=== PATIENT | male | born 1980 | race Caucasian/White ===

== ENCOUNTER 2020-10-10 09:56 | Emergency (ER) | payer OTHER ==
[2020-10-10] MEDS ORDERED: BABY ASPIRIN 81 MG CHEW PO ONE (10:51)
[2020-10-10] MEDS ORDERED: Pepcid 20 MG VIAL IV ONE ×2 (10:51→10:55)
[2020-10-10] MEDS ORDERED: BABY ASPIRIN 81 MG CHEW ONE (10:55)
[2020-10-10 10:57] LABS: BASOPHIL % 0.6 % (0.0-0.4); Basophil (Absolute #) 0.03 (0-0.4); Eosinophil % 2.1 % (0.00-5.0); Eosinophil (Absolute #) 0.11 (0-0.5); Hematocrit 49.7 % (42-50); Hemoglobin 17.2 gm/dl (12.5-18.0); Lymphocyte (Absolute #) 1.52 (1.0-4.6); Lymphocytes % 29.6 % (24.0-44.0); Mean Cell Volume 84.7 fl (78-100); Mean Corpuscular Hemoglobin 29.3 pg (26-32); Mean Corpuscular Hgb Concent. 34.6 g/dl (32-36); Mean Platelet Volume 10.7 fl (7.5-11.0); Monocyte (Absolute #) 0.47 (0.0-1.3); Monocytes % 9.2 % (0.0-12.0); Neutrophil % 58.5 % (36.0-66.0); Platelet Count 217 K/mm3 (150-450); Red Blood Count 5.87 M/mm3 (4.1-5.6); Red Cell Distribution Width 13.4 % (11.5-14.0); White Blood Count 5.1 K/mm3 (4.0-10.5)
[2020-10-10 11:13] LABS: ALBUMIN 4.7 g/dL (3.5-5.0); ALKALINE PHOSPHATASE 67 U/L (38-126); ANION GAP 10.6 MEQ/L (5-15); BLOOD UREA NITROGEN 13 mg/dL (9-20); CHLORIDE 104 mmol/L (98-107); Calcium 9.7 mg/dL (8.4-10.2); Carbon Dioxide 28 mmol/L (22-30); Creatinine 1 0.86 mg/dL (0.66-1.25); EST GLOMERULAR FILTRATION RATE > 60.0 ML/MIN; Glucose 116 mg/dL (74-106); NT PRO BNP 48.5 pg/mL (0-450); Potassium 3.7 mmol/L (3.5-5.1); SGOT/AST 39 U/L (17-59); SGPT/ALT 25 U/L (0-50); SODIUM 139 mmol/L (137-145)
[2020-10-10 11:37] VITALS: O2SAT 98
--- NOTE | 2020-10-10 12:23 | ERPHSYRPT ---
- History of Present Illness Time Seen by Provider: 10/10/20 10:10 Historian: patient Exam Limitations: no limitations Patient Subjective Stated Complaint: Pt states "I have had chest pain since yesterday and I woke up this morning and have no taste." Triage Nursing Assessment: Pt presented alert and oriented X 3, skin pwd. Pt ambulates with an upright steady gait, able to speak in clear full sentences pt in no apparent respiratory distress Pt resting comfortably on the bed. Physician History: 40 years old male presented in the ER with chief complaint of left-sided chest pain since yesterday off-and-on, mild to moderate intensity without any significant aggravating or relieving factors. Denies associated palpitations or shortness of breath but has some pain with deep breathing. Has subjective feeling of fever and chills since yesterday along with loss of taste this morning with generalized weakness fatigue and body aches. Does not know any known sick COVID-19 contact. No abdominal pain nausea or vomiting. Timing/Duration: yesterday, sudden, worse Quality: aching Location: substernal Chest Pain Radiation: no radiation Severity of Pain-Max: moderate Severity of Pain-Current: mild Modifying Factors: Improves With: nothing Associated Symptoms: hurts to breathe, chills, fever, fatigue, weakness, No pa lpitations, No abdominal pain, No shortness of breath, No cough Prior Chest Pain/Cardiac Workup: no prior chest pain Nitro Today/Relief: no nitro taken today Aspirin Treatment Today: no aspirin today Allergies/Adverse Reactions: UNOBTAINABLE Allergy (Verified 10/10/20 10:17) pt states he is allergic to a medication but cannot remember what it is. Home Medications: Fluticasone Propionate [Flovent 110 Mcg MDI] 1 puff IH DAILY 10/10/20 [History] Omeprazole 20 mg PO DAILY 10/10/20 [History] Hx Tetanus, Diphtheria Vaccination/Date Given: No Hx Influenza Vaccination/Date Given: No Hx Pneumococcal Vaccination/Date Given: No Immunizations Up to Date: Yes Travel Risk - International Travel Have you traveled outside of the country in past 3 weeks: No If Yes, where;: N - Coronavirus Screening Are you exhibiting any of the following symptoms?: Yes Symptoms: Cough: New Onset, Shortness of Breath, Loss of Taste or Smell Close contact with a COVID-19 positive Pt in past 14-21 Days: No - Review of Systems Constitutional: Fever, Chills, Fatigue, Malaise, Weakness Eyes: No Symptoms Ears, Nose, & Throat: No Symptoms Respiratory: No Symptoms Cardiac: Chest Pain Abdominal/Gastrointestinal: No Symptoms Genitourinary Symptoms: No Symptoms Musculoskeletal: Myalgias Skin: No Symptoms Neurological: No Symptoms Psychological: No Symptoms Endocrine: No Symptoms Hematologic/Lymphatic: No Symptoms Immunological/Allergic: No Symptoms - Past Medical History Pertinent Past Medical History: Yes Other Medical History: asthma. cva. gerd - Past Surgical History Past Surgical History: No - Social History Smoking Status: Never smoker Exposure to second hand smoke: No Drug Use: none Patient Lives Alone: No - Nursing Vital Signs Nursing Vital Signs: Initial Vital Signs Temperature 99.2 F 10/10/20 10:07 Pulse Rate 66 10/10/20 10:07 Respiratory Rate 22 10/10/20 10:07 Blood Pressure 135/85 10/10/20 10:07 O2 Sat by Pulse Oximetry 97 10/10/20 10:07 Pain Scale Pain Intensity 0 - Physical Exam General Appearance: no apparent distress, alert Eye Exam: PERRL/EOMI, eyes nml inspection Ears, Nose, Throat Exam: normal ENT inspection, TMs normal, pharynx normal Neck Exam: normal inspection, non-tender, supple, full range of motion Respiratory Exam: normal breath sounds, lungs clear, No chest tenderness Cardiovascular Exam: regular rate/rhythm, normal heart sounds Gastrointestinal/Abdomen Exam: soft, normal bowel sounds, No tenderness Back Exam: normal inspection, normal range of motion Extremity Exam: normal inspection, normal range of motion Neurologic Exam: alert, oriented x 3, cooperative Skin Exam: normal color, warm SpO2 Interpretation: normal SpO2: 98 O2 Delivery: Room Air - Course EKG Interpreted by Me: RATE (63), Sinus Rhythm, NORMAL AXIS, NORMAL INTERVALS, NORMAL QRS Ordered Tests: Active Orders 24 hr Category Date Time Status Accounting Technician STAT Care 10/10/20 10:52 Active EKG-ER Only STAT Care 10/10/20 10:51 Active IV Insertion STAT Care 10/10/20 10:51 Active CHEST 1 VIEW (PORTABLE) Stat Exams 10/10/20 10:51 Taken CBC W DIFF Stat Lab 10/10/20 10:51 Completed CMP Stat Lab 10/10/20 10:51 Completed D-DIMER QUANTITATIVE Stat Lab 10/10/20 10:51 Completed NT PRO BNP Stat Lab 10/10/20 10:51 Completed TROPONIN Q3H Lab 10/10/20 11:00 Completed TROPONIN Q3H Lab 10/10/20 13:11 Completed TROPONIN Q3H Lab 10/10/20 17:00 Ordered TROPONIN Q3H Lab 10/10/20 20:00 Ordered TROPONIN Q3H Lab 10/10/20 23:00 Ordered Medication Summary Discontinued Medications Generic Name Dose Route Start Last Admin Trade Name Freq PRN Reason Stop Dose Admin Aspirin 324 mg 10/10/20 10:51 10/10/20 10:56 Baby Aspirin 81 Mg Chew PO 10/10/20 10:52 324 mg STAT ONE Administration Aspirin Confirm 10/10/20 10:55 Baby Aspirin 81 Mg Chew Administered 10/10/20 10:56 Dose 324 mg .ROUTE .STK-MED ONE Famotidine 20 mg 10/10/20 10:51 10/10/20 10:56 Pepcid 20 Mg Vial IV 10/10/20 10:52 20 mg STAT ONE Administration Famotidine Confirm 10/10/20 10:55 Pepcid 20 Mg Vial Administered 10/10/20 10:56 Dose 20 mg IV .STK-MED ONE Lab/Rad Data: Laboratory Result Diagrams 10/10/20 10:51 10/10/20 10:51 Laboratory Results 10/10/20 10/10/20 10/10/20 Range/Units 13:11 11:00 10:51 WBC (4.0-10.5) K/mm3 RBC (4.1-5.6) M/mm3 Hgb (12.5-18.0) gm/dl Hct (42-50) % MCV (78-100) fl MCH (26-32) pg MCHC (32-36) g/dl RDW (11.5-14.0) % Plt Count (150-450) K/mm3 MPV (7.5-11.0) fl Gran % (36.0-66.0) % Eos # (Auto) (0-0.5) Absolute Lymphs (auto) (1.0-4.6) Absolute Monos (auto) (0.0-1.3) Lymphocytes % (24.0-44.0) % Monocytes % (0.0-12.0) % Eosinophils % (0.00-5.0) % Basophils % (0.0-0.4) % Absolute Granulocytes (1.4-6.9) Basophils # (0-0.4) D-Dimer 251 (215-500) ng/mL Sodium (137-145) mmol/L Potassium (3.5-5.1) mmol/L Chloride (98-107) mmol/L Carbon Dioxide (22-30) mmol/L Anion Gap (5-15) MEQ/L BUN (9-20) mg/dL Creatinine (0.66-1.25) mg/dL Estimated GFR ML/MIN Glucose (74-106) mg/dL Calcium (8.4-10.2) mg/dL Total Bilirubin (0.2-1.3) mg/dL AST (17-59) U/L ALT (0-50) U/L Alkaline Phosphatase (38-126) U/L Troponin I < 0.012 < 0.012 (0.000-0.034) ng/mL NT-Pro-B Natriuret Pep (0-450) pg/mL Serum Total Protein (6.3-8.2) g/dL Albumin (3.5-5.0) g/dL 10/10/20 10/10/20 Range/Units 10:51 10:51 WBC 5.1 (4.0-10.5) K/mm3 RBC 5.87 H (4.1-5.6) M/mm3 Hgb 17.2 (12.5-18.0) gm/dl Hct 49.7 (42-50) % MCV 84.7 (78-100) fl MCH 29.3 (26-32) pg MCHC 34.6 (32-36) g/dl RDW 13.4 (11.5-14.0) % Plt Count 217 (150-450) K/mm3 MPV 10.7 (7.5-11.0) fl Gran % 58.5 (36.0-66.0) % Eos # (Auto) 0.11 (0-0.5) Absolute Lymphs (auto) 1.52 (1.0-4.6) Absolute Monos (auto) 0.47 (0.0-1.3) Lymphocytes % 29.6 (24.0-44.0) % Monocytes % 9.2 (0.0-12.0) % Eosinophils % 2.1 (0.00-5.0) % Basophils % 0.6 (0.0-0.4) % Absolute Granulocytes 3.00 (1.4-6.9) Basophils # 0.03 (0-0.4) D-Dimer (215-500) ng/mL Sodium 139 (137-145) mmol/L Potassium 3.7 (3.5-5.1) mmol/L Chloride 104 (98-107) mmol/L Carbon Dioxide 28 (22-30) mmol/L Anion Gap 10.6 (5-15) MEQ/L BUN 13 (9-20) mg/dL Creatinine 0.86 (0.66-1.25) mg/dL Estimated GFR > 60.0 ML/MIN Glucose 116 H (74-106) mg/dL Calcium 9.7 (8.4-10.2) mg/dL Total Bilirubin 0.50 (0.2-1.3) mg/dL AST 39 (17-59) U/L ALT 25 (0-50) U/L Alkaline Phosphatase 67 (38-126) U/L Troponin I (0.000-0.034) ng/mL NT-Pro-B Natriuret Pep 48.5 (0-450) pg/mL Serum Total Protein 8.0 (6.3-8.2) g/dL Albumin 4.7 (3.5-5.0) g/dL - Progress Progress: improved Air Movement: good Progress Note: 10/10/20 14:30 4 years old is evaluated for chest pain since yesterday. EKG showed normal sinus rhythm with no acute ST elevations or depressions. Negative troponins x2. Negative D-dimers. Chest x-ray negative for any acute cardiopulmonary findings. Normal white count. Grossly unremarkable chemistries. Patient is feeling better on reevaluation. No obvious respiratory distress. I have obtained COVID-19 testing which is pending now. I believe his symptoms could be a viral etiology/suspected COVID-19/viral syndrome. Recommended outpatient follow-up. At this point do not think patient needs to be hospitalized and needs any work-up and is stable for discharge with outpatient follow-up. Discussed signs symptoms of worsening needing return to ER which he seems understanding Blood Culture(s) Obtained: No Antibiotics given: No Counseled pt/family regarding: lab results, diagnosis, need for follow-up - Departure Departure Disposition: Home Clinical Impression: Atypical chest pain, Suspected COVID-19 virus infection Condition: Stable Critical Care Time: No Referrals: [facility] [Primary Care Provider] - Follow Up with PCP/3 days Instructions: Chest Pain (DC) Additional Instructions: Use contact/droplet precautions all the time. Self quarantine until your COVID- 19 test is back. Follow-up with primary care for reevaluation. Return to ER for any worsening.
[2020-10-10 14:03] VITALS: BP 120/76; PULSE 78
--- NOTE | 2020-10-10 17:59 | XRAY ---
Indication: Suspect Covid 19. Comparison: None Portable chest demonstrates normal heart, lungs, and bony thorax.
== END 2020-10-10 14:40 | disposition home or self-care (01) ==
LOC: ED 09:56
DX: R07.89 Other chest pain (principal); Z20.828 Contact with and (suspected) exposure to other viral communicable diseases; R50.9 Fever, unspecified; R53.83 Other fatigue
CPT/HCPCS: 36000; 36415; 71045; 80053; 83880; 84484; 85025; 85379; 93005; 93041; 96374; 99284; U0003; A9270-GY

== ENCOUNTER 2021-12-21 05:47 | Day surgery (SDC) | payer OTHER ==
[2021-12-21 06:22] VITALS: O2SAT 95
[2021-12-21] MEDS ORDERED: Lactated Ringers 1,000 ML IV SCH (06:30)
[2021-12-21] MEDS ORDERED: DIPRIVAN 200 MG/20 ML IV ONE ×2 (07:24→07:41)
[2021-12-21] MEDS ORDERED: Versed 2 MG/2 ML Injection ONE (07:24)
[2021-12-21 08:30] VITALS: BP 120/72; PULSE 66
--- NOTE | 2021-12-21 10:11 | OP ---
SURGERY DATE/TIME: 12/21/2021 5504 PREOPERATIVE DIAGNOSIS: Chronic gastritis. POSTOPERATIVE DIAGNOSIS: Mild antral gastritis. PROCEDURE: Esophagogastroduodenoscopy with biopsy using cold biopsy forceps. SURGEON: Dr. Nye. ANESTHESIA: Medications were given by the anesthesia department. BRIEF HISTORY: The patient is a 41-year-old white male patient who presents now with having problems with chronic gastritis. He is on omeprazole 40 mg a day. He reports he has been having problems for the last year and a half. He does report he takes ibuprofen for headaches. He gets migraine headaches that he gets approximately once a week. The patient is felt the need to have endoscopic evaluation. He was appraised of the risks of the procedure including the risk of perforation, phlebitis, untoward reaction to medication, bleeding and missed lesions. The patient verbalized his understanding and desired to have the procedure performed. DESCRIPTION OF PROCEDURE: The patient was given the medications by the anesthesia department. He had continuous pulse oximetry, ECG monitoring, intermittent blood pressure monitoring during the examination. He was placed in the left lateral decubitus position. A bite block was placed. The flexible Olympus gastroscope was used to intubate the oropharynx. A view of the larynx was obtained and was normal. The scope was easily introduced in the esophagus which appeared to be normal throughout its length. The stomach was entered where normal gastric rugal folds were seen and these distended nicely with insufflation of air. The scope was passed along the greater curvature of the stomach to the antrum. The pylorus was encountered and intubated. The duodenum inspected found to be normal. The scope is withdrawn towards the stomach. A retroflex view was obtained of the lesser curvature, fundus and cardia regions of the stomach and these appeared to be essentially normal. The scope was then redirected towards the gastric antrum and biopsies were obtained using cold biopsy technique to rule out the presence of underlying Helicobacter pylori-type organisms. The scope was then removed from the patient who tolerated the procedure well and was sent back to the outpatient recovery in good condition.
== END 2021-12-21 08:35 | disposition home or self-care (01) ==
LOC: SDC 05:47
PROVIDERS: ATTEND Family Medicine
DX: K29.50 Unspecified chronic gastritis without bleeding (principal)
CPT/HCPCS: J2250; J2704

== ENCOUNTER 2022-02-06 21:55 | Emergency (ER) | payer OTHER ==
[2022-02-06] MEDS ORDERED: Zofran 4 MG/2 ML VIAL IV ONE (22:22)
[2022-02-06] MEDS ORDERED: Sodium Chloride 0.9% 1000 ML 1,000 ML IV STA (22:22)
[2022-02-06] MEDS ORDERED: SUBLIMAZE 100 MCG/2 ML IV ONE (22:22)
--- NOTE | 2022-02-06 22:28 | ERPHSYRPT ---
- History of Present Illness Time Seen by Provider: 02/06/22 22:00 Source: patient, EMS Exam Limitations: no limitations Patient Subjective Stated Complaint: Pt states " I fell off my concrete steps and fell back, my neck, R shoulder, and back pain" Triage Nursing Assessment: Pt presents to ED via ambulance, pt fell back off 3 concrete steps and landed on his back and head, pt denies LOC, pt c/o neck pain, back pain, and R shoulder pain, pt has C collar in place and is on a back board, Pt is c/o numbness in bilateral toes, pt able to move R toes but can only move the first digit on L foot, skin color pink warm, and dry, Pupils PERRL, Pt alert and oriented X3, bilateral pedal pulses +2 Physician History: 41-year-old male with a history of GERD, tripped on concrete step and fell backward hitting his head neck and back, was unable to get up. Patient does have history of stroke with left upper and lower extremity numbness at baseline. He is complaining of pain radiating from neck down to the tailbone and some on the right shoulder. Intact movements of right shoulder. No abdominal, chest pain or difficulty breathing. No nausea or vomiting. Occurred: just prior to arrival Reason for Fall: tripped Injuries/Pain Location: head, neck, upper extremity, back Loss of Consciousness: no loss of consciousness Quality: sharpness Severity of Pain-Max: severe Severity of Pain-Current: moderate Modifying Factors: Worsens With: movement Associated Symptoms (Fall): muscle spasms Allergies/Adverse Reactions: No Known Drug Allergies Allergy (Unverified 12/21/21 06:45) Home Medications: Omeprazole 40 mg PO DAILY 10/10/20 [History] Cholecalciferol (Vitamin D3) [Vitamin D] 50,000 unit PO WEEKLY 12/17/21 [History] Hx Tetanus, Diphtheria Vaccination/Date Given: No Hx Influenza Vaccination/Date Given: No Hx Pneumococcal Vaccination/Date Given: No Immunizations Up to Date: No Travel Risk - International Travel Have you traveled outside of the country in past 3 weeks: No - Coronavirus Screening Are you exhibiting any of the following symptoms?: No - Vaccine Status Have you recieved a Covid-19 vaccination: Yes 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: [employer] - Review of Systems Constitutional: No Symptoms Eyes: No Symptoms Ears, Nose, & Throat: No Symptoms Respiratory: No Symptoms Cardiac: No Symptoms Abdominal/Gastrointestinal: No Symptoms Genitourinary Symptoms: No Symptoms Musculoskeletal: Back Pain, Neck Pain, Injury Skin: No Symptoms Neurological: Headache Psychological: No Symptoms Endocrine: No Symptoms Hematologic/Lymphatic: No Symptoms Immunological/Allergic: No Symptoms - Past Medical History Pertinent Past Medical History: Yes Neurological History: Stroke ENT History: No Pertinent History Cardiac History: No Pertinent History Respiratory History: Asthma Endocrine Medical History: No Pertinent History Musculoskeletal History: No Pertinent History GI Medical History: GERD History: No Pertinent History Psycho-Social History: No Pertinent History Male Reproductive Disorders: No Pertinent History Other Medical History: asthma. cva. 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 - Social History Smoking Status: Current every day smoker Exposure to second hand smoke: No Drug Use: none Patient Lives Alone: No - Nursing Vital Signs Nursing Vital Signs: Initial Vital Signs Temperature 97.8 F 02/06/22 21:58 Pulse Rate 77 02/06/22 21:58 Respiratory Rate 14 02/06/22 21:58 Blood Pressure 129/93 02/06/22 21:58 O2 Sat by Pulse Oximetry 98 02/06/22 21:58 Pain Scale Pain Intensity 7 - Ryley Coma Score Best Eye Response (Ryley): (4) open spontaneously Best Verbal Response (Lyons): (5) oriented Best Motor Response (Lyons): (6) obeys commands Ryley Total: 15 - Physical Exam General Appearance: no apparent distress, alert, anxiety Head Injury: no evidence of injury, No Santizo's Sign Eye Exam: PERRL/EOMI, eyes nml inspection ENT Exam: airway nml, No evidence of ENT injury Neck Exam: supple, trachea midline, normal alignment, c-collar in place Respiratory/Chest Exam: normal breath sounds, respiratory distress, No chest tenderness Cardiovascular Exam: normal heart sounds, regular rate/rhythm Gastrointestinal Exam: soft, normal bowel sounds, No tenderness Back Exam: normal inspection, vertebral tenderness (Thoracic and lumbar spine), No CVA tenderness Extremity Exam: normal inspection, normal range of motion, capillary refill <3 sec, pelvis stable Neurologic Exam: alert, oriented x 3, cooperative, machine stemmer 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 tested, normal mood/affect, nml cerebellar function, sensation nml Skin Exam: normal color SpO2 Interpretation: normal SpO2: 98 O2 Delivery: Room Air Ordered Tests: Active Orders 24 hr Category Date Time Status IV Insertion STAT Care 02/06/22 22:22 Active NPO (ED) STAT Care 02/06/22 22:22 Active ABDOMEN AND PELVIS W CONTRAST [CT] Stat Exams 02/06/22 22:21 Taken CERVICAL SPINE WO CONTRAST [CT] Stat Exams 02/06/22 22:21 Taken CHEST WITH CONTRAST [CT] Stat Exams 02/06/22 22:22 Taken HEAD WITHOUT CONTRAST [CT] Stat Exams 02/06/22 22:21 Taken LUMBAR SPINE W/O [CT] Stat Exams 02/06/22 22:22 Taken THORACIC SPINE W/O CONTRAST [CT] Stat Exams 02/06/22 22:22 Taken CBC W DIFF Stat Lab 02/06/22 22:29 Completed CMP Stat Lab 02/06/22 22:29 Completed LIPASE Stat Lab 02/06/22 22:29 Completed UA W/RFX UR CULTURE Stat Lab 02/06/22 23:42 Ordered Medication Summary Discontinued Medications Generic Name Dose Route Start Last Admin Trade Name Liseth PRN Reason Stop Dose Admin Fentanyl Citrate 50 mcg 02/06/22 22:22 02/06/22 22:31 Fentanyl Citrate 100 Mcg/2 Ml* Vial IV 02/06/22 22:23 50 mcg STAT ONE Administration Fentanyl Citrate Confirm 02/06/22 22:29 Fentanyl Citrate 100 Mcg/2 Ml* Vial Administered 02/06/22 22:30 Dose 100 mcg .ROUTE .STK-MED ONE Sodium Chloride 1,000 mls @ 999 mls/hr 02/06/22 22:22 02/06/22 22:31 Sodium Chloride 0.9% 1000 Ml IV 02/06/22 23:22 999 mls/hr .Q1H1M STA Administration Sodium Chloride Confirm 02/06/22 22:30 Sodium Chloride 0.9% 1000 Ml Administered 02/06/22 22:31 Dose 1,000 mls @ ud .ROUTE .STK-MED ONE Ondansetron HCl 4 mg 02/06/22 22:22 02/06/22 23:52 Ondansetron Hcl 4 Mg/2 Ml Vial IV 02/06/22 22:23 Not Given STAT ONE Lab/Rad Data: Laboratory Result Diagrams 02/06/22 22:29 02/06/22 22:29 Laboratory Results 02/06/22 02/06/22 Range/Units 22:29 22:29 WBC 7.1 (4.0-10.5) K/mm3 RBC 5.44 (4.1-5.6) M/mm3 Hgb 16.5 (12.5-18.0) gm/dl Hct 46.4 (42-50) % MCV 85.3 (78-100) fl MCH 30.3 (26-32) pg MCHC 35.6 (32-36) g/dl RDW 13.4 (11.5-14.0) % Plt Count 216 (150-450) K/mm3 MPV 10.4 (7.5-11.0) fl Gran % 48.9 (36.0-66.0) % Eos # (Auto) 0.15 (0-0.5) Absolute Lymphs (auto) 2.81 (1.0-4.6) Absolute Monos (auto) 0.60 (0.0-1.3) Lymphocytes % 39.9 (24.0-44.0) % Monocytes % 8.5 (0.0-12.0) % Eosinophils % 2.1 (0.00-5.0) % Basophils % 0.6 (0.0-0.4) % Absolute Granulocytes 3.45 (1.4-6.9) Basophils # 0.04 (0-0.4) Sodium 138 (137-145) mmol/L Potassium 3.5 (3.5-5.1) mmol/L Chloride 101 (98-107) mmol/L Carbon Dioxide 25 (22-30) mmol/L Anion Gap 14.5 (5-15) MEQ/L BUN 10 (9-20) mg/dL Creatinine 0.92 (0.66-1.25) mg/dL Estimated GFR > 60.0 ML/MIN Glucose 69 L (74-106) mg/dL Calcium 9.4 (8.4-10.2) mg/dL Total Bilirubin 0.60 (0.2-1.3) mg/dL AST 33 (17-59) U/L ALT 32 (0-50) U/L Alkaline Phosphatase 56 (38-126) U/L Serum Total Protein 7.4 (6.3-8.2) g/dL Albumin 4.5 (3.5-5.0) g/dL Lipase 158 (23-300) U/L - Progress Progress: improved Progress Note: 02/06/22 23:57 41-year-old is evaluated for fall with back pain. Trauma scans are obtained which are negative for any acute trauma related findings. C-collar is removed and is able to move his neck in all direction without any limitation. I believe patient has contusion, recommended supportive care. Counseled pt/family regarding: lab results, diagnosis, need for follow-up, rad results - Departure Departure Disposition: Home Clinical Impression: Back contusion, Scalp contusion, Fall Condition: Stable Critical Care Time: No Referrals: [facility] MD [Primary Care Provider] - Follow up/PCP as directed (1-2 days for reevaluation) Instructions: Contusion (DC), Closed Head Injury (DC) Additional Instructions: Take Tylenol/ibuprofen as needed. Follow head injury instructions and return to ER for any worsening.
[2022-02-06] MEDS ORDERED: SUBLIMAZE 100 MCG/2 ML ONE (22:29)
[2022-02-06] MEDS ORDERED: Sodium Chloride 0.9% 1000 ML 1,000 ML ONE (22:30)
[2022-02-06 22:32] LABS: Absolute Neutrophil Ct (ANC) 3.45 (1.4-6.9); Basophil (Absolute #) 0.04 (0-0.4); Eosinophil % 2.1 % (0.00-5.0); Eosinophil (Absolute #) 0.15 (0-0.5); Hematocrit 46.4 % (42-50); Hemoglobin 16.5 gm/dl (12.5-18.0); Lymphocyte (Absolute #) 2.81 (1.0-4.6); Lymphocytes % 39.9 % (24.0-44.0); Mean Cell Volume 85.3 fl (78-100); Mean Corpuscular Hemoglobin 30.3 pg (26-32); Mean Corpuscular Hgb Concent. 35.6 g/dl (32-36); Mean Platelet Volume 10.4 fl (7.5-11.0); Monocytes % 8.5 % (0.0-12.0); Neutrophil % 48.9 % (36.0-66.0); Platelet Count 216 K/mm3 (150-450); Red Blood Count 5.44 M/mm3 (4.1-5.6); Red Cell Distribution Width 13.4 % (11.5-14.0); White Blood Count 7.1 K/mm3 (4.0-10.5)
[2022-02-06 22:43] LABS: ALBUMIN 4.5 g/dL (3.5-5.0); ALKALINE PHOSPHATASE 56 U/L (38-126); ANION GAP 14.5 MEQ/L (5-15); BLOOD UREA NITROGEN 10 mg/dL (9-20); CHLORIDE 101 mmol/L (98-107); Calcium 9.4 mg/dL (8.4-10.2); Carbon Dioxide 25 mmol/L (22-30); Creatinine 1 0.92 mg/dL (0.66-1.25); EST GLOMERULAR FILTRATION RATE > 60.0 ML/MIN; Glucose 69 mg/dL (74-106); LIPASE 158 U/L (23-300); Potassium 3.5 mmol/L (3.5-5.1); SGOT/AST 33 U/L (17-59); SGPT/ALT 32 U/L (0-50); SODIUM 138 mmol/L (137-145); Total Protein 7.4 g/dL (6.3-8.2)
[2022-02-07 00:16] LABS: Appearance CLEAR (CLEAR); Bilirubin SMALL (NEGATIVE); Dipstick done @ ? MAIN LAB; Glucose 100 mg/dL (NEGATIVE); Ketones SMALL (NEGATIVE); Nitrite NEGATIVE (NEGATIVE); Ph 7.5 (5-6); Protein,Urine Dip NEGATIVE (Negative); RBC NEGATIVE Ery/ul (0-5); Specific Gravity 1.015 (1.005-1.025); Urobilinogen 0.2 mg/dL (0-1)
[2022-02-07 00:28] VITALS: BP 120/79; PULSE 58; O2SAT 100
[2022-02-07 01:34] LABS: Urine Cultured Indicated? NO
--- NOTE | 2022-02-07 09:06 | XRAY ---
Indication: Head trauma. Status post fall. Multiple contiguous axial images obtained through the head without contrast. Comparison: None Normal appearing brain parenchyma, ventricles, and bony calvarium. Minimal mucosal thickening both maxillary sinuses. Mastoid air cells are clear. Impression: Normal CT head without contrast exam. Incidental paranasal sinus disease. Comment: Preliminary interpretation made by [facility]. No critical discrepancy.
--- NOTE | 2022-02-07 09:08 | XRAY ---
Indication: Head trauma. Status post fall. Multiple contiguous axial images obtained through the cervical spine. Sagittal and coronal reformatted images obtained. Comparison: None Axial images negative for acute fracture, suspicious bony lesions, or spinal canal stenosis. Minimal C5-C6 degenerative endplate spurring. Facets are symmetric. Sagittal and coronal reformatted images demonstrates normal alignment with vertebral body heights/disc spaces maintained. No acute compression fracture, subluxation, or jumped facet. Normal appearing craniocervical junction. Visualized noncontrasted soft tissues are unremarkable. Impression: Minimal C5-C6 degenerative changes. Remaining CT cervical spine is normal. Comment: Preliminary interpretation made by [facility]. No critical discrepancy.
--- NOTE | 2022-02-07 09:11 | XRAY ---
Indication: Trauma. Status post fall. Multiple contiguous axial images obtained through the chest using 100 cc Isovue 370 contrast. Comparison: None Lungs demonstrates mild bilateral dependent atelectasis and small right upper lobe calcified granuloma. Remaining lungs inflated and clear. Heart is not enlarged. Aorta is normal in course and caliber. Small right suprahilar calcified nodes. No pathologic mediastinal/hilar lymphadenopathy. Bony thorax demonstrates minimal degenerative changes throughout the spine. Impression: 1. Minimal multilevel degenerative spondylosis and old granulomatous disease. 2. Remaining CT chest with contrast exam is negative. Comment: Preliminary interpretation made by [facility]. No critical discrepancy.
--- NOTE | 2022-02-07 09:16 | XRAY ---
Indication: Trauma. Status post fall. Multiple contiguous axial images obtained through the abdomen and pelvis chest using 100 cc Isovue 370 contrast. Comparison: None Stomach is distended with food/fluid. Noncontrasted stomach and bowel loops appear nonobstructed. Appendectomy reported. Urinary bladder is markedly distended. Mild diffuse fatty liver. Remaining liver, gallbladder, pancreas, spleen, adrenal glands, kidneys, ureters, bladder, and aorta are unremarkable. No pathologic retroperitoneal lymphadenopathy. Osseous structures intact with minimal degenerative changes throughout the thoracolumbar spine and incidental 5 mm left femur head bone island. Impression: 1. Markedly distended urinary bladder. Rule out outlet obstruction versus neurogenic bladder. 2. Fatty liver. 3. Remaining CT abdomen/pelvis with contrast exam is negative. Comment: Preliminary interpretation made by [facility]. No critical discrepancy.
--- NOTE | 2022-02-07 09:19 | XRAY ---
Indication: Trauma. Status post fall. Multiple contiguous axial images obtained through the thoracic spine. Sagittal and coronal reformatted images obtained. Comparison: None. There is a thoracic radiograph June 07, 2013. Axial images negative for acute fracture, suspicious bony lesions, or spinal canal stenosis. Minimal T8-T11 anterior endplate spurring. Sagittal and coronal reformatted images demonstrates normal alignment with vertebral body heights/disc spaces maintained. No acute compression fracture or subluxation. CT chest reported separately. Impression: Again minimal T8-T11 anterior endplate spurring. Remaining CT thoracic spine is negative. Comment: Preliminary interpretation made by [facility]. No critical discrepancy.
--- NOTE | 2022-02-07 09:21 | XRAY ---
Indication: Trauma. Status post fall. Multiple contiguous axial images obtained through the lumbar spine. Sagittal and coronal reformatted images obtained. Comparison: None. There is a lumbar radiograph June 07, 2013. Axial images negative for acute fracture, suspicious bony lesions, or spinal canal stenosis. Mild broad-based L5-S1 disc bulge. Facets are symmetric. Sagittal and coronal reformatted images demonstrates normal alignment with L5-S1 disc space narrowing. Remaining vertebral body heights/disc spaces maintained. No acute compression fracture or subluxation. CT abdomen/pelvis reported separately. Impression: New L5-S1 degenerative disc disease. Remaining CT lumbar spine is negative. Comment: Preliminary interpretation made by [facility]. No critical discrepancy.
== END 2022-02-07 00:28 | disposition home or self-care (01) ==
LOC: ED 21:55
DX: S30.0XXA Contusion of lower back and pelvis, initial encounter (principal); S00.03XA Contusion of scalp, initial encounter; W10.8XXA Fall (on) (from) other stairs and steps, initial encounter; M54.50 Low back pain, unspecified; R51.9 Headache, unspecified; M25.511 Pain in right shoulder; I69.398 Other sequelae of cerebral infarction; R20.0 Anesthesia of skin; Z72.0 Tobacco use; K21.9 Gastro-esophageal reflux disease without esophagitis
CPT/HCPCS: 36000; 36415; 70450; 71260; 72125; 72128; 72131; 74177; 80053; 81015; 83690; 85025; 96360; 96374; 99284; J3010

== ENCOUNTER 2022-10-08 18:01 | Observation (INO) | payer OTHER ==
[2022-10-08] MEDS ORDERED: MORPHINE SULFATE 4 MG INJ IV ONE (18:03)
[2022-10-08] MEDS ORDERED: BABY ASPIRIN 81 MG CHEW PO ONE (18:03)
[2022-10-08] MEDS ORDERED: Zofran 4 MG/2 ML VIAL IV ONE (18:03)
[2022-10-08] MEDS ORDERED: Zofran 4 MG/2 ML VIAL ONE (18:12)
[2022-10-08] MEDS ORDERED: BABY ASPIRIN 81 MG CHEW ONE (18:12)
[2022-10-08] MEDS ORDERED: MORPHINE SULFATE 4 MG INJ ONE (18:13)
[2022-10-08 18:18] LABS: Absolute Neutrophil Ct (ANC) 3.82 x10^3/uL (1.4-6.9); Basophil (Absolute #) 0.08 x10^3/uL (0-0.4); Eosinophil % 1.6 % (0.00-5.0); Hematocrit 45.1 % (42-50); Hemoglobin 15.7 g/dL (12.5-18.0); Lymphocyte (Absolute #) 1.62 x10^3/uL (1.0-4.6); Lymphocytes % 26.6 % (24.0-44.0); Mean Cell Volume 83.8 fL (78-100); Mean Corpuscular Hemoglobin 29.2 pg (26-32); Mean Corpuscular Hgb Concent. 34.8 g/dL (32-36); Mean Platelet Volume 10.2 fL (7.5-11.0); Monocyte (Absolute #) 0.45 x10^3/uL (0.0-1.3); Monocytes % 7.4 % (0.0-12.0); Neutrophil % 62.9 % (36.0-66.0); Platelet Count 236 x10^3/uL (150-450); Red Blood Count 5.38 x10^6/uL (4.1-5.6); Red Cell Distribution Width 12.6 % (11.5-14.0); White Blood Count 6.1 x10^3/uL (4.0-10.5)
--- NOTE | 2022-10-08 18:38 | ERPHSYRPT ---
- History of Present Illness Time Seen by Provider: 10/08/22 18:11 Historian: patient Exam Limitations: no limitations Patient Subjective Stated Complaint: Pt was at work and had just left the restroom when he suddenly broke out into a cold sweat, got lightheaded, had some sharp chest pain Triage Nursing Assessment: Pt brought self to the ER, vitals wnl, rates pain as 9.5/10 in his chest, states that he is having stabbing pains and it is going up to his shoulder now and to his back and down his arm, bounding pulses, skin n/w/d, hx of a stroke but doesn't take any meds for it Physician History: 42 years old male with history of previous stroke, no residual weakness but some numbness on the left side, not on any medication presented to the ER with chief complaint of substernal chest pain sudden onset after he use restroom, got lightheaded, sweaty and sharp stabbing chest pain 10/10 intensity with some radiation to the left arm, no significant aggravating or relieving factors. Denies palpitations or shortness of breath. No previous history of coronary artery disease. Timing/Duration: hour(s) (0.5), constant, sudden, worse Activities at Onset: other Quality: sharpness Location: substernal, central Chest Pain Radiation: arm Severity of Pain-Max: severe Severity of Pain-Current: severe Modifying Factors: Improves With: nothing Associated Symptoms: denies symptoms Prior Chest Pain/Cardiac Workup: no prior chest pain, no prior cardiac workup Nitro Today/Relief: no nitro taken today Aspirin Treatment Today: no aspirin today Allergies/Adverse Reactions: ketorolac [From Toradol] Allergy (Verified 10/08/22 18:26) topiramate [From Topamax] Allergy (Verified 10/08/22 18:26) Home Medications: Naproxen 500 mg [Naprosyn 500 MG] 500 mg PO BID 10/08/22 [History] Hx Tetanus, Diphtheria Vaccination/Date Given: No Hx Influenza Vaccination/Date Given: No Hx Pneumococcal Vaccination/Date Given: No Travel Risk - International Travel Have you traveled outside of the country in past 3 weeks: No - Coronavirus Screening Are you exhibiting any of the following symptoms?: No Close contact with a COVID-19 positive Pt in past 14-21 Days: No - Vaccine Status Have you recieved a Covid-19 vaccination: Yes 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: [employer] - Review of Systems Constitutional: No Symptoms Eyes: No Symptoms Ears, Nose, & Throat: No Symptoms Respiratory: No Symptoms Cardiac: Chest Pain Abdominal/Gastrointestinal: No Symptoms Genitourinary Symptoms: No Symptoms Musculoskeletal: No Symptoms Skin: No Symptoms Neurological: No Symptoms Psychological: No Symptoms Hematologic/Lymphatic: No Symptoms Immunological/Allergic: No Symptoms - Past Medical History Pertinent Past Medical History: Yes Neurological History: Stroke ENT History: No Pertinent History Cardiac History: No Pertinent History Respiratory History: Asthma Endocrine Medical History: No Pertinent History Musculoskeletal History: No Pertinent History GI Medical History: GERD History: No Pertinent History Psycho-Social History: No Pertinent History Male Reproductive Disorders: No Pertinent History Other Medical History: asthma. cva. 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 - Social History Smoking Status: Former smoker Exposure to second hand smoke: No Drug Use: marijuana Patient Lives Alone: No - Nursing Vital Signs Nursing Vital Signs: Initial Vital Signs Temperature 97.3 F 10/08/22 18:04 Pulse Rate 87 10/08/22 18:04 Respiratory Rate 14 10/08/22 18:04 Blood Pressure 128/85 10/08/22 18:04 O2 Sat by Pulse Oximetry 97 10/08/22 18:04 Pain Scale Pain Intensity 4 - Physical Exam General Appearance: no apparent distress, alert Eye Exam: PERRL/EOMI Ears, Nose, Throat Exam: normal ENT inspection, TMs normal, pharynx normal, moist mucous membranes Neck Exam: normal inspection, non-tender, supple, full range of motion Respiratory Exam: normal breath sounds, lungs clear Cardiovascular Exam: regular rate/rhythm, normal heart sounds Gastrointestinal/Abdomen Exam: soft, normal bowel sounds, No tenderness Back Exam: normal inspection, normal range of motion Extremity Exam: normal inspection, normal range of motion Neurologic Exam: alert, oriented x 3, cooperative, 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 Tender STAT Care 10/08/22 18:03 Active EKG-ER Only STAT Care 10/08/22 18:03 Active IV Insertion STAT Care 10/08/22 18:03 Active Oxygen-ED Only Nasal Cannula 2 lpm Care 10/08/22 18:03 Active CHEST 1 VIEW (PORTABLE) Stat Exams 10/08/22 18:03 Completed CBC W DIFF Stat Lab 10/08/22 18:16 Completed CK-Creatinine Phosphokinase Stat Lab 10/08/22 18:16 Completed CMP Stat Lab 10/08/22 18:16 Completed D-DIMER QUANTITATIVE Stat Lab 10/08/22 18:16 Completed NT PRO BNP Stat Lab 10/08/22 18:16 Completed TROPONIN Q4H Lab 10/08/22 18:16 Completed TROPONIN Q4H Lab 10/08/22 21:53 Completed TROPONIN Q4H Lab 10/09/22 02:15 Ordered Transfer Order Routine Transfer 10/08/22 Ordered Medication Summary Generic Name Dose Route Start Last Admin Trade Name Freq PRN Reason Stop Dose Admin Nitroglycerin 1 gm 10/08/22 22:27 10/08/22 22:31 Nitroglycerin 1 Gm Packet TOP 10/08/22 22:28 1 gm STAT ONE Administration Discontinued Medications Generic Name Dose Route Start Last Admin Trade Name Freq PRN Reason Stop Dose Admin Al Hydrox/Mg Hydrox/Simethicone Confirm 10/08/22 21:40 Mag Hydrox/Al Hydrox/Simeth 30 Ml Udcup Administered 10/08/22 21:41 Dose 30 ml .ROUTE .STK-MED ONE Aspirin 324 mg 10/08/22 18:03 10/08/22 18:16 Aspirin 81 Mg Tab.Chew PO 10/08/22 18:04 324 mg STAT ONE Administration Aspirin Confirm 10/08/22 18:12 Aspirin 81 Mg Tab.Chew Administered 10/08/22 18:13 Dose 324 mg .ROUTE .STK-MED ONE Lidocaine HCl Confirm 10/08/22 21:39 Lidocaine Hcl 2% Viscous 15 Ml Udcup Administered 10/08/22 21:40 Dose 15 ml .ROUTE .STK-MED ONE Magnesium Hydroxide 45 ml 10/08/22 21:38 10/08/22 21:42 Mag Hydrx/Alum Hyd/Simeth/Lido 45 Ml Bottle PO 10/08/22 21:39 45 ml STAT ONE Administration Morphine Sulfate 4 mg 10/08/22 18:03 10/08/22 18:16 Morphine Sulfate 4 Mg/Ml Injection IV 10/08/22 18:04 4 mg STAT ONE Administration Morphine Sulfate Confirm 10/08/22 18:13 Morphine Sulfate 4 Mg/Ml Injection Administered 10/08/22 18:14 Dose 4 mg .ROUTE .STK-MED ONE Ondansetron HCl 4 mg 10/08/22 18:03 10/08/22 18:16 Ondansetron Hcl 4 Mg/2 Ml Vial IV 10/08/22 18:04 4 mg STAT ONE Administration Ondansetron HCl Confirm 10/08/22 18:12 Ondansetron Hcl 4 Mg/2 Ml Vial Administered 10/08/22 18:13 Dose 4 mg .ROUTE .STK-MED ONE Lab/Rad Data: Laboratory Result Diagrams 10/08/22 18:16 10/08/22 18:16 Laboratory Results 10/08/22 10/08/22 10/08/22 Range/Units 21:53 18:16 18:16 WBC (4.0-10.5) x10^3/uL RBC (4.1-5.6) x10^6/uL Hgb (12.5-18.0) g/dL Hct (42-50) % MCV (78-100) fL MCH (26-32) pg MCHC (32-36) g/dL RDW (11.5-14.0) % Plt Count (150-450) x10^3/uL MPV (7.5-11.0) fL Gran % (36.0-66.0) % Immature Gran % (Auto) (0.00-0.4) % Nucleat RBC Rel Count (0.00-0.1) % Eos # (Auto) (0-0.5) x10^3/uL Immature Gran # (Auto) (0.00-0.03) x10^3u/L Absolute Lymphs (auto) (1.0-4.6) x10^3/uL Absolute Monos (auto) (0.0-1.3) x10^3/uL Absolute Nucleated RBC (0.00-0.01) x10^3u/L Lymphocytes % (24.0-44.0) % Monocytes % (0.0-12.0) % Eosinophils % (0.00-5.0) % Basophils % (0.0-0.4) % Absolute Granulocytes (1.4-6.9) x10^3/uL Basophils # (0-0.4) x10^3/uL D-Dimer 0.22 (0.0-0.50) mg/L Sodium (137-145) mmol/L Potassium (3.5-5.1) mmol/L Chloride (98-107) mmol/L Carbon Dioxide (22-30) mmol/L Anion Gap (5-15) MEQ/L BUN (9-20) mg/dL Creatinine (0.66-1.25) mg/dL Estimated GFR ML/MIN Glucose (74-106) mg/dL Calcium (8.4-10.2) mg/dL Total Bilirubin (0.2-1.3) mg/dL AST (17-59) U/L ALT (0-50) U/L Alkaline Phosphatase (38-126) U/L Creatine Kinase (55-170) U/L Troponin I < 0.012 < 0.012 (0.000-0.034) ng/mL NT-Pro-B Natriuret Pep (0-450) pg/mL Serum Total Protein (6.3-8.2) g/dL Albumin (3.5-5.0) g/dL 10/08/22 10/08/22 Range/Units 18:16 18:16 WBC 6.1 (4.0-10.5) x10^3/uL RBC 5.38 (4.1-5.6) x10^6/uL Hgb 15.7 (12.5-18.0) g/dL Hct 45.1 (42-50) % MCV 83.8 (78-100) fL MCH 29.2 (26-32) pg MCHC 34.8 (32-36) g/dL RDW 12.6 (11.5-14.0) % Plt Count 236 (150-450) x10^3/uL MPV 10.2 (7.5-11.0) fL Gran % 62.9 (36.0-66.0) % Immature Gran % (Auto) 0.2 (0.00-0.4) % Nucleat RBC Rel Count 0.0 (0.00-0.1) % Eos # (Auto) 0.10 (0-0.5) x10^3/uL Immature Gran # (Auto) 0.01 (0.00-0.03) x10^3u/L Absolute Lymphs (auto) 1.62 (1.0-4.6) x10^3/uL Absolute Monos (auto) 0.45 (0.0-1.3) x10^3/uL Absolute Nucleated RBC 0.00 (0.00-0.01) x10^3u/L Lymphocytes % 26.6 (24.0-44.0) % Monocytes % 7.4 (0.0-12.0) % Eosinophils % 1.6 (0.00-5.0) % Basophils % 1.3 (0.0-0.4) % Absolute Granulocytes 3.82 (1.4-6.9) x10^3/uL Basophils # 0.08 (0-0.4) x10^3/uL D-Dimer (0.0-0.50) mg/L Sodium 138 (137-145) mmol/L Potassium 3.6 (3.5-5.1) mmol/L Chloride 105 (98-107) mmol/L Carbon Dioxide 25 (22-30) mmol/L Anion Gap 11.9 (5-15) MEQ/L BUN 15 (9-20) mg/dL Creatinine 0.95 (0.66-1.25) mg/dL Estimated GFR > 60.0 ML/MIN Glucose 112 H (74-106) mg/dL Calcium 9.5 (8.4-10.2) mg/dL Total Bilirubin 0.70 (0.2-1.3) mg/dL AST 33 (17-59) U/L ALT 40 (0-50) U/L Alkaline Phosphatase 70 (38-126) U/L Creatine Kinase 210 H (55-170) U/L Troponin I (0.000-0.034) ng/mL NT-Pro-B Natriuret Pep 35.0 (0-450) pg/mL Serum Total Protein 7.1 (6.3-8.2) g/dL Albumin 4.4 (3.5-5.0) g/dL - Progress Progress: improved, re-examined Air Movement: good Progress Note: 10/08/22 22:52 2 years old is evaluated for sudden onset chest pain. EKG normal sinus with no ST elevation. Given morphine along with aspirin, chest pain is better but not completely resolved. Still complaining of having pressure in the center of the chest on reevaluation. Given GI cocktail with no significant relief. Does not have any cardiac work-up done recently. Discussed with Dr. Ferrari, reviewed history, work-up and patient is accepted for admission. Blood Culture(s) Obtained: No Antibiotics given: No Discussed with : Mei Counseled pt/family regarding: lab results, diagnosis, rad results - Departure Departure Disposition: Observation Clinical Impression: Chest pain, rule out acute myocardial infarction Condition: Stable Critical Care Time: No Referrals: COMFORT CLOUD MD [Primary Care Provider] - Follow up/PCP as directed
[2022-10-08 18:48] LABS: ALBUMIN 4.4 g/dL (3.5-5.0); ALKALINE PHOSPHATASE 70 U/L (38-126); ANION GAP 11.9 MEQ/L (5-15); BLOOD UREA NITROGEN 15 mg/dL (9-20); CHLORIDE 105 mmol/L (98-107); CK-Creatinine Phosphokinase 210 U/L (55-170); Calcium 9.5 mg/dL (8.4-10.2); Carbon Dioxide 25 mmol/L (22-30); Creatinine 1 0.95 mg/dL (0.66-1.25); EST GLOMERULAR FILTRATION RATE > 60.0 ML/MIN; Glucose 112 mg/dL (74-106); Potassium 3.6 mmol/L (3.5-5.1); SGOT/AST 33 U/L (17-59); SGPT/ALT 40 U/L (0-50); SODIUM 138 mmol/L (137-145); Total Protein 7.1 g/dL (6.3-8.2)
--- NOTE | 2022-10-08 20:57 | XRAY ---
Indication: Chest pain. Comparison: October 10, 2020 Portable chest again demonstrates normal heart, lungs, and bony thorax
[2022-10-08] MEDS ORDERED: GI COCKTAIL 45 ML (Maalox/Lidocaine) PO ONE (21:38)
[2022-10-08] MEDS ORDERED: XYLOCAINE VISCOUS 2% 15 ML CUP ONE (21:39)
[2022-10-08] MEDS ORDERED: MAALOX ES 30 ML UNIT DOSE ONE (21:40)
[2022-10-08] MEDS ORDERED: NITRO-BID 2% UD PACKETS TOP ONE (22:27)
[2022-10-08 23:16] LABS: INFLUENZA A NEGATIVE (NEGATIVE); INFLUENZA B NEGATIVE (NEGATIVE); RESPIRATORY SYNCTIAL VIRUS NEGATIVE (Negative); SARS-CoV-2 Xpert Express NEGATIVE (NEGATIVE)
[2022-10-09] MEDS ORDERED: Zofran 4 MG/2 ML VIAL IV PRN (00:26)
[2022-10-09] MEDS ORDERED: DUONEB 0.5-3 MG/3 ml Neb IH PRN (00:26)
[2022-10-09] MEDS ORDERED: MORPHINE SULFATE 2 MG INJ IV PRN (00:26)
[2022-10-09] MEDS: TYLENOL 325 MG PO PRN ×2 (00:39→08:21)
[2022-10-09 03:02] LABS: ALBUMIN 3.8 g/dL (3.5-5.0); ALKALINE PHOSPHATASE 63 U/L (38-126); ANION GAP 9.6 MEQ/L (5-15); BLOOD UREA NITROGEN 19 mg/dL (9-20); CHLORIDE 105 mmol/L (98-107); Calcium 8.8 mg/dL (8.4-10.2); Carbon Dioxide 26 mmol/L (22-30); Creatinine 1 0.86 mg/dL (0.66-1.25); EST GLOMERULAR FILTRATION RATE > 60.0 ML/MIN; Glucose 133 mg/dL (74-106); Potassium 3.5 mmol/L (3.5-5.1); SGOT/AST 29 U/L (17-59); SGPT/ALT 37 U/L (0-50); SODIUM 136 mmol/L (137-145); Total Protein 6.3 g/dL (6.3-8.2)
[2022-10-09 04:47] LABS: Absolute Neutrophil Ct (ANC) 2.92 x10^3/uL (1.4-6.9); Basophil (Absolute #) 0.07 x10^3/uL (0-0.4); Eosinophil % 3.6 % (0.00-5.0); Eosinophil (Absolute #) 0.21 x10^3/uL (0-0.5); Hematocrit 42.9 % (42-50); Hemoglobin 14.8 g/dL (12.5-18.0); Lymphocyte (Absolute #) 2.15 x10^3/uL (1.0-4.6); Lymphocytes % 36.8 % (24.0-44.0); Mean Cell Volume 85.3 fL (78-100); Mean Corpuscular Hemoglobin 29.4 pg (26-32); Mean Corpuscular Hgb Concent. 34.5 g/dL (32-36); Mean Platelet Volume 10.9 fL (7.5-11.0); Monocyte (Absolute #) 0.49 x10^3/uL (0.0-1.3); Monocytes % 8.4 % (0.0-12.0); Neutrophil % 49.8 % (36.0-66.0); Platelet Count 232 x10^3/uL (150-450); Red Blood Count 5.03 x10^6/uL (4.1-5.6); Red Cell Distribution Width 12.9 % (11.5-14.0); White Blood Count 5.9 x10^3/uL (4.0-10.5)
[2022-10-09 07:37] VITALS: BP 108/68; PULSE 70; O2SAT 98
[2022-10-09] MEDS ORDERED: FLUZONE QUAD 2022-2023 SYRINGE IM ONE (10:00)
[2022-10-09] MEDS ORDERED: PROTONIX 40 MG IV IV SCH (10:00)
--- NOTE | 2022-10-09 10:50 | PCM.SSS ---
History of Present Illness - Chief Complaint Chief Complaint: Chest Pain R/O [place] History of Present Illness: is a 42 year old male.with history of previous stroke, no residual weakness but some numbness on the left side, not on any medication presented to the ER with chief complaint of substernal chest pain sudden onset after he use restroom, got lightheaded, sweaty and sharp stabbing chest pain 10/10 intensity with some radiation to the left arm, no significant aggravating or relieving factors. Denies palpitations or shortness of breath. No previous history of coronary artery disease. Timing/Duration: hour(s) (0.5), constant, sudden, worse Activities at Onset: other Quality: sharpness Location: substernal, central Chest Pain Radiation: arm Severity of Pain-Max: severe Severity of Pain-Current: severe Modifying Factors: Improves With: nothing Associated Symptoms: denies symptoms Prior Chest Pain/Cardiac Workup: no prior chest pain, no prior cardiac workup Nitro Today/Relief: no nitro taken today Aspirin Treatment Today: no aspirin today - Review of Systems Constitutional: No Fever, No Chills Eyes: No Symptoms Ears, Nose, & Throat: No Symptoms Respiratory: No Cough, No Short Of Breath Cardiac: Chest Pain, No Edema, No Syncope Abdominal/Gastrointestinal: No Abdominal Pain, No Nausea, No Vomiting, No Diarrhea Genitourinary Symptoms: No Dysuria Musculoskeletal: No Back Pain, No Neck Pain Skin: No Rash Neurological: No Dizziness, No Focal Weakness, No Sensory Changes Psychological: No Symptoms Endocrine: No Symptoms Hematologic/Lymphatic: No Symptoms Immunological/Allergic: No Symptoms Medications & Allergies Home Medications: Home Medication List Naproxen 500 mg [Naprosyn 500 MG] 500 mg PO BID 10/08/22 [History Confirmed 10/09/22] Cyclobenzaprine HCl 10 mg [Cyclobenzaprine 10 MG] 10 mg PO HS 10/09/22 [History Confirmed 10/09/22] Allergies/Adverse Reactions: Allergies Allergy/AdvReac Type Severity Reaction Status Date / Time ketorolac [From Toradol] AdvReac Severe Verified 10/09/22 00:43 topiramate [From Topamax] AdvReac Severe Verified 10/09/22 00:44 - Past Medical History Past Medical History: Yes Neurological History: Migraines, Peripheral Neuropathy, Stroke ENT History: No Pertinent History Cardiac History: No Pertinent History Respiratory History: Asthma Endocrine Medical History: No Pertinent History Musculoskelatal History: Other GI Medical History: GERD History: No Pertinent History Pyscho-Social History: Anxiety, Attention Deficit Disorder, Depression, Other Male Reproductive Disorders: No Pertinent History Comment: 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 PTSD - Past Surgical History Past Surgical History: Yes Neuro Surgical History: No Pertinent History Cardiac History: No Pertinent History Respiratory Surgery: No Pertinent History GI Surgical History: Appendectomy Genitourinary Surgical Hx: No Pertinent History Musculskeletal Surgical Hx: No Pertinent History Male Surgical History: No Pertinent History Other Surgical History: skin CA on L shoulder - Social History Smoking Status: Former smoker How long have you smoked: 25 yrs Exposure to second hand smoke: No Alcohol: Occasionally Drug Use: marijuana Significant Family History: heart disease, hypertension, stroke - Physical Exam Vital Signs: Vital Signs - 24 hr Temp Pulse Resp BP BP Pulse Ox 10/09/22 07:36 98.2 F 70 16 108/68 98 10/09/22 03:36 97.5 F 65 18 116/70 10/09/22 01:06 97.5 F 65 18 116/70 10/09/22 00:26 97.5 F 65 18 116/70 96 10/08/22 23:11 68 16 125/78 95 10/08/22 22:54 97 10/08/22 22:20 64 16 125/76 96 10/08/22 21:06 66 17 111/73 99 10/08/22 20:10 68 16 121/89 95 10/08/22 19:30 72 16 123/74 97 10/08/22 18:04 97.3 F 87 14 128/85 97 General Appearance: no apparent distress, alert Neurologic Exam: alert, oriented x 3, cooperative, normal mood/affect, nml cerebellar function, nml station & gait, sensation nml, No motor deficits Eye Exam: PERRL/EOMI, eyes nml inspection Ears, Nose, Throat Exam: normal ENT inspection, TMs normal, pharynx normal, moist mucous membranes Neck Exam: normal inspection, non-tender, supple, full range of motion Respiratory Exam: normal breath sounds, lungs clear, No respiratory distress Cardiovascular Exam: regular rate/rhythm, normal heart sounds, normal peripheral pulses Gastrointestinal/Abdomen Exam: soft, normal bowel sounds, No tenderness, No mass Back Exam: normal inspection, normal range of motion, No CVA tenderness, No vertebral tenderness Extremity Exam: normal inspection, normal range of motion, pelvis stable Skin Exam: normal color, warm, dry, No rash Lymphatic Exam: No adenopathy Results - Labs Lab/Micro Results: Lab Results-Last 24 Hours 10/08/22 10/08/22 10/08/22 Range/Units 18:16 18:16 18:16 WBC 6.1 (4.0-10.5) x10^3/uL RBC 5.38 (4.1-5.6) x10^6/uL Hgb 15.7 (12.5-18.0) g/dL Hct 45.1 (42-50) % MCV 83.8 (78-100) fL MCH 29.2 (26-32) pg MCHC 34.8 (32-36) g/dL RDW 12.6 (11.5-14.0) % Plt Count 236 (150-450) x10^3/uL MPV 10.2 (7.5-11.0) fL Gran % 62.9 (36.0-66.0) % Immature Gran % (Auto) 0.2 (0.00-0.4) % Nucleat RBC Rel Count 0.0 (0.00-0.1) % Eos # (Auto) 0.10 (0-0.5) x10^3/uL Immature Gran # (Auto) 0.01 (0.00-0.03) x10^3u/L Absolute Lymphs (auto) 1.62 (1.0-4.6) x10^3/uL Absolute Monos (auto) 0.45 (0.0-1.3) x10^3/uL Absolute Nucleated RBC 0.00 (0.00-0.01) x10^3u/L Lymphocytes % 26.6 (24.0-44.0) % Monocytes % 7.4 (0.0-12.0) % Eosinophils % 1.6 (0.00-5.0) % Basophils % 1.3 (0.0-0.4) % Absolute Granulocytes 3.82 (1.4-6.9) x10^3/uL Basophils # 0.08 (0-0.4) x10^3/uL D-Dimer 0.22 (0.0-0.50) mg/L Sodium 138 (137-145) mmol/L Potassium 3.6 (3.5-5.1) mmol/L Chloride 105 (98-107) mmol/L Carbon Dioxide 25 (22-30) mmol/L Anion Gap 11.9 (5-15) MEQ/L BUN 15 (9-20) mg/dL Creatinine 0.95 (0.66-1.25) mg/dL Estimated GFR > 60.0 ML/MIN Glucose 112 H (74-106) mg/dL Calcium 9.5 (8.4-10.2) mg/dL Total Bilirubin 0.70 (0.2-1.3) mg/dL AST 33 (17-59) U/L ALT 40 (0-50) U/L Alkaline Phosphatase 70 (38-126) U/L Creatine Kinase 210 H (55-170) U/L Troponin I (0.000-0.034) ng/mL NT-Pro-B Natriuret Pep 35.0 (0-450) pg/mL Serum Total Protein 7.1 (6.3-8.2) g/dL Albumin 4.4 (3.5-5.0) g/dL Influenza Type A Ag (NEGATIVE) Influenza Type B Ag (NEGATIVE) RSV (PCR) (Negative) SARS-CoV-2 (PCR) (NEGATIVE) 10/08/22 10/08/22 10/08/22 Range/Units 18:16 21:53 22:39 WBC (4.0-10.5) x10^3/uL RBC (4.1-5.6) x10^6/uL Hgb (12.5-18.0) g/dL Hct (42-50) % MCV (78-100) fL MCH (26-32) pg MCHC (32-36) g/dL RDW (11.5-14.0) % Plt Count (150-450) x10^3/uL MPV (7.5-11.0) fL Gran % (36.0-66.0) % Immature Gran % (Auto) (0.00-0.4) % Nucleat RBC Rel Count (0.00-0.1) % Eos # (Auto) (0-0.5) x10^3/uL Immature Gran # (Auto) (0.00-0.03) x10^3u/L Absolute Lymphs (auto) (1.0-4.6) x10^3/uL Absolute Monos (auto) (0.0-1.3) x10^3/uL Absolute Nucleated RBC (0.00-0.01) x10^3u/L Lymphocytes % (24.0-44.0) % Monocytes % (0.0-12.0) % Eosinophils % (0.00-5.0) % Basophils % (0.0-0.4) % Absolute Granulocytes (1.4-6.9) x10^3/uL Basophils # (0-0.4) x10^3/uL D-Dimer (0.0-0.50) mg/L Sodium (137-145) mmol/L Potassium (3.5-5.1) mmol/L Chloride (98-107) mmol/L Carbon Dioxide (22-30) mmol/L Anion Gap (5-15) MEQ/L BUN (9-20) mg/dL Creatinine (0.66-1.25) mg/dL Estimated GFR ML/MIN Glucose (74-106) mg/dL Calcium (8.4-10.2) mg/dL Total Bilirubin (0.2-1.3) mg/dL AST (17-59) U/L ALT (0-50) U/L Alkaline Phosphatase (38-126) U/L Creatine Kinase (55-170) U/L Troponin I < 0.012 < 0.012 (0.000-0.034) ng/mL NT-Pro-B Natriuret Pep (0-450) pg/mL Serum Total Protein (6.3-8.2) g/dL Albumin (3.5-5.0) g/dL Influenza Type A Ag NEGATIVE (NEGATIVE) Influenza Type B Ag NEGATIVE (NEGATIVE) RSV (PCR) NEGATIVE (Negative) SARS-CoV-2 (PCR) NEGATIVE (NEGATIVE) 10/09/22 10/09/22 10/09/22 Range/Units 02:19 02:19 02:19 WBC 5.9 (4.0-10.5) x10^3/uL RBC 5.03 (4.1-5.6) x10^6/uL Hgb 14.8 (12.5-18.0) g/dL Hct 42.9 (42-50) % MCV 85.3 (78-100) fL MCH 29.4 (26-32) pg MCHC 34.5 (32-36) g/dL RDW 12.9 (11.5-14.0) % Plt Count 232 (150-450) x10^3/uL MPV 10.9 (7.5-11.0) fL Gran % 49.8 (36.0-66.0) % Immature Gran % (Auto) 0.2 (0.00-0.4) % Nucleat RBC Rel Count 0.0 (0.00-0.1) % Eos # (Auto) 0.21 (0-0.5) x10^3/uL Immature Gran # (Auto) 0.01 (0.00-0.03) x10^3u/L Absolute Lymphs (auto) 2.15 (1.0-4.6) x10^3/uL Absolute Monos (auto) 0.49 (0.0-1.3) x10^3/uL Absolute Nucleated RBC 0.00 (0.00-0.01) x10^3u/L Lymphocytes % 36.8 (24.0-44.0) % Monocytes % 8.4 (0.0-12.0) % Eosinophils % 3.6 (0.00-5.0) % Basophils % 1.2 (0.0-0.4) % Absolute Granulocytes 2.92 (1.4-6.9) x10^3/uL Basophils # 0.07 (0-0.4) x10^3/uL D-Dimer (0.0-0.50) mg/L Sodium 136 L (137-145) mmol/L Potassium 3.5 (3.5-5.1) mmol/L Chloride 105 (98-107) mmol/L Carbon Dioxide 26 (22-30) mmol/L Anion Gap 9.6 (5-15) MEQ/L BUN 19 (9-20) mg/dL Creatinine 0.86 (0.66-1.25) mg/dL Estimated GFR > 60.0 ML/MIN Glucose 133 H (74-106) mg/dL Calcium 8.8 (8.4-10.2) mg/dL Total Bilirubin 0.60 (0.2-1.3) mg/dL AST 29 (17-59) U/L ALT 37 (0-50) U/L Alkaline Phosphatase 63 (38-126) U/L Creatine Kinase (55-170) U/L Troponin I < 0.012 (0.000-0.034) ng/mL NT-Pro-B Natriuret Pep (0-450) pg/mL Serum Total Protein 6.3 (6.3-8.2) g/dL Albumin 3.8 (3.5-5.0) g/dL Influenza Type A Ag (NEGATIVE) Influenza Type B Ag (NEGATIVE) RSV (PCR) (Negative) SARS-CoV-2 (PCR) (NEGATIVE) - Radiology Impressions Radiology Exams & Impressions: Radiology Procedures Category Date Time Status CHEST 1 VIEW (PORTABLE) Stat Exams 10/08/22 18:03 Completed RAD/CHEST 1 VIEW (PORTABLE) Indication: Chest pain. Comparison: October 10, 2020 Portable chest again demonstrates normal heart, lungs, and bony thorax Assessment/Plan (1) Chest pain, rule out acute myocardial infarction Current Visit: Yes Status: Acute Assessment & Plan: Chief Complaint Diagnosis Chest Pain R/O MN Allergies Allergy/AdvReac Type Severity Reaction Status Date / Time ketorolac [From Toradol] AdvReac Severe Verified 10/09/22 00:43 topiramate [From Topamax] AdvReac Severe Verified 10/09/22 00:44 Vital Signs (Last 24 hours) Temp Pulse Resp BP BP Pulse Ox 10/09/22 07:36 98.2 F 70 16 108/68 98 10/09/22 03:36 97.5 F 65 18 116/70 10/09/22 01:06 97.5 F 65 18 116/70 10/09/22 00:26 97.5 F 65 18 116/70 96 10/08/22 23:11 68 16 125/78 95 10/08/22 22:54 97 10/08/22 22:20 64 16 125/76 96 10/08/22 21:06 66 17 111/73 99 10/08/22 20:10 68 16 121/89 95 10/08/22 19:30 72 16 123/74 97 10/08/22 18:04 97.3 F 87 14 128/85 97 Home Medications Medication Instructions Recorded Confirmed Last Taken Type Naproxen 500 mg [Naprosyn 500 500 mg PO BID 10/08/22 10/09/22 10/08/22 14:00 History MG] Cyclobenzaprine HCl 10 mg 10 mg PO HS 10/09/22 10/09/22 10/07/22 History [Cyclobenzaprine 10 MG] Current Medications Generic Name Dose Route Start Last Admin Trade Name Liseth PRN Reason Stop Dose Admin Acetaminophen 650 mg 10/09/22 00:26 10/09/22 08:21 Acetaminophen 325 Mg Tablet PO 11/08/22 00:25 650 mg Q4H PRN PRN Administration PAIN AND/OR FEVER Morphine Sulfate 2 mg 10/09/22 00:26 Morphine Sulfate 2 Mg/Ml Inj IV 10/14/22 00:25 Q4H PRN PRN PAIN Ondansetron HCl 4 mg 10/09/22 00:26 Ondansetron Hcl 4 Mg/2 Ml Vial IV 11/08/22 00:25 Q6H PRN PRN NAUSEA/VOMITING Pantoprazole Sodium 40 mg 10/09/22 10:00 10/09/22 10:11 Pantoprazole 40 Mg Vial IV 11/08/22 09:59 40 mg Q24H10 CHRISTAL Administration Discontinued Medications Generic Name Dose Route Start Last Admin Trade Name Liseth PRN Reason Stop Dose Admin Al Hydrox/Mg Hydrox/Simethicone Confirm 10/08/22 21:40 Mag Hydrox/Al Hydrox/Simeth 30 Ml Udcup Administered 10/08/22 21:41 Dose 30 ml .ROUTE .STK-MED ONE Albuterol/Ipratropium 3 ml 10/09/22 00:26 Ipratropium/Albuterol Sulfate 3 Ml Ampul.Neb IH 11/08/22 00:25 Q4HPRN PRN SHORTNESS OF BREATH/WHEEZING Aspirin 324 mg 10/08/22 18:03 10/08/22 18:16 Aspirin 81 Mg Tab.Chew PO 10/08/22 18:04 324 mg STAT ONE Administration Aspirin Confirm 10/08/22 18:12 Aspirin 81 Mg Tab.Chew Administered 10/08/22 18:13 Dose 324 mg .ROUTE .STK-MED ONE Lidocaine HCl Confirm 10/08/22 21:39 Lidocaine Hcl 2% Viscous 15 Ml Udcup Administered 10/08/22 21:40 Dose 15 ml .ROUTE .STK-MED ONE Magnesium Hydroxide 45 ml 10/08/22 21:38 10/08/22 21:42 Mag Hydrx/Alum Hyd/Simeth/Lido 45 Ml Bottle PO 10/08/22 21:39 45 ml STAT ONE Administration Morphine Sulfate 4 mg 10/08/22 18:03 10/08/22 18:16 Morphine Sulfate 4 Mg/Ml Injection IV 10/08/22 18:04 4 mg STAT ONE Administration Morphine Sulfate Confirm 10/08/22 18:13 Morphine Sulfate 4 Mg/Ml Injection Administered 10/08/22 18:14 Dose 4 mg .ROUTE .STK-MED ONE Nitroglycerin 1 gm 10/08/22 22:27 10/08/22 22:31 Nitroglycerin 1 Gm Packet TOP 10/08/22 22:28 1 gm STAT ONE Administration Ondansetron HCl 4 mg 10/08/22 18:03 10/08/22 18:16 Ondansetron Hcl 4 Mg/2 Ml Vial IV 10/08/22 18:04 4 mg STAT ONE Administration Ondansetron HCl Confirm 10/08/22 18:12 Ondansetron Hcl 4 Mg/2 Ml Vial Administered 10/08/22 18:13 Dose 4 mg .ROUTE .STK-MED ONE Intake & Output (Last 24 hours) 10/06/22 10/07/22 10/08/22 10/09/22 11:59 11:59 11:59 11:59 Intake Total 920 Balance 920 Weight 90.5 kg Laboratory Results (Last 24 hours) 10/09/22 10/09/22 10/09/22 02:19 02:19 02:19 WBC 5.9 RBC 5.03 Hgb 14.8 Hct 42.9 MCV 85.3 MCH 29.4 MCHC 34.5 RDW 12.9 Plt Count 232 MPV 10.9 Gran % 49.8 Immature Gran % (Auto) 0.2 Nucleat RBC Rel Count 0.0 Eos # (Auto) 0.21 Immature Gran # (Auto) 0.01 Absolute Lymphs (auto) 2.15 Absolute Monos (auto) 0.49 Absolute Nucleated RBC 0.00 Lymphocytes % 36.8 Monocytes % 8.4 Eosinophils % 3.6 Basophils % 1.2 Absolute Granulocytes 2.92 Basophils # 0.07 D-Dimer Sodium 136 L Potassium 3.5 Chloride 105 Carbon Dioxide 26 Anion Gap 9.6 BUN 19 Creatinine 0.86 Estimated GFR > 60.0 Glucose 133 H Calcium 8.8 Total Bilirubin 0.60 AST 29 ALT 37 Alkaline Phosphatase 63 Creatine Kinase Troponin I < 0.012 NT-Pro-B Natriuret Pep Serum Total Protein 6.3 Albumin 3.8 Influenza Type A Ag Influenza Type B Ag RSV (PCR) SARS-CoV-2 (PCR) 10/08/22 10/08/22 10/08/22 22:39 21:53 18:16 WBC RBC Hgb Hct MCV MCH MCHC RDW Plt Count MPV Gran % Immature Gran % (Auto) Nucleat RBC Rel Count Eos # (Auto) Immature Gran # (Auto) Absolute Lymphs (auto) Absolute Monos (auto) Absolute Nucleated RBC Lymphocytes % Monocytes % Eosinophils % Basophils % Absolute Granulocytes Basophils # D-Dimer Sodium Potassium Chloride Carbon Dioxide Anion Gap BUN Creatinine Estimated GFR Glucose Calcium Total Bilirubin AST ALT Alkaline Phosphatase Creatine Kinase Troponin I < 0.012 < 0.012 NT-Pro-B Natriuret Pep Serum Total Protein Albumin Influenza Type A Ag NEGATIVE Influenza Type B Ag NEGATIVE RSV (PCR) NEGATIVE SARS-CoV-2 (PCR) NEGATIVE 10/08/22 10/08/22 10/08/22 18:16 18:16 18:16 WBC 6.1 RBC 5.38 Hgb 15.7 Hct 45.1 MCV 83.8 MCH 29.2 MCHC 34.8 RDW 12.6 Plt Count 236 MPV 10.2 Gran % 62.9 Immature Gran % (Auto) 0.2 Nucleat RBC Rel Count 0.0 Eos # (Auto) 0.10 Immature Gran # (Auto) 0.01 Absolute Lymphs (auto) 1.62 Absolute Monos (auto) 0.45 Absolute Nucleated RBC 0.00 Lymphocytes % 26.6 Monocytes % 7.4 Eosinophils % 1.6 Basophils % 1.3 Absolute Granulocytes 3.82 Basophils # 0.08 D-Dimer 0.22 Sodium 138 Potassium 3.6 Chloride 105 Carbon Dioxide 25 Anion Gap 11.9 BUN 15 Creatinine 0.95 Estimated GFR > 60.0 Glucose 112 H Calcium 9.5 Total Bilirubin 0.70 AST 33 ALT 40 Alkaline Phosphatase 70 Creatine Kinase 210 H Troponin I NT-Pro-B Natriuret Pep 35.0 Serum Total Protein 7.1 Albumin 4.4 Influenza Type A Ag Influenza Type B Ag RSV (PCR) SARS-CoV-2 (PCR) Orders (Last 24 hours) Category Date Time Status Bedrest ROUTINE Activity 10/09/22 00:26 Active Up With Assistance ROUTINE Activity 10/09/22 00:26 Active Artist Color Separation STAT Care 10/08/22 18:03 Completed Code Status Order ROUTINE Care 10/09/22 00:26 Active EKG-ER Only STAT Care 10/08/22 18:03 Completed Fall Protocol Q1H Care 10/09/22 00:26 Active IV Care Q6H Care 10/09/22 00:26 Active IV Insertion STAT Care 10/08/22 18:03 Completed Oxygen-ED Only Nasal Cannula 2 lpm Care 10/08/22 18:[address] in Observation ROUTINE Care 10/09/22 00:26 Active Rolando Davis, Apply ROUTINE Care 10/09/22 00:26 Active Telemetry q6h Care 10/09/22 00:28 Active Weight,Daily 0600 Care 10/09/22 00:26 Active Heart-Healthy Diet Diet 10/09/22 Breakfast Active Discharge Routine Discharge 10/09/22 Ordered CHEST 1 VIEW (PORTABLE) Stat Exams 10/08/22 18:03 Completed CBC W DIFF AM.LAB Lab 10/09/22 02:19 Completed CBC W DIFF Stat Lab 10/08/22 18:16 Completed CK-Creatinine Phosphokinase Stat Lab 10/08/22 18:16 Completed CMP AM.LAB Lab 10/09/22 02:19 Completed CMP Stat Lab 10/08/22 18:16 Completed COVID/FLU/RSV Panel Stat Lab 10/08/22 22:39 Completed D-DIMER QUANTITATIVE Stat Lab 10/08/22 18:16 Completed NT PRO BNP Stat Lab 10/08/22 18:16 Completed TROPONIN Q4H Lab 10/08/22 18:16 Completed TROPONIN Q4H Lab 10/08/22 21:53 Completed TROPONIN Q4H Lab 10/09/22 02:19 Completed Acetaminophen 325 mg [Tylenol 325 mg] Med 10/09/22 00:26 Active 650 mg PO Q4H PRN PRN Albuterol/Ipratropium 3ml Neb* [DUONEB 0.5-3 MG/3 ml Med 10/09/22 00:26 Discontinued Neb] 3 ml IH Q4HPRN PRN Aspirin 81 gm Chew [Baby Aspirin 81 mg Chew] Med 10/08/22 18:12 Discontinued 324 mg .ROUTE .STK-MED ONE Aspirin 81 gm Chew [Baby Aspirin 81 mg Chew] Med 10/08/22 18:03 Discontinued 324 mg PO STAT ONE Flu Vacc [id number](6Mos Up)/Pf [Fluzone Quad Med 10/09/22 10:00 Discontinued Syringe] 60 mcg IM .ONCE ONE Lidocaine HCl 2% Viscous [Xylocaine Viscous 2% 15 ml Med 10/08/22 21:39 Discontinued Cup] 15 ml .ROUTE .STK-MED ONE Mag Hydrox/Al Hydrox/Simeth [Maalox Es 30 ml Unit Med 10/08/22 21:40 Discontinued Dose] 30 ml .ROUTE .STK-MED ONE Mag Hydrx/Alum Hyd/Simeth/Lido [GI COCKTAIL 45 ML ( Med 10/08/22 21:38 Discontinued Maalox/Lidocaine)] 45 ml PO STAT ONE Morphine Sulfate 2 mg Inj Med 10/09/22 00:26 Active 2 mg IV Q4H PRN PRN Morphine Sulfate 4 mg Inj Med 10/08/22 18:13 Discontinued 4 mg .ROUTE .STK-MED ONE Morphine Sulfate 4 mg Inj Med 10/08/22 18:03 Discontinued 4 mg IV STAT ONE Nitroglycerin 2 %Ointment [Nitro-Bid 2% Ud Packets Med 10/08/22 22:27 Discontinued *] 1 gm TOP STAT ONE Ondansetron HCl 4 mg/2 ml [Zofran 4 MG/2 ML VIAL] Med 10/08/22 18:12 Discontinued 4 mg .ROUTE .STK-MED ONE Ondansetron HCl 4 mg/2 ml [Zofran 4 MG/2 ML VIAL] Med 10/09/22 00:26 Active 4 mg IV Q6H PRN PRN Ondansetron HCl 4 mg/2 ml [Zofran 4 MG/2 ML VIAL] Med 10/08/22 18:03 Discontinued 4 mg IV STAT ONE Pantoprazole 40 mg [Protonix 40 mg IV] Med 10/09/22 10:00 Active 40 mg IV Q24H10 Code(s): R07.9 - CHEST PAIN, UNSPECIFIED Hospital Summary - Hospital Course Hospital Course: I talked to patient in length discussed all the labs and x-ray reports. We followed serial troponins which all were negative. On further interview patient states that he has a strong family history of heart disease heart attack heart failure in his dad and his mother. His dad is already seeing a staple processing machine operator in [place] Dr. Lou. So I advised patient to follow-up with Dr. Lou and make an appointment. Patient is going to make his appointment. - Vitals & Intake/Output Vital Signs: Vital Signs Temperature 98.2 F 10/09/22 07:36 Pulse Rate 70 10/09/22 07:36 Respiratory Rate 16 10/09/22 07:36 Blood Pressure 108/68 10/09/22 07:36 O2 Sat by Pulse Oximetry 98 10/09/22 07:36 Intake & Output: Intake & Output 10/06/22 10/07/22 10/08/22 10/09/22 11:59 11:59 11:59 11:59 Intake Total 920 Balance 920 Weight 90.5 kg - Lab Result Diagrams: 10/09/22 02:19 10/09/22 02:19 Lab Results-Last 24 Hrs: Lab Results-Last 24 Hours 10/08/22 10/08/22 10/08/22 Range/Units 18:16 18:16 18:16 WBC 6.1 (4.0-10.5) x10^3/uL RBC 5.38 (4.1-5.6) x10^6/uL Hgb 15.7 (12.5-18.0) g/dL Hct 45.1 (42-50) % MCV 83.8 (78-100) fL MCH 29.2 (26-32) pg MCHC 34.8 (32-36) g/dL RDW 12.6 (11.5-14.0) % Plt Count 236 (150-450) x10^3/uL MPV 10.2 (7.5-11.0) fL Gran % 62.9 (36.0-66.0) % Immature Gran % (Auto) 0.2 (0.00-0.4) % Nucleat RBC Rel Count 0.0 (0.00-0.1) % Eos # (Auto) 0.10 (0-0.5) x10^3/uL Immature Gran # (Auto) 0.01 (0.00-0.03) x10^3u/L Absolute Lymphs (auto) 1.62 (1.0-4.6) x10^3/uL Absolute Monos (auto) 0.45 (0.0-1.3) x10^3/uL Absolute Nucleated RBC 0.00 (0.00-0.01) x10^3u/L Lymphocytes % 26.6 (24.0-44.0) % Monocytes % 7.4 (0.0-12.0) % Eosinophils % 1.6 (0.00-5.0) % Basophils % 1.3 (0.0-0.4) % Absolute Granulocytes 3.82 (1.4-6.9) x10^3/uL Basophils # 0.08 (0-0.4) x10^3/uL D-Dimer 0.22 (0.0-0.50) mg/L Sodium 138 (137-145) mmol/L Potassium 3.6 (3.5-5.1) mmol/L Chloride 105 (98-107) mmol/L Carbon Dioxide 25 (22-30) mmol/L Anion Gap 11.9 (5-15) MEQ/L BUN 15 (9-20) mg/dL Creatinine 0.95 (0.66-1.25) mg/dL Estimated GFR > 60.0 ML/MIN Glucose 112 H (74-106) mg/dL Calcium 9.5 (8.4-10.2) mg/dL Total Bilirubin 0.70 (0.2-1.3) mg/dL AST 33 (17-59) U/L ALT 40 (0-50) U/L Alkaline Phosphatase 70 (38-126) U/L Creatine Kinase 210 H (55-170) U/L Troponin I (0.000-0.034) ng/mL NT-Pro-B Natriuret Pep 35.0 (0-450) pg/mL Serum Total Protein 7.1 (6.3-8.2) g/dL Albumin 4.4 (3.5-5.0) g/dL Influenza Type A Ag (NEGATIVE) Influenza Type B Ag (NEGATIVE) RSV (PCR) (Negative) SARS-CoV-2 (PCR) (NEGATIVE) 10/08/22 10/08/22 10/08/22 Range/Units 18:16 21:53 22:39 WBC (4.0-10.5) x10^3/uL RBC (4.1-5.6) x10^6/uL Hgb (12.5-18.0) g/dL Hct (42-50) % MCV (78-100) fL MCH (26-32) pg MCHC (32-36) g/dL RDW (11.5-14.0) % Plt Count (150-450) x10^3/uL MPV (7.5-11.0) fL Gran % (36.0-66.0) % Immature Gran % (Auto) (0.00-0.4) % Nucleat RBC Rel Count (0.00-0.1) % Eos # (Auto) (0-0.5) x10^3/uL Immature Gran # (Auto) (0.00-0.03) x10^3u/L Absolute Lymphs (auto) (1.0-4.6) x10^3/uL Absolute Monos (auto) (0.0-1.3) x10^3/uL Absolute Nucleated RBC (0.00-0.01) x10^3u/L Lymphocytes % (24.0-44.0) % Monocytes % (0.0-12.0) % Eosinophils % (0.00-5.0) % Basophils % (0.0-0.4) % Absolute Granulocytes (1.4-6.9) x10^3/uL Basophils # (0-0.4) x10^3/uL D-Dimer (0.0-0.50) mg/L Sodium (137-145) mmol/L Potassium (3.5-5.1) mmol/L Chloride (98-107) mmol/L Carbon Dioxide (22-30) mmol/L Anion Gap (5-15) MEQ/L BUN (9-20) mg/dL Creatinine (0.66-1.25) mg/dL Estimated GFR ML/MIN Glucose (74-106) mg/dL Calcium (8.4-10.2) mg/dL Total Bilirubin (0.2-1.3) mg/dL AST (17-59) U/L ALT (0-50) U/L Alkaline Phosphatase (38-126) U/L Creatine Kinase (55-170) U/L Troponin I < 0.012 < 0.012 (0.000-0.034) ng/mL NT-Pro-B Natriuret Pep (0-450) pg/mL Serum Total Protein (6.3-8.2) g/dL Albumin (3.5-5.0) g/dL Influenza Type A Ag NEGATIVE (NEGATIVE) Influenza Type B Ag NEGATIVE (NEGATIVE) RSV (PCR) NEGATIVE (Negative) SARS-CoV-2 (PCR) NEGATIVE (NEGATIVE) 10/09/22 10/09/22 10/09/22 Range/Units 02:19 02:19 02:19 WBC 5.9 (4.0-10.5) x10^3/uL RBC 5.03 (4.1-5.6) x10^6/uL Hgb 14.8 (12.5-18.0) g/dL Hct 42.9 (42-50) % MCV 85.3 (78-100) fL MCH 29.4 (26-32) pg MCHC 34.5 (32-36) g/dL RDW 12.9 (11.5-14.0) % Plt Count 232 (150-450) x10^3/uL MPV 10.9 (7.5-11.0) fL Gran % 49.8 (36.0-66.0) % Immature Gran % (Auto) 0.2 (0.00-0.4) % Nucleat RBC Rel Count 0.0 (0.00-0.1) % Eos # (Auto) 0.21 (0-0.5) x10^3/uL Immature Gran # (Auto) 0.01 (0.00-0.03) x10^3u/L Absolute Lymphs (auto) 2.15 (1.0-4.6) x10^3/uL Absolute Monos (auto) 0.49 (0.0-1.3) x10^3/uL Absolute Nucleated RBC 0.00 (0.00-0.01) x10^3u/L Lymphocytes % 36.8 (24.0-44.0) % Monocytes % 8.4 (0.0-12.0) % Eosinophils % 3.6 (0.00-5.0) % Basophils % 1.2 (0.0-0.4) % Absolute Granulocytes 2.92 (1.4-6.9) x10^3/uL Basophils # 0.07 (0-0.4) x10^3/uL D-Dimer (0.0-0.50) mg/L Sodium 136 L (137-145) mmol/L Potassium 3.5 (3.5-5.1) mmol/L Chloride 105 (98-107) mmol/L Carbon Dioxide 26 (22-30) mmol/L Anion Gap 9.6 (5-15) MEQ/L BUN 19 (9-20) mg/dL Creatinine 0.86 (0.66-1.25) mg/dL Estimated GFR > 60.0 ML/MIN Glucose 133 H (74-106) mg/dL Calcium 8.8 (8.4-10.2) mg/dL Total Bilirubin 0.60 (0.2-1.3) mg/dL AST 29 (17-59) U/L ALT 37 (0-50) U/L Alkaline Phosphatase 63 (38-126) U/L Creatine Kinase (55-170) U/L Troponin I < 0.012 (0.000-0.034) ng/mL NT-Pro-B Natriuret Pep (0-450) pg/mL Serum Total Protein 6.3 (6.3-8.2) g/dL Albumin 3.8 (3.5-5.0) g/dL Influenza Type A Ag (NEGATIVE) Influenza Type B Ag (NEGATIVE) RSV (PCR) (Negative) SARS-CoV-2 (PCR) (NEGATIVE) - Radiology Exams Ordered Rad Exams-Entire Visit: Radiology Procedures Category Date Time Status CHEST 1 VIEW (PORTABLE) Stat Exams 10/08/22 18:03 Completed - Discharge Discharge Date: 10/09/22 Disposition: Home, Self-Care Condition: Stable Prescriptions: No Action Naproxen 500 mg [Naprosyn 500 MG] 500 mg PO BID Cyclobenzaprine HCl 10 mg [Cyclobenzaprine 10 MG] 10 mg PO HS Instructions: Chest Pain Additional Instructions: Request Dr Cloud's office to set up referral with natashaogist, Dr Lou, to have stress test Follow up with: COMFORT CLOUD MD [Primary Care Provider] - 10/20/22 DIPESH LOU MD [NON-STAFF PHY W/O PRIVILEGES] - (Request Dr Cloud's office to set up referral with ashwiniist, Dr Lou, to have stress test) Forms: Work/School Release Form
== END 2022-10-09 10:20 | disposition home or self-care (01) ==
LOC: ED 18:01 → MED SURG 10-09 00:25
PROVIDERS: ADMIT General Practice; ATTEND Family Medicine
DX: R07.9 Chest pain, unspecified (principal); Z20.828 Contact with and (suspected) exposure to other viral communicable diseases; Z86.73 Personal history of transient ischemic attack (TIA), and cerebral infarction without residual deficits; Z79.899 Other long term (current) drug therapy; Z85.828 Personal history of other malignant neoplasm of skin; Z82.49 Family history of ischemic heart disease and other diseases of the circulatory system
CPT/HCPCS: 0241U; 36000; 36415; 71045; 80053; 82550; 83880; 84484; 85025; 85379; 93005; 93041; 93268; 96374; 96375; 99285; G0008; G0378; 90686; J2270; J2405; A9270-GY

== ENCOUNTER 2022-10-18 21:37 | Emergency (ER) | payer OTHER ==
[2022-10-18] MEDS ORDERED: MORPHINE SULFATE 4 MG INJ ONE (21:43)
[2022-10-18] MEDS ORDERED: Zofran 4 MG/2 ML VIAL ONE (21:43)
--- NOTE | 2022-10-18 21:45 | ERPHSYRPT ---
- History of Present Illness Time Seen by Provider: 10/18/22 21:39 Historian: patient, family, EMS Exam Limitations: no limitations Physician History: This is a 42-year-old white male patient who relatively recently had similar symptoms of central substernal chest pressure with radiation down his left arm. He also had complaints of dizziness. Patient was brought into the emergency department with dizziness symptoms. He is not short of breath. He does not have a a fever. He does not have a cough. I obtained information from paramedics who stated that the patient told them he had been placed on 3 new medications for his heart/blood pressure. He does not recall the name of them. Paramedics gave patient 4 baby aspirin in route to our facility. Timing/Duration: today Activities at Onset: none Quality: pressure Location: substernal, central Chest Pain Radiation: arm (Left) Severity of Pain-Max: mild (To moderate) Severity of Pain-Current: mild (To moderate) Modifying Factors: Improves With: nothing Associated Symptoms: headache, dizziness, No shortness of breath Prior Chest Pain/Cardiac Workup: heart attack Nitro Today/Relief: no nitro taken today Aspirin Treatment Today: 81 mg x 4, provided by EMS Allergies/Adverse Reactions: ketorolac [From Toradol] Adverse Reaction (Severe, Verified 10/18/22 21:38) suicidial ideation topiramate [From Topamax] Adverse Reaction (Severe, Verified 10/18/22 21:38) hyper, anxiety Home Medications: Aspirin [Low Dose Aspirin EC] 81 mg PO DAILY 10/18/22 [History] Carvedilol [Coreg] 6.25 mg PO DAILY 10/18/22 [History] Isosorbide Mononitrate 30 mg [Imdur 30 MG] 30 mg PO DAILY 10/18/22 [History] Nitroglycerin 0.4 mg Tablet [Nitrostat 0.4 MG Tablet] 0.4 mg SL UD 10/18/22 [History] Rosuvastatin Calcium 20 mg PO DAILY 10/18/22 [History] Hx Tetanus, Diphtheria Vaccination/Date Given: No Hx Influenza Vaccination/Date Given: No Hx Pneumococcal Vaccination/Date Given: No Travel Risk - International Travel Have you traveled outside of the country in past 3 weeks: No - Coronavirus Screening Are you exhibiting any of the following symptoms?: No Close contact with a COVID-19 positive Pt in past 14-21 Days: No - Vaccine Status Have you recieved a Covid-19 vaccination: Yes 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[employer] - Review of Systems Constitutional: No Symptoms Eyes: No Symptoms Ears, Nose, & Throat: No Symptoms Respiratory: No Symptoms Cardiac: Chest Pain Abdominal/Gastrointestinal: No Symptoms Genitourinary Symptoms: No Symptoms Musculoskeletal: No Symptoms Skin: No Symptoms Neurological: No Symptoms Psychological: No Symptoms Endocrine: No Symptoms Hematologic/Lymphatic: No Symptoms Immunological/Allergic: No Symptoms All Other Systems: Reviewed and Negative - Past Medical History Pertinent Past Medical History: Yes Neurological History: Migraines, Peripheral Neuropathy, Stroke ENT History: No Pertinent History Cardiac History: No Pertinent History Respiratory History: Asthma Endocrine Medical History: No Pertinent History Musculoskeletal History: Other GI Medical History: GERD History: No Pertinent History Psycho-Social History: Anxiety, Attention Deficit Disorder, Depression, Other Male Reproductive Disorders: No Pertinent History Other Medical History: 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 PTSD - Past Surgical History Past Surgical History: Yes Neuro Surgical History: No Pertinent History Cardiac: No Pertinent History Respiratory: No Pertinent History Gastrointestinal: Appendectomy Genitourinary: No Pertinent History Musculoskeletal: No Pertinent History Male Surgical History: No Pertinent History Other Surgical History: skin CA on L shoulder - Social History Smoking Status: Former smoker How long have you smoked: 25 yrs Exposure to second hand smoke: No Drug Use: marijuana Patient Lives Alone: No Significant Family History: heart disease, hypertension, stroke - Nursing Vital Signs Nursing Vital Signs: Initial Vital Signs Temperature 98.5 F 10/18/22 21:37 Pulse Rate 97 H 10/18/22 21:37 Respiratory Rate 20 10/18/22 21:37 Blood Pressure 139/86 10/18/22 21:37 O2 Sat by Pulse Oximetry 97 10/18/22 21:37 Pain Scale Pain Intensity 8 - Physical Exam General Appearance: no apparent distress, alert, anxiety Eye Exam: PERRL/EOMI, eyes nml inspection Ears, Nose, Throat Exam: normal ENT inspection, moist mucous membranes Neck Exam: normal inspection, non-tender, supple, full range of motion Respiratory Exam: normal breath sounds, chest tenderness, lungs clear, airway intact, No respiratory distress Cardiovascular Exam: regular rate/rhythm, normal heart sounds, normal peripheral pulses Rectal Exam: not done Back Exam: normal inspection, normal range of motion, No CVA tenderness, No vertebral tenderness Extremity Exam: normal inspection, normal range of motion, pelvis stable Neurologic Exam: alert, oriented x 3, 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, 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, normal mood/affect, nml cerebellar function, nml station & gait, sensation nml Skin Exam: normal color, warm, dry Lymphatic Exam: adenopathy SpO2 Interpretation: normal O2 Delivery: Room Air - Course Nursing assessment & vital signs reviewed: Yes EKG Interpreted by Me: RATE (101), Sinus Tach, Right Dingess Deviation, NORMAL INTERVALS, NORMAL QRS, NORMAL ST-T, Other (Cute ischemic changes on today's EKG) Ordered Tests: Active Orders 24 hr Category Date Time Status EKG-ER Only STAT Care 10/18/22 21:49 Active IV Insertion STAT Care 10/18/22 21:49 Active Pulse Oximetry (ED) STAT Care 10/18/22 21:49 Active CHEST 1 VIEW (PORTABLE) Stat Exams 10/18/22 21:49 Taken HEAD WITHOUT CONTRAST [CT] Stat Exams 10/18/22 21:48 Taken CBC W DIFF Stat Lab 10/18/22 22:09 Completed CMP Stat Lab 10/18/22 22:09 Completed D-DIMER QUANTITATIVE Stat Lab 10/18/22 22:09 Completed NT PRO BNP Stat Lab 10/18/22 22:09 Completed TROPONIN Q4H Lab 10/18/22 22:09 Completed TROPONIN Q4H Lab 10/19/22 02:00 Ordered TROPONIN Q4H Lab 10/19/22 06:00 Ordered Medication Summary Discontinued Medications Generic Name Dose Route Start Last Admin Trade Name Mehrdadq PRN Reason Stop Dose Admin Morphine Sulfate Confirm 10/18/22 21:43 Morphine Sulfate 4 Mg/Ml Injection Administered 10/18/22 21:44 Dose 4 mg .ROUTE .STK-MED ONE Morphine Sulfate 4 mg 10/18/22 21:49 10/18/22 21:53 Morphine Sulfate 4 Mg/Ml Injection IV 10/18/22 21:50 4 mg STAT ONE Administration Ondansetron HCl Confirm 10/18/22 21:43 Ondansetron Hcl 4 Mg/2 Ml Vial Administered 10/18/22 21:44 Dose 4 mg .ROUTE .STK-MED ONE Ondansetron HCl 4 mg 10/18/22 21:49 10/18/22 21:54 Ondansetron Hcl 4 Mg/2 Ml Vial IV 10/18/22 21:50 4 mg STAT ONE Administration Lab/Rad Data: Laboratory Result Diagrams 10/18/22 22:09 10/18/22 22:09 Laboratory Results 10/18/22 10/18/22 10/18/22 Range/Units 22:09 22:09 22:09 WBC (4.0-10.5) x10^3/uL RBC (4.1-5.6) x10^6/uL Hgb (12.5-18.0) g/dL Hct (42-50) % MCV (78-100) fL MCH (26-32) pg MCHC (32-36) g/dL RDW (11.5-14.0) % Plt Count (150-450) x10^3/uL MPV (7.5-11.0) fL Gran % (36.0-66.0) % Immature Gran % (Auto) (0.00-0.4) % Nucleat RBC Rel Count (0.00-0.1) % Eos # (Auto) (0-0.5) x10^3/uL Immature Gran # (Auto) (0.00-0.03) x10^3u/L Absolute Lymphs (auto) (1.0-4.6) x10^3/uL Absolute Monos (auto) (0.0-1.3) x10^3/uL Absolute Nucleated RBC (0.00-0.01) x10^3u/L Lymphocytes % (24.0-44.0) % Monocytes % (0.0-12.0) % Eosinophils % (0.00-5.0) % Basophils % (0.0-0.4) % Absolute Granulocytes (1.4-6.9) x10^3/uL Basophils # (0-0.4) x10^3/uL D-Dimer 0.25 (0.0-0.50) mg/L Sodium 135 L (137-145) mmol/L Potassium 3.5 (3.5-5.1) mmol/L Chloride 101 (98-107) mmol/L Carbon Dioxide 25 (22-30) mmol/L Anion Gap 13.1 (5-15) MEQ/L BUN 13 (9-20) mg/dL Creatinine 0.97 (0.66-1.25) mg/dL Estimated GFR > 60.0 ML/MIN Glucose 92 (74-106) mg/dL Calcium 9.7 (8.4-10.2) mg/dL Total Bilirubin 0.80 (0.2-1.3) mg/dL AST 33 (17-59) U/L ALT 35 (0-50) U/L Alkaline Phosphatase 74 (38-126) U/L Troponin I < 0.012 (0.000-0.034) ng/mL NT-Pro-B Natriuret Pep 42.1 (0-450) pg/mL Serum Total Protein 8.1 (6.3-8.2) g/dL Albumin 4.8 (3.5-5.0) g/dL 10/18/22 Range/Units 22:09 WBC 10.7 H (4.0-10.5) x10^3/uL RBC 5.71 H (4.1-5.6) x10^6/uL Hgb 16.8 (12.5-18.0) g/dL Hct 47.6 (42-50) % MCV 83.4 (78-100) fL MCH 29.4 (26-32) pg MCHC 35.3 (32-36) g/dL RDW 12.3 (11.5-14.0) % Plt Count 271 (150-450) x10^3/uL MPV 10.3 (7.5-11.0) fL Gran % 64.1 (36.0-66.0) % Immature Gran % (Auto) 0.3 (0.00-0.4) % Nucleat RBC Rel Count 0.0 (0.00-0.1) % Eos # (Auto) 0.16 (0-0.5) x10^3/uL Immature Gran # (Auto) 0.03 (0.00-0.03) x10^3u/L Absolute Lymphs (auto) 2.86 (1.0-4.6) x10^3/uL Absolute Monos (auto) 0.72 (0.0-1.3) x10^3/uL Absolute Nucleated RBC 0.00 (0.00-0.01) x10^3u/L Lymphocytes % 26.7 (24.0-44.0) % Monocytes % 6.7 (0.0-12.0) % Eosinophils % 1.5 (0.00-5.0) % Basophils % 0.7 (0.0-0.4) % Absolute Granulocytes 6.86 (1.4-6.9) x10^3/uL Basophils # 0.07 (0-0.4) x10^3/uL D-Dimer (0.0-0.50) mg/L Sodium (137-145) mmol/L Potassium (3.5-5.1) mmol/L Chloride (98-107) mmol/L Carbon Dioxide (22-30) mmol/L Anion Gap (5-15) MEQ/L BUN (9-20) mg/dL Creatinine (0.66-1.25) mg/dL Estimated GFR ML/MIN Glucose (74-106) mg/dL Calcium (8.4-10.2) mg/dL Total Bilirubin (0.2-1.3) mg/dL AST (17-59) U/L ALT (0-50) U/L Alkaline Phosphatase (38-126) U/L Troponin I (0.000-0.034) ng/mL NT-Pro-B Natriuret Pep (0-450) pg/mL Serum Total Protein (6.3-8.2) g/dL Albumin (3.5-5.0) g/dL - Progress Progress: improved, re-examined Air Movement: good Progress Note: 10/18/22 22:22 CT scan of head without contrast is a normal study. 10/18/22 22:48 Medical decision making: This patient is anxious about his health. He does have an appointment to see a functional support analyst for possible cardiac catheterization on 10/25/2022. Patient's symptoms started today. Today was the first day he took his Coreg, isosorbide mononitrate and rosuvastatin. All of these medications can cause headache the medications can also cause nausea. The Coreg and isosorbide mononitrate can also cause dizziness and some angina symptoms. This may be the source of his symptoms. Blood Culture(s) Obtained: No Antibiotics given: No Counseled pt/family regarding: lab results, diagnosis, need for follow-up, rad results - Departure Departure Disposition: Home Clinical Impression: Non-cardiac chest pain, Medication side effects Condition: Stable Critical Care Time: No Referrals: COMFORT CLOUD MD [Primary Care Provider] - Follow up/PCP as directed Additional Instructions: Drink plenty of fluids. Call your prescribing physician/functional support analyst tomorrow on 10/18/2022 for further evaluation and recommendations. Keep your appointment to see your functional support analyst on 10/25/2022 unless they want to see you earlier.
[2022-10-18] MEDS ORDERED: MORPHINE SULFATE 4 MG INJ IV ONE (21:49)
[2022-10-18] MEDS ORDERED: Zofran 4 MG/2 ML VIAL IV ONE (21:49)
[2022-10-18 22:12] LABS: Absolute Neutrophil Ct (ANC) 6.86 x10^3/uL (1.4-6.9); Basophil (Absolute #) 0.07 x10^3/uL (0-0.4); Eosinophil % 1.5 % (0.00-5.0); Eosinophil (Absolute #) 0.16 x10^3/uL (0-0.5); Hematocrit 47.6 % (42-50); Hemoglobin 16.8 g/dL (12.5-18.0); Lymphocyte (Absolute #) 2.86 x10^3/uL (1.0-4.6); Lymphocytes % 26.7 % (24.0-44.0); Mean Cell Volume 83.4 fL (78-100); Mean Corpuscular Hemoglobin 29.4 pg (26-32); Mean Corpuscular Hgb Concent. 35.3 g/dL (32-36); Mean Platelet Volume 10.3 fL (7.5-11.0); Monocyte (Absolute #) 0.72 x10^3/uL (0.0-1.3); Monocytes % 6.7 % (0.0-12.0); Neutrophil % 64.1 % (36.0-66.0); Platelet Count 271 x10^3/uL (150-450); Red Blood Count 5.71 x10^6/uL (4.1-5.6); Red Cell Distribution Width 12.3 % (11.5-14.0); White Blood Count 10.7 x10^3/uL (4.0-10.5)
[2022-10-18 22:30] LABS: ALBUMIN 4.8 g/dL (3.5-5.0); ALKALINE PHOSPHATASE 74 U/L (38-126); ANION GAP 13.1 MEQ/L (5-15); BLOOD UREA NITROGEN 13 mg/dL (9-20); CHLORIDE 101 mmol/L (98-107); Calcium 9.7 mg/dL (8.4-10.2); Carbon Dioxide 25 mmol/L (22-30); Creatinine 1 0.97 mg/dL (0.66-1.25); EST GLOMERULAR FILTRATION RATE > 60.0 ML/MIN; Glucose 92 mg/dL (74-106); NT PRO BNP 42.1 pg/mL (0-450); Potassium 3.5 mmol/L (3.5-5.1); SGOT/AST 33 U/L (17-59); SGPT/ALT 35 U/L (0-50); SODIUM 135 mmol/L (137-145); Total Protein 8.1 g/dL (6.3-8.2)
[2022-10-18 22:47] LABS: INFLUENZA A NEGATIVE (NEGATIVE); INFLUENZA B NEGATIVE (NEGATIVE); RESPIRATORY SYNCTIAL VIRUS NEGATIVE (Negative); SARS-CoV-2 Xpert Express NEGATIVE (NEGATIVE)
[2022-10-18 23:06] VITALS: BP 113/79; PULSE 86; O2SAT 94
--- NOTE | 2022-10-19 08:41 | XRAY ---
Indication: Chest pain. Comparison: October 08, 2022 Portable chest again demonstrates normal heart, lungs, and bony thorax with incidental tiny calcified granulomas.
--- NOTE | 2022-10-19 08:41 | XRAY ---
Indication: Headache and dizziness. Facial and left upper extremity numbness. Multiple contiguous axial images obtained through the head without contrast. Comparison: February 06, 2022 Normal appearing brain parenchyma, ventricles, and bony calvarium for patient's age. Visualized paranasal sinuses and mastoid air cells are clear. Impression: Continued normal CT head without contrast exam.
== END 2022-10-18 23:08 | disposition home or self-care (01) ==
LOC: ED 21:37
DX: R07.89 Other chest pain (principal); R42 Dizziness and giddiness; T44.7X5A Adverse effect of beta-adrenoreceptor antagonists, initial encounter; T46.3X5A Adverse effect of coronary vasodilators, initial encounter; T46.6X5A Adverse effect of antihyperlipidemic and antiarteriosclerotic drugs, initial encounter; Z79.899 Other long term (current) drug therapy
CPT/HCPCS: 0241U; 36000; 36415; 70450; 71045; 80053; 83880; 84484; 85025; 85379; 93005; 94760; 96374; 96375; 99284; J2270; J2405

== ENCOUNTER 2022-11-01 21:11 | Emergency (ER) | payer OTHER ==
[2022-11-01] MEDS ORDERED: Sodium Chloride 0.9% 1000 ML 1,000 ML IV STA (21:43)
[2022-11-01 22:02] LABS: Absolute Neutrophil Ct (ANC) 3.76 x10^3/uL (1.4-6.9); Basophil (Absolute #) 0.06 x10^3/uL (0-0.4); Eosinophil % 2.3 % (0.00-5.0); Eosinophil (Absolute #) 0.15 x10^3/uL (0-0.5); Hematocrit 45.5 % (42-50); Hemoglobin 15.8 g/dL (12.5-18.0); Lymphocyte (Absolute #) 2.13 x10^3/uL (1.0-4.6); Lymphocytes % 32.3 % (24.0-44.0); Mean Cell Volume 84.1 fL (78-100); Mean Corpuscular Hemoglobin 29.2 pg (26-32); Mean Corpuscular Hgb Concent. 34.7 g/dL (32-36); Mean Platelet Volume 10.2 fL (7.5-11.0); Monocyte (Absolute #) 0.47 x10^3/uL (0.0-1.3); Monocytes % 7.1 % (0.0-12.0); Neutrophil % 57.1 % (36.0-66.0); Platelet Count 254 x10^3/uL (150-450); Red Blood Count 5.41 x10^6/uL (4.1-5.6); Red Cell Distribution Width 12.5 % (11.5-14.0); White Blood Count 6.6 x10^3/uL (4.0-10.5)
[2022-11-01] MEDS ORDERED: Sodium Chloride 0.9% 1000 ML 1,000 ML ONE (22:02)
[2022-11-01 22:09] VITALS: O2SAT 96
--- NOTE | 2022-11-01 22:09 | ERPHSYRPT ---
- History of Present Illness Time Seen by Provider: 11/01/22 21:13 Patient Subjective Stated Complaint: pt states he was at work and about 20 minutes ago was not feeling right, whole body is numb, fingers are tingling. pt started to complain of chest pressure once in room,. pt states he has a stroke in 2017 lt sided weakness from that Triage Nursing Assessment: pt walked to Er room, was ab le to perform vision test, but was very dizzy. pt is alert and oriented, states he is waiting to have a heart cath done. Physician History: 42 years old male with history of previous stroke with left-sided residual weakness, hypertension, hyperlipidemia presented in the ER from work with half hour history of sudden onset whole body numbness, tingling sensations in the fingers, blurry vision and feeling dizzy lightheaded. On presentation in the ER he is complaining of some chest discomfort as well. Patient is very anxious and in tears because he has to come to ER multiple times lately. Patient has since cardiac cath scheduled in 3 days at [facility]. Denies any difficulty breathing. Denies any new focal weakness. No difficulty speech. Patient also reports having dryness of his mouth and feels thirsty all the time. He is recently been started on some new medication which she cannot tell exactly. Timing/Duration: hour(s) (0.5), sudden Severity: moderate Modifying Factors: Improves With: nothing Associated Symptoms: chest pain Allergies/Adverse Reactions: ketorolac [From Toradol] Adverse Reaction (Severe, Verified 10/18/22 21:38) suicidial ideation topiramate [From Topamax] Adverse Reaction (Severe, Verified 10/18/22 21:38) hyper, anxiety Home Medications: Aspirin [Low Dose Aspirin EC] 81 mg PO DAILY 10/18/22 [History] Carvedilol [Coreg] 6.25 mg PO DAILY 10/18/22 [History] Isosorbide Mononitrate 30 mg [Imdur 30 MG] 30 mg PO DAILY 10/18/22 [History] Nitroglycerin 0.4 mg Tablet [Nitrostat 0.4 MG Tablet] 0.4 mg SL UD 10/18/22 [History] Rosuvastatin Calcium 20 mg PO DAILY 10/18/22 [History] Hx Tetanus, Diphtheria Vaccination/Date Given: No Hx Influenza Vaccination/Date Given: Yes (09/2022) Hx Pneumococcal Vaccination/Date Given: No Travel Risk - International Travel Have you traveled outside of the country in past 3 weeks: No - Coronavirus Screening Are you exhibiting any of the following symptoms?: No - Vaccine Status Have you recieved a Covid-19 vaccination: Yes 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[employer] - Review of Systems Constitutional: Fatigue, Weakness Eyes: No Symptoms Ears, Nose, & Throat: No Symptoms Respiratory: No Symptoms Cardiac: Chest Pain Abdominal/Gastrointestinal: No Symptoms Genitourinary Symptoms: No Symptoms Musculoskeletal: No Symptoms Skin: No Symptoms Neurological: Dizziness, Sensory Changes Psychological: Anxiety Endocrine: No Symptoms Hematologic/Lymphatic: No Symptoms Immunological/Allergic: No Symptoms - Past Medical History Pertinent Past Medical History: Yes Neurological History: Migraines, Peripheral Neuropathy, Stroke ENT History: No Pertinent History Cardiac History: No Pertinent History Respiratory History: Asthma Endocrine Medical History: No Pertinent History Musculoskeletal History: Other GI Medical History: GERD History: No Pertinent History Psycho-Social History: Anxiety, Attention Deficit Disorder, Depression, Other Male Reproductive Disorders: No Pertinent History Other Medical History: 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 PTSD - Past Surgical History Past Surgical History: Yes Neuro Surgical History: No Pertinent History Cardiac: No Pertinent History Respiratory: No Pertinent History Gastrointestinal: Appendectomy Genitourinary: No Pertinent History Musculoskeletal: No Pertinent History Male Surgical History: No Pertinent History Other Surgical History: skin CA on L shoulder - Social History Smoking Status: Former smoker How long have you smoked: 25 yrs Exposure to second hand smoke: No Drug Use: marijuana Patient Lives Alone: No Significant Family History: heart disease, hypertension, stroke - Nursing Vital Signs Nursing Vital Signs: Initial Vital Signs Pulse Rate 65 11/01/22 22:00 Respiratory Rate 18 11/01/22 22:00 Blood Pressure 149/85 11/01/22 22:00 O2 Sat by Pulse Oximetry 98 11/01/22 22:00 Pain Scale Pain Intensity 0 - Physical Exam General Appearance: no apparent distress, alert, anxiety Eye Exam: PERRL/EOMI, eyes nml inspection Ears, Nose, Throat Exam: normal ENT inspection, TMs normal, pharynx normal, dry mucous membranes Neck Exam: normal inspection, non-tender, supple, full range of motion Respiratory Exam: normal breath sounds, lungs clear Cardiovascular Exam: regular rate/rhythm, normal heart sounds Gastrointestinal/Abdomen Exam: soft, normal bowel sounds, No tenderness Back Exam: normal inspection, normal range of motion Extremity Exam: normal inspection, normal range of motion Neurologic Exam: alert, oriented x 3, cooperative, 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 cleaner 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 tested, nml cerebellar function, nml station & gait, sensation nml, motor deficits (Chronic left upper extremity weakness), No normal mood/affect Skin Exam: normal color SpO2 Interpretation: normal SpO2: 96 O2 Delivery: Room Air - Course EKG Interpreted by Me: RATE (60), Sinus Rhythm, Right Tatums Deviation, NORMAL INTERVALS, Non-specific ST Changes Ordered Tests: Active Orders 24 hr Category Date Time Status Manager Mental Health STAT Care 11/01/22 21:44 Active EKG-ER Only STAT Care 11/01/22 21:43 Active IV Insertion STAT Care 11/01/22 21:43 Active CHEST 1 VIEW (PORTABLE) Stat Exams 11/01/22 21:43 Taken CBC W DIFF Stat Lab 11/01/22 22:00 Completed CK-Creatinine Phosphokinase Stat Lab 11/01/22 22:00 Completed CMP Stat Lab 11/01/22 22:00 Completed NT PRO BNP Stat Lab 11/01/22 22:00 Completed TROPONIN Q4H Lab 11/01/22 22:00 Completed TROPONIN Q4H Lab 11/02/22 01:45 Ordered TROPONIN Q4H Lab 11/02/22 05:45 Ordered TROPONIN Stat Lab 11/01/22 23:27 Received Urine Triage Profile Stat Lab 11/01/22 23:29 Completed Medication Summary Discontinued Medications Generic Name Dose Route Start Last Admin Trade Name Mehrdadq PRN Reason Stop Dose Admin Sodium Chloride 1,000 mls @ 999 mls/hr 11/01/22 21:43 11/01/22 22:05 Sodium Chloride 0.9% 1000 Ml IV 11/01/22 22:43 999 mls/hr .Q1H1M STA Administration Sodium Chloride Confirm 11/01/22 22:02 Sodium Chloride 0.9% 1000 Ml Administered 11/01/22 22:03 Dose 1,000 mls @ ud .ROUTE .STK-MED ONE Lab/Rad Data: Laboratory Result Diagrams 11/01/22 22:00 11/01/22 22:00 Laboratory Results 11/01/22 11/01/22 11/01/22 Range/Units 23:29 22:00 22:00 WBC (4.0-10.5) x10^3/uL RBC (4.1-5.6) x10^6/uL Hgb (12.5-18.0) g/dL Hct (42-50) % MCV (78-100) fL MCH (26-32) pg MCHC (32-36) g/dL RDW (11.5-14.0) % Plt Count (150-450) x10^3/uL MPV (7.5-11.0) fL Gran % (36.0-66.0) % Immature Gran % (Auto) (0.00-0.4) % Nucleat RBC Rel Count (0.00-0.1) % Eos # (Auto) (0-0.5) x10^3/uL Immature Gran # (Auto) (0.00-0.03) x10^3u/L Absolute Lymphs (auto) (1.0-4.6) x10^3/uL Absolute Monos (auto) (0.0-1.3) x10^3/uL Absolute Nucleated RBC (0.00-0.01) x10^3u/L Lymphocytes % (24.0-44.0) % Monocytes % (0.0-12.0) % Eosinophils % (0.00-5.0) % Basophils % (0.0-0.4) % Absolute Granulocytes (1.4-6.9) x10^3/uL Basophils # (0-0.4) x10^3/uL Sodium 138 (137-145) mmol/L Potassium 3.5 (3.5-5.1) mmol/L Chloride 105 (98-107) mmol/L Carbon Dioxide 24 (22-30) mmol/L Anion Gap 12.8 (5-15) MEQ/L BUN 17 (9-20) mg/dL Creatinine 0.87 (0.66-1.25) mg/dL Estimated GFR > 60.0 ML/MIN Glucose 89 (74-106) mg/dL Calcium 9.2 (8.4-10.2) mg/dL Total Bilirubin 0.80 (0.2-1.3) mg/dL AST 46 (17-59) U/L ALT 42 (0-50) U/L Alkaline Phosphatase 75 (38-126) U/L Creatine Kinase 143 (55-170) U/L Troponin I < 0.012 (0.000-0.034) ng/mL NT-Pro-B Natriuret Pep 33.9 (0-450) pg/mL Serum Total Protein 7.3 (6.3-8.2) g/dL Albumin 4.4 (3.5-5.0) g/dL Urine Opiates Level NEGATIVE (NEGATIVE) Ur Methadone NEGATIVE (NEGATIVE) Urine Barbiturates NEGATIVE (NEGATIVE) Ur Phencyclidine (PCP) NEGATIVE (NEGATIVE) Urine Amphetamine NEGATIVE (NEGATIVE) U Benzodiazepine Level NEGATIVE (NEGATIVE) Urine Cocaine NEGATIVE (NEGATIVE) Urine Marijuana (THC) POSITIVE (NEGATIVE) 11/01/22 Range/Units 22:00 WBC 6.6 (4.0-10.5) x10^3/uL RBC 5.41 (4.1-5.6) x10^6/uL Hgb 15.8 (12.5-18.0) g/dL Hct 45.5 (42-50) % MCV 84.1 (78-100) fL MCH 29.2 (26-32) pg MCHC 34.7 (32-36) g/dL RDW 12.5 (11.5-14.0) % Plt Count 254 (150-450) x10^3/uL MPV 10.2 (7.5-11.0) fL Gran % 57.1 (36.0-66.0) % Immature Gran % (Auto) 0.3 (0.00-0.4) % Nucleat RBC Rel Count 0.0 (0.00-0.1) % Eos # (Auto) 0.15 (0-0.5) x10^3/uL Immature Gran # (Auto) 0.02 (0.00-0.03) x10^3u/L Absolute Lymphs (auto) 2.13 (1.0-4.6) x10^3/uL Absolute Monos (auto) 0.47 (0.0-1.3) x10^3/uL Absolute Nucleated RBC 0.00 (0.00-0.01) x10^3u/L Lymphocytes % 32.3 (24.0-44.0) % Monocytes % 7.1 (0.0-12.0) % Eosinophils % 2.3 (0.00-5.0) % Basophils % 0.9 (0.0-0.4) % Absolute Granulocytes 3.76 (1.4-6.9) x10^3/uL Basophils # 0.06 (0-0.4) x10^3/uL Sodium (137-145) mmol/L Potassium (3.5-5.1) mmol/L Chloride (98-107) mmol/L Carbon Dioxide (22-30) mmol/L Anion Gap (5-15) MEQ/L BUN (9-20) mg/dL Creatinine (0.66-1.25) mg/dL Estimated GFR ML/MIN Glucose (74-106) mg/dL Calcium (8.4-10.2) mg/dL Total Bilirubin (0.2-1.3) mg/dL AST (17-59) U/L ALT (0-50) U/L Alkaline Phosphatase (38-126) U/L Creatine Kinase (55-170) U/L Troponin I (0.000-0.034) ng/mL NT-Pro-B Natriuret Pep (0-450) pg/mL Serum Total Protein (6.3-8.2) g/dL Albumin (3.5-5.0) g/dL Urine Opiates Level (NEGATIVE) Ur Methadone (NEGATIVE) Urine Barbiturates (NEGATIVE) Ur Phencyclidine (PCP) (NEGATIVE) Urine Amphetamine (NEGATIVE) U Benzodiazepine Level (NEGATIVE) Urine Cocaine (NEGATIVE) Urine Marijuana (THC) (NEGATIVE) - Progress Progress: improved, re-examined Progress Note: 11/02/22 00:43 42 years old is evaluated for generalized body numbness, tingling sensation in the fingers, visual disturbance, dry mouth, chest pain on presentation. EKG normal sinus rhythm. He has recent changes in her medications done by cardiology patient does not know the exact medication he is on. Chest x-ray no acute cardiopulmonary findings reviewed by me, official report is pending. Lab work unremarkable including troponins x2 hours apart. Patient is feeling better on reevaluation, unremarkable chemistries and normal white count. Later on discussion with patient reveals that he has a history of ADD and PTSD and is not taking any medication. Part of his symptoms are secondary to anxiety. Recommended follow-up with his primary care. Patient is encouraged to keep appointment with cardiology in 2 to 3 days for heart cath. At this point I do not think patient needs any further work-up and he is back to normal with no symptoms at present. Discussed signs symptoms of worsening needing return to ER which she seems understanding. Stable for discharge. Counseled pt/family regarding: lab results, diagnosis, need for follow-up, rad results - Departure Departure Disposition: Home Clinical Impression: Atypical chest pain, Anxiety attack Condition: Stable Critical Care Time: No Referrals: COMFORT CLOUD MD [Primary Care Provider] - Follow up/PCP as directed (1-2 days for reevaluation) Instructions: Anxiety, Adult (DC) Additional Instructions: Keep appointment with cardiology for heart cath as scheduled. Follow-up with kody becker for reevaluation and may need medication for PTSD. Return to ER for worsening of symptoms like chest pain palpitations/shortness of breath, numbness tingling/focal weakness.
[2022-11-01 22:28] LABS: ALBUMIN 4.4 g/dL (3.5-5.0); ALKALINE PHOSPHATASE 75 U/L (38-126); ANION GAP 12.8 MEQ/L (5-15); BLOOD UREA NITROGEN 17 mg/dL (9-20); CHLORIDE 105 mmol/L (98-107); CK-Creatinine Phosphokinase 143 U/L (55-170); Calcium 9.2 mg/dL (8.4-10.2); Carbon Dioxide 24 mmol/L (22-30); Creatinine 1 0.87 mg/dL (0.66-1.25); EST GLOMERULAR FILTRATION RATE > 60.0 ML/MIN; Glucose 89 mg/dL (74-106); NT PRO BNP 33.9 pg/mL (0-450); Potassium 3.5 mmol/L (3.5-5.1); SGOT/AST 46 U/L (17-59); SGPT/ALT 42 U/L (0-50); SODIUM 138 mmol/L (137-145); Total Protein 7.3 g/dL (6.3-8.2)
[2022-11-01 23:56] LABS: Amphetamine,Urine NEGATIVE (NEGATIVE); Barbiturate,Urine NEGATIVE (NEGATIVE); Benzodiazepine,Urine NEGATIVE (NEGATIVE); Cocaine,Urine NEGATIVE (NEGATIVE); Methadone,Urine NEGATIVE (NEGATIVE); Opiate,Urine NEGATIVE (NEGATIVE); PCP,Urine NEGATIVE (NEGATIVE); THC,Urine POSITIVE (NEGATIVE)
[2022-11-02 00:50] VITALS: BP 136/79; PULSE 78
--- NOTE | 2022-11-02 08:41 | XRAY ---
Indication: Chest pain and dizziness. Comparison: October 18, 2022 Portable apical lordotic chest again demonstrates normal heart, lungs, and bony thorax with incidental tiny calcified granulomas.
== END 2022-11-02 00:45 | disposition home or self-care (01) ==
LOC: ED 21:11
DX: R07.89 Other chest pain (principal); F41.9 Anxiety disorder, unspecified; R42 Dizziness and giddiness; R20.2 Paresthesia of skin; H53.8 Other visual disturbances; I10 Essential (primary) hypertension; E78.5 Hyperlipidemia, unspecified; Z79.899 Other long term (current) drug therapy; Z86.16 Personal history of COVID-19
CPT/HCPCS: 36000; 36415; 71045; 80053; 80307; 82550; 83880; 84484; 85025; 93005; 93041; 96360; 99284

== ENCOUNTER 2023-01-06 20:11 | Emergency (ER) | payer OTHER ==
[2023-01-06 20:43] LABS: Absolute Neutrophil Ct (ANC) 3.12 x10^3/uL (1.4-6.9); Basophil (Absolute #) 0.06 x10^3/uL (0-0.4); Eosinophil (Absolute #) 0.18 x10^3/uL (0-0.5); Hematocrit 46.3 % (42-50); IMMATURE GRAN # 0.01 x10^3u/L (0.00-0.03); IMMATURE GRAN % 0.2 % (0.00-0.4); Lymphocyte (Absolute #) 2.18 x10^3/uL (1.0-4.6); Lymphocytes % 36.3 % (24.0-44.0); Mean Cell Volume 85.1 fL (78-100); Mean Corpuscular Hemoglobin 29.4 pg (26-32); Mean Corpuscular Hgb Concent. 34.6 g/dL (32-36); Mean Platelet Volume 9.9 fL (7.5-11.0); Monocyte (Absolute #) 0.45 x10^3/uL (0.0-1.3); Monocytes % 7.5 % (0.0-12.0); Platelet Count 209 x10^3/uL (150-450); Red Blood Count 5.44 x10^6/uL (4.1-5.6); Red Cell Distribution Width 12.6 % (11.5-14.0)
[2023-01-06 20:53] LABS: ACETAMINOPHEN < 10 ug/ml (10-30); ALBUMIN 4.4 g/dL (3.5-5.0); ALKALINE PHOSPHATASE 77 U/L (38-126); ANION GAP 11.4 MEQ/L (5-15); BLOOD UREA NITROGEN 13 mg/dL (9-20); CHLORIDE 103 mmol/L (98-107); Calcium 8.9 mg/dL (8.4-10.2); Carbon Dioxide 29 mmol/L (22-30); Creatinine 1 0.83 mg/dL (0.66-1.25); EST GLOMERULAR FILTRATION RATE > 60.0 ML/MIN; ETHYL ALCOHOL < 10 mg/dL (0-10); Glucose 99 mg/dL (74-106); Potassium 3.4 mmol/L (3.5-5.1); SALICYLATE < 1.0 mg/dL (2-20); SGOT/AST 37 U/L (17-59); SGPT/ALT 46 U/L (0-50); SODIUM 140 mmol/L (137-145); Total Protein 7.5 g/dL (6.3-8.2)
[2023-01-06 21:01] LABS: Appearance Clear (Clear); Bacteria None Seen /HPF (None Seen); Bilirubin Negative (Negative); Blood Negative (Negative); Epithelial Cells None Seen /HPF (None Seen); Glucose, Urine Negative (Negative); Hyaline Casts NONE SEEN /LPF (0-2); Ketones Negative (Negative); Leukocyte Esterase Negative (Negative); Nitrite Negative (Negative); Ph 7.5 (4.6-8.0); Protein,Urine Dip Negative (Negative); RBC 0-2 /HPF (0-5); Specific Gravity 1.015 (1.005-1.030); Urobilinogen 0.2 mg/dL (0.2); WBC 0-2 /HPF (0-5)
[2023-01-06 21:03] LABS: ADD URINE CULTURE? NO (NO)
[2023-01-06 21:12] LABS: Amphetamine,Urine NEGATIVE (NEGATIVE); Barbiturate,Urine NEGATIVE (NEGATIVE); Benzodiazepine,Urine NEGATIVE (NEGATIVE); Cocaine,Urine NEGATIVE (NEGATIVE); Methadone,Urine NEGATIVE (NEGATIVE); Opiate,Urine NEGATIVE (NEGATIVE); PCP,Urine NEGATIVE (NEGATIVE); THC,Urine POSITIVE (NEGATIVE)
--- NOTE | 2023-01-06 21:27 | ERPHSYRPT ---
- History of Present Illness Time Seen by Provider: 01/06/23 20:30 Source: patient Exam Limitations: no limitations Patient Subjective Stated Complaint: pt states he has been having suicidal thoughts for several days. has lost a step grandfather and a cousin approx 1 month ago and now nolvia needs open heart surgery. Triage Nursing Assessment: pt alert and oriented, answers questions approp. pt ambulatory with steady gait noted. respirations nonlabored. skin warm and dry. pt cooperative at this time. Physician History: 42yo M presents to the ED w/ SI. Patient was sent in from his place of work after becoming stressed out and threatening to grab a knife in the kitchen and kill himself. Patient reports that he has had the of his grandfather and his cousin within the last month which is been very difficult for him. Patient reports that he is no longer feeling like he wants to kill himself at this time. He states that he knows that he needs to get help to deal w/ his sadness and outbursts. He has attempted suicide in the past w/ multiple inpatient psych stays. He currently has no plan for suicide. Timing/Duration: today Severity of Symptoms-Max: severe Severity of Symptoms-Current: mild Context related to: work, recent Suicidal thoughts: gesture Associated Symptoms: angry, agitated, anxiety, depressed, frustrated, suicidal ideation, No hostile, No hallucinating, No ingestion, No injury, No paranoid Previous symptoms: same symptoms as today Allergies/Adverse Reactions: ketorolac [From Toradol] Adverse Reaction (Severe, Verified 01/06/23 20:31) suicidial ideation topiramate [From Topamax] Adverse Reaction (Severe, Verified 01/06/23 20:31) hyper, anxiety Home Medications: Naproxen 500 mg [Naprosyn 500 MG] 500 mg PO BID 01/06/23 [History] Omeprazole 20 mg PO DAILY 01/06/23 [History] Hx Tetanus, Diphtheria Vaccination/Date Given: No Hx Influenza Vaccination/Date Given: Yes (09/2022) Hx Pneumococcal Vaccination/Date Given: No Immunizations Up to Date: No Travel Risk - International Travel Have you traveled outside of the country in past 3 weeks: No - Coronavirus Screening Are you exhibiting any of the following symptoms?: No Close contact with a COVID-19 positive Pt in past 14-21 Days: No - Vaccine Status Have you recieved a Covid-19 vaccination: Yes 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 PTSD - Past Surgical History Past Surgical History: Yes Neuro Surgical History: No Pertinent History Cardiac: No Pertinent History Respiratory: No Pertinent History Gastrointestinal: Appendectomy Genitourinary: No Pertinent History Musculoskeletal: No Pertinent History Male Surgical History: No Pertinent History Other Surgical History: skin CA on L shoulder - Social History Smoking Status: Current every day smoker How long have you smoked: 25 yrs Exposure to second hand smoke: No Drug Use: marijuana Patient Lives Alone: No Significant Family History: heart disease, hypertension, stroke - Review of Systems Constitutional: No Symptoms Eyes: No Symptoms Ears, Nose, & Throat: No Symptoms Respiratory: No Symptoms Cardiac: No Symptoms Abdominal/Gastrointestinal: No Symptoms Genitourinary Symptoms: No Symptoms Musculoskeletal: No Symptoms Skin: No Symptoms Neurological: No Symptoms Psychological: Anxiety, Depression, Suicidal Ideations, Emotional Lability, No Homicidal Ideations, No Hallucinations Endocrine: No Symptoms All Other Systems: Reviewed and Negative - Nursing Vital Signs Nursing Vital Signs: Initial Vital Signs Temperature 96.9 F 01/06/23 20:16 Pulse Rate 104 H 01/06/23 20:16 Respiratory Rate 18 01/06/23 20:16 Blood Pressure 155/86 01/06/23 20:16 O2 Sat by Pulse Oximetry 97 01/06/23 20:16 Pain Scale Pain Intensity 0 - Physical Exam General Appearance: no apparent distress Eyes, Ears, Nose, Throat Exam: normal ENT inspection Neck Exam: normal inspection Respiratory Exam: normal breath sounds Cardiovascular Exam: regular rate/rhythm, normal heart sounds Gastrointestinal/Abdominal Exam: soft, normal bowel sounds, No tenderness Extremities Exam: normal inspection Current Suicidality: denies suicide plan Neurological Exam: alert, calm Behavior/Eye Contact/Speech: cooperative, good eye contact, normal speech Thoughts/Hallucinations: normal thought pattern, no apparent hallucination Skin Exam: normal color, warm, dry, No rash SpO2 Interpretation: normal SpO2: 97 O2 Delivery: Room Air - Course Nursing assessment & vital signs reviewed: Yes EKG Interpreted by Me: RATE (78), Sinus Rhythm, Right Tullos Deviation, NORMAL INTERVALS, NORMAL QRS, NORMAL ST-T Lab/Rad Data: Laboratory Result Diagrams 01/06/23 20:41 01/06/23 20:41 Laboratory Results 01/06/23 01/06/23 01/06/23 Range/Units 20:41 20:41 20:28 WBC 6.0 (4.0-10.5) x10^3/uL RBC 5.44 (4.1-5.6) x10^6/uL Hgb 16.0 (12.5-18.0) g/dL Hct 46.3 (42-50) % MCV 85.1 (78-100) fL MCH 29.4 (26-32) pg MCHC 34.6 (32-36) g/dL RDW 12.6 (11.5-14.0) % Plt Count 209 (150-450) x10^3/uL MPV 9.9 (7.5-11.0) fL Gran % 52.0 (36.0-66.0) % Immature Gran % (Auto) 0.2 (0.00-0.4) % Nucleat RBC Rel Count 0.0 (0.00-0.1) % Eos # (Auto) 0.18 (0-0.5) x10^3/uL Immature Gran # (Auto) 0.01 (0.00-0.03) x10^3u/L Absolute Lymphs (auto) 2.18 (1.0-4.6) x10^3/uL Absolute Monos (auto) 0.45 (0.0-1.3) x10^3/uL Absolute Nucleated RBC 0.00 (0.00-0.01) x10^3u/L Lymphocytes % 36.3 (24.0-44.0) % Monocytes % 7.5 (0.0-12.0) % Eosinophils % 3.0 (0.00-5.0) % Basophils % 1.0 (0.0-0.4) % Absolute Granulocytes 3.12 (1.4-6.9) x10^3/uL Basophils # 0.06 (0-0.4) x10^3/uL Sodium 140 (137-145) mmol/L Potassium 3.4 L (3.5-5.1) mmol/L Chloride 103 (98-107) mmol/L Carbon Dioxide 29 (22-30) mmol/L Anion Gap 11.4 (5-15) MEQ/L BUN 13 (9-20) mg/dL Creatinine 0.83 (0.66-1.25) mg/dL Estimated GFR > 60.0 ML/MIN Glucose 99 (74-106) mg/dL Calcium 8.9 (8.4-10.2) mg/dL Total Bilirubin 0.50 (0.2-1.3) mg/dL AST 37 (17-59) U/L ALT 46 (0-50) U/L Alkaline Phosphatase 77 (38-126) U/L Serum Total Protein 7.5 (6.3-8.2) g/dL Albumin 4.4 (3.5-5.0) g/dL Urine Color (Yellow) Urine Appearance (Clear) Urine pH (4.6-8.0) Ur Specific [place] (1.005-1.030) Urine Protein (Negative) Urine Glucose (UA) (Negative) mg/dL Urine Ketones (Negative) Urine Blood (Negative) Urine Nitrite (Negative) Urine Bilirubin (Negative) Urine Urobilinogen (0.2) mg/dL Ur Leukocyte Esterase (Negative) U Hyaline Cast (Auto) (0-2) /LPF Urine Microscopic RBC (0-5) /HPF Urine Microscopic WBC (0-5) /HPF Ur Epithelial Cells (None Seen) /HPF Urine Bacteria (None Seen) /HPF Urine Culture Reflexed (NO) Salicylates < 1.0 L (2-20) mg/dL Urine Opiates Level NEGATIVE (NEGATIVE) Ur Methadone NEGATIVE (NEGATIVE) Acetaminophen < 10 L (10-30) ug/ml Urine Barbiturates NEGATIVE (NEGATIVE) Ur Phencyclidine (PCP) NEGATIVE (NEGATIVE) Urine Amphetamine NEGATIVE (NEGATIVE) U Benzodiazepine Level NEGATIVE (NEGATIVE) Urine Cocaine NEGATIVE (NEGATIVE) Urine Marijuana (THC) POSITIVE (NEGATIVE) Ethyl Alcohol < 10 (0-10) mg/dL 01/06/23 Range/Units 20:28 WBC (4.0-10.5) x10^3/uL RBC (4.1-5.6) x10^6/uL Hgb (12.5-18.0) g/dL Hct (42-50) % MCV (78-100) fL MCH (26-32) pg MCHC (32-36) g/dL RDW (11.5-14.0) % Plt Count (150-450) x10^3/uL MPV (7.5-11.0) fL Gran % (36.0-66.0) % Immature Gran % (Auto) (0.00-0.4) % Nucleat RBC Rel Count (0.00-0.1) % Eos # (Auto) (0-0.5) x10^3/uL Immature Gran # (Auto) (0.00-0.03) x10^3u/L Absolute Lymphs (auto) (1.0-4.6) x10^3/uL Absolute Monos (auto) (0.0-1.3) x10^3/uL Absolute Nucleated RBC (0.00-0.01) x10^3u/L Lymphocytes % (24.0-44.0) % Monocytes % (0.0-12.0) % Eosinophils % (0.00-5.0) % Basophils % (0.0-0.4) % Absolute Granulocytes (1.4-6.9) x10^3/uL Basophils # (0-0.4) x10^3/uL Sodium (137-145) mmol/L Potassium (3.5-5.1) mmol/L Chloride (98-107) mmol/L Carbon Dioxide (22-30) mmol/L Anion Gap (5-15) MEQ/L BUN (9-20) mg/dL Creatinine (0.66-1.25) mg/dL Estimated GFR ML/MIN Glucose (74-106) mg/dL Calcium (8.4-10.2) mg/dL Total Bilirubin (0.2-1.3) mg/dL AST (17-59) U/L ALT (0-50) U/L Alkaline Phosphatase (38-126) U/L Serum Total Protein (6.3-8.2) g/dL Albumin (3.5-5.0) g/dL Urine Color Yellow (Yellow) Urine Appearance Clear (Clear) Urine pH 7.5 (4.6-8.0) Ur Specific [place] 1.015 (1.005-1.030) Urine Protein Negative (Negative) Urine Glucose (UA) Negative (Negative) mg/dL Urine Ketones Negative (Negative) Urine Blood Negative (Negative) Urine Nitrite Negative (Negative) Urine Bilirubin Negative (Negative) Urine Urobilinogen 0.2 (0.2) mg/dL Ur Leukocyte Esterase Negative (Negative) U Hyaline Cast (Auto) NONE SEEN (0-2) /LPF Urine Microscopic RBC 0-2 (0-5) /HPF Urine Microscopic WBC 0-2 (0-5) /HPF Ur Epithelial Cells None Seen (None Seen) /HPF Urine Bacteria None Seen (None Seen) /HPF Urine Culture Reflexed NO (NO) Salicylates (2-20) mg/dL Urine Opiates Level (NEGATIVE) Ur Methadone (NEGATIVE) Acetaminophen (10-30) ug/ml Urine Barbiturates (NEGATIVE) Ur Phencyclidine (PCP) (NEGATIVE) Urine Amphetamine (NEGATIVE) U Benzodiazepine Level (NEGATIVE) Urine Cocaine (NEGATIVE) Urine Marijuana (THC) (NEGATIVE) Ethyl Alcohol (0-10) mg/dL - Progress Progress: improved Progress Note: Patient feeling better, no current SI. Spoke w/ telepsych who evaluated the patient and created a safety plan. They feel he is safe for d/c w/ close f/u on Monday w/ therapist. Will see patient in: office Counseled pt/family regarding: need for follow-up Medical Desision Making - Discussion of managment Care discussed with:: hospitalist Agreed on:: Treatment plan, need for follow-up Will see patient: In office - Diagnostic Testing Diagnostic test were ordered, analyzed, and reviewed by me: Yes Radiological Interpretation: Reviewed by me - Risk of complications Low Risk: Low risk of morbidity from additional dx testing or treatment - Departure Departure Disposition: Home Clinical Impression: Passive suicidal ideations Condition: Good Critical Care Time: No Referrals: COMFORT CLOUD MD [Primary Care Provider] - Follow up/PCP as directed Instructions: Depression
[2023-01-06 23:50] VITALS: BP 128/65; PULSE 81
[2023-01-07 00:11] VITALS: O2SAT 97
== END 2023-01-07 00:10 | disposition home or self-care (01) ==
LOC: ED 20:11
DX: R45.851 Suicidal ideations (principal); Z63.4 Disappearance and death of family member; Z63.79 Other stressful life events affecting family and household; Z79.899 Other long term (current) drug therapy; Z72.0 Tobacco use
CPT/HCPCS: 36415; 80053; 80307; 81001; 82077; 85025; 93005; 99284

== ENCOUNTER 2023-03-03 16:17 | Emergency (ER) | payer OTHER ==
[2023-03-03 16:28] VITALS: BP 145/103; PULSE 94; O2SAT 98
--- NOTE | 2023-03-03 16:50 | ERPHSYRPT ---
- History of Present Illness Time Seen by Provider: 03/03/23 16:23 Source: patient Exam Limitations: no limitations Patient Subjective Stated Complaint: Pt states "I woke up two days ago with back pain and today when I was lifting a box at work my lower back popped and I have really bad pain." Triage Nursing Assessment: Pt presented alert and oriented X 3, skin pwd. Pt ambulates with a hunched over gait, able to speak in clear full sentences pt tender to lumbar spine. Physician History: Patient is here for nontraumatic back pain. Approximately 3 to 4 days ago patient states he woke up with pain. No falls no trauma. No fever no chills. No other red flags. States that he took Motrin. He felt this only helped slightly. Patient has no red flag symptoms for back pain today: No Loss of control of the bowel or bladder. No weakness or numbness in a leg or arm. No foot drop, disturbed gait. No high fever, no IV drug use. No saddle anaesthesia (numbness of the anus, perineum or genitals). No trauma or h/o cancer Allergies/Adverse Reactions: ketorolac [From Toradol] Adverse Reaction (Severe, Verified 01/06/23 20:31) suicidial ideation topiramate [From Topamax] Adverse Reaction (Severe, Verified 01/06/23 20:31) hyper, anxiety Home Medications: Omeprazole 20 mg PO DAILY 01/06/23 [History] Cyclobenzaprine HCl 10 mg [Cyclobenzaprine 10 MG] 10 mg PO DAILY PRN 03/03/23 [History] Hx Tetanus, Diphtheria Vaccination/Date Given: No Hx Influenza Vaccination/Date Given: Yes (09/2022) Hx Pneumococcal Vaccination/Date Given: No Travel Risk - International Travel Have you traveled outside of the country in past 3 weeks: No - Coronavirus Screening Are you exhibiting any of the following symptoms?: No Close contact with a COVID-19 positive Pt in past 14-21 Days: No - Vaccine Status Have you recieved a Covid-19 vaccination: Yes 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[employer] - Review of Systems Constitutional: No Fever, No Chills Eyes: No Symptoms Ears, Nose, & Throat: No Symptoms Respiratory: No Cough, No Dyspnea Cardiac: No Chest Pain, No Edema, No Syncope Abdominal/Gastrointestinal: No Abdominal Pain, No Nausea, No Vomiting, No Diarrhea Genitourinary Symptoms: No Dysuria Musculoskeletal: Back Pain, No Neck Pain Skin: No Rash Neurological: No Dizziness, No Focal Weakness, No Sensory Changes Psychological: No Symptoms Endocrine: No Symptoms All Other Systems: Reviewed and Negative - Past Medical History Pertinent Past Medical History: Yes Neurological History: Migraines, Peripheral Neuropathy, Stroke ENT History: No Pertinent History Cardiac History: No Pertinent History Respiratory History: Asthma Endocrine Medical History: No Pertinent History Musculoskeletal History: Other GI Medical History: GERD History: No Pertinent History Psycho-Social History: Anxiety, Attention Deficit Disorder, Depression, Other Male Reproductive Disorders: No Pertinent History Other Medical History: 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 PTSD - Past Surgical History Past Surgical History: Yes Neuro Surgical History: No Pertinent History Cardiac: No Pertinent History Respiratory: No Pertinent History Gastrointestinal: Appendectomy Genitourinary: No Pertinent History Musculoskeletal: No Pertinent History Male Surgical History: No Pertinent History Other Surgical History: skin CA on L shoulder - Social History Smoking Status: Current every day smoker How long have you smoked: 25 yrs Exposure to second hand smoke: No Drug Use: marijuana Patient Lives Alone: No Significant Family History: heart disease, hypertension, stroke - Nursing Vital Signs Nursing Vital Signs: Initial Vital Signs Temperature 97.3 F 03/03/23 16:24 Pulse Rate 94 H 03/03/23 16:24 Respiratory Rate 20 03/03/23 16:24 Blood Pressure 145/103 03/03/23 16:24 O2 Sat by Pulse Oximetry 98 03/03/23 16:24 Pain Scale Pain Intensity [Lower Back] 8 Pain Intensity 8 - Physical Exam General Appearance: no apparent distress, alert Eye Exam: PERRL/EOMI, eyes nml inspection Ears, Nose, Throat Exam: normal ENT inspection, TMs normal, pharynx normal, moist mucous membranes Neck Exam: normal inspection, non-tender, supple, full range of motion Respiratory Exam: normal breath sounds, lungs clear, No respiratory distress Cardiovascular Exam: regular rate/rhythm, normal heart sounds, normal peripheral pulses Gastrointestinal/Abdomen Exam: soft, normal bowel sounds, No tenderness, No mass Back Exam: normal inspection, normal range of motion, No CVA tenderness, No vertebral tenderness Extremity Exam: normal inspection, normal range of motion, pelvis stable Neurologic Exam: alert, oriented x 3, cooperative, normal mood/affect, nml cerebellar function, nml station & gait, sensation nml, abnormal cerebellar tests, No motor deficits Skin Exam: normal color, warm, dry, No rash Lymphatic Exam: No adenopathy SpO2 Interpretation: normal SpO2: 98 Comments: 03/03/23 17:04 No obvious deformity, sensation intact, 2+ capillary refill, 2 point tactile discrimination intact. 5 out of 5 strength. Full range of motion without pain. Compartments are soft, nontender. Overlying skin shows no tenting, bruising, ecchymosis. - Course Nursing assessment & vital signs reviewed: Yes - Progress Progress: improved Progress Note: 03/03/23 17:05 Patient has a normal neurological exam, musculoskeletal exam. No red flag symptoms for back pain as above. Plan for conservative treatment with, Toradol, lidocaine patches going home. May return here sooner for any new or changing symptoms. Counseled pt/family regarding: diagnosis, need for follow-up - Departure Departure Disposition: Home Clinical Impression: Acute back pain Condition: Stable Critical Care Time: No Referrals: COMFORT CLOUD MD [Primary Care Provider] - Follow up/PCP as directed Instructions: Low Back Pain (DC) Prescriptions: Cyclobenzaprine HCl 10 mg [Flexeril 10 MG] 10 mg PO TID #12 tablet Lidocaine HCl 5% Patch [Lidoderm Patch 5%] 1 patch TP DAILY 7 Days #7 patch Ketorolac Trometh 10 mg Tab [TORAdol 10 MG TABLET] 10 mg PO BID PRN 5 Days #12 tablet
== END 2023-03-03 17:01 | disposition home or self-care (01) ==
LOC: ED 16:17
DX: M54.9 Dorsalgia, unspecified (principal); Z79.899 Other long term (current) drug therapy; Z72.0 Tobacco use
CPT/HCPCS: 99281

== ENCOUNTER 2023-05-07 08:48 | Emergency (ER) | payer OTHER ==
[2023-05-07 09:00] VITALS: BP 112/85; PULSE 88; O2SAT 98
[2023-05-07] MEDS ORDERED: NORCO 5/325 MG PO ONE (09:41)
--- NOTE | 2023-05-07 09:44 | ERPHSYRPT ---
- History of Present Illness Time Seen by Provider: 05/07/23 09:39 Source: patient Exam Limitations: no limitations Patient Subjective Stated Complaint: pt here for left leg since last night, pt was driving a golf cart and left leg got on something and pulled leg back, now co pain entire left leg Triage Nursing Assessment: pt alert, arrived per wc. skin w/p/d.resp easy, has redness and bruising to back of thigh, co swelling noted Physician History: 43 years old male presented in the ER with chief complaint of left lower extremity pain after he over flexed his left lower extremity while on the golf cart as it got stuck with something. Patient reports bruising on the back of left thigh and pain in the ankle with ambulation. Difficulty weightbearing. No injury anywhere else. Quality: sharpness Severity of Pain-Max: moderate Severity of Pain-Current: moderate Modifying Factors: Improves With: immobilization. Worsens With: movement Allergies/Adverse Reactions: ketorolac [From Toradol] Adverse Reaction (Severe, Verified 05/07/23 08:58) suicidial ideation topiramate [From Topamax] Adverse Reaction (Severe, Verified 05/07/23 08:58) hyper, anxiety Home Medications: Omeprazole 20 mg PO DAILY 01/06/23 [History] Cyclobenzaprine HCl 10 mg [Cyclobenzaprine 10 MG] 10 mg PO DAILY PRN 03/03/23 [History] Hx Tetanus, Diphtheria Vaccination/Date Given: No Hx Influenza Vaccination/Date Given: Yes Hx Pneumococcal Vaccination/Date Given: No Immunizations Up to Date: Yes Travel Risk - International Travel Have you traveled outside of the country in past 3 weeks: No - Coronavirus Screening Are you exhibiting any of the following symptoms?: No Close contact with a COVID-19 positive Pt in past 14-21 Days: No - Vaccine Status Have you recieved a Covid-19 vaccination: Yes 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[employer] - Review of Systems Constitutional: No Symptoms Eyes: No Symptoms Respiratory: No Symptoms Cardiac: No Symptoms Abdominal/Gastrointestinal: No Symptoms Musculoskeletal: Injury, Joint Pain Skin: No Symptoms Neurological: No Symptoms Hematologic/Lymphatic: No Symptoms Immunological/Allergic: No Symptoms - Past Medical History Pertinent Past Medical History: Yes Neurological History: Migraines, Peripheral Neuropathy, Stroke ENT History: No Pertinent History Cardiac History: No Pertinent History Respiratory History: Asthma Endocrine Medical History: No Pertinent History Musculoskeletal History: Other GI Medical History: GERD History: No Pertinent History Psycho-Social History: Anxiety, Attention Deficit Disorder, Depression, Other Male Reproductive Disorders: No Pertinent History Other Medical History: 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 PTSD - Past Surgical History Past Surgical History: Yes Neuro Surgical History: No Pertinent History Cardiac: No Pertinent History Respiratory: No Pertinent History Gastrointestinal: Appendectomy Genitourinary: No Pertinent History Musculoskeletal: No Pertinent History Male Surgical History: No Pertinent History Other Surgical History: skin CA on L shoulder - Social History Smoking Status: Current every day smoker How long have you smoked: 25 yrs Exposure to second hand smoke: Yes Drug Use: marijuana Patient Lives Alone: No Significant Family History: heart disease, hypertension, stroke - Nursing Vital Signs Nursing Vital Signs: Initial Vital Signs Temperature 98 F 05/07/23 08:59 Pulse Rate 88 05/07/23 08:59 Respiratory Rate 18 05/07/23 08:59 Blood Pressure 112/85 05/07/23 08:59 O2 Sat by Pulse Oximetry 98 05/07/23 08:59 Pain Scale Pain Intensity 8 - Physical Exam General Appearance: no apparent distress, alert Eyes, Ears, Nose, Throat Exam: normal ENT inspection Neck Exam: normal inspection, non-tender, supple, full range of motion Cardiovascular/Respiratory Exam: normal breath sounds, regular rate/rhythm Back Exam: normal inspection, normal range of motion, CVA tenderness Hips Exam: bilateral: non-tender, normal inspection, normal range of motion Legs Exam: right leg: non-tender, normal inspection, normal range of motion, left leg: pain, soft tissue tenderness (Left posterior thigh) Knees Exam: bilateral knee: non-tender, normal inspection, normal range of motion, no evidence of injury Ankle Exam: right ankle: non-tender, normal inspection, normal range of motion, no evidence of injury, left ankle: bone tenderness (Both medicalized.), pain Foot Exam: bilateral foot: non-tender, normal inspection, normal range of motion, no evidence of injury Neuro/Tendon Exam: normal sensation, normal motor functions Mental Status Exam: alert, oriented x 3, cooperative Skin Exam: normal color SpO2 Interpretation: normal SpO2: 98 O2 Delivery: Room Air Ordered Tests: Active Orders 24 hr Category Date Time Status ANKLE (3 VIEWS) Stat Exams 05/07/23 09:27 Completed FEMUR Stat Exams 05/07/23 09:27 Completed LOWER LEG Stat Exams 05/07/23 09:27 Completed Medication Summary Discontinued Medications Generic Name Dose Route Start Last Admin Trade Name Liseth PRN Reason Stop Dose Admin Hydrocodone Bitart/Acetaminophen 2 tab 05/07/23 09:41 05/07/23 09:59 Hydrocodone/Apap 5/325 1 Tab Tablet PO 05/07/23 09:42 2 tab SENT HOME W/ PATIENT ONE Administration Hydrocodone Bitart/Acetaminophen Confirm 05/07/23 09:58 Hydrocodone/Apap 5/325 1 Tab Tablet Administered 05/07/23 09:59 Dose 2 tab .ROUTE .STK-MED ONE - Progress Progress: unchanged Progress Note: 05/07/23 09:41 43 years old is evaluated for over flexion of the left lower extremity while he was on the golf cart yesterday. Has bruising/contusion on the back of left mid thigh and pain in the ankle. Difficulty weightbearing. I have obtained x-rays femur and lower leg which are negative for fracture dislocation. I believe patient has contusion in the thigh and ankle sprain. Placed in a long walking boot and weightbearing as tolerated. Outpatient orthopedic/podiatry follow-up. Counseled pt/family regarding: diagnosis, need for follow-up, rad results Medical Desision Making - Diagnostic Testing Diagnostic test were ordered, analyzed, and reviewed by me: Yes Radiological Interpretation: Interpreted by me, Reviewed by me - Departure Departure Disposition: Home Clinical Impression: Ankle sprain, Thigh contusion Condition: Stable Critical Care Time: No Referrals: COMFORT CLOUD MD [Primary Care Provider] - Follow up with PCP 1 day ORTHO - BRODERICK JORDAN NP [NON-STAFF PHY W/O PRIVILEGES] - Follow up/PCP as directed (1-2 days for reevaluation) Instructions: Ankle Sprain (DC), Contusion (DC) Additional Instructions: Take Tylenol/ibuprofen as needed. Intermittent ice application. Follow-up with your primary care and orthopedics for reevaluation. Weightbearing as tolerated. Return to ER for any worsening. Prescriptions: Ibuprofen 600 mg PO Q6HPRN PRN 10 Days #20 tablet PRN Reason: Pain
[2023-05-07] MEDS ORDERED: NORCO 5/325 MG ONE (09:58)
--- NOTE | 2023-05-07 21:02 | XRAY ---
Indication: Pain and bruising following injury. Comparison: None 2 view left femur obtained. No bony, articular, or soft tissue abnormalities.
--- NOTE | 2023-05-07 21:03 | XRAY ---
Indication: Pain and bruising following injury. Comparison: None 3 view left ankle demonstrates tiny distal tibia bone island anterior medially. No other bony, articular, or soft tissue abnormalities.
--- NOTE | 2023-05-07 21:03 | XRAY ---
Indication: Pain and bruising following injury. Comparison: None 2 view left lower leg obtained. No bony, articular, or soft tissue abnormalities.
== END 2023-05-07 10:37 | disposition home or self-care (01) ==
LOC: ED 08:48
DX: S93.402A Sprain of unspecified ligament of left ankle, initial encounter (principal); S70.12XA Contusion of left thigh, initial encounter; X50.0XXA Overexertion from strenuous movement or load, initial encounter; Z79.899 Other long term (current) drug therapy; Z72.0 Tobacco use
CPT/HCPCS: 73552; 73590; 73610; 99283; A9270-GY

== ENCOUNTER 2023-09-26 09:44 | Observation (INO) | payer OTHER ==
--- NOTE | 2023-09-26 09:56 | ERPHSYRPT ---
- History of Present Illness Time Seen by Provider: 09/26/23 09:52 Exam Limitations: no limitations Patient Subjective Stated Complaint: PT HERE FOR LEFT SIDED CHEST PAIN OFF AND ON FOR OVER A MONTH NOW, WORSE TODAY. NO FEVER,NO INJURY. HAS OCC COUGH. Triage Nursing Assessment: PT ALERT, WALKED IN, RESP EASY, SKIN W/D/P. ABD SOFT, HAS OCC COUGH, NO EDEMA NOTED. MOVES ALL EXT WELL Physician History: Patient is a 43-year-old male history of smoking, significant cardiac past medical history and recent history of stroke presents to our ED for evaluation of intermittent left-sided chest pain that has gotten progressively worse. Pain radiates to his back and left arm. No associated nausea vomiting or diaphoresis. Patient reports his symptoms are worse with movement and palpation. Symptoms improved with rest somewhat. No known trauma. No fever no rash. No shortness of breath. Patient has not followed up with his primary care physician regarding this issue. 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 Patient states he does lift heavy objects at times. However he does not feel his pain is associated with any particular activity. Patient otherwise feels well. He voices no other complaints or concerns at this time. Portions of this note were created with voice recognition technology. There may be grammatical, spelling, punctuation or sound alike errors Timing/Duration: other (Pain for 1 month) Activities at Onset: none Quality: aching, other (Left-sided chest radiating to his back and fingertips) Location: other (Left chest) Chest Pain Radiation: arm, back Severity of Pain-Max: moderate Severity of Pain-Current: mild Modifying Factors: Improves With: nothing Prior Chest Pain/Cardiac Workup: no prior chest pain Nitro Today/Relief: no nitro taken today Aspirin Treatment Today: no aspirin today Allergies/Adverse Reactions: ketorolac [From Toradol] Adverse Reaction (Severe, Verified 09/26/23 09:45) suicidial ideation topiramate [From Topamax] Adverse Reaction (Severe, Verified 09/26/23 09:45) hyper, anxiety Home Medications: Omeprazole 20 mg PO DAILY 01/06/23 [History] Cyclobenzaprine HCl 10 mg [Cyclobenzaprine 10 MG] 10 mg PO DAILY PRN 03/03/23 [History] Hx Tetanus, Diphtheria Vaccination/Date Given: No Hx Influenza Vaccination/Date Given: No Hx Pneumococcal Vaccination/Date Given: No Immunizations Up to Date: Yes Travel Risk - International Travel Have you traveled outside of the country in past 3 weeks: No - Coronavirus Screening Are you exhibiting any of the following symptoms?: No Close contact with a COVID-19 positive Pt in past 14-21 Days: No - Vaccine Status Have you recieved a Covid-19 vaccination: Yes 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: [employer] - Review of Systems Constitutional: No Symptoms, No Fever, No Chills Eyes: No Symptoms Ears, Nose, & Throat: No Symptoms Respiratory: No Symptoms, No Cough, No Dyspnea Cardiac: No Symptoms, No Chest Pain, No Edema, No Syncope Abdominal/Gastrointestinal: No Symptoms, No Abdominal Pain, No Nausea, No Vomiting, No Diarrhea Genitourinary Symptoms: No Symptoms, No Dysuria Musculoskeletal: No Symptoms, No Back Pain, No Neck Pain Skin: No Symptoms, No Rash Neurological: No Symptoms, No Dizziness, No Focal Weakness, No Sensory Changes Psychological: No Symptoms Endocrine: No Symptoms Hematologic/Lymphatic: No Symptoms Immunological/Allergic: No Symptoms All Other Systems: Reviewed and Negative - Past Medical History Pertinent Past Medical History: Yes Neurological History: Migraines, Peripheral Neuropathy, Stroke ENT History: No Pertinent History Cardiac History: No Pertinent History Respiratory History: Asthma Endocrine Medical History: No Pertinent History Musculoskeletal History: Other GI Medical History: GERD History: No Pertinent History Psycho-Social History: Anxiety, Attention Deficit Disorder, Depression, Other Male Reproductive Disorders: No Pertinent History Other Medical History: 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 PTSD - Past Surgical History Past Surgical History: Yes Neuro Surgical History: No Pertinent History Cardiac: No Pertinent History Respiratory: No Pertinent History Gastrointestinal: Appendectomy Genitourinary: No Pertinent History Musculoskeletal: No Pertinent History Male Surgical History: No Pertinent History Other Surgical History: skin CA on L shoulder - Social History Smoking Status: Current every day smoker How long have you smoked: 25 yrs Exposure to second hand smoke: Yes Drug Use: marijuana Patient Lives Alone: No Significant Family History: heart disease, hypertension, stroke - Nursing Vital Signs Nursing Vital Signs: Initial Vital Signs Pulse Rate 72 09/26/23 09:46 Respiratory Rate 14 09/26/23 09:46 Blood Pressure 131/97 09/26/23 09:46 O2 Sat by Pulse Oximetry 99 09/26/23 09:46 Pain Scale Pain Intensity 0 - Physical Exam General Appearance: no apparent distress, alert Eye Exam: PERRL/EOMI, eyes nml inspection Ears, Nose, Throat Exam: normal ENT inspection, moist mucous membranes Neck Exam: normal inspection, non-tender, supple, full range of motion Respiratory Exam: normal breath sounds, lungs clear, airway intact, No respiratory distress Cardiovascular Exam: regular rate/rhythm, normal heart sounds, normal peripheral pulses Gastrointestinal/Abdomen Exam: soft, No tenderness, No mass Back Exam: normal inspection, No CVA tenderness, No vertebral tenderness Extremity Exam: normal inspection, normal range of motion Neurologic Exam: alert, oriented x 3, cooperative, normal mood/affect, sensation nml, No motor deficits Skin Exam: normal color, warm, dry Lymphatic Exam: No adenopathy SpO2 Interpretation: normal SpO2: 99 O2 Delivery: Room Air - Course Nursing assessment & vital signs reviewed: Yes - CT Exams Chest CT Interpretation: Tele-radiologist Report (No evidence of PE. Subpleural base groundglass haziness in both lung bases could be early changes of interstitial lung disease such as nonspecific interstitial pneumonia needs clinical correlation. Calcified lung nodule in the right upper lobe is likely benign) Ordered Tests: Active Orders 24 hr Category Date Time Status [employer] STAT Care 09/26/23 09:48 Active EKG-ER Only STAT Care 09/26/23 09:47 Active IV Insertion STAT Care 09/26/23 09:47 Active Pulse Oximetry (ED) STAT Care 09/26/23 09:47 Active CHEST WITH CONTRAST [CT] Stat Exams 09/26/23 09:48 Completed CBC W DIFF Stat Lab 09/26/23 09:40 Completed CMP Stat Lab 09/26/23 09:40 Completed NT PRO BNPII Stat Lab 09/26/23 09:40 Completed TROPONIN Q4H Lab 09/26/23 09:40 Completed TROPONIN Q4H Lab 09/26/23 14:00 Ordered TROPONIN Q4H Lab 09/26/23 18:00 Ordered Urine Triage Profile Stat Lab 09/26/23 10:12 Completed Transfer Order Routine Transfer 09/26/23 Ordered Lab/Rad Data: Laboratory Result Diagrams 09/26/23 09:40 09/26/23 09:40 Laboratory Results 09/26/23 09/26/23 09/26/23 Range/Units 10:12 09:40 09:40 WBC (4.0-10.5) x10^3/uL RBC (4.1-5.6) x10^6/uL Hgb (12.5-18.0) g/dL Hct (42-50) % MCV (78-100) fL MCH (26-32) pg MCHC (32-36) g/dL RDW (11.5-14.0) % Plt Count (150-450) x10^3/uL MPV (7.5-11.0) fL Gran % (36.0-66.0) % Immature Gran % (Auto) (0.00-0.4) % Nucleat RBC Rel Count (0.00-0.1) % Eos # (Auto) (0-0.5) x10^3/uL Immature Gran # (Auto) (0.00-0.03) x10^3u/L Absolute Lymphs (auto) (1.0-4.6) x10^3/uL Absolute Monos (auto) (0.0-1.3) x10^3/uL Absolute Nucleated RBC (0.00-0.01) x10^3u/L Lymphocytes % (24.0-44.0) % Monocytes % (0.0-12.0) % Eosinophils % (0.00-5.0) % Basophils % (0.0-0.4) % Absolute Granulocytes (1.4-6.9) x10^3/uL Basophils # (0-0.4) x10^3/uL Sodium 137 (137-145) mmol/L Potassium 3.6 (3.5-5.1) mmol/L Chloride 103 (98-107) mmol/L Carbon Dioxide 26 (22-30) mmol/L Anion Gap 11.8 (5-15) MEQ/L BUN 9 (9-20) mg/dL Creatinine 0.97 (0.66-1.25) mg/dL Estimated GFR 99.3 ML/MIN Glucose 112 H (74-106) mg/dL Calcium 9.4 (8.4-10.2) mg/dL Total Bilirubin 0.80 (0.2-1.3) mg/dL AST 31 (17-59) U/L ALT 36 (0-50) U/L Alkaline Phosphatase 61 (38-126) U/L Troponin I < 0.012 (0.000-0.034) ng/mL NT-Pro-B Natriuret Pep < 20.0 (<300) pg/mL Serum Total Protein 7.8 (6.3-8.2) g/dL Albumin 4.7 (3.5-5.0) g/dL Urine Opiates Level NEGATIVE (NEGATIVE) Ur Methadone NEGATIVE (NEGATIVE) Urine Barbiturates NEGATIVE (NEGATIVE) Ur Phencyclidine (PCP) NEGATIVE (NEGATIVE) Urine Amphetamine NEGATIVE (NEGATIVE) U Benzodiazepine Level NEGATIVE (NEGATIVE) Urine Cocaine NEGATIVE (NEGATIVE) Urine Marijuana (THC) POSITIVE A (NEGATIVE) 09/26/23 Range/Units 09:40 WBC 6.0 (4.0-10.5) x10^3/uL RBC 5.95 H (4.1-5.6) x10^6/uL Hgb 17.3 (12.5-18.0) g/dL Hct 50.3 H (42-50) % MCV 84.5 (78-100) fL MCH 29.1 (26-32) pg MCHC 34.4 (32-36) g/dL RDW 12.0 (11.5-14.0) % Plt Count 250 (150-450) x10^3/uL MPV 9.8 (7.5-11.0) fL Gran % 49.1 (36.0-66.0) % Immature Gran % (Auto) 0.2 (0.00-0.4) % Nucleat RBC Rel Count 0.0 (0.00-0.1) % Eos # (Auto) 0.20 (0-0.5) x10^3/uL Immature Gran # (Auto) 0.01 (0.00-0.03) x10^3u/L Absolute Lymphs (auto) 2.27 (1.0-4.6) x10^3/uL Absolute Monos (auto) 0.47 (0.0-1.3) x10^3/uL Absolute Nucleated RBC 0.00 (0.00-0.01) x10^3u/L Lymphocytes % 38.1 (24.0-44.0) % Monocytes % 7.9 (0.0-12.0) % Eosinophils % 3.4 (0.00-5.0) % Basophils % 1.3 (0.0-0.4) % Absolute Granulocytes 2.93 (1.4-6.9) x10^3/uL Basophils # 0.08 (0-0.4) x10^3/uL Sodium (137-145) mmol/L Potassium (3.5-5.1) mmol/L Chloride (98-107) mmol/L Carbon Dioxide (22-30) mmol/L Anion Gap (5-15) MEQ/L BUN (9-20) mg/dL Creatinine (0.66-1.25) mg/dL Estimated GFR ML/MIN Glucose (74-106) mg/dL Calcium (8.4-10.2) mg/dL Total Bilirubin (0.2-1.3) mg/dL AST (17-59) U/L ALT (0-50) U/L Alkaline Phosphatase (38-126) U/L Troponin I (0.000-0.034) ng/mL NT-Pro-B Natriuret Pep (<300) pg/mL Serum Total Protein (6.3-8.2) g/dL Albumin (3.5-5.0) g/dL Urine Opiates Level (NEGATIVE) Ur Methadone (NEGATIVE) Urine Barbiturates (NEGATIVE) Ur Phencyclidine (PCP) (NEGATIVE) Urine Amphetamine (NEGATIVE) U Benzodiazepine Level (NEGATIVE) Urine Cocaine (NEGATIVE) Urine Marijuana (THC) (NEGATIVE) - Progress Progress: improved Air Movement: good Progress Note: Case discussed with Dr. Santacruz at 10:54 AM. accepts admission to observation. 09/26/23 10:56 Patient has a history of a stroke, family history of coronary artery disease, patient is an active smoker. Patient chest pain is intermittent and progressive. Patient's heart score is a 4 EKG normal sinus rhythm. CT chest reveals possible interstitial lung disease versus possible nonspecific interstitial pneumonia, CBC CMP essentially nonremarkable. Troponin negative. Urine triage positive for marijuana use. Patient reassessed. He is resting comfortably. Aspirin not administered as patient is allergic to NSAIDs. Patient will be admitted for further evaluation and treatment/cardiac rule out. Portions of this note were created with voice recognition technology. There may be grammatical, spelling, punctuation or sound alike errors Complexity of problems addressed is moderate acute complicated No critical care time Complex of data reviewed and analyzed is extensive. Test ordered test reviewed. Results analyzed and correlated clinically. Management discussed with hospitalist who accepts admission to observation. Risk of complication and a risk morbidity/mortality of patient management is high. Patient requires hospitalization for further evaluation and treatment. Vital stable. Time spent admit patient is approximately 15 minutes. Plan of care established for shared decision making. Portions of this note were created with voice recognition technology. There may be grammatical, spelling, punctuation or sound alike errors 09/26/23 12:38 09/26/23 12:41 Blood Culture(s) Obtained: No Antibiotics given: No Discussed with Dr.: Other (jaime) Will see patient in: hospital (observation) Counseled pt/family regarding: diagnosis, need for follow-up - Departure Departure Disposition: Observation Clinical Impression: Lung nodule, Chest pain, ACS (acute coronary syndrome), Interstitial lung disease, Marijuana use Condition: Stable Critical Care Time: No Referrals: COMFORT CLOUD MD [Primary Care Provider] - Follow up/PCP as directed
[2023-09-26 10:00] LABS: Absolute Neutrophil Ct (ANC) 2.93 x10^3/uL (1.4-6.9); BASOPHIL % 1.3 % (0.0-0.4); Basophil (Absolute #) 0.08 x10^3/uL (0-0.4); Eosinophil % 3.4 % (0.00-5.0); Hematocrit 50.3 % (42-50); Hemoglobin 17.3 g/dL (12.5-18.0); IMMATURE GRAN # 0.01 x10^3u/L (0.00-0.03); IMMATURE GRAN % 0.2 % (0.00-0.4); Lymphocyte (Absolute #) 2.27 x10^3/uL (1.0-4.6); Lymphocytes % 38.1 % (24.0-44.0); Mean Cell Volume 84.5 fL (78-100); Mean Corpuscular Hemoglobin 29.1 pg (26-32); Mean Corpuscular Hgb Concent. 34.4 g/dL (32-36); Mean Platelet Volume 9.8 fL (7.5-11.0); Monocyte (Absolute #) 0.47 x10^3/uL (0.0-1.3); Monocytes % 7.9 % (0.0-12.0); Neutrophil % 49.1 % (36.0-66.0); Platelet Count 250 x10^3/uL (150-450); Red Blood Count 5.95 x10^6/uL (4.1-5.6)
[2023-09-26 10:22] LABS: ALBUMIN 4.7 g/dL (3.5-5.0); ALKALINE PHOSPHATASE 61 U/L (38-126); ANION GAP 11.8 MEQ/L (5-15); BLOOD UREA NITROGEN 9 mg/dL (9-20); CHLORIDE 103 mmol/L (98-107); Calcium 9.4 mg/dL (8.4-10.2); Carbon Dioxide 26 mmol/L (22-30); Creatinine 1 0.97 mg/dL (0.66-1.25); EST GLOMERULAR FILTRATION RATE 99.3 ML/MIN; Glucose 112 mg/dL (74-106); NT PRO BNPII < 20.0 pg/mL (<300); Potassium 3.6 mmol/L (3.5-5.1); SGOT/AST 31 U/L (17-59); SGPT/ALT 36 U/L (0-50); SODIUM 137 mmol/L (137-145); Total Protein 7.8 g/dL (6.3-8.2)
[2023-09-26 10:31] LABS: Amphetamine,Urine NEGATIVE (NEGATIVE); Barbiturate,Urine NEGATIVE (NEGATIVE); Benzodiazepine,Urine NEGATIVE (NEGATIVE); Cocaine,Urine NEGATIVE (NEGATIVE); Methadone,Urine NEGATIVE (NEGATIVE); Opiate,Urine NEGATIVE (NEGATIVE); PCP,Urine NEGATIVE (NEGATIVE); THC,Urine POSITIVE (NEGATIVE)
--- NOTE | 2023-09-26 12:26 | XRAY ---
CLINICAL HISTORY:pain COMPARISON:None TECHNIQUE:Contiguous axial CT images of the chest were acquired with the administration of intravenous contrast. Coronal and sagittal reconstructions were obtained. 100 ml Isovue 370 was administered for post-contrast images. FINDINGS: The main pulmonary artery and its major branches and segmental branches appear unremarkable without evidence of embolism. Subtle pleural-based ground glass haziness was noted in both lung bases and a small patch of pneumonitis in the right upper lobe. The small calcified nodule is noted in the anterior segment of the right lobe. No free or encysted pleural effusion. Heart size is normal, and there is no pericardial effusion. No pathologically enlarged mediastinal, hilar or axillary lymph node identified. There is no definite mass lesion in the chest wall. The scanned upper abdomen is unremarkable. Degenerative changes are noted in the spine. IMPRESSION: No evidence of pulmonary embolism was noted. Subtle pleural-based ground glass haziness in both lung bases could be early changes of ILD such as NSIP needs clinical correlation. A calcified nodule in the right upper lobe is likely benign According to the 2017 Fleischner criteria, No routine follow-up is recommended Electronically Signed by: Jillian Sheppard MD. (09/26/2023 12:21:17 EST)
--- NOTE | 2023-09-26 13:32 | PCM.HP ---
History of Present Illness - Chief Complaint Chief Complaint: pne Date: 09/26/23 History of Present Illness: is a 43 year old male with a pmhx of CVA 2016 with left sided residual numbness/weakness, migraines, ADD, depression, PTSD, and GERD who presented to ED 09/26/23 with complaints of midsternal chest pain with radiation to the left arm and left mid back. Patient states that the onset of his chest pain is about one month ago and is present mostly with deep inhalation, position changes and activity. He describes the pain as moderate in intensity, sharp- stabbing in characteristic. Pain is relieved with rest. No associated n/v. Patient does endorse diaphoresis at the onset of this episode. No previous episodes prior to one month ago. Due to family history of heart disease patient states he underwent and a cardiac stress test in 2021. A cardiac cath following showed 10% blockage. He does not follow with cardiology. In ED vitals unremarkable. CT of the chest negative for PE, ground glass haziness bilaterally suggestive of ILD. Lab findings unremarkable. UDS positive for THC. No medications given. - Review of Systems Constitutional: No Symptoms Eyes: No Symptoms Ears, Nose, & Throat: No Symptoms Respiratory: Cough (chronic) Cardiac: Chest Pain Abdominal/Gastrointestinal: No Symptoms Genitourinary Symptoms: No Symptoms Musculoskeletal: No Symptoms Skin: No Symptoms Neurological: Other (residual left sided weakness from CVA in 2017 5/5 strength RBUE/RBLE, 4/5 LBUE/LBLE) Psychological: Anxiety, Depression Endocrine: No Symptoms Hematologic/Lymphatic: No Symptoms Immunological/Allergic: No Symptoms Medications & Allergies Home Medications: Home Medication List Omeprazole 20 mg PO DAILY 01/06/23 [History Confirmed 09/26/23] Cyclobenzaprine HCl 10 mg [Cyclobenzaprine 10 MG] 10 mg PO DAILY PRN 03/03/23 [History Confirmed 09/26/23] Ibuprofen 600 mg PO Q6HPRN PRN 10 Days #20 tablet 05/07/23 [Rx Confirmed 09/26/23] Allergies/Adverse Reactions: Allergies Allergy/AdvReac Type Severity Reaction Status Date / Time ketorolac [From Toradol] AdvReac Severe Verified 09/26/23 09:45 topiramate [From Topamax] AdvReac Severe Verified 09/26/23 09:45 - Past Medical History Past Medical History: Yes Neurological History: Migraines, Peripheral Neuropathy, Stroke ENT History: No Pertinent History Cardiac History: No Pertinent History Respiratory History: Asthma Endocrine Medical History: No Pertinent History Musculoskelatal History: Other GI Medical History: GERD History: No Pertinent History Pyscho-Social History: Anxiety, Attention Deficit Disorder, Depression, Other Male Reproductive Disorders: No Pertinent History Comment: 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 PTSD - Past Surgical History Past Surgical History: Yes Neuro Surgical History: No Pertinent History Cardiac History: No Pertinent History Respiratory Surgery: No Pertinent History GI Surgical History: Appendectomy Genitourinary Surgical Hx: No Pertinent History Musculskeletal Surgical Hx: No Pertinent History Male Surgical History: No Pertinent History Other Surgical History: skin CA on L shoulder - Social History Smoking Status: Current every day smoker How long have you smoked: 25 yrs Exposure to second hand smoke: Yes Alcohol: Rarely Drug Use: marijuana Significant Family History: heart disease, hypertension, stroke - Physical Exam Vital Signs: Vital Signs - 24 hr Temp Pulse Pulse Resp BP BP Pulse Ox 09/26/23 13:09 97.8 F 78 18 158/78 98 09/26/23 12:49 98.1 F 69 131/97 99 09/26/23 12:44 99 09/26/23 12:42 99 09/26/23 12:30 69 19 130/77 97 09/26/23 12:17 79 19 123/77 97 09/26/23 11:15 105 H 23 118/77 09/26/23 11:00 65 15 122/78 97 09/26/23 10:45 71 18 121/89 09/26/23 10:30 67 17 124/79 95 09/26/23 10:15 64 13 131/77 96 09/26/23 10:00 77 21 121/85 96 09/26/23 09:54 62 22 131/79 96 09/26/23 09:52 80 09/26/23 09:51 100 09/26/23 09:50 98.1 F 81 18 131/97 99 09/26/23 09:46 72 14 131/97 99 General Appearance: no apparent distress Neurologic Exam: alert, oriented x 3, cooperative, other (residual left sided weakness from CVA in 2017 5/5 strength RBUE/RBLE, 4/5 LBUE/LBLE) Eye Exam: PERRL/EOMI Ears, Nose, Throat Exam: normal ENT inspection Neck Exam: normal inspection Respiratory Exam: normal breath sounds, lungs clear Cardiovascular Exam: regular rate/rhythm, normal heart sounds Gastrointestinal/Abdomen Exam: soft, normal bowel sounds Rectal Exam: deferred Back Exam: normal inspection Extremity Exam: normal inspection Skin Exam: normal color Results - Labs Lab/Micro Results: Lab Results-Last 24 Hours 09/26/23 09/26/23 09/26/23 Range/Units 09:40 09:40 09:40 WBC 6.0 (4.0-10.5) x10^3/uL RBC 5.95 H (4.1-5.6) x10^6/uL Hgb 17.3 (12.5-18.0) g/dL Hct 50.3 H (42-50) % MCV 84.5 (78-100) fL MCH 29.1 (26-32) pg MCHC 34.4 (32-36) g/dL RDW 12.0 (11.5-14.0) % Plt Count 250 (150-450) x10^3/uL MPV 9.8 (7.5-11.0) fL Gran % 49.1 (36.0-66.0) % Immature Gran % (Auto) 0.2 (0.00-0.4) % Nucleat RBC Rel Count 0.0 (0.00-0.1) % Eos # (Auto) 0.20 (0-0.5) x10^3/uL Immature Gran # (Auto) 0.01 (0.00-0.03) x10^3u/L Absolute Lymphs (auto) 2.27 (1.0-4.6) x10^3/uL Absolute Monos (auto) 0.47 (0.0-1.3) x10^3/uL Absolute Nucleated RBC 0.00 (0.00-0.01) x10^3u/L Lymphocytes % 38.1 (24.0-44.0) % Monocytes % 7.9 (0.0-12.0) % Eosinophils % 3.4 (0.00-5.0) % Basophils % 1.3 (0.0-0.4) % Absolute Granulocytes 2.93 (1.4-6.9) x10^3/uL Basophils # 0.08 (0-0.4) x10^3/uL Sodium 137 (137-145) mmol/L Potassium 3.6 (3.5-5.1) mmol/L Chloride 103 (98-107) mmol/L Carbon Dioxide 26 (22-30) mmol/L Anion Gap 11.8 (5-15) MEQ/L BUN 9 (9-20) mg/dL Creatinine 0.97 (0.66-1.25) mg/dL Estimated GFR 99.3 ML/MIN Glucose 112 H (74-106) mg/dL Calcium 9.4 (8.4-10.2) mg/dL Total Bilirubin 0.80 (0.2-1.3) mg/dL AST 31 (17-59) U/L ALT 36 (0-50) U/L Alkaline Phosphatase 61 (38-126) U/L Troponin I < 0.012 (0.000-0.034) ng/mL NT-Pro-B Natriuret Pep < 20.0 (<300) pg/mL Serum Total Protein 7.8 (6.3-8.2) g/dL Albumin 4.7 (3.5-5.0) g/dL Urine Opiates Level (NEGATIVE) Ur Methadone (NEGATIVE) Urine Barbiturates (NEGATIVE) Ur Phencyclidine (PCP) (NEGATIVE) Urine Amphetamine (NEGATIVE) U Benzodiazepine Level (NEGATIVE) Urine Cocaine (NEGATIVE) Urine Marijuana (THC) (NEGATIVE) 09/26/23 Range/Units 10:12 WBC (4.0-10.5) x10^3/uL RBC (4.1-5.6) x10^6/uL Hgb (12.5-18.0) g/dL Hct (42-50) % MCV (78-100) fL MCH (26-32) pg MCHC (32-36) g/dL RDW (11.5-14.0) % Plt Count (150-450) x10^3/uL MPV (7.5-11.0) fL Gran % (36.0-66.0) % Immature Gran % (Auto) (0.00-0.4) % Nucleat RBC Rel Count (0.00-0.1) % Eos # (Auto) (0-0.5) x10^3/uL Immature Gran # (Auto) (0.00-0.03) x10^3u/L Absolute Lymphs (auto) (1.0-4.6) x10^3/uL Absolute Monos (auto) (0.0-1.3) x10^3/uL Absolute Nucleated RBC (0.00-0.01) x10^3u/L Lymphocytes % (24.0-44.0) % Monocytes % (0.0-12.0) % Eosinophils % (0.00-5.0) % Basophils % (0.0-0.4) % Absolute Granulocytes (1.4-6.9) x10^3/uL Basophils # (0-0.4) x10^3/uL Sodium (137-145) mmol/L Potassium (3.5-5.1) mmol/L Chloride (98-107) mmol/L Carbon Dioxide (22-30) mmol/L Anion Gap (5-15) MEQ/L BUN (9-20) mg/dL Creatinine (0.66-1.25) mg/dL Estimated GFR ML/MIN Glucose (74-106) mg/dL Calcium (8.4-10.2) mg/dL Total Bilirubin (0.2-1.3) mg/dL AST (17-59) U/L ALT (0-50) U/L Alkaline Phosphatase (38-126) U/L Troponin I (0.000-0.034) ng/mL NT-Pro-B Natriuret Pep (<300) pg/mL Serum Total Protein (6.3-8.2) g/dL Albumin (3.5-5.0) g/dL Urine Opiates Level NEGATIVE (NEGATIVE) Ur Methadone NEGATIVE (NEGATIVE) Urine Barbiturates NEGATIVE (NEGATIVE) Ur Phencyclidine (PCP) NEGATIVE (NEGATIVE) Urine Amphetamine NEGATIVE (NEGATIVE) U Benzodiazepine Level NEGATIVE (NEGATIVE) Urine Cocaine NEGATIVE (NEGATIVE) Urine Marijuana (THC) POSITIVE A (NEGATIVE) - Radiology Impressions Radiology Exams & Impressions: Radiology Procedures Category Date Time Status CHEST WITH CONTRAST [CT] Stat Exams 09/26/23 09:48 Completed Assessment/Plan (1) Chest pain Current Visit: Yes Status: Acute Assessment & Plan: -EKG/ trops unremarkable -Repeat EKG, trops, lipid in the morning -Pain appears to be pleuritic Code(s): R07.9 - CHEST PAIN, UNSPECIFIED (2) Smoker Current Visit: Yes Status: Acute Assessment & Plan: -Advised cessation and pulm follow up for CT findings of ILD -Nicotine patch Code(s): F17.200 - NICOTINE DEPENDENCE, UNSPECIFIED, UNCOMPLICATED (3) History of stroke Current Visit: Yes Status: Acute Assessment & Plan: -Patient does not follow with neurology, nor does he take any medications -Mild left-sided residual weakness/numbness -will add gabapentin Code(s): Z86.73 - PRSNL HX OF TIA (TIA), AND CEREB INFRC W/O RESID DEFICITS (4) GERD (gastroesophageal reflux disease) Current Visit: Yes Status: Acute Assessment & Plan: -Cotninue home med omeprazole Code(s): K21.9 - GASTRO-ESOPHAGEAL REFLUX DISEASE WITHOUT ESOPHAGITIS (5) Interstitial lung disease Current Visit: Yes Status: Acute Assessment & Plan: -CT findings demonstrating ILD nodules in RUL/RML recommend pulm follow up as OP Code(s): J84.9 - INTERSTITIAL PULMONARY DISEASE, UNSPECIFIED (6) Lung nodule Current Visit: Yes Status: Acute Code(s): R91.1 - SOLITARY PULMONARY NODULE (7) Marijuana use Current Visit: Yes Status: Acute Assessment & Plan: -Advised cessation Code(s): F12.90 - CANNABIS USE, UNSPECIFIED, UNCOMPLICATED
[2023-09-26] MEDS ORDERED: TYLENOL 325 MG PO PRN (14:14)
[2023-09-26] MEDS ORDERED: Zofran 4 MG/2 ML VIAL IV PRN (14:14)
[2023-09-26] MEDS ORDERED: Nicoderm CQ 21 MG TOP SCH (14:15)
[2023-09-26] MEDS ORDERED: NEURONTIN PO ONE (14:17)
[2023-09-26] MEDS: NORCO 5/325 MG PO PRN ×2 (14:45→19:18)
--- NOTE | 2023-09-27 05:03 | PCM.DS ---
Discharge Summary Date of Admission: 09/26/23 12:39 Date of Discharge: 09/27/23 Admitting Physician: ADRIANA NAPIER MD Primary Care Provider: COMFORT CLOUD Allergies Allergies ketorolac [From Toradol] Adverse Reaction (Severe, Verified 09/26/23 09:45) suicidial ideation topiramate [From Topamax] Adverse Reaction (Severe, Verified 09/26/23 09:45) hyper, anxiety Hospital Summary - Hospital Course Hospital Course: Patient admitted with pleuritic chest pain in left chest. Pain worse with moving and deep breathing. He has had mild dyspnea. 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 His pain is not exertional. The patient has history of CVA in 2017 and has some residual weakness on left side. His EKG and troponin are negative initially and on repeat this morning. CTA shows no evidence of PE. CT does show some pleural based lesions. Recommend follow up with pulmonary and cardiology after discharge. Patient is stable with a reduction in his chest pain and requesting discharge. He is also requesting nicotine patches for smoking cessation which we will send out for him. New Diagnosis: CP Follow Up: PCP/Cards/Pulm Meds: [place], nicotine patch Latest Assessment & Plan (1) Chest pain Current Visit: Yes Status: Acute Assessment & Plan: -EKG/ trops unremarkable -Repeat EKG, trops, lipid in the morning -Pain appears to be pleuritic Code(s): R07.9 - CHEST PAIN, UNSPECIFIED (2) Smoker Current Visit: Yes Status: Acute Assessment & Plan: -Advised cessation and pulm follow up for CT findings of ILD -Nicotine patch Code(s): F17.200 - NICOTINE DEPENDENCE, UNSPECIFIED, UNCOMPLICATED (3) History of stroke Current Visit: Yes Status: Acute Assessment & Plan: -Patient does not follow with neurology, nor does he take any medications -Mild left-sided residual weakness/numbness -will add gabapentin Code(s): Z86.73 - PRSNL HX OF TIA (TIA), AND CEREB INFRC W/O RESID DEFICITS (4) GERD (gastroesophageal reflux disease) Current Visit: Yes Status: Acute Assessment & Plan: -Cotninue home med omeprazole Code(s): K21.9 - GASTRO-ESOPHAGEAL REFLUX DISEASE WITHOUT ESOPHAGITIS (5) Interstitial lung disease Current Visit: Yes Status: Acute Assessment & Plan: -CT findings demonstrating ILD nodules in RUL/RML recommend pulm follow up as OP Code(s): J84.9 - INTERSTITIAL PULMONARY DISEASE, UNSPECIFIED (6) Lung nodule Current Visit: Yes Status: Acute Code(s): R91.1 - SOLITARY PULMONARY NODULE (7) Marijuana use Current Visit: Yes Status: Acute Assessment & Plan: -Advised cessation I spent 35 minutes [id number] with the patient on the day of discharge performing discharge exam, discussing hospital stay and discharge instructions with patient and caregivers, preparation of discharge records, prescriptions & referral forms and addressing any questions/concerns the patient had as documented above. - Vitals & Intake/Output Vital Signs: Vital Signs Temperature 97.6 F 09/27/23 04:00 Pulse Rate 69 09/27/23 04:00 Respiratory Rate 18 09/27/23 04:00 Blood Pressure 121/77 09/27/23 04:00 O2 Sat by Pulse Oximetry 97 09/27/23 04:00 Intake & Output: Intake & Output 09/24/23 09/25/23 09/26/23 09/27/23 11:59 11:59 11:59 11:59 Intake Total 1560 Balance 1560 Weight 88.5 kg 88.5 kg - Lab Result Diagrams: 09/27/23 04:48 09/27/23 04:48 Lab Results-Last 24 Hrs: Lab Results-Last 24 Hours 09/26/23 09/26/23 09/26/23 Range/Units 09:40 09:40 09:40 WBC 6.0 (4.0-10.5) x10^3/uL RBC 5.95 H (4.1-5.6) x10^6/uL Hgb 17.3 (12.5-18.0) g/dL Hct 50.3 H (42-50) % MCV 84.5 (78-100) fL MCH 29.1 (26-32) pg MCHC 34.4 (32-36) g/dL RDW 12.0 (11.5-14.0) % Plt Count 250 (150-450) x10^3/uL MPV 9.8 (7.5-11.0) fL Gran % 49.1 (36.0-66.0) % Immature Gran % (Auto) 0.2 (0.00-0.4) % Nucleat RBC Rel Count 0.0 (0.00-0.1) % Eos # (Auto) 0.20 (0-0.5) x10^3/uL Immature Gran # (Auto) 0.01 (0.00-0.03) x10^3u/L Absolute Lymphs (auto) 2.27 (1.0-4.6) x10^3/uL Absolute Monos (auto) 0.47 (0.0-1.3) x10^3/uL Absolute Nucleated RBC 0.00 (0.00-0.01) x10^3u/L Lymphocytes % 38.1 (24.0-44.0) % Monocytes % 7.9 (0.0-12.0) % Eosinophils % 3.4 (0.00-5.0) % Basophils % 1.3 (0.0-0.4) % Absolute Granulocytes 2.93 (1.4-6.9) x10^3/uL Basophils # 0.08 (0-0.4) x10^3/uL Sodium 137 (137-145) mmol/L Potassium 3.6 (3.5-5.1) mmol/L Chloride 103 (98-107) mmol/L Carbon Dioxide 26 (22-30) mmol/L Anion Gap 11.8 (5-15) MEQ/L BUN 9 (9-20) mg/dL Creatinine 0.97 (0.66-1.25) mg/dL Estimated GFR 99.3 ML/MIN Glucose 112 H (74-106) mg/dL Calcium 9.4 (8.4-10.2) mg/dL Total Bilirubin 0.80 (0.2-1.3) mg/dL AST 31 (17-59) U/L ALT 36 (0-50) U/L Alkaline Phosphatase 61 (38-126) U/L Troponin I < 0.012 (0.000-0.034) ng/mL NT-Pro-B Natriuret Pep < 20.0 (<300) pg/mL Serum Total Protein 7.8 (6.3-8.2) g/dL Albumin 4.7 (3.5-5.0) g/dL Urine Opiates Level (NEGATIVE) Ur Methadone (NEGATIVE) Urine Barbiturates (NEGATIVE) Ur Phencyclidine (PCP) (NEGATIVE) Urine Amphetamine (NEGATIVE) U Benzodiazepine Level (NEGATIVE) Urine Cocaine (NEGATIVE) Urine Marijuana (THC) (NEGATIVE) 09/26/23 09/26/23 09/26/23 Range/Units 10:12 14:02 18:12 WBC (4.0-10.5) x10^3/uL RBC (4.1-5.6) x10^6/uL Hgb (12.5-18.0) g/dL Hct (42-50) % MCV (78-100) fL MCH (26-32) pg MCHC (32-36) g/dL RDW (11.5-14.0) % Plt Count (150-450) x10^3/uL MPV (7.5-11.0) fL Gran % (36.0-66.0) % Immature Gran % (Auto) (0.00-0.4) % Nucleat RBC Rel Count (0.00-0.1) % Eos # (Auto) (0-0.5) x10^3/uL Immature Gran # (Auto) (0.00-0.03) x10^3u/L Absolute Lymphs (auto) (1.0-4.6) x10^3/uL Absolute Monos (auto) (0.0-1.3) x10^3/uL Absolute Nucleated RBC (0.00-0.01) x10^3u/L Lymphocytes % (24.0-44.0) % Monocytes % (0.0-12.0) % Eosinophils % (0.00-5.0) % Basophils % (0.0-0.4) % Absolute Granulocytes (1.4-6.9) x10^3/uL Basophils # (0-0.4) x10^3/uL Sodium (137-145) mmol/L Potassium (3.5-5.1) mmol/L Chloride (98-107) mmol/L Carbon Dioxide (22-30) mmol/L Anion Gap (5-15) MEQ/L BUN (9-20) mg/dL Creatinine (0.66-1.25) mg/dL Estimated GFR ML/MIN Glucose (74-106) mg/dL Calcium (8.4-10.2) mg/dL Total Bilirubin (0.2-1.3) mg/dL AST (17-59) U/L ALT (0-50) U/L Alkaline Phosphatase (38-126) U/L Troponin I < 0.012 < 0.012 (0.000-0.034) ng/mL NT-Pro-B Natriuret Pep (<300) pg/mL Serum Total Protein (6.3-8.2) g/dL Albumin (3.5-5.0) g/dL Urine Opiates Level NEGATIVE (NEGATIVE) Ur Methadone NEGATIVE (NEGATIVE) Urine Barbiturates NEGATIVE (NEGATIVE) Ur Phencyclidine (PCP) NEGATIVE (NEGATIVE) Urine Amphetamine NEGATIVE (NEGATIVE) U Benzodiazepine Level NEGATIVE (NEGATIVE) Urine Cocaine NEGATIVE (NEGATIVE) Urine Marijuana (THC) POSITIVE A (NEGATIVE) - Radiology Exams Ordered Rad Exams-Entire Visit: Radiology Procedures Category Date Time Status CHEST WITH CONTRAST [CT] Stat Exams 09/26/23 09:48 Completed - Procedures and Test Procedures and Tests throughout Hospitalization: Therapy Orders & Screens 09/26/23 14:14 EKG REPEAT IN AM Comment: Diagnosis: pne Discharge Exam General Appearance: no apparent distress Neurologic Exam: alert, oriented x 3, cooperative Eye Exam: PERRL Ears, Nose, Throat Exam: normal ENT inspection Neck Exam: normal inspection Respiratory Exam: normal breath sounds, lungs clear Cardiovascular Exam: regular rate/rhythm, normal heart sounds Male Genitalia Exam: deferred Rectal Exam: deferred Back Exam: normal inspection Extremity Exam: normal inspection Skin Exam: normal color Final Diagnosis/Problem List - Final Discharge Diagnosis/Problem (1) Chest pain Current Visit: Yes Status: Acute Code(s): R07.9 - CHEST PAIN, UNSPECIFIED (2) Smoker Current Visit: Yes Status: Chronic Code(s): F17.200 - NICOTINE DEPENDENCE, UNSPECIFIED, UNCOMPLICATED (3) History of stroke Current Visit: Yes Status: Chronic Code(s): Z86.73 - PRSNL HX OF TIA (TIA), AND CEREB INFRC W/O RESID DEFICITS (4) GERD (gastroesophageal reflux disease) Current Visit: Yes Status: Chronic Code(s): K21.9 - GASTRO-ESOPHAGEAL REFLUX DISEASE WITHOUT ESOPHAGITIS (5) Interstitial lung disease Current Visit: Yes Status: Chronic Code(s): J84.9 - INTERSTITIAL PULMONARY DISEASE, UNSPECIFIED (6) Lung nodule Current Visit: Yes Status: Chronic Code(s): R91.1 - SOLITARY PULMONARY NODULE (7) Marijuana use Current Visit: Yes Status: Chronic Code(s): F12.90 - CANNABIS USE, UNSPECIFIED, UNCOMPLICATED - Discharge Disposition: Home, Self-Care Condition: Stable Prescriptions: New Hydrocodone/Acetaminophen [Hydrocodone-Acetamin 5-325 mg] 1 tab PO Q4HPRN PRN 3 Days #18 tablet MDD 6 PRN Reason: Pain Nicotine 21 mg [Nicoderm CQ 21 MG] 1 each TD DAILY 44 Days #44 patch Continue Omeprazole 20 mg PO DAILY Cyclobenzaprine HCl 10 mg [Cyclobenzaprine 10 MG] 10 mg PO DAILY PRN PRN Reason: Pain Ibuprofen 600 mg PO Q6HPRN PRN 10 Days #20 tablet PRN Reason: Pain Instructions: Chest Pain (DC), Pleuritic Chest Pain (DC) Follow up with: COMFORT CLOUD MD [Primary Care Provider] - LONI SOTO [ACTIVE STAFF] - 1 Week DIPESH BAUMANN MD [NON-STAFF PHY W/O PRIVILEGES] - 1 Week
[2023-09-27 05:29] LABS: Absolute Neutrophil Ct (ANC) 2.28 x10^3/uL (1.4-6.9); BASOPHIL % 1.8 % (0.0-0.4); Basophil (Absolute #) 0.09 x10^3/uL (0-0.4); Eosinophil % 4.4 % (0.00-5.0); Eosinophil (Absolute #) 0.22 x10^3/uL (0-0.5); Hematocrit 49.4 % (42-50); Hemoglobin 16.7 g/dL (12.5-18.0); IMMATURE GRAN # 0.01 x10^3u/L (0.00-0.03); IMMATURE GRAN % 0.2 % (0.00-0.4); Lymphocyte (Absolute #) 1.93 x10^3/uL (1.0-4.6); Lymphocytes % 38.9 % (24.0-44.0); Mean Corpuscular Hemoglobin 28.7 pg (26-32); Mean Corpuscular Hgb Concent. 33.8 g/dL (32-36); Mean Platelet Volume 10.1 fL (7.5-11.0); Monocyte (Absolute #) 0.43 x10^3/uL (0.0-1.3); Monocytes % 8.7 % (0.0-12.0); Platelet Count 228 x10^3/uL (150-450); Red Blood Count 5.81 x10^6/uL (4.1-5.6); Red Cell Distribution Width 12.2 % (11.5-14.0)
[2023-09-27 05:55] LABS: ALBUMIN 4.2 g/dL (3.5-5.0); ANION GAP 11.6 MEQ/L (5-15); BILIRUBIN,TOTAL 0.7 mg/dL (0.2-1.3); Creatinine 1 0.91 mg/dL (0.66-1.25); EST GLOMERULAR FILTRATION RATE 107.3 ML/MIN; Potassium 3.8 mmol/L (3.5-5.1); Total Protein 7.1 g/dL (6.3-8.2)
[2023-09-27] MEDS: NORCO 5/325 MG PO PRN (07:11)
[2023-09-27 07:41] VITALS: BP 118/80; PULSE 78; RESP 16; TEMP 97.3; O2SAT 95
[2023-09-27] MEDS ORDERED: Nicoderm CQ 21 MG TOP SCH (10:00)
[2023-09-27] MEDS ORDERED: NEURONTIN PO SCH (10:00)
[2023-09-27] MEDS ORDERED: Protonix 40MG Tablet PO SCH (10:00)
[2023-09-27] MEDS ORDERED: NON-FORMULARY ITEM (Omeprazole [Omeprazole] 20 MG Capsule.Dr) PO SCH (10:00)
[2023-09-27 10:18] LABS: Risk Ratio 6.5
== END 2023-09-27 10:25 | disposition home or self-care (01) ==
LOC: ED 09:44 → MED SURG 12:39
PROVIDERS: ADMIT Internal Medicine; ATTEND Internal Medicine
DX: R07.9 Chest pain, unspecified (principal); J84.9 Interstitial pulmonary disease, unspecified; R91.1 Solitary pulmonary nodule; K21.9 Gastro-esophageal reflux disease without esophagitis; F12.90 Cannabis use, unspecified, uncomplicated; F17.200 Nicotine dependence, unspecified, uncomplicated; Z79.899 Other long term (current) drug therapy; Z20.828 Contact with and (suspected) exposure to other viral communicable diseases; Z86.73 Personal history of transient ischemic attack (TIA), and cerebral infarction without residual deficits; Z85.828 Personal history of other malignant neoplasm of skin
CPT/HCPCS: 36000; 36415; 71260; 80053; 80061; 80307; 83721; 83880; 84484; 85025; 93005; 93041; 94760; 99285; Q3014; A9270-GY

== ENCOUNTER 2023-10-14 00:44 | Emergency (ER) | payer OTHER ==
[2023-10-14 00:48] VITALS: TEMP 99.8; O2SAT 95
[2023-10-14 01:11] LABS: Absolute Neutrophil Ct (ANC) 5.15 x10^3/uL (1.4-6.9); BASOPHIL % 0.2 % (0.0-0.4); Basophil (Absolute #) 0.01 x10^3/uL (0-0.4); Eosinophil % 0.5 % (0.00-5.0); Eosinophil (Absolute #) 0.03 x10^3/uL (0-0.5); Hematocrit 47.2 % (42-50); Hemoglobin 15.9 g/dL (12.5-18.0); IMMATURE GRAN # 0.05 x10^3u/L (0.00-0.03); IMMATURE GRAN % 0.8 % (0.00-0.4); Lymphocyte (Absolute #) 0.71 x10^3/uL (1.0-4.6); Lymphocytes % 11.1 % (24.0-44.0); Mean Cell Volume 86.9 fL (78-100); Mean Corpuscular Hemoglobin 29.3 pg (26-32); Mean Corpuscular Hgb Concent. 33.7 g/dL (32-36); Monocyte (Absolute #) 0.44 x10^3/uL (0.0-1.3); Monocytes % 6.9 % (0.0-12.0); Neutrophil % 80.5 % (36.0-66.0); Platelet Count 195 x10^3/uL (150-450); Red Blood Count 5.43 x10^6/uL (4.1-5.6); Red Cell Distribution Width 12.8 % (11.5-14.0); White Blood Count 6.4 x10^3/uL (4.0-10.5)
--- NOTE | 2023-10-14 01:15 | ERPHSYRPT ---
- History of Present Illness Source: patient Exam Limitations: other (Poor historian) Patient Subjective Stated Complaint: fever, new onset cough, headache, body aches x2 days, cp x1 month Triage Nursing Assessment: pt ambulatory to bed by self with steady gait, pt alert and oriented x3, skin pwd, pt anxious, pt c/o fever, new onset cough, headache, body aches x2 days, pt also c/o L sided chest pain x1 mo, pt seen Dr. Rosa and was recently diagnosed with emphysema 2 weeks ago. Physician History: Patient is a 43-year-old gentleman with chief complaint of dyspnea for 2 days. Patient has a cough, fever, coryza for 1 day. He has myalgias and some diffuse chest pain. Nausea, vomiting, and diarrhea are denied. Patient smokes tobacco daily until recently and also smokes marijuana. He is extremely anxious. Timing/Duration: day(s) (2 days.) Activities at Onset: rest Severity of Dyspnea-Max: moderate Severity of Dyspnea-Current: moderate Possible Cause: occasional episodes Modifying Factors: Improves With: coughing Associated Symptoms: cough, chest pain/discomfort, fever Allergies/Adverse Reactions: ketorolac [From Toradol] Adverse Reaction (Severe, Verified 10/14/23 00:46) suicidial ideation topiramate [From Topamax] Adverse Reaction (Severe, Verified 10/14/23 00:46) hyper, anxiety Home Medications: Omeprazole 20 mg PO DAILY 01/06/23 [History] Cyclobenzaprine HCl 10 mg [Cyclobenzaprine 10 MG] 10 mg PO DAILY PRN 03/03/23 [History] Fenofibrate 145 mg PO DAILY 10/14/23 [History] Ibuprofen [Ibu] 800 mg PO DAILY 10/14/23 [History] Hx Tetanus, Diphtheria Vaccination/Date Given: Yes Hx Influenza Vaccination/Date Given: Yes Hx Pneumococcal Vaccination/Date Given: No Immunizations Up to Date: No Travel Risk - International Travel Have you traveled outside of the country in past 3 weeks: No - Coronavirus Screening Are you exhibiting any of the following symptoms?: Yes Symptoms: Fever, Cough: New Onset, Headaches/Body Aches/Fatigue Close contact with a COVID-19 positive Pt in past 14-21 Days: No - Vaccine Status Have you recieved a Covid-19 vaccination: Yes 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: [employer] - Review of Systems Constitutional: No Symptoms, Fever, Chills, Fatigue Eyes: No Symptoms Ears, Nose, & Throat: No Symptoms, Nose Congestion, Nose Discharge Respiratory: No Symptoms, Cough, Dyspnea Cardiac: No Symptoms, Chest Pain Abdominal/Gastrointestinal: No Symptoms Genitourinary Symptoms: No Symptoms Musculoskeletal: No Symptoms Skin: No Symptoms Neurological: No Symptoms Psychological: No Symptoms Endocrine: No Symptoms Hematologic/Lymphatic: No Symptoms Immunological/Allergic: No Symptoms - Past Medical History Pertinent Past Medical History: Yes Neurological History: Migraines, Peripheral Neuropathy, Stroke ENT History: No Pertinent History Cardiac History: High Cholesterol Respiratory History: Emphysema Endocrine Medical History: No Pertinent History Musculoskeletal History: Other GI Medical History: GERD History: No Pertinent History Psycho-Social History: Anxiety, Attention Deficit Disorder, Depression, Other Male Reproductive Disorders: No Pertinent History Other Medical History: 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 PTSD - Past Surgical History Past Surgical History: Yes Neuro Surgical History: No Pertinent History Cardiac: No Pertinent History Respiratory: No Pertinent History Gastrointestinal: Appendectomy Genitourinary: No Pertinent History Musculoskeletal: No Pertinent History Male Surgical History: No Pertinent History Other Surgical History: skin CA on L shoulder - Social History Smoking Status: Former smoker How long have you smoked: 25 yrs Exposure to second hand smoke: No Drug Use: marijuana Patient Lives Alone: No Significant Family History: heart disease, hypertension, stroke - Nursing Vital Signs Nursing Vital Signs: Initial Vital Signs Temperature 99.8 F 10/14/23 00:47 Pulse Rate 112 H 10/14/23 00:47 Respiratory Rate 18 10/14/23 00:47 Blood Pressure 137/89 10/14/23 00:47 O2 Sat by Pulse Oximetry 95 10/14/23 00:47 Pain Scale Pain Intensity 8 Tachycardicafebrile - Physical Exam General Appearance: mild distress, anxiety Eye Exam: PERRL/EOMI, eyes nml inspection Ears, Nose, Throat Exam: hearing grossly normal, normal ENT inspection, pharyngeal erythema (Mild) Neck Exam: normal inspection, non-tender, supple, full range of motion, No Brudzinski, No Kernig's, No meningismus, No carotid bruit Respiratory Exam: normal breath sounds, lungs clear, airway intact, No respiratory distress Cardiovascular/Chest Exam: tachycardia, No murmur Abdominal/Gastrointestinal Exam: soft, normal bowel sounds, No tenderness Extremity Exam: non-tender, normal range of motion, normal inspection, normal capillary refill Peripheral Pulses Exam: carotid (R): 2+, carotid (L): 2+ Neurologic Exam: alert, oriented x 3, cooperative, 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, nml cerebellar function, nml station & gait, sensation nml, No motor deficits, No sensory deficit Skin Exam: normal color, warm, dry Lymphatic Exam: No adenopathy SpO2 Interpretation: normal SpO2: 95 O2 Delivery: Room Air - Course Nursing assessment & vital signs reviewed: Yes EKG Interpreted by Me: RATE (Sinus tachycardia/rate 103/normal QT-QTc/incomplete right bundle branch block/tall T waves/P wave/no acute ST segment changes) Ordered Tests: Active Orders 24 hr Category Date Time Status EKG-ER Only STAT Care 10/14/23 01:45 Completed CHEST 1 VIEW (PORTABLE) Stat Exams 10/14/23 01:08 Taken CBC W DIFF Stat Lab 10/14/23 01:00 Completed CMP Stat Lab 10/14/23 01:00 Completed MAGNESIUM Stat Lab 10/14/23 01:00 Completed PROTIME WITH INR Stat Lab 10/14/23 01:00 Completed PTT Stat Lab 10/14/23 01:00 Completed TROPONIN Q4H Lab 10/14/23 01:00 Completed Lab/Rad Data: Laboratory Result Diagrams 10/14/23 01:00 10/14/23 01:00 Laboratory Results 10/14/23 10/14/23 10/14/23 Range/Units 01:00 01:00 01:00 WBC (4.0-10.5) x10^3/uL RBC (4.1-5.6) x10^6/uL Hgb (12.5-18.0) g/dL Hct (42-50) % MCV (78-100) fL MCH (26-32) pg MCHC (32-36) g/dL RDW (11.5-14.0) % Plt Count (150-450) x10^3/uL MPV (7.5-11.0) fL Gran % (36.0-66.0) % Immature Gran % (Auto) (0.00-0.4) % Nucleat RBC Rel Count (0.00-0.1) % Eos # (Auto) (0-0.5) x10^3/uL Immature Gran # (Auto) (0.00-0.03) x10^3u/L Absolute Lymphs (auto) (1.0-4.6) x10^3/uL Absolute Monos (auto) (0.0-1.3) x10^3/uL Absolute Nucleated RBC (0.00-0.01) x10^3u/L Lymphocytes % (24.0-44.0) % Monocytes % (0.0-12.0) % Eosinophils % (0.00-5.0) % Basophils % (0.0-0.4) % Absolute Granulocytes (1.4-6.9) x10^3/uL Basophils # (0-0.4) x10^3/uL PT 10.1 (9.4-12.5) SECONDS INR 0.92 (0.8-3.0) APTT 27.6 (25.1-36.5) SECONDS Sodium 132 L (137-145) mmol/L Potassium 3.6 (3.5-5.1) mmol/L Chloride 98 (98-107) mmol/L Carbon Dioxide 26 (22-30) mmol/L Anion Gap 12.1 (5-15) MEQ/L BUN 19 (9-20) mg/dL Creatinine 0.93 (0.66-1.25) mg/dL Estimated GFR 104.5 ML/MIN Glucose 119 H (74-106) mg/dL Calcium 8.8 (8.4-10.2) mg/dL Magnesium 2.2 (1.6-2.3) mg/dL Total Bilirubin 0.70 (0.2-1.3) mg/dL AST 30 (17-59) U/L ALT 24 (0-50) U/L Alkaline Phosphatase 53 (38-126) U/L Troponin I < 0.012 (0.000-0.034) ng/mL Serum Total Protein 7.2 (6.3-8.2) g/dL Albumin 4.1 (3.5-5.0) g/dL Influenza Type A Ag (NEGATIVE) Influenza Type B Ag (NEGATIVE) RSV (PCR) (NEGATIVE) SARS-CoV-2 (PCR) (NEGATIVE) Group A Strep Antibody (NEGATIVE) 10/14/23 10/14/23 Range/Units 01:00 00:59 WBC 6.4 (4.0-10.5) x10^3/uL RBC 5.43 (4.1-5.6) x10^6/uL Hgb 15.9 (12.5-18.0) g/dL Hct 47.2 (42-50) % MCV 86.9 (78-100) fL MCH 29.3 (26-32) pg MCHC 33.7 (32-36) g/dL RDW 12.8 (11.5-14.0) % Plt Count 195 (150-450) x10^3/uL MPV 10.0 (7.5-11.0) fL Gran % 80.5 H (36.0-66.0) % Immature Gran % (Auto) 0.8 H (0.00-0.4) % Nucleat RBC Rel Count 0.0 (0.00-0.1) % Eos # (Auto) 0.03 (0-0.5) x10^3/uL Immature Gran # (Auto) 0.05 H (0.00-0.03) x10^3u/L Absolute Lymphs (auto) 0.71 L (1.0-4.6) x10^3/uL Absolute Monos (auto) 0.44 (0.0-1.3) x10^3/uL Absolute Nucleated RBC 0.00 (0.00-0.01) x10^3u/L Lymphocytes % 11.1 L (24.0-44.0) % Monocytes % 6.9 (0.0-12.0) % Eosinophils % 0.5 (0.00-5.0) % Basophils % 0.2 (0.0-0.4) % Absolute Granulocytes 5.15 (1.4-6.9) x10^3/uL Basophils # 0.01 (0-0.4) x10^3/uL PT (9.4-12.5) SECONDS INR (0.8-3.0) APTT (25.1-36.5) SECONDS Sodium (137-145) mmol/L Potassium (3.5-5.1) mmol/L Chloride (98-107) mmol/L Carbon Dioxide (22-30) mmol/L Anion Gap (5-15) MEQ/L BUN (9-20) mg/dL Creatinine (0.66-1.25) mg/dL Estimated GFR ML/MIN Glucose (74-106) mg/dL Calcium (8.4-10.2) mg/dL Magnesium (1.6-2.3) mg/dL Total Bilirubin (0.2-1.3) mg/dL AST (17-59) U/L ALT (0-50) U/L Alkaline Phosphatase (38-126) U/L Troponin I (0.000-0.034) ng/mL Serum Total Protein (6.3-8.2) g/dL Albumin (3.5-5.0) g/dL Influenza Type A Ag POSITIVE (NEGATIVE) Influenza Type B Ag NEGATIVE (NEGATIVE) RSV (PCR) NEGATIVE (NEGATIVE) SARS-CoV-2 (PCR) NEGATIVE (NEGATIVE) Group A Strep Antibody NOT DETECTED (NEGATIVE) - Progress Progress Note: 10/14/23 05:02 Nursing note vital signs reviewed. No food or housing insecurity noted. All lab results reviewed and shared with patient. 10/14/23 05:03 Patient has influenza A. He will be started on Tamiflu 75 g divided p.o. twice daily for 5 days. Chest x-ray is clear, and patient's auscultatory exam is clear bilaterally. Respirations nonlabored and oxygen saturations are well within normal range. No evidence of pneumonia, myocardial infarction, congestive heart failure, or pulmonary embolus. Patient discharged in stable condition. He is afebrile during his entire ER stay. Medical Desision Making - Diagnostic Testing Diagnostic test were ordered, analyzed, and reviewed by me: Yes Radiological Interpretation: Interpreted by me - Risk of complications The pt has a mod risk of morbidity or mortality based on: Need for prescription drug management - Departure Departure Disposition: Home Clinical Impression: Influenza A Condition: Stable Critical Care Time: No Referrals: COMFORT CLOUD MD [Primary Care Provider] - Follow up/PCP as directed Instructions: Flu, Adult (DC) Additional Instructions: Rest. Fluids. Motrin/Tylenol. Tamiflu 75 mg twice daily for 5 days. Forms: Work/School Release Form Prescriptions: Oseltamivir 75 mg [Tamiflu 75MG Capsule] 75 mg PO BID #10 cap
[2023-10-14 01:22] LABS: INR 0.92 (0.8-3.0); PROTIME 10.1 SECONDS (9.4-12.5); PTT 27.6 SECONDS (25.1-36.5)
[2023-10-14 01:23] LABS: ALBUMIN 4.1 g/dL (3.5-5.0); ANION GAP 12.1 MEQ/L (5-15); BILIRUBIN,TOTAL 0.7 mg/dL (0.2-1.3); Calcium 8.8 mg/dL (8.4-10.2); Creatinine 1 0.93 mg/dL (0.66-1.25); EST GLOMERULAR FILTRATION RATE 104.5 ML/MIN; MAGNESIUM 2.2 mg/dL (1.6-2.3); Potassium 3.6 mmol/L (3.5-5.1); Total Protein 7.2 g/dL (6.3-8.2)
[2023-10-14 01:25] LABS: Group A Strep NOT DETECTED (NEGATIVE)
[2023-10-14 01:38] LABS: INFLUENZA B NEGATIVE (NEGATIVE); RESPIRATORY SYNCTIAL VIRUS NEGATIVE (NEGATIVE); SARS-CoV-2 Xpert Express NEGATIVE (NEGATIVE)
[2023-10-14 01:39] VITALS: BP 152/84
[2023-10-14 01:39] LABS: INFLUENZA A POSITIVE (NEGATIVE)
[2023-10-14 01:46] VITALS: PULSE 99; RESP 20
--- NOTE | 2023-10-14 08:51 | XRAY ---
Indication: Dyspnea. Comparison: November 01, 2022 Portable chest demonstrates new minimal left base subsegmental atelectasis/scarring. Remaining heart and lungs unremarkable again with incidental tiny right lung calcified granuloma. Bony thorax intact. No acute findings.
== END 2023-10-14 01:54 | disposition home or self-care (01) ==
LOC: ED 00:44
DX: J10.1 Influenza due to other identified influenza virus with other respiratory manifestations (principal); R06.00 Dyspnea, unspecified; R05.1 Acute cough; R50.9 Fever, unspecified; R07.9 Chest pain, unspecified; E78.5 Hyperlipidemia, unspecified; Z79.899 Other long term (current) drug therapy
CPT/HCPCS: 0241U; 36415; 71045; 80053; 83735; 84484; 85025; 85610; 85730; 87651; 93005; 99283

== ENCOUNTER 2024-01-28 07:56 | Observation (INO) | payer OTHER ==
--- NOTE | 2024-01-28 08:32 | ERPHSYRPT ---
- History of Present Illness Time Seen by Provider: 01/28/24 07:58 Historian: patient Exam Limitations: no limitations Patient Subjective Stated Complaint: Chest pain Triage Nursing Assessment: Patient brought into ED per EMS and transferred self to bed per self. Patient A+O X3. Patient's skin pink, warm and dry. Patient complains of chest pain for the past 2 days. Patient complains of pain to left side of chest and into left shoulder and makes it hard to breath 9/10. Patient states today is was at work when he became lightheaded and started having chest pain. Patient called 911. Physician History: 43 years old male with history of stroke with some left upper extremity residual weakness, questionable history of CAD, tobacco abuse presented in the ER with complaints of left-sided chest pain off and on for the last 2 to 3 days which got worse prior to arrival. Patient reports he started to feel dizzy lighthe aded and feeling as if he was going to fall down with worsening of chest pain which he rates 9/10 intensity without any significant aggravating or relieving factors. Also reports feeling blurry vision bilaterally and increasing tingling and numbness in the left upper and lower extremities with some increased weakness in left upper extremity than his usual baseline. Denies any fall or head trauma. Has chronic smoker's cough which is not any worse than usual. Also reports mild increased shortness of breath. Allergies/Adverse Reactions: ketorolac [From Toradol] Adverse Reaction (Severe, Verified 01/28/24 08:00) suicidial ideation topiramate [From Topamax] Adverse Reaction (Severe, Verified 01/28/24 08:00) hyper, anxiety Home Medications: Omeprazole 40 mg PO DAILY 01/06/23 [History] Cyclobenzaprine HCl 10 mg [Cyclobenzaprine 10 MG] 10 mg PO DAILY PRN 03/03/23 [History] Fenofibrate 145 mg PO DAILY 10/14/23 [History] Ibuprofen [Ibu] 800 mg PO DAILY 10/14/23 [History] Hx Tetanus, Diphtheria Vaccination/Date Given: Yes Hx Influenza Vaccination/Date Given: Yes Hx Pneumococcal Vaccination/Date Given: No Travel Risk - International Travel Have you traveled outside of the country in past 3 weeks: No - Emerging Infectious Disease Are you exhibiting symptoms associated with any current EIDs: No - Review of Systems Constitutional: Fatigue, Weakness Eyes: Vision Changes Ears, Nose, & Throat: No Symptoms Respiratory: Cough, Dyspnea Cardiac: Chest Pain Abdominal/Gastrointestinal: No Symptoms Genitourinary Symptoms: No Symptoms Musculoskeletal: Arthralgias Skin: No Symptoms Neurological: Dizziness, Sensory Changes Psychological: No Symptoms Endocrine: No Symptoms Hematologic/Lymphatic: No Symptoms Immunological/Allergic: No Symptoms - Past Medical History Pertinent Past Medical History: Yes Neurological History: Migraines, Peripheral Neuropathy, Stroke ENT History: No Pertinent History Cardiac History: High Cholesterol Respiratory History: Emphysema Endocrine Medical History: No Pertinent History Musculoskeletal History: Other GI Medical History: GERD History: No Pertinent History Psycho-Social History: Anxiety, Attention Deficit Disorder, Depression, Other Male Reproductive Disorders: No Pertinent History Other Medical History: 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 PTSD - Past Surgical History Past Surgical History: Yes Neuro Surgical History: No Pertinent History Cardiac: No Pertinent History Respiratory: No Pertinent History Gastrointestinal: Appendectomy Genitourinary: No Pertinent History Musculoskeletal: No Pertinent History Male Surgical History: No Pertinent History Other Surgical History: skin CA on L shoulder Significant Family History: heart disease, hypertension, stroke - Social History Smoking Status: Current some day smoker How long have you smoked: 25 yrs Exposure to second hand smoke: No Drug Use: marijuana Patient Lives Alone: No - Nursing Vital Signs Nursing Vital Signs: Initial Vital Signs Temperature 98.5 F 01/28/24 08:01 Pulse Rate 99 H 01/28/24 08:01 Respiratory Rate 18 01/28/24 08:01 Blood Pressure 137/90 01/28/24 08:01 O2 Sat by Pulse Oximetry 100 01/28/24 08:01 Pain Scale Pain Intensity 8 - Physical Exam General Appearance: no apparent distress, alert Eye Exam: PERRL/EOMI, eyes nml inspection Ears, Nose, Throat Exam: normal ENT inspection, TMs normal, pharynx normal, moist mucous membranes Neck Exam: normal inspection, non-tender, supple, full range of motion Respiratory Exam: normal breath sounds, lungs clear Cardiovascular Exam: regular rate/rhythm, normal heart sounds Gastrointestinal/Abdomen Exam: soft, normal bowel sounds, No tenderness Extremity Exam: normal inspection, normal range of motion Neurologic Exam: alert, oriented x 3, cooperative, 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, nml cerebellar function, motor deficits (Left upper extremity), No normal mood/affect (Anxious), No sensation nml (Decree sensation to touch in the left upper extremity) Skin Exam: normal color SpO2 Interpretation: normal SpO2: 100 O2 Delivery: Room Air Ordered Tests: Active Orders 24 hr Category Date Time Status Insurance Compliance Analyst STAT Care 01/28/24 07:58 Active EKG-ER Only STAT Care 01/28/24 07:58 Active IV Insertion STAT Care 01/28/24 07:58 Active Tele-Health Consult ROUTINE Cons 01/28/24 09:19 Active CHEST 1 VIEW (PORTABLE) Stat Exams 01/28/24 08:25 Taken HEAD WITHOUT CONTRAST [CT] Stat Exams 01/28/24 08:25 Completed CBC W DIFF Stat Lab 01/28/24 08:13 Completed CMP Stat Lab 01/28/24 08:13 Completed D-DIMER QUANTITATIVE Stat Lab 01/28/24 08:13 Completed NT PRO BNPII Stat Lab 01/28/24 08:13 Completed TROPONIN Q4H Lab 01/28/24 08:13 Completed TROPONIN Q4H Lab 01/28/24 11:12 Completed TROPONIN Q4H Lab 01/28/24 16:00 Ordered Medication Summary Discontinued Medications Generic Name Dose Route Start Last Admin Trade Name Mehrdadq PRN Reason Stop Dose Admin Aspirin 324 mg 01/28/24 07:58 Aspirin 81 Mg Tab.Chew PO 01/28/24 07:59 STAT ONE Lab/Rad Data: Laboratory Result Diagrams 01/28/24 08:13 01/28/24 08:13 Laboratory Results 01/28/24 01/28/24 01/28/24 Range/Units 11:12 08:13 08:13 WBC (4.0-10.5) x10^3/uL RBC (4.1-5.6) x10^6/uL Hgb (12.5-18.0) g/dL Hct (42-50) % MCV (78-100) fL MCH (26-32) pg MCHC (32-36) g/dL RDW (11.5-14.0) % Plt Count (150-450) x10^3/uL MPV (7.5-11.0) fL Gran % (36.0-66.0) % Immature Gran % (Auto) (0.00-0.4) % Nucleat RBC Rel Count (0.00-0.1) % Eos # (Auto) (0-0.5) x10^3/uL Immature Gran # (Auto) (0.00-0.03) x10^3u/L Absolute Lymphs (auto) (1.0-4.6) x10^3/uL Absolute Monos (auto) (0.0-1.3) x10^3/uL Absolute Nucleated RBC (0.00-0.01) x10^3u/L Lymphocytes % (24.0-44.0) % Monocytes % (0.0-12.0) % Eosinophils % (0.00-5.0) % Basophils % (0.0-0.4) % Absolute Granulocytes (1.4-6.9) x10^3/uL Basophils # (0-0.4) x10^3/uL D-Dimer (0.0-0.50) mg/L Sodium (135-145) mmol/L Potassium (3.5-5.1) mmol/L Chloride (98-107) mmol/L Carbon Dioxide (22-30) mmol/L Anion Gap (5-15) MEQ/L BUN (9-20) mg/dL Creatinine (0.66-1.25) mg/dL Estimated GFR ML/MIN Glucose (74-106) mg/dL Calcium (8.4-10.2) mg/dL Total Bilirubin (0.2-1.3) mg/dL AST (17-59) U/L ALT (0-50) U/L Alkaline Phosphatase (38-126) U/L Troponin I < 0.012 < 0.012 (0.000-0.034) ng/mL NT-Pro-B Natriuret Pep < 20.0 (<300) pg/mL Serum Total Protein (6.3-8.2) g/dL Albumin (3.5-5.0) g/dL 01/28/24 01/28/24 01/28/24 Range/Units 08:13 08:13 08:13 WBC 4.7 (4.0-10.5) x10^3/uL RBC 5.76 H (4.1-5.6) x10^6/uL Hgb 17.0 (12.5-18.0) g/dL Hct 48.2 (42-50) % MCV 83.7 (78-100) fL MCH 29.5 (26-32) pg MCHC 35.3 (32-36) g/dL RDW 12.3 (11.5-14.0) % Plt Count 278 (150-450) x10^3/uL MPV 10.1 (7.5-11.0) fL Gran % 58.1 (36.0-66.0) % Immature Gran % (Auto) 0.2 (0.00-0.4) % Nucleat RBC Rel Count 0.0 (0.00-0.1) % Eos # (Auto) 0.10 (0-0.5) x10^3/uL Immature Gran # (Auto) 0.01 (0.00-0.03) x10^3u/L Absolute Lymphs (auto) 1.46 (1.0-4.6) x10^3/uL Absolute Monos (auto) 0.34 (0.0-1.3) x10^3/uL Absolute Nucleated RBC 0.00 (0.00-0.01) x10^3u/L Lymphocytes % 31.1 (24.0-44.0) % Monocytes % 7.2 (0.0-12.0) % Eosinophils % 2.1 (0.00-5.0) % Basophils % 1.3 (0.0-0.4) % Absolute Granulocytes 2.73 (1.4-6.9) x10^3/uL Basophils # 0.06 (0-0.4) x10^3/uL D-Dimer 0.23 (0.0-0.50) mg/L Sodium 139 (135-145) mmol/L Potassium 3.4 L (3.5-5.1) mmol/L Chloride 110 H (98-107) mmol/L Carbon Dioxide 19 L (22-30) mmol/L Anion Gap 14.4 (5-15) MEQ/L BUN 13 (9-20) mg/dL Creatinine 1.02 (0.66-1.25) mg/dL Estimated GFR 93.5 ML/MIN Glucose 138 H (74-106) mg/dL Calcium 9.3 (8.4-10.2) mg/dL Total Bilirubin 0.30 (0.2-1.3) mg/dL AST 36 (17-59) U/L ALT 49 (0-50) U/L Alkaline Phosphatase 63 (38-126) U/L Troponin I (0.000-0.034) ng/mL NT-Pro-B Natriuret Pep (<300) pg/mL Serum Total Protein 7.8 (6.3-8.2) g/dL Albumin 4.4 (3.5-5.0) g/dL - Progress Progress: re-examined Air Movement: good Progress Note: 01/28/24 12:01 43 years old is evaluated for multiple symptoms including chest pain, difficulty breathing, anxiety, numbness and weakness of left side. Patient is made stroke activated and obtained CT head which is negative for any acute intracranial findings. Patient EKG showed normal sinus rhythm with no acute ischemic changes. Negative initial troponin. Chest x-ray negative for any acute cardiopulmonary findings reviewed by me, official report is pending. Has normal white count, chemistries fairly unremarkable. Patient is evaluated by [facility] neurology who recommended patient needs further stroke workup including MRI/MRA and echo. Also recommended loading with 324 of aspirin and 300 mg Plavix along with Lipitor and admission to the floor. I have discussed with Dr. Wolff, reviewed history, workup and agreed with admission. I have discussed the results of workup and plan of admission with patient who understands and agrees. 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 Wolff) Reviewed:: Test results, Need for additional workup Agreed on:: Treatment plan, place in obs Will see patient: in hospital - Diagnostic Testing Diagnostic test were ordered, analyzed, and reviewed by me: Yes Radiological Interpretation: Reviewed by me, Teleradiologist Report - Risk of complications The pt has a high risk of morbidity or mortality based on: Decision regarding hospitilization or escalation of hosp level of care - Departure Departure Disposition: Observation Clinical Impression: Chest pain, rule out acute myocardial infarction, Stroke-like symptoms Condition: Stable Critical Care Time: No Referrals: COMFORT CLOUD MD [Primary Care Provider] - Follow up/PCP as directed
[2024-01-28 08:33] LABS: Absolute Neutrophil Ct (ANC) 2.73 x10^3/uL (1.4-6.9); BASOPHIL % 1.3 % (0.0-0.4); Basophil (Absolute #) 0.06 x10^3/uL (0-0.4); Eosinophil % 2.1 % (0.00-5.0); Hematocrit 48.2 % (42-50); IMMATURE GRAN # 0.01 x10^3u/L (0.00-0.03); IMMATURE GRAN % 0.2 % (0.00-0.4); Lymphocyte (Absolute #) 1.46 x10^3/uL (1.0-4.6); Lymphocytes % 31.1 % (24.0-44.0); Mean Cell Volume 83.7 fL (78-100); Mean Corpuscular Hemoglobin 29.5 pg (26-32); Mean Corpuscular Hgb Concent. 35.3 g/dL (32-36); Mean Platelet Volume 10.1 fL (7.5-11.0); Monocyte (Absolute #) 0.34 x10^3/uL (0.0-1.3); Monocytes % 7.2 % (0.0-12.0); Neutrophil % 58.1 % (36.0-66.0); Platelet Count 278 x10^3/uL (150-450); Red Blood Count 5.76 x10^6/uL (4.1-5.6); Red Cell Distribution Width 12.3 % (11.5-14.0); White Blood Count 4.7 x10^3/uL (4.0-10.5)
[2024-01-28 08:49] LABS: ALBUMIN 4.4 g/dL (3.5-5.0); ANION GAP 14.4 MEQ/L (5-15); BILIRUBIN,TOTAL 0.3 mg/dL (0.2-1.3); Calcium 9.3 mg/dL (8.4-10.2); Creatinine 1 1.02 mg/dL (0.66-1.25); EST GLOMERULAR FILTRATION RATE 93.5 ML/MIN; Potassium 3.4 mmol/L (3.5-5.1); Total Protein 7.8 g/dL (6.3-8.2)
--- NOTE | 2024-01-28 09:08 | XRAY ---
CLINICAL HISTORY: Blurred vision COMPARISON: 10/18/2022 TECHNIQUE: Axial non-contrast enhanced CT scan of the brain was performed from the skull base to the high parietal region. DLP:1016.25 mGy*cm. FINDINGS: The visualized brain parenchyma shows normal appearance. No focal parenchymal abnormalities are demonstrated. Motta-white matter differentiation is maintained. No midline shifts or deformity. No intracerebral or extra axial hematoma. Normal size and configuration of the cerebral ventricles. Normal CT appearance of the posterior fossa structures namely the cerebellar hemispheres, brainstem and cerebellar peduncles. The IACs are unremarkable. The cerebello-pontine angles are clear. The pituitary gland, the pineal gland, the optic chiasm is unremarkable. The osseous structures in the skull base are unremarkable. No definite calvarium fractures. Scanned paranasal sinuses are clear. IMPRESSION: Unremarkable non-enhanced CT study for the brain. No interval changes since last study. Electronically Signed by: Jillian Sheppard MD. (01/28/2024 09:05:16 EDT)
--- NOTE | 2024-01-28 10:11 | PCM.CONS ---
History of Present Illness - Reason for Consult Chief Complaint: left side tingling, chest pain, blurred vision Consulting Provider: SUNG VINCENT DO History of Present Illness: [facility] Neurology Physician Signature This document was electronically signed by: Sung Vincent DO Consult Cover Page FROM: [place], Call Back Number: [phone] SUBJECT: Consult Recommendations Date and Time of Report: 01/28/2024 10:05 AM ET Items Contained in this Document: Neurology Consult Note Consult Information Member Facility: [facility] Facility Visit/ Consult ID: [id number] Facility Time Zone: ET Date and Time of Request: 01-28-2024 09:06 AM ET Requesting Clinician: Dr. Vasquez Patient Name: SAMANTHA DONIS Date of : 1980 Gender: Male Patient identity was confirmed at the beginning of the consult with the patient/family/staff using two personal identifiers: Patient name and Reason for Consult Reason for Consult: Code Stroke TLKW 4.5 to 24 hours General Chief Complaint: "whole left side tingly", bad chest pain and blurred vision as well as headache and shortness of breath Patient Location and Admission Status: ED - Patient is admitted Family Members and Medical Staff Present During Exam: patient's nurse History of Present Illness: I entered the patients room by way of secure two-way audiovisual conferencing ([id number]). Patient name and date of confirmed with patient. I subsequently called Dr. Vasquez to review details of assessment and plan. Patient tells me that while at work left-sided sensory motor symptoms got worse, was falling and therefore visit to the ED for further evaluation. Initially presented to the ED with chest pain but then reported the left-sided sensory/motor symptoms which prompted teleneurology consultation Patient tells me he went to bed last evening between 1929 1999 in usual state of health. He states he awoke between midnight and 0100 with bad chest pain, blurring of vision in the entire left side of his body feeling numb and tingly. When he tried to sit up he almost felt like he was going to pass out, this happened several times throughout the night. He woke up for the day at 0545 and went to work with these symptoms. While at work symptoms got worse which prompted visit to the ED for further evaluation. At this time he reports having headache and shortness of breath, appears comfortable. He reports chest pain as something heavy on the chest and sometimes sharp. No clear provoking factors and does not clearly report symptoms clearly suggestive of musculoskeletal dysfunction in the affected areas. Patient does report having a stroke back in 2017, affecting the left side and does report intermittent symptoms on the left side. Workup and treatment details not very clear, it sounds like you may have taken aspirin for a while but discontinued for unclear reasons. Head CT does not show acute appearing pathology. Number of Documented HPI Elements: 4+ Medical History Other Medical History: --denies hypertension, hyperlipidemia, diabetes mellitus. Denies thyroid, liver, kidney disease Pertinent Family History: Unknown Allergies Other Allergies: Topamax, Toradol Medications Other Anti-Coagulants: denies Other Anti-Platelets: denies Other Medications: reports taking omeprazole and ibuprofen Social History Tobacco Use: Current Other Social History : --marijuana use --rare alcohol Vital Signs Temperature F: 98.5 Temperature C: 36.9 Blood Pressure (mmHg): 147/86 Heart Rate (bpm): 78 Respiration Rate (/min): 18 O2 Sat (%): 97 POC Glucose(mg/dL): 138 Date and Time: 01/28/2024 09:42:11 AM ET POC Glucose(mg/dL): 138 Review Of Systems Neurological: See HPI Cardiovascular: See HPI Respiratory: See HPI NIH Stroke Scale NIH Stroke Scale Score: 3 1. Level of Consciousness: 0 : alert; keenly responsive. 1a. LOC Questions: 0 : Answers both questions correctly. 1b. LOC Commands: 0 : Performs both tasks correctly. 2. Best Gaze: 0 : Normal. 3. Visual: 0 : No visual loss. 4. Facial Palsy: 0 : Normal symmetrical movements. 5a. Motor Left Arm: 1 : Drift; limb holds 90 (or 45) degrees, but drifts down before full 10 seconds; does not hit bed or other support. 5b. Motor Right Arm : 0 : No drift; limb holds 90 (or 45) degrees for full 10 seconds. 6a. Motor Left Le : Drift; leg falls by the end of the 5-second period but does not hit bed. 6b. Motor Right Le : No drift; leg holds 30-degree position for full 5 seconds. 7. Limb Ataxia: 0 : Absent. 8. Sensory: 1 : [id number] sensory loss; patient feels pinprick is less sharp or is dull on the affected side; or there is a loss of superficial pain with pinprick, but patient is aware of being touched. 9. Best Language: 0 : No aphasia; normal. 10. Dysarthria: 0 : Normal. 11. Extinction and inattention (formerly Neglect) : 0 : No abnormality. NIHSS Comments : see comments above NIHSS Entry Time: 01/28/2024 09:43:43 AM ET Exam Exam: Awake, alert and oriented, pleasant without acute distress. Speech is fluent, no aphasia. Attends to both sides of the environment equally, peripheral visual rutledge appear grossly preserved, EOMI, facial expressions symmetric (mildasymmetry/ baseline?) and speech is clear. Appears to have mild drift in the left arm and leg. Left nanda-sensory impairment noted. No growth/asymmetric clumsiness of the extremities. Abnormal spontaneous movements not observed. Clinician assisting with exam: patient's nurse Labs and Imaging Labs available?: Yes Blood Glucose (mg/dL): 138 WBC (mcL): 4.7 HGB (g/dL): 17 HCT (%): 48 PLT (mcL): 278 Na (mEq/L): 139 K (mEq/L): 3.4 BUN (mg/dL): 13 Cr (mg/dL): 1.02 Other Labs: --AST/ALT within physiologic range CT Brain Findings: No acute changes Assessment and Recommendations Assessment: Acute left nanda sensory impairment with mild weakness of the left arm and leg without clear provoking factors. Suspicious for acute small vessel lacunar stroke syndrome. Patient reports history of prior stroke without specific details or specific vascular/stroke related treatments. also reporting headache, chest pain and shortness of breath. DDx includes mild stroke, musculoskeletal related? (denies significant musculoskeletal issues/pain in affected areas), migraine syndrome related?... although no clear report of migraine headaches (pt did not report migraine hx to this examiner). Not a candidate for acute IV/IA stroke therapies given lack of acute measurable disabling neurologic deficit within 4.5h of time of evaluation, presentation not consistent with acute intracranial large vessel occlusion. Recommendations: As discussed with Dr. Vasquez and reviewed with patient, for now from neurology perspective, Admit for stroke work up and treatment, along with medical evaluation/treatment by primary medical team, 1. Frequent vital signs and neurochecks, such as q2h X 8h, then q4h X 16, then per floor protocol/stroke pathway if the patient is stable. 2. Permissive HTN, isotonic IVFs-euvolemia, for the first 36-48 hours (gently treat if >220/120 or more aggressively if evidence for end-organ damage), Then start to gently target BP to less than/equal to ~130/70. (target normal blood pressure if MRI Brain completed within this timeframe and if no acute ischemia) 3. Glucose 140-180, if insulin required and aggressive fever control for now 4. High-intensity statin therapy, atorvastatin 80mg to start (target LDL <70) unless contraindicated or patient is know to be intolerant to this class of medications. Dose can be adjusted prior to discharge if LDL is at target and/or if there is a specific concern for high-dose statin, or if other non asvd mechanism for patients presenting signs/symptoms. 5. HgA1c, target <7.0, adjust/start treatment if elevated. 6. Anti-thrombotic agent for now, Aspirin 81mg (325mg x 1 in ED) and Plavix 75mg (300mg x 1 in ED), after passing dysphagia screen, for 21 days then monotherapy with aspirin 81mg daily unless there is an indication other than TIA/stroke risk reduction for chronic dual antiplatelet therapy. Continue to monitor telemetry/evaluate for afib/paf...which if identified/suspected then explore risk/benefit of anticoagulation. (continuation/adjustment of antithrombotic medication to be determined based on results from workup). 7. DVT prophylaxis; SCDs, SC LMWH/heparin if patient is bedbound and no medical contraindication. 8. Stroke education; to include healthy dietary and physical activity choices. Tobacco cessation counseling of smoker. 9. PT/OT/ST consult. NPO until seen by ST, or passes dysphagia screening. 10. Case management consult, if needed. Diagnostics studies from neurology perspective for now: 1. MRI/A brain when logistically possible, non urgent, noncontrast. (pattern and extent of acute/chronic disease will help guide therapy options) 2. Carotid Ultrasound or MRA neck, non urgent. 3. Transthoracic Echocardiogram (with agitated saline if not done so in the past), nonurgent 4. Labs: Fasting lipid panel, HgA1c, TSH...if not completed recently Thank you for the opportunity to be involved in the care and management of this patient. Please do not hesitate to call back with any new developments/info, data updates or questions. At your request video follow up evaluation can be completed / arranged, please have video cart at bedside if requested. Sung Vincent Jr DO MS Adult Neurologist [facility] Disposition: Admit patient to telemetry or stroke unit Diagnosis Impression: Stroke Case discussed with: Dr. Vasquez Inclusion Criteria Time Last Known Well: 01-27-2024 07:30 PM ET Neurological deficit considered to be disabling within 4.5 h of ischemic stroke symptom onset or patient last known well: No BP < 185/110: Yes Glucose > 50 mg/dL: Yes Thrombolysis Recommendation Thrombolysis recommended?: No Reason Thrombolysis not recommended Comments: noticed symptoms at last night between midnight and 1 AM, last known well-timed could possibly be 1929 1999 yesterday when he went to bed ICD-10 Code ICD-10 Code (Primary): I63.9 : Cerebral infarction, unspecified ICD-10 Code: G83.20 : Monoplegia of upper limb affecting unspecified side ICD-10 Code: G83.10 : Monoplegia of lower limb affecting unspecified side ICD-10 Code: R20.2 : Paresthesia of skin ICD-10 Code: R29.90 : Unspecified symptoms and signs involving the nervous system Attestation Interaction Mode: Video & Phone Time of Phone Call : 01-28-2024 09:31 AM ET Time of Video Call : 01-28-2024 09:17 AM ET Interaction Attestation: Clinical telemedicine services delivered using HIPAA- compliant interactive video-audio telecommunications while the patient and the rendering provider were not in the same physical location. Written report was provided to the requesting provider. Evaluation Duration (mins): 47 Bentley Timer Summary ED Arrival Date and Time: 01-28-2024 07:30 AM ET Date and Time of Request: 01-28-2024 09:06 AM ET Physician Signature This document was electronically signed by: Sung Vincent DO Medications & Allergies Home Medications: Home Medication List Omeprazole 40 mg PO DAILY 01/06/23 [History Confirmed 01/28/24] Cyclobenzaprine HCl 10 mg [Cyclobenzaprine 10 MG] 10 mg PO DAILY PRN 03/03/23 [History Confirmed 01/28/24] Fenofibrate 145 mg PO DAILY 10/14/23 [History Confirmed 01/28/24] Ibuprofen [Ibu] 800 mg PO DAILY 10/14/23 [History Confirmed 01/28/24] Allergies/Adverse Reactions: Allergies Allergy/AdvReac Type Severity Reaction Status Date / Time ketorolac [From Toradol] AdvReac Severe Verified 01/28/24 08:00 topiramate [From Topamax] AdvReac Severe Verified 01/28/24 08:00 - Past Medical History Past Medical History: Yes Neurological History: Migraines, Peripheral Neuropathy, Stroke ENT History: No Pertinent History Cardiac History: High Cholesterol Respiratory History: Emphysema Endocrine Medical History: No Pertinent History Musculoskelatal History: Other GI Medical History: GERD History: No Pertinent History Pyscho-Social History: Anxiety, Attention Deficit Disorder, Depression, Other Male Reproductive Disorders: No Pertinent History Comment: 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 PTSD - Past Surgical History Past Surgical History: Yes Neuro Surgical History: No Pertinent History Cardiac History: No Pertinent History Respiratory Surgery: No Pertinent History GI Surgical History: Appendectomy Genitourinary Surgical Hx: No Pertinent History Musculskeletal Surgical Hx: No Pertinent History Male Surgical History: No Pertinent History Other Surgical History: skin CA on L shoulder Significant Family History: heart disease, hypertension, stroke - Social History Smoking Status: Current some day smoker How long have you smoked: 25 yrs Exposure to second hand smoke: No Alcohol: Rarely Drug Use: marijuana - Social Determinants of Health Will the patient participate in the screening: Declined to provide Do you worry about a steady place to live?: No In the past 12 months,have you had to go without utilities?: No Have you or anyone in your house had to go without enough: No Transportation Issues: No Has anyone in your support network made you feel unsafe?: No Does the patient want assistance with any of the above?: No - Physical Exam Vital Signs: Vital Signs - 24 hr Temp Pulse Resp BP BP Pulse Ox 01/28/24 09:00 78 18 147/86 95 01/28/24 08:32 100 01/28/24 08:30 146/99 95 01/28/24 08:01 98.5 F 99 H 18 137/90 100 Results - Labs Lab/Micro Results: Lab Results-Last 24 Hours 01/28/24 01/28/24 01/28/24 Range/Units 08:13 08:13 08:13 WBC 4.7 (4.0-10.5) x10^3/uL RBC 5.76 H (4.1-5.6) x10^6/uL Hgb 17.0 (12.5-18.0) g/dL Hct 48.2 (42-50) % MCV 83.7 (78-100) fL MCH 29.5 (26-32) pg MCHC 35.3 (32-36) g/dL RDW 12.3 (11.5-14.0) % Plt Count 278 (150-450) x10^3/uL MPV 10.1 (7.5-11.0) fL Gran % 58.1 (36.0-66.0) % Immature Gran % (Auto) 0.2 (0.00-0.4) % Nucleat RBC Rel Count 0.0 (0.00-0.1) % Eos # (Auto) 0.10 (0-0.5) x10^3/uL Immature Gran # (Auto) 0.01 (0.00-0.03) x10^3u/L Absolute Lymphs (auto) 1.46 (1.0-4.6) x10^3/uL Absolute Monos (auto) 0.34 (0.0-1.3) x10^3/uL Absolute Nucleated RBC 0.00 (0.00-0.01) x10^3u/L Lymphocytes % 31.1 (24.0-44.0) % Monocytes % 7.2 (0.0-12.0) % Eosinophils % 2.1 (0.00-5.0) % Basophils % 1.3 (0.0-0.4) % Absolute Granulocytes 2.73 (1.4-6.9) x10^3/uL Basophils # 0.06 (0-0.4) x10^3/uL D-Dimer 0.23 (0.0-0.50) mg/L Sodium 139 (135-145) mmol/L Potassium 3.4 L (3.5-5.1) mmol/L Chloride 110 H (98-107) mmol/L Carbon Dioxide 19 L (22-30) mmol/L Anion Gap 14.4 (5-15) MEQ/L BUN 13 (9-20) mg/dL Creatinine 1.02 (0.66-1.25) mg/dL Estimated GFR 93.5 ML/MIN Glucose 138 H (74-106) mg/dL Calcium 9.3 (8.4-10.2) mg/dL Total Bilirubin 0.30 (0.2-1.3) mg/dL AST 36 (17-59) U/L ALT 49 (0-50) U/L Alkaline Phosphatase 63 (38-126) U/L Troponin I (0.000-0.034) ng/mL NT-Pro-B Natriuret Pep (<300) pg/mL Serum Total Protein 7.8 (6.3-8.2) g/dL Albumin 4.4 (3.5-5.0) g/dL 01/28/24 01/28/24 Range/Units 08:13 08:13 WBC (4.0-10.5) x10^3/uL RBC (4.1-5.6) x10^6/uL Hgb (12.5-18.0) g/dL Hct (42-50) % MCV (78-100) fL MCH (26-32) pg MCHC (32-36) g/dL RDW (11.5-14.0) % Plt Count (150-450) x10^3/uL MPV (7.5-11.0) fL Gran % (36.0-66.0) % Immature Gran % (Auto) (0.00-0.4) % Nucleat RBC Rel Count (0.00-0.1) % Eos # (Auto) (0-0.5) x10^3/uL Immature Gran # (Auto) (0.00-0.03) x10^3u/L Absolute Lymphs (auto) (1.0-4.6) x10^3/uL Absolute Monos (auto) (0.0-1.3) x10^3/uL Absolute Nucleated RBC (0.00-0.01) x10^3u/L Lymphocytes % (24.0-44.0) % Monocytes % (0.0-12.0) % Eosinophils % (0.00-5.0) % Basophils % (0.0-0.4) % Absolute Granulocytes (1.4-6.9) x10^3/uL Basophils # (0-0.4) x10^3/uL D-Dimer (0.0-0.50) mg/L Sodium (135-145) mmol/L Potassium (3.5-5.1) mmol/L Chloride (98-107) mmol/L Carbon Dioxide (22-30) mmol/L Anion Gap (5-15) MEQ/L BUN (9-20) mg/dL Creatinine (0.66-1.25) mg/dL Estimated GFR ML/MIN Glucose (74-106) mg/dL Calcium (8.4-10.2) mg/dL Total Bilirubin (0.2-1.3) mg/dL AST (17-59) U/L ALT (0-50) U/L Alkaline Phosphatase (38-126) U/L Troponin I < 0.012 (0.000-0.034) ng/mL NT-Pro-B Natriuret Pep < 20.0 (<300) pg/mL Serum Total Protein (6.3-8.2) g/dL Albumin (3.5-5.0) g/dL - Radiology Impressions Radiology Exams & Impressions: Radiology Procedures Category Date Time Status CHEST 1 VIEW (PORTABLE) Stat Exams 01/28/24 08:25 Taken HEAD WITHOUT CONTRAST [CT] Stat Exams 01/28/24 08:25 Completed
[2024-01-28] MEDS ORDERED: BABY ASPIRIN 81 MG CHEW ONE (12:10)
[2024-01-28] MEDS ORDERED: LIPITOR 40MG ONE (12:10)
[2024-01-28] MEDS ORDERED: PLAVIX Tablet ONE ×3 (12:11→12:20)
[2024-01-28] MEDS: BABY ASPIRIN 81 MG CHEW PO ONE (12:11)
[2024-01-28] MEDS: PLAVIX Tablet PO ONE (12:11)
[2024-01-28] MEDS: LIPITOR 40MG PO STA (12:13)
--- NOTE | 2024-01-28 13:18 | PCM.HP ---
History of Present Illness - Chief Complaint Chief Complaint: left side tingling, chest pain, blurred vision Date: 01/28/24 History of Present Illness: is a 43 year old male with PMHX of stroke with left upper extremity residual weakness, migraines, CAD, and tobacco abuse. He presented in the ER with complaints of left-sided chest pain off and on for the last 2 to 3 days which got worse prior to arrival. Patient reports he started to feel dizzy lightheaded and feeling as if he was going to fall down with worsening of chest pain which he rates 9/10 intensity without any significant aggravating or relieving factors. Also reports feeling blurry vision bilaterally and increasing tingling and numbness in the left upper and lower extremities with some increased weakness in left upper extremity than his usual baseline. Denies any fall or head trauma. Has chronic smoker's cough which is not any worse than usual. Also reports mild increased shortness of breath. 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 Wet [employer] II ingredients per capsule include 200mg of caffeine, yerba mate leaf powder, green teas leaf extract, guggulsterone gum extract, anjali nomaine whole palnt extract, and white willow bark extract. He also admits to drinking a 20 ounce coffee with 1 cup of sugar mixed in daily. That is about 227mg of caffeine per cup. He is ingesting about 627 mg of caffeine daily in total. He also admits to salting all his foods and poor diet habits. He states he has been gaining weight so he has been taking the Wet [employer] Miller 2 supplement to assist in weight loss. Tele neurology consult reviewed and agree with plan of care. K+ 3.4 and replaced. Bicarb gtt started as CO2 is 19, 2:2 possible renal tubular acidosis. On admission he continue to c/o CP w/o radiation, Trop x2 negative. He continues to have some blurred vision and c/o H/A. He denies Abd. pain, N/V/D. - Review of Systems Constitutional: Weakness, No Fever, No Chills Eyes: Other (blurred vision) Ears, Nose, & Throat: No Symptoms Respiratory: No Cough, No Short Of Breath Cardiac: Chest Pain, No Edema, No Syncope Abdominal/Gastrointestinal: No Abdominal Pain, No Nausea, No Vomiting, No Diarrhea Genitourinary Symptoms: Frequency, No Dysuria Musculoskeletal: No Back Pain, No Neck Pain Skin: No Rash Neurological: Focal Weakness (left side), Headache, Sensory Changes, No Dizziness Psychological: No Symptoms Endocrine: No Symptoms Hematologic/Lymphatic: No Symptoms Immunological/Allergic: No Symptoms Medications & Allergies Home Medications: Home Medication List Omeprazole 40 mg PO DAILY 01/06/23 [History Confirmed 01/28/24] Cyclobenzaprine HCl 10 mg [Cyclobenzaprine 10 MG] 10 mg PO DAILY PRN 03/03/23 [History Confirmed 01/28/24] Fenofibrate 145 mg PO DAILY 10/14/23 [History Confirmed 01/28/24] Ibuprofen [Ibu] 800 mg PO DAILY 10/14/23 [History Confirmed 01/28/24] Albuterol 8 gm Mdi Hfa [Ventolin Hfa MDI] 2 puff IH Q6HPRN PRN 01/28/24 [History Confirmed 01/28/24] Umeclidinium Brm/Vilanterol Tr [Anoro Ellipta 62.5-25 Mcg INH] 1 puff IH DAILY 01/28/24 [History Confirmed 01/28/24] Allergies/Adverse Reactions: Allergies Allergy/AdvReac Type Severity Reaction Status Date / Time ketorolac [From Toradol] AdvReac Severe Verified 01/28/24 08:00 topiramate [From Topamax] AdvReac Severe Verified 01/28/24 08:00 - Past Medical History Past Medical History: Yes Neurological History: Migraines, Peripheral Neuropathy, Stroke ENT History: No Pertinent History Cardiac History: High Cholesterol Respiratory History: Emphysema Endocrine Medical History: No Pertinent History Musculoskelatal History: Other GI Medical History: GERD History: No Pertinent History Pyscho-Social History: Anxiety, Attention Deficit Disorder, Depression, Other Male Reproductive Disorders: No Pertinent History Comment: 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 PTSD - Past Surgical History Past Surgical History: Yes Neuro Surgical History: No Pertinent History Cardiac History: No Pertinent History Respiratory Surgery: No Pertinent History GI Surgical History: Appendectomy Genitourinary Surgical Hx: No Pertinent History Musculskeletal Surgical Hx: No Pertinent History Male Surgical History: No Pertinent History Other Surgical History: skin CA on L shoulder Significant Family History: heart disease, hypertension, stroke - Social History Smoking Status: Current some day smoker How long have you smoked: 25 yrs Exposure to second hand smoke: No Alcohol: None Drug Use: marijuana - Social Determinants of Health Will the patient participate in the screening: Declined to provide Do you worry about a steady place to live?: No In the past 12 months,have you had to go without utilities?: No Have you or anyone in your house had to go without enough: No Transportation Issues: No Has anyone in your support network made you feel unsafe?: No Does the patient want assistance with any of the above?: No - Physical Exam Vital Signs: Vital Signs - 24 hr Temp Pulse Resp BP BP Pulse Ox 01/28/24 12:05 100 01/28/24 09:00 78 18 147/86 95 01/28/24 08:30 146/99 95 01/28/24 08:01 98.5 F 99 H 18 137/90 100 General Appearance: no apparent distress, alert Neurologic Exam: alert, oriented x 3, cooperative, normal mood/affect, sensation nml, sensory deficit, motor weakness (left arm weakness and pronator drift) Eye Exam: PERRL/EOMI, eyes nml inspection Ears, Nose, Throat Exam: normal ENT inspection, TMs normal, pharynx normal, moist mucous membranes Neck Exam: normal inspection, non-tender, supple, full range of motion Respiratory Exam: normal breath sounds, lungs clear, No respiratory distress Cardiovascular Exam: regular rate/rhythm, normal heart sounds, normal peripheral pulses Gastrointestinal/Abdomen Exam: soft, normal bowel sounds, No tenderness, No mass Back Exam: normal inspection, normal range of motion, No CVA tenderness, No vertebral tenderness Extremity Exam: normal inspection, normal range of motion, pelvis stable Skin Exam: normal color, warm, dry, No rash Lymphatic Exam: No adenopathy Results - Labs Lab/Micro Results: Lab Results-Last 24 Hours 01/28/24 01/28/24 01/28/24 Range/Units 08:13 08:13 08:13 WBC 4.7 (4.0-10.5) x10^3/uL RBC 5.76 H (4.1-5.6) x10^6/uL Hgb 17.0 (12.5-18.0) g/dL Hct 48.2 (42-50) % MCV 83.7 (78-100) fL MCH 29.5 (26-32) pg MCHC 35.3 (32-36) g/dL RDW 12.3 (11.5-14.0) % Plt Count 278 (150-450) x10^3/uL MPV 10.1 (7.5-11.0) fL Gran % 58.1 (36.0-66.0) % Immature Gran % (Auto) 0.2 (0.00-0.4) % Nucleat RBC Rel Count 0.0 (0.00-0.1) % Eos # (Auto) 0.10 (0-0.5) x10^3/uL Immature Gran # (Auto) 0.01 (0.00-0.03) x10^3u/L Absolute Lymphs (auto) 1.46 (1.0-4.6) x10^3/uL Absolute Monos (auto) 0.34 (0.0-1.3) x10^3/uL Absolute Nucleated RBC 0.00 (0.00-0.01) x10^3u/L Lymphocytes % 31.1 (24.0-44.0) % Monocytes % 7.2 (0.0-12.0) % Eosinophils % 2.1 (0.00-5.0) % Basophils % 1.3 (0.0-0.4) % Absolute Granulocytes 2.73 (1.4-6.9) x10^3/uL Basophils # 0.06 (0-0.4) x10^3/uL D-Dimer 0.23 (0.0-0.50) mg/L Sodium 139 (135-145) mmol/L Potassium 3.4 L (3.5-5.1) mmol/L Chloride 110 H (98-107) mmol/L Carbon Dioxide 19 L (22-30) mmol/L Anion Gap 14.4 (5-15) MEQ/L BUN 13 (9-20) mg/dL Creatinine 1.02 (0.66-1.25) mg/dL Estimated GFR 93.5 ML/MIN Glucose 138 H (74-106) mg/dL Calcium 9.3 (8.4-10.2) mg/dL Total Bilirubin 0.30 (0.2-1.3) mg/dL AST 36 (17-59) U/L ALT 49 (0-50) U/L Alkaline Phosphatase 63 (38-126) U/L Troponin I (0.000-0.034) ng/mL NT-Pro-B Natriuret Pep (<300) pg/mL Serum Total Protein 7.8 (6.3-8.2) g/dL Albumin 4.4 (3.5-5.0) g/dL 01/28/24 01/28/24 01/28/24 Range/Units 08:13 08:13 11:12 WBC (4.0-10.5) x10^3/uL RBC (4.1-5.6) x10^6/uL Hgb (12.5-18.0) g/dL Hct (42-50) % MCV (78-100) fL MCH (26-32) pg MCHC (32-36) g/dL RDW (11.5-14.0) % Plt Count (150-450) x10^3/uL MPV (7.5-11.0) fL Gran % (36.0-66.0) % Immature Gran % (Auto) (0.00-0.4) % Nucleat RBC Rel Count (0.00-0.1) % Eos # (Auto) (0-0.5) x10^3/uL Immature Gran # (Auto) (0.00-0.03) x10^3u/L Absolute Lymphs (auto) (1.0-4.6) x10^3/uL Absolute Monos (auto) (0.0-1.3) x10^3/uL Absolute Nucleated RBC (0.00-0.01) x10^3u/L Lymphocytes % (24.0-44.0) % Monocytes % (0.0-12.0) % Eosinophils % (0.00-5.0) % Basophils % (0.0-0.4) % Absolute Granulocytes (1.4-6.9) x10^3/uL Basophils # (0-0.4) x10^3/uL D-Dimer (0.0-0.50) mg/L Sodium (135-145) mmol/L Potassium (3.5-5.1) mmol/L Chloride (98-107) mmol/L Carbon Dioxide (22-30) mmol/L Anion Gap (5-15) MEQ/L BUN (9-20) mg/dL Creatinine (0.66-1.25) mg/dL Estimated GFR ML/MIN Glucose (74-106) mg/dL Calcium (8.4-10.2) mg/dL Total Bilirubin (0.2-1.3) mg/dL AST (17-59) U/L ALT (0-50) U/L Alkaline Phosphatase (38-126) U/L Troponin I < 0.012 < 0.012 (0.000-0.034) ng/mL NT-Pro-B Natriuret Pep < 20.0 (<300) pg/mL Serum Total Protein (6.3-8.2) g/dL Albumin (3.5-5.0) g/dL - Radiology Impressions Radiology Exams & Impressions: Radiology Procedures Category Date Time Status CAROTID BILATERAL [US] Routine Exams 01/29/24 09:00 Ordered CHEST 1 VIEW (PORTABLE) Stat Exams 01/28/24 08:25 Taken HEAD WITHOUT CONTRAST [CT] Stat Exams 01/28/24 08:25 Completed MRI BRAIN W & W/O CONTRAST [MRI] Routine Exams 01/29/24 08:00 Ordered Assessment/Plan (1) Left-sided weakness Current Visit: Yes Status: Acute Assessment & Plan: - Reviewed neurology recs and agree with plan of care: 1. Frequent vital signs and neurochecks, such as q2h X 8h, then q4h X 16, then per floor protocol/stroke pathway if the patient is stable. 2. Permissive HTN, isotonic IVFs-euvolemia, for the first 36-48 hours (gently treat if >220/120 or more aggressively if evidence for end-organ damage), Then start to gently target BP to less than/equal to ~130/70. (target normal blood pressure if MRI Brain completed within this timeframe and if no acute ischemia) 3. Glucose 140-180, if insulin required and aggressive fever control for now 4. High-intensity statin therapy, atorvastatin 80mg to start (target LDL <70) unless contraindicated or patient is know to be intolerant to this class of medications. Dose can be adjusted prior to discharge if LDL is at target and/or if there is a specific concern for high-dose statin, or if other non asvd mechanism for patients presenting signs/symptoms. 5. HgA1c, target <7.0, adjust/start treatment if elevated. 6. Anti-thrombotic agent for now, Aspirin 81mg (325mg x 1 in ED) and Plavix 75mg (300mg x 1 in ED), after passing dysphagia screen, for 21 days then monotherapy with aspirin 81mg daily unless there is an indication other than TIA/stroke risk reduction for chronic dual antiplatelet therapy. Continue to monitor telemetry/evaluate for afib/paf...which if identified/suspected then explore risk/benefit of anticoagulation. (continuation/adjustment of antithrombotic medication to be determined based on results from workup). 7. DVT prophylaxis; SCDs, SC LMWH/heparin if patient is bedbound and no medical contraindication. 8. Stroke education; to include healthy dietary and physical activity choices. Tobacco cessation counseling of smoker. 9. PT/OT/ST consult. NPO until seen by ST, or passes dysphagia screening. 10. Case management consult, if needed. Diagnostics studies from neurology perspective for now: 1. MRI/A brain when logistically possible, non urgent, noncontrast. (pattern and extent of acute/chronic disease will help guide therapy options) 2. Carotid Ultrasound or MRA neck, non urgent. 3. Transthoracic Echocardiogram (with agitated saline if not done so in the past), nonurgent 4. Labs: Fasting lipid panel, HgA1c, TSH. - Started on soft diet as pt reports he ate in ER w/o concerns and has been drinking fine. - SCD's - Statin started - MRI and carotid duplex in AM - ST/PT/OT eval tomorrow - PLavix 75mg daily started - TELE - Dietary consult Code(s): R53.1 - WEAKNESS (2) Headache Current Visit: Yes Status: Acute Assessment & Plan: - acute on chronic - Has hx of migraines and supposed to take Nurtec- we do not carry this med - Reglan, benadryl x1 now - ASA gave in ER - ketorlac gave in ER wi/o resolution of H/A Code(s): R51.9 - HEADACHE, UNSPECIFIED (3) Cough Current Visit: Yes Status: Acute Assessment & Plan: - CXR - 2:2 smoking? = ? chronic Code(s): R05.9 - COUGH, UNSPECIFIED (4) Chest pain Current Visit: Yes Status: Acute Assessment & Plan: - trop x2 negative- trend - Echo in AM - Will need FELICIA per neurology recs - cardiology consult tomorrow - UDS Code(s): R07.9 - CHEST PAIN, UNSPECIFIED (5) Excessive caffeine intake Current Visit: Yes Status: Acute Assessment & Plan: - advised to reduce intake coffee to 1 cup per day at most. - advised stopping Wet [employer] II supplemt as it also has caffeine Code(s): Z78.9 - OTHER SPECIFIED HEALTH STATUS (6) Excessive chloride salt intake Current Visit: Yes Status: Acute Assessment & Plan: - recommend low salt diet, 1.5-2gm per day Code(s): R63.8 - OTHER SYMPTOMS AND SIGNS CONCERNING FOOD AND FLUID INTAKE (7) Herbal supplement started Current Visit: Yes Status: Acute Assessment & Plan: - Pt has been taking OTC Wet [employer] II weight loss supplement 2 daily - recommend cessation. Code(s): ASG1389 - (8) Metabolic acidosis Current Visit: Yes Status: Acute Assessment & Plan: - Co2 19 - bicarb gtt started - 2:2 acute tubular acidosis? as K+ is also low. - may need OP nephrology referral at md Code(s): E87.20 - ACIDOSIS, UNSPECIFIED (9) Smoker Current Visit: No Status: Chronic Assessment & Plan: - advised cessation Code(s): F17.200 - NICOTINE DEPENDENCE, UNSPECIFIED, UNCOMPLICATED (10) Tetrahydrocannabinol (THC) dependence Current Visit: Yes Status: Acute Assessment & Plan: - as seen on UDS -advised cessation. Code(s): F12.20 - CANNABIS DEPENDENCE, UNCOMPLICATED (11) Hypokalemia Current Visit: Yes Status: Acute Assessment & Plan: - K+ 3.4- replaced VTE: SCD, plavix, ASA Code status: full D/C plan: 1-2 days Code(s): E87.6 - HYPOKALEMIA Telemedicine Encounter - Telemedicine Encounter Telemedicine Encounter: The entirety of this encounter was performed via Telemedicine"
[2024-01-28 13:25] LABS: Amphetamine,Urine NEGATIVE (NEGATIVE); Barbiturate,Urine NEGATIVE (NEGATIVE); Benzodiazepine,Urine NEGATIVE (NEGATIVE); Cocaine,Urine NEGATIVE (NEGATIVE); Methadone,Urine NEGATIVE (NEGATIVE); Opiate,Urine NEGATIVE (NEGATIVE); PCP,Urine NEGATIVE (NEGATIVE); THC,Urine POSITIVE (NEGATIVE)
[2024-01-28 13:46] LABS: Appearance Clear (Clear); Bacteria None Seen /HPF (None Seen); Bilirubin Negative (Negative); Blood Negative (Negative); Epithelial Cells None Seen /HPF (None Seen); Glucose, Urine Negative (Negative); Hyaline Casts NONE SEEN /LPF (0-2); Ketones Negative (Negative); Leukocyte Esterase Negative (Negative); Nitrite Negative (Negative); Protein,Urine Dip Negative (Negative); RBC 0-2 /HPF (0-5); Specific Gravity 1.015 (1.005-1.030); Urobilinogen 0.2 mg/dL (0.2); WBC 0-2 /HPF (0-5)
[2024-01-28 13:48] LABS: ADD URINE CULTURE? NO (NO)
[2024-01-28] MEDS: Protonix 40MG Tablet PO SCH (14:07)
[2024-01-28] MEDS: Tricor 145 MG PO SCH (14:07)
[2024-01-28] MEDS: Klor Con PO SCH (14:07)
[2024-01-28] MEDS ORDERED: SODIUM BICARBONATE 50 MEQ/50 ML ABBOJECT IV ONE (14:15)
[2024-01-28] MEDS ORDERED: Dextrose 5%/Water IV Soln. 1000 ML 1,000 ML IV ONE (14:16)
[2024-01-28] MEDS: Sodium Bicarbonate 50 MEQ/50 ML VIAL*** 150 MEQ in Dextrose 5%/Water IV Soln. 1000 ML 1... IV SCH (14:28)
[2024-01-28] MEDS: Reglan 10 MG PO ONE (16:42)
[2024-01-28] MEDS: BENADRYL 50 MG/ML IV ONE (16:43)
[2024-01-28] MEDS: Nicoderm CQ 21 MG TOP SCH (16:58)
--- NOTE | 2024-01-28 19:49 | XRAY ---
Indication: Chest pain. Comparison: October 14, 2023 Portable chest demonstrates normal heart and lungs again with incidental right apical calcific granuloma. Bony thorax intact again with osteopenia and mild degenerative changes. No new/acute findings.
[2024-01-28] MEDS: TYLENOL 325 MG PO PRN (20:27)
[2024-01-29] MEDS ORDERED: Sodium Bicarbonate 50 MEQ/50 ML VIAL ONE (00:52)
[2024-01-29] MEDS ORDERED: Dextrose 5%/Water IV Soln. 1000 ML 1,000 ML IV ONE (00:53)
[2024-01-29 05:17] LABS: Hematocrit 45.3 % (42-50); Hemoglobin 15.5 g/dL (12.5-18.0); Mean Cell Volume 84.7 fL (78-100); Mean Corpuscular Hgb Concent. 34.2 g/dL (32-36); Mean Platelet Volume 10.2 fL (7.5-11.0); Platelet Count 250 x10^3/uL (150-450); Red Blood Count 5.35 x10^6/uL (4.1-5.6); Red Cell Distribution Width 12.4 % (11.5-14.0); White Blood Count 4.4 x10^3/uL (4.0-10.5)
--- NOTE | 2024-01-29 05:31 | PCM.NOTE ---
Date and Time: 01/29/24527 Subjective Assessment: 43 year old male with a pmhx of stroke with some left upper extremity residual weakness, questionable history of CAD, and tobacco abuse admitted 01/28/24 with complaints of left-sided chest pain with associated dizziness, blurry vision, N/T to LUE and increased LUE weakness. CT head with no acute findings. EKG with normal sinus rhythm and no acute ischemic changes. Negative initial troponin x2. Chest x-ray negative for acute cardiopulmonary findings. Neurology consulted with recommendations for further stroke workup including MRI/MRA and echo. Additional recommendations of loading with 324 of aspirin and 300 mg Plavix along with Lipitor. 01/29/24: Met with patient bedside. Endorses improvement of symptoms, feels he is at his baseline residual weakness from previous CVA. Is having right sided chest pain with deep inhalation only. No longer having dizziness, blurry vision, or headache. Neurology has recommended MRI/MRA and echo today which we will obtain. Discharge pending results. - Review of Systems Constitutional: No Symptoms Eyes: No Symptoms Ears, Nose, & Throat: No Symptoms Respiratory: No Symptoms Cardiac: Chest Pain (right sided with deep inhalation) Abdominal/Gastrointestinal: No Symptoms Genitourinary Symptoms: No Symptoms Musculoskeletal: No Symptoms Skin: No Symptoms Neurological: Other (Residual left sided weakness) Psychological: No Symptoms Endocrine: No Symptoms Objective Exam General Appearance: no apparent distress Neurologic Exam: alert, oriented x 3, cooperative Skin Exam: normal color Eye Exam: PERRL Ears, Nose, Throat Exam: normal ENT inspection, moist mucous membranes Neck Exam: normal inspection Respiratory Exam: normal breath sounds, lungs clear Cardiovascular Exam: regular rate/rhythm, normal heart sounds Gastrointestinal/Abdomen Exam: soft, normal bowel sounds Extremity Exam: normal inspection (BUE 5/5 strength BLE right 5/5 left 4/5 strength) Back Exam: normal inspection Male Genitalia Exam: deferred Rectal Exam: deferred Objective Data Vital Signs: Vital Signs - 24 hr Temp Pulse Resp BP BP Pulse Ox 01/29/24 04:00 97.3 F 68 19 119/56 95 01/29/24 00:00 97.7 F 70 18 118/66 95 01/28/24 20:00 98.2 F 76 18 124/75 95 01/28/24 18:30 95 01/28/24 16:00 98.1 F 74 15 109/54 98 01/28/24 13:51 97 01/28/24 12:05 100 01/28/24 09:00 78 18 147/86 95 01/28/24 08:30 146/99 95 01/28/24 08:01 98.5 F 99 H 18 137/90 100 Pain Assessment - Last Documented Pain Intensity 0 Pain Scale Used 0-10 Pain Scale Intake and Output: Intake & Output 01/26/24 01/27/24 01/28/24 01/29/24 11:59 11:59 11:59 11:59 Intake Total 865 Balance 865 Weight 86.183 kg 93.8 kg Lab Results: Lab Results-Last 24 Hours 01/28/24 01/28/24 01/28/24 Range/Units 08:13 08:13 08:13 WBC 4.7 (4.0-10.5) x10^3/uL RBC 5.76 H (4.1-5.6) x10^6/uL Hgb 17.0 (12.5-18.0) g/dL Hct 48.2 (42-50) % MCV 83.7 (78-100) fL MCH 29.5 (26-32) pg MCHC 35.3 (32-36) g/dL RDW 12.3 (11.5-14.0) % Plt Count 278 (150-450) x10^3/uL MPV 10.1 (7.5-11.0) fL Gran % 58.1 (36.0-66.0) % Immature Gran % (Auto) 0.2 (0.00-0.4) % Nucleat RBC Rel Count 0.0 (0.00-0.1) % Eos # (Auto) 0.10 (0-0.5) x10^3/uL Immature Gran # (Auto) 0.01 (0.00-0.03) x10^3u/L Absolute Lymphs (auto) 1.46 (1.0-4.6) x10^3/uL Absolute Monos (auto) 0.34 (0.0-1.3) x10^3/uL Absolute Nucleated RBC 0.00 (0.00-0.01) x10^3u/L Lymphocytes % 31.1 (24.0-44.0) % Monocytes % 7.2 (0.0-12.0) % Eosinophils % 2.1 (0.00-5.0) % Basophils % 1.3 (0.0-0.4) % Absolute Granulocytes 2.73 (1.4-6.9) x10^3/uL Basophils # 0.06 (0-0.4) x10^3/uL D-Dimer 0.23 (0.0-0.50) mg/L Sodium 139 (135-145) mmol/L Potassium 3.4 L (3.5-5.1) mmol/L Chloride 110 H (98-107) mmol/L Carbon Dioxide 19 L (22-30) mmol/L Anion Gap 14.4 (5-15) MEQ/L BUN 13 (9-20) mg/dL Creatinine 1.02 (0.66-1.25) mg/dL Estimated GFR 93.5 ML/MIN Glucose 138 H (74-106) mg/dL Hemoglobin A1c (4.5-6.0) % Calcium 9.3 (8.4-10.2) mg/dL Total Bilirubin 0.30 (0.2-1.3) mg/dL AST 36 (17-59) U/L ALT 49 (0-50) U/L Alkaline Phosphatase 63 (38-126) U/L Troponin I (0.000-0.034) ng/mL NT-Pro-B Natriuret Pep (<300) pg/mL Serum Total Protein 7.8 (6.3-8.2) g/dL Albumin 4.4 (3.5-5.0) g/dL Urine Color (Yellow) Urine Appearance (Clear) Urine pH (4.6-8.0) Ur Specific [place] (1.005-1.030) Urine Protein (Negative) Urine Glucose (UA) (Negative) mg/dL Urine Ketones (Negative) Urine Blood (Negative) Urine Nitrite (Negative) Urine Bilirubin (Negative) Urine Urobilinogen (0.2) mg/dL Ur Leukocyte Esterase (Negative) U Hyaline Cast (Auto) (0-2) /LPF Urine Microscopic RBC (0-5) /HPF Urine Microscopic WBC (0-5) /HPF Ur Epithelial Cells (None Seen) /HPF Urine Bacteria (None Seen) /HPF Urine Culture Reflexed (NO) Urine Opiates Level (NEGATIVE) Ur Methadone (NEGATIVE) Urine Barbiturates (NEGATIVE) Ur Phencyclidine (PCP) (NEGATIVE) Urine Amphetamine (NEGATIVE) U Benzodiazepine Level (NEGATIVE) Urine Cocaine (NEGATIVE) Urine Marijuana (THC) (NEGATIVE) 01/28/24 01/28/24 01/28/24 Range/Units 08:13 08:13 08:13 WBC (4.0-10.5) x10^3/uL RBC (4.1-5.6) x10^6/uL Hgb (12.5-18.0) g/dL Hct (42-50) % MCV (78-100) fL MCH (26-32) pg MCHC (32-36) g/dL RDW (11.5-14.0) % Plt Count (150-450) x10^3/uL MPV (7.5-11.0) fL Gran % (36.0-66.0) % Immature Gran % (Auto) (0.00-0.4) % Nucleat RBC Rel Count (0.00-0.1) % Eos # (Auto) (0-0.5) x10^3/uL Immature Gran # (Auto) (0.00-0.03) x10^3u/L Absolute Lymphs (auto) (1.0-4.6) x10^3/uL Absolute Monos (auto) (0.0-1.3) x10^3/uL Absolute Nucleated RBC (0.00-0.01) x10^3u/L Lymphocytes % (24.0-44.0) % Monocytes % (0.0-12.0) % Eosinophils % (0.00-5.0) % Basophils % (0.0-0.4) % Absolute Granulocytes (1.4-6.9) x10^3/uL Basophils # (0-0.4) x10^3/uL D-Dimer (0.0-0.50) mg/L Sodium (135-145) mmol/L Potassium (3.5-5.1) mmol/L Chloride (98-107) mmol/L Carbon Dioxide (22-30) mmol/L Anion Gap (5-15) MEQ/L BUN (9-20) mg/dL Creatinine (0.66-1.25) mg/dL Estimated GFR ML/MIN Glucose (74-106) mg/dL Hemoglobin A1c 5.31 (4.5-6.0) % Calcium (8.4-10.2) mg/dL Total Bilirubin (0.2-1.3) mg/dL AST (17-59) U/L ALT (0-50) U/L Alkaline Phosphatase (38-126) U/L Troponin I < 0.012 (0.000-0.034) ng/mL NT-Pro-B Natriuret Pep < 20.0 (<300) pg/mL Serum Total Protein (6.3-8.2) g/dL Albumin (3.5-5.0) g/dL Urine Color (Yellow) Urine Appearance (Clear) Urine pH (4.6-8.0) Ur Specific [place] (1.005-1.030) Urine Protein (Negative) Urine Glucose (UA) (Negative) mg/dL Urine Ketones (Negative) Urine Blood (Negative) Urine Nitrite (Negative) Urine Bilirubin (Negative) Urine Urobilinogen (0.2) mg/dL Ur Leukocyte Esterase (Negative) U Hyaline Cast (Auto) (0-2) /LPF Urine Microscopic RBC (0-5) /HPF Urine Microscopic WBC (0-5) /HPF Ur Epithelial Cells (None Seen) /HPF Urine Bacteria (None Seen) /HPF Urine Culture Reflexed (NO) Urine Opiates Level (NEGATIVE) Ur Methadone (NEGATIVE) Urine Barbiturates (NEGATIVE) Ur Phencyclidine (PCP) (NEGATIVE) Urine Amphetamine (NEGATIVE) U Benzodiazepine Level (NEGATIVE) Urine Cocaine (NEGATIVE) Urine Marijuana (THC) (NEGATIVE) 01/28/24 01/28/24 01/28/24 Range/Units 11:12 13:04 13:05 WBC (4.0-10.5) x10^3/uL RBC (4.1-5.6) x10^6/uL Hgb (12.5-18.0) g/dL Hct (42-50) % MCV (78-100) fL MCH (26-32) pg MCHC (32-36) g/dL RDW (11.5-14.0) % Plt Count (150-450) x10^3/uL MPV (7.5-11.0) fL Gran % (36.0-66.0) % Immature Gran % (Auto) (0.00-0.4) % Nucleat RBC Rel Count (0.00-0.1) % Eos # (Auto) (0-0.5) x10^3/uL Immature Gran # (Auto) (0.00-0.03) x10^3u/L Absolute Lymphs (auto) (1.0-4.6) x10^3/uL Absolute Monos (auto) (0.0-1.3) x10^3/uL Absolute Nucleated RBC (0.00-0.01) x10^3u/L Lymphocytes % (24.0-44.0) % Monocytes % (0.0-12.0) % Eosinophils % (0.00-5.0) % Basophils % (0.0-0.4) % Absolute Granulocytes (1.4-6.9) x10^3/uL Basophils # (0-0.4) x10^3/uL D-Dimer (0.0-0.50) mg/L Sodium (135-145) mmol/L Potassium (3.5-5.1) mmol/L Chloride (98-107) mmol/L Carbon Dioxide (22-30) mmol/L Anion Gap (5-15) MEQ/L BUN (9-20) mg/dL Creatinine (0.66-1.25) mg/dL Estimated GFR ML/MIN Glucose (74-106) mg/dL Hemoglobin A1c (4.5-6.0) % Calcium (8.4-10.2) mg/dL Total Bilirubin (0.2-1.3) mg/dL AST (17-59) U/L ALT (0-50) U/L Alkaline Phosphatase (38-126) U/L Troponin I < 0.012 (0.000-0.034) ng/mL NT-Pro-B Natriuret Pep (<300) pg/mL Serum Total Protein (6.3-8.2) g/dL Albumin (3.5-5.0) g/dL Urine Color Yellow (Yellow) Urine Appearance Clear (Clear) Urine pH 8.0 (4.6-8.0) Ur Specific [place] 1.015 (1.005-1.030) Urine Protein Negative (Negative) Urine Glucose (UA) Negative (Negative) mg/dL Urine Ketones Negative (Negative) Urine Blood Negative (Negative) Urine Nitrite Negative (Negative) Urine Bilirubin Negative (Negative) Urine Urobilinogen 0.2 (0.2) mg/dL Ur Leukocyte Esterase Negative (Negative) U Hyaline Cast (Auto) NONE SEEN (0-2) /LPF Urine Microscopic RBC 0-2 (0-5) /HPF Urine Microscopic WBC 0-2 (0-5) /HPF Ur Epithelial Cells None Seen (None Seen) /HPF Urine Bacteria None Seen (None Seen) /HPF Urine Culture Reflexed NO (NO) Urine Opiates Level NEGATIVE (NEGATIVE) Ur Methadone NEGATIVE (NEGATIVE) Urine Barbiturates NEGATIVE (NEGATIVE) Ur Phencyclidine (PCP) NEGATIVE (NEGATIVE) Urine Amphetamine NEGATIVE (NEGATIVE) U Benzodiazepine Level NEGATIVE (NEGATIVE) Urine Cocaine NEGATIVE (NEGATIVE) Urine Marijuana (THC) POSITIVE A (NEGATIVE) 01/28/24 Range/Units 16:07 WBC (4.0-10.5) x10^3/uL RBC (4.1-5.6) x10^6/uL Hgb (12.5-18.0) g/dL Hct (42-50) % MCV (78-100) fL MCH (26-32) pg MCHC (32-36) g/dL RDW (11.5-14.0) % Plt Count (150-450) x10^3/uL MPV (7.5-11.0) fL Gran % (36.0-66.0) % Immature Gran % (Auto) (0.00-0.4) % Nucleat RBC Rel Count (0.00-0.1) % Eos # (Auto) (0-0.5) x10^3/uL Immature Gran # (Auto) (0.00-0.03) x10^3u/L Absolute Lymphs (auto) (1.0-4.6) x10^3/uL Absolute Monos (auto) (0.0-1.3) x10^3/uL Absolute Nucleated RBC (0.00-0.01) x10^3u/L Lymphocytes % (24.0-44.0) % Monocytes % (0.0-12.0) % Eosinophils % (0.00-5.0) % Basophils % (0.0-0.4) % Absolute Granulocytes (1.4-6.9) x10^3/uL Basophils # (0-0.4) x10^3/uL D-Dimer (0.0-0.50) mg/L Sodium (135-145) mmol/L Potassium (3.5-5.1) mmol/L Chloride (98-107) mmol/L Carbon Dioxide (22-30) mmol/L Anion Gap (5-15) MEQ/L BUN (9-20) mg/dL Creatinine (0.66-1.25) mg/dL Estimated GFR ML/MIN Glucose (74-106) mg/dL Hemoglobin A1c (4.5-6.0) % Calcium (8.4-10.2) mg/dL Total Bilirubin (0.2-1.3) mg/dL AST (17-59) U/L ALT (0-50) U/L Alkaline Phosphatase (38-126) U/L Troponin I < 0.012 (0.000-0.034) ng/mL NT-Pro-B Natriuret Pep (<300) pg/mL Serum Total Protein (6.3-8.2) g/dL Albumin (3.5-5.0) g/dL Urine Color (Yellow) Urine Appearance (Clear) Urine pH (4.6-8.0) Ur Specific [place] (1.005-1.030) Urine Protein (Negative) Urine Glucose (UA) (Negative) mg/dL Urine Ketones (Negative) Urine Blood (Negative) Urine Nitrite (Negative) Urine Bilirubin (Negative) Urine Urobilinogen (0.2) mg/dL Ur Leukocyte Esterase (Negative) U Hyaline Cast (Auto) (0-2) /LPF Urine Microscopic RBC (0-5) /HPF Urine Microscopic WBC (0-5) /HPF Ur Epithelial Cells (None Seen) /HPF Urine Bacteria (None Seen) /HPF Urine Culture Reflexed (NO) Urine Opiates Level (NEGATIVE) Ur Methadone (NEGATIVE) Urine Barbiturates (NEGATIVE) Ur Phencyclidine (PCP) (NEGATIVE) Urine Amphetamine (NEGATIVE) U Benzodiazepine Level (NEGATIVE) Urine Cocaine (NEGATIVE) Urine Marijuana (THC) (NEGATIVE) Radiology Exams: Radiology Procedures Category Date Time Status CAROTID BILATERAL [US] Routine Exams 01/29/24 09:00 Ordered CHEST 1 VIEW (PORTABLE) Stat Exams 01/28/24 08:25 Completed ECHO W/2D AND DOPPLER [US] Routine Exams 01/29/24 09:00 Ordered HEAD WITHOUT CONTRAST [CT] Stat Exams 01/28/24 08:25 Completed MRI BRAIN W & W/O CONTRAST [MRI] Routine Exams 01/29/24 08:00 Ordered Assessment/Plan (1) Left-sided weakness Current Visit: Yes Status: Acute Assessment & Plan: - Reviewed neurology recs and agree with plan of care: 1. Frequent vital signs and neurochecks, such as q2h X 8h, then q4h X 16, then per floor protocol/stroke pathway if the patient is stable. 2. Permissive HTN, isotonic IVFs-euvolemia, for the first 36-48 hours (gently treat if >220/120 or more aggressively if evidence for end-organ damage), Then start to gently target BP to less than/equal to ~130/70. (target normal blood pressure if MRI Brain completed within this timeframe and if no acute ischemia) 3. Glucose 140-180, if insulin required and aggressive fever control for now 4. High-intensity statin therapy, atorvastatin 80mg to start (target LDL <70) unless contraindicated or patient is know to be intolerant to this class of medications. Dose can be adjusted prior to discharge if LDL is at target and/or if there is a specific concern for high-dose statin, or if other [facility] for patients presenting signs/symptoms. 5. HgA1c, target <7.0, adjust/start treatment if elevated. 6. Anti-thrombotic agent for now, Aspirin 81mg (325mg x 1 in ED) and Plavix 75mg (300mg x 1 in ED), after passing dysphagia screen, for 21 days then monotherapy with aspirin 81mg daily unless there is an indication other than TIA/stroke risk reduction for chronic dual antiplatelet therapy. Continue to monitor telemetry/evaluate for afib/paf...which if identified/suspected then explore risk/benefit of anticoagulation. (continuation/adjustment of antithrombotic medication to be determined based on results from workup). 7. DVT prophylaxis; SCDs, SC LMWH/heparin if patient is bedbound and no medical contraindication. 8. Stroke education; to include healthy dietary and physical activity choices. Tobacco cessation counseling of smoker. 9. PT/OT/ST consult. NPO until seen by ST, or passes dysphagia screening. 10. Case management consult, if needed. Diagnostics studies from neurology perspective for now: 1. MRI/A brain when logistically possible, non urgent, noncontrast. (pattern and extent of acute/chronic disease will help guide therapy options) 2. Carotid Ultrasound or MRA neck, non urgent. 3. Transthoracic Echocardiogram (with agitated saline if not done so in the past), nonurgent 4. Labs: Fasting lipid panel, HgA1c, TSH. - Started on soft diet as pt reports he ate in ER w/o concerns and has been drinking fine. - SCD's - Statin started - MRI and carotid duplex in AM - ST/PT/OT eval tomorrow - PLavix 75mg daily started - TELE - Dietary consult 01/28: -MRI/MRA pending Code(s): R53.1 - WEAKNESS (2) Headache Current Visit: Yes Status: Acute Assessment & Plan: - acute on chronic - Has hx of migraines and supposed to take Nurtec- we do not carry this med - Reglan, benadryl x1 now - ASA gave in ER - ketorlac gave in ER wi/o resolution of H/A 01/28: -resolved Code(s): R51.9 - HEADACHE, UNSPECIFIED (3) Cough Current Visit: Yes Status: Acute Assessment & Plan: - CXR - 2:2 smoking? = ? chronic 01/28: -CXR with no acute cardiopulmonary processes Code(s): R05.9 - COUGH, UNSPECIFIED (4) Chest pain Current Visit: Yes Status: Acute Assessment & Plan: - trop x2 negative- trend - Echo in AM - Will need FELICIA per neurology recs - cardiology consult tomorrow - UDS 01/28: -Pending echo, cards consult -UDS with THC Code(s): R07.9 - CHEST PAIN, UNSPECIFIED (5) Excessive caffeine intake Current Visit: Yes Status: Acute Assessment & Plan: - advised to reduce intake coffee to 1 cup per day at most. - advised stopping [employer] supplemt as it also has caffeine Code(s): Z78.9 - OTHER SPECIFIED HEALTH STATUS (6) Excessive chloride salt intake Current Visit: Yes Status: Acute Assessment & Plan: - recommend low salt diet, 1.5-2gm per day Code(s): R63.8 - OTHER SYMPTOMS AND SIGNS CONCERNING FOOD AND FLUID INTAKE (7) Herbal supplement started Current Visit: Yes Status: Acute Assessment & Plan: - Pt has been taking OTC [employer] weight loss supplement 2 daily - recommend cessation. Code(s): AUY4101 - (8) Metabolic acidosis Current Visit: Yes Status: Acute Assessment & Plan: - Co2 19 - bicarb gtt started - 2:2 acute tubular acidosis? as K+ is also low. - may need OP nephrology referral at [facility] Code(s): E87.20 - ACIDOSIS, UNSPECIFIED (9) Smoker Current Visit: No Status: Chronic Assessment & Plan: - advised cessation Code(s): F17.200 - NICOTINE DEPENDENCE, UNSPECIFIED, UNCOMPLICATED (10) Tetrahydrocannabinol (THC) dependence Current Visit: Yes Status: Acute Assessment & Plan: - as seen on UDS -advised cessation. Code(s): F12.20 - CANNABIS DEPENDENCE, UNCOMPLICATED (11) Hypokalemia Current Visit: Yes Status: Acute Assessment & Plan: - K+ 3.4- replaced 01/28: -Resolved VTE: SCD, plavix, ASA Code status: full D/C plan: 1-2 days Code(s): E87.6 - HYPOKALEMIA Code(s): R53.1 - WEAKNESS (2) Chest pain Current Visit: Yes Status: Acute Code(s): R07.9 - CHEST PAIN, UNSPECIFIED (3) Cough Current Visit: Yes Status: Acute Code(s): R05.9 - COUGH, UNSPECIFIED (4) Excessive caffeine intake Current Visit: Yes Status: Acute Code(s): Z78.9 - OTHER SPECIFIED HEALTH STATUS (5) Excessive chloride salt intake Current Visit: Yes Status: Acute Code(s): R63.8 - OTHER SYMPTOMS AND SIGNS CONCERNING FOOD AND FLUID INTAKE (6) Headache Current Visit: Yes Status: Acute Code(s): R51.9 - HEADACHE, UNSPECIFIED (7) Herbal supplement started Current Visit: Yes Status: Acute Code(s): [id number] - (8) Hypokalemia Current Visit: Yes Status: Acute Code(s): E87.6 - HYPOKALEMIA (9) Metabolic acidosis Current Visit: Yes Status: Acute Code(s): E87.20 - ACIDOSIS, UNSPECIFIED (10) Tetrahydrocannabinol (THC) dependence Current Visit: Yes Status: Acute Code(s): F12.20 - CANNABIS DEPENDENCE, UNCOMPLICATED (11) Smoker Current Visit: No Status: Chronic Code(s): F17.200 - NICOTINE DEPENDENCE, UNSPECIFIED, UNCOMPLICATED
[2024-01-29 05:33] LABS: ALBUMIN 3.6 g/dL (3.5-5.0); BILIRUBIN,TOTAL 0.6 mg/dL (0.2-1.3); Calcium 8.8 mg/dL (8.4-10.2); Creatinine 1 0.92 mg/dL (0.66-1.25); EST GLOMERULAR FILTRATION RATE 105.9 ML/MIN; Total Protein 6.3 g/dL (6.3-8.2)
[2024-01-29 06:01] LABS: TSH, 3RD Generation 1.7 mIU/L (0.47-4.68)
[2024-01-29 07:45] VITALS: RESP 17
[2024-01-29 08:17] VITALS: O2SAT 96
[2024-01-29] MEDS: PLAVIX Tablet PO SCH (09:33)
[2024-01-29] MEDS: ECOTRIN 81 MG PO SCH (09:34)
--- NOTE | 2024-01-29 11:03 | XRAY ---
Indication: Left-sided weakness. CVA. Negative recent CT head. Two-dimensional sonogram and color Doppler imaging carotid arteries of the neck performed. Comparison: None Examination right carotid circulation demonstrate widely patent common carotid, carotid bulb, internal carotid, and external carotid arteries. PSV CCA is 112 cm/s. PSV ICA is 100 cm/s. ICA/CCA ratio is 0.9. Normal antegrade vertebral artery flow. Examination left carotid circulation demonstrates widely patent common carotid, carotid bulb, internal carotid, and external carotid arteries. PSV CCA is 116 cm/s. PSV ICA is 98 cm/s. ICA/CC ratio 0.8. Normal antegrade vertebral artery flow. Impression: Widely patent left and right carotid arteries of the neck. Velocity measurements and ratios are also negative for hemodynamically significant flow-limiting stenosis.
[2024-01-29] MEDS ORDERED: Ativan 1 MG ONE (13:31)
[2024-01-29] MEDS: Ativan 1 MG PO ONE (13:34)
--- NOTE | 2024-01-29 15:11 | XRAY ---
Indication: CVA. Normal CT head and normal carotid artery sonogram. Sagittal, coronal, and axial MRI brain performed using pre and post T1, T2, FLAIR, diffusion, and ADC sequences. 20 cc Dotarem contrast used. Ventriculosulcal pattern appears symmetric. No acute intracranial hemorrhage, abnormal extra-axial fluid collection, or mass effect. Diffusion images negative for restricted signal. Following gadolinium, there is no abnormal enhancing intra or extra-axial mass. Fourth ventricle is midline without hydrocephalus. Normal flow void signal within the major intracerebral circulation. Normal appearing craniocervical junction and sella turcica. Visualized paranasal sinuses are clear. Impression: Normal MRI brain with contrast exam.
--- NOTE | 2024-01-29 16:02 | PCM.DS ---
Discharge Summary Date of Admission: 01/28/24 12:24 Date of Discharge: 01/29/24 Admitting Physician: ADRIANA NAPIER MD Consults: Consults on Case 01/28/24 09:19 Tele-Health Consult ROUTINE 01/28/24 13:39 Consult Cardiology ROUTINE 01/28/24 14:35 Diet Consult [Nutritional Consult] ROUTINE Primary Care Provider: COMFORT CLOUD Allergies Allergies ketorolac [From Toradol] Adverse Reaction (Severe, Verified 01/28/24 08:00) suicidial ideation topiramate [From Topamax] Adverse Reaction (Severe, Verified 01/28/24 08:00) hyper, anxiety Hospital Summary - Hospital Course Hospital Course: 43 year old male with a pmhx of stroke with some left upper extremity residual weakness, questionable history of CAD, and tobacco abuse admitted 01/28/24 with complaints of left-sided chest pain with associated dizziness, blurry vision, N/T to LUE and increased LUE weakness. CT head with no acute findings. EKG with normal sinus rhythm and no acute ischemic changes. Negative initial troponin x2. Chest x-ray negative for acute cardiopulmonary findings. Neurology consulted with recommendations for further stroke workup including MRI/MRA and echo. Additional recommendations of loading with 324 of aspirin and 300 mg Plavix along with Lipitor. Endorses improvement of symptoms, feels he is at his baseline residual weakness from previous CVA. No longer having dizziness, blurry vision, or headache. Neurology consulted with recs for MRI/MRA and echo. MRI/MRI unremarkable. ECHO pending. Patient will follow up OP with his policy checker for FELICIA and ECHO results. Patient is requesting discharge today. Will have him follow up with neurology, pcp, and cardiology. Continue Aspirin 81mg (325mg x 1 in ED) and Plavix 75mg (300mg x 1 in ED), for 21 days then monotherapy with aspirin 81mg daily per Neurology recs. As well as statin. Once again advised patient to discontinue use of mainspring strip gauger 2 supplements and excessive caffeine/salt intake. Patient agreeable to plan and stable for discharge. Discharge Note New Diagnosis: left-sided weakness New Medications: ASA/Plavix/Statin Follow Up: cards/PCP/neurology Latest Assessment & Plan (1) Left-sided weakness Current Visit: Yes Status: Acute Assessment & Plan: - Reviewed neurology recs and agree with plan of care: 1. Frequent vital signs and neurochecks, such as q2h X 8h, then q4h X 16, then per floor protocol/stroke pathway if the patient is stable. 2. Permissive HTN, isotonic IVFs-euvolemia, for the first 36-48 hours (gently treat if >220/120 or more aggressively if evidence for end-organ damage), Then start to gently target BP to less than/equal to ~130/70. (target normal blood pressure if MRI Brain completed within this timeframe and if no acute ischemia) 3. Glucose 140-180, if insulin required and aggressive fever control for now 4. High-intensity statin therapy, atorvastatin 80mg to start (target LDL <70) unless contraindicated or patient is know to be intolerant to this class of medications. Dose can be adjusted prior to discharge if LDL is at target and/or if there is a specific concern for high-dose statin, or if other non asvd mechanism for patients presenting signs/symptoms. 5. HgA1c, target <7.0, adjust/start treatment if elevated. 6. Anti-thrombotic agent for now, Aspirin 81mg (325mg x 1 in ED) and Plavix 75mg (300mg x 1 in ED), after passing dysphagia screen, for 21 days then monotherapy with aspirin 81mg daily unless there is an indication other than TIA/stroke risk reduction for chronic dual antiplatelet therapy. Continue to monitor telemetry/evaluate for afib/paf...which if identified/suspected then explore risk/benefit of anticoagulation. (continuation/adjustment of antithrombotic medication to be determined based on results from workup). 7. DVT prophylaxis; SCDs, SC LMWH/heparin if patient is bedbound and no medical contraindication. 8. Stroke education; to include healthy dietary and physical activity choices. Tobacco cessation counseling of smoker. 9. PT/OT/ST consult. NPO until seen by ST, or passes dysphagia screening. 10. Case management consult, if needed. Diagnostics studies from neurology perspective for now: 1. MRI/A brain when logistically possible, non urgent, noncontrast. (pattern and extent of acute/chronic disease will help guide therapy options) 2. Carotid Ultrasound or MRA neck, non urgent. 3. Transthoracic Echocardiogram (with agitated saline if not done so in the past), nonurgent 4. Labs: Fasting lipid panel, HgA1c, TSH. - Started on soft diet as pt reports he ate in ER w/o concerns and has been drinking fine. - SCD's - Statin started - MRI and carotid duplex in AM - ST/PT/OT eval tomorrow - PLavix 75mg daily started - TELE - Dietary consult 01/28: -MRI/MRA unremarkable -continue neurology recommended medications ASA/Plavix/statin, follow up op with neurololgy -Cards follow up for FELICIA/ECHO read Code(s): R53.1 - WEAKNESS (2) Headache Current Visit: Yes Status: Acute Assessment & Plan: - acute on chronic - Has hx of migraines and supposed to take Nurtec- we do not carry this med - Reglan, benadryl x1 now - ASA gave in ER - ketorlac gave in ER wi/o resolution of H/A 01/28: -resolved Code(s): R51.9 - HEADACHE, UNSPECIFIED (3) Cough Current Visit: Yes Status: Acute Assessment & Plan: - CXR - 2:2 smoking? = ? chronic 01/28: -CXR with no acute cardiopulmonary processes Code(s): R05.9 - COUGH, UNSPECIFIED (4) Chest pain Current Visit: Yes Status: Acute Assessment & Plan: - trop x2 negative- trend - Echo in AM - Will need FELICIA per neurology recs - cardiology consult tomorrow - UDS 01/28: -Pending echo, cards follow up as OP -UDS with THC Code(s): R07.9 - CHEST PAIN, UNSPECIFIED (5) Excessive caffeine intake Current Visit: Yes Status: Acute Assessment & Plan: - advised to reduce intake coffee to 1 cup per day at most. - advised stopping Spa Coordinator II supplemt as it also has caffeine Code(s): Z78.9 - OTHER SPECIFIED HEALTH STATUS (6) Excessive chloride salt intake Current Visit: Yes Status: Acute Assessment & Plan: - recommend low salt diet, 1.5-2gm per day Code(s): R63.8 - OTHER SYMPTOMS AND SIGNS CONCERNING FOOD AND FLUID INTAKE (7) Herbal supplement started Current Visit: Yes Status: Acute Assessment & Plan: - Pt has been taking OTC Spa Coordinator II weight loss supplement 2 daily - recommend cessation. Code(s): LKV0803 - (8) Metabolic acidosis Current Visit: Yes Status: Acute Assessment & Plan: - Co2 19 - bicarb gtt started - 2:2 acute tubular acidosis? as K+ is also low. - may need OP nephrology referral at or 01/28: resolved Code(s): E87.20 - ACIDOSIS, UNSPECIFIED (9) Smoker Current Visit: No Status: Chronic Assessment & Plan: - advised cessation Code(s): F17.200 - NICOTINE DEPENDENCE, UNSPECIFIED, UNCOMPLICATED (10) Tetrahydrocannabinol (THC) dependence Current Visit: Yes Status: Acute Assessment & Plan: - as seen on UDS -advised cessation. Code(s): F12.20 - CANNABIS DEPENDENCE, UNCOMPLICATED (11) Hypokalemia Current Visit: Yes Status: Acute Assessment & Plan: - K+ 3.4- replaced 01/28: -Resolved I spent 35 minutes [id number] with the patient on the day of discharge performing discharge exam, discussing hospital stay and discharge instructions with patient and caregivers, preparation of discharge records, prescriptions & referral forms and addressing any questions/concerns the patient had as documented above. - Vitals & Intake/Output Vital Signs: Vital Signs Temperature 97.6 F 01/29/24 12:00 Pulse Rate 82 01/29/24 12:00 Respiratory Rate 17 01/29/24 12:00 Blood Pressure 165/87 01/29/24 12:00 O2 Sat by Pulse Oximetry 96 01/29/24 12:00 Intake & Output: Intake & Output 01/27/24 01/28/24 01/29/24 01/30/24 11:59 11:59 11:59 11:59 Intake Total 2096 120 Balance 2096 120 Weight 86.183 kg 93.8 kg - Lab Result Diagrams: 01/29/24 04:25 01/29/24 04:25 Lab Results-Last 24 Hrs: Lab Results-Last 24 Hours 01/28/24 01/29/24 01/29/24 Range/Units 16:07 04:25 04:25 WBC (4.0-10.5) x10^3/uL RBC (4.1-5.6) x10^6/uL Hgb (12.5-18.0) g/dL Hct (42-50) % MCV (78-100) fL MCH (26-32) pg MCHC (32-36) g/dL RDW (11.5-14.0) % Plt Count (150-450) x10^3/uL MPV (7.5-11.0) fL Sodium (135-145) mmol/L Potassium (3.5-5.1) mmol/L Chloride (98-107) mmol/L Carbon Dioxide (22-30) mmol/L Anion Gap (5-15) MEQ/L BUN (9-20) mg/dL Creatinine (0.66-1.25) mg/dL Estimated GFR ML/MIN Glucose (74-106) mg/dL Calcium (8.4-10.2) mg/dL Magnesium 2.1 (1.6-2.3) mg/dL Total Bilirubin (0.2-1.3) mg/dL AST (17-59) U/L ALT (0-50) U/L Alkaline Phosphatase (38-126) U/L Troponin I < 0.012 (0.000-0.034) ng/mL Serum Total Protein (6.3-8.2) g/dL Albumin (3.5-5.0) g/dL Triglycerides 165 H (30-150) mg/dL Cholesterol 168 (50-200) mg/dL LDL Cholesterol 111 H (30-100) mg/dL HDL Cholesterol 28 L (40-60) mg/dL Heart Disease Risk Ratio 6.0 TSH 3rd Generation 1.700 (0.47-4.68) mIU/L 01/29/24 01/29/24 Range/Units 04:25 04:25 WBC 4.4 (4.0-10.5) x10^3/uL RBC 5.35 (4.1-5.6) x10^6/uL Hgb 15.5 (12.5-18.0) g/dL Hct 45.3 (42-50) % MCV 84.7 (78-100) fL MCH 29.0 (26-32) pg MCHC 34.2 (32-36) g/dL RDW 12.4 (11.5-14.0) % Plt Count 250 (150-450) x10^3/uL MPV 10.2 (7.5-11.0) fL Sodium 139 (135-145) mmol/L Potassium 4.0 (3.5-5.1) mmol/L Chloride 108 H (98-107) mmol/L Carbon Dioxide 26 (22-30) mmol/L Anion Gap 9.0 (5-15) MEQ/L BUN 11 (9-20) mg/dL Creatinine 0.92 (0.66-1.25) mg/dL Estimated GFR 105.9 ML/MIN Glucose 114 H (74-106) mg/dL Calcium 8.8 (8.4-10.2) mg/dL Magnesium (1.6-2.3) mg/dL Total Bilirubin 0.60 (0.2-1.3) mg/dL AST 35 (17-59) U/L ALT 46 (0-50) U/L Alkaline Phosphatase 48 (38-126) U/L Troponin I (0.000-0.034) ng/mL Serum Total Protein 6.3 (6.3-8.2) g/dL Albumin 3.6 (3.5-5.0) g/dL Triglycerides (30-150) mg/dL Cholesterol (50-200) mg/dL LDL Cholesterol (30-100) mg/dL HDL Cholesterol (40-60) mg/dL Heart Disease Risk Ratio TSH 3rd Generation (0.47-4.68) mIU/L - Radiology Exams Ordered Rad Exams-Entire Visit: Radiology Procedures Category Date Time Status CAROTID BILATERAL [US] Routine Exams 01/29/24 09:00 Completed CHEST 1 VIEW (PORTABLE) Stat Exams 01/28/24 08:25 Completed ECHO W/2D AND DOPPLER [US] Routine Exams 01/29/24 09:00 Taken HEAD WITHOUT CONTRAST [CT] Stat Exams 01/28/24 08:25 Completed MRI BRAIN W & W/O CONTRAST [MRI] Routine Exams 01/29/24 08:00 Completed - Procedures and Test Procedures and Tests throughout Hospitalization: Therapy Orders & Screens 01/28/24 13:05 PT Eval & Treat ( Order) ONCE Reason for Eval:: CVA sxs Diagnosis: left side tingling, chest pain, blurred vision ST Eval & Treat (MD Order) .as ordered Comment: Physician Instructions: Reason For Exam: CVA sxs Evaluate: Yes Treat: Yes Reason for Eval: CVA sxs Diagnosis: left side tingling, chest pain, blurred vision 01/28/24 13:46 Smoking Cessation Education ONCE Comment: Diagnosis: left side tingling, chest pain, blurred vision Smoking Status: Current some day smoker How long have you smoked: 25 yrs Have you smoked in the past 12 months: Yes Approximately how many cigarettes per day: 1/2-1 PPD Do you dip or chew tobacco: No If,Former Smoker,when did you quit: 2 weeks 01/29/24 15:44 EKG STAT Comment: Diagnosis: left side tingling, chest pain, blurred vision Discharge Exam General Appearance: no apparent distress Neurologic Exam: alert, oriented x 3, cooperative Eye Exam: PERRL Ears, Nose, Throat Exam: normal ENT inspection Neck Exam: normal inspection Respiratory Exam: normal breath sounds, lungs clear Cardiovascular Exam: regular rate/rhythm, normal heart sounds Gastrointestinal/Abdomen Exam: soft, normal bowel sounds Male Genitalia Exam: deferred Rectal Exam: deferred Back Exam: normal inspection Extremity Exam: normal inspection, other ((BUE 5/5 strength BLE right 5/5 left 4/5 strength) Skin Exam: normal color Final Diagnosis/Problem List - Final Discharge Diagnosis/Problem (1) Left-sided weakness Current Visit: Yes Status: Acute Code(s): R53.1 - WEAKNESS (2) Chest pain Current Visit: Yes Status: Acute Code(s): R07.9 - CHEST PAIN, UNSPECIFIED (3) Cough Current Visit: Yes Status: Acute Code(s): R05.9 - COUGH, UNSPECIFIED (4) Excessive caffeine intake Current Visit: Yes Status: Acute Code(s): Z78.9 - OTHER SPECIFIED HEALTH STATUS (5) Excessive chloride salt intake Current Visit: Yes Status: Acute Code(s): R63.8 - OTHER SYMPTOMS AND SIGNS CONCERNING FOOD AND FLUID INTAKE (6) Headache Current Visit: Yes Status: Acute Code(s): R51.9 - HEADACHE, UNSPECIFIED (7) Herbal supplement started Current Visit: Yes Status: Acute Code(s): [id number] - (8) Hypokalemia Current Visit: Yes Status: Acute Code(s): E87.6 - HYPOKALEMIA (9) Metabolic acidosis Current Visit: Yes Status: Acute Code(s): E87.20 - ACIDOSIS, UNSPECIFIED (10) Tetrahydrocannabinol (THC) dependence Current Visit: Yes Status: Acute Code(s): F12.20 - CANNABIS DEPENDENCE, UNCOMPLICATED (11) Smoker Current Visit: No Status: Chronic Code(s): F17.200 - NICOTINE DEPENDENCE, UNSPECIFIED, UNCOMPLICATED - Discharge Disposition: Home, Self-Care Condition: Stable Prescriptions: New Aspirin EC 81 mg [Ecotrin 81 mg] 81 mg PO DAILY 30 Days #30 tablet Nicotine 21 mg [Nicoderm CQ 21 MG] 21 mg TOP Q24H 44 Days #44 patch Clopidogrel Bisulfate [PLAVIX Tablet] 75 mg PO DAILY 21 Days #21 tablet Continue Omeprazole 40 mg PO DAILY Cyclobenzaprine HCl 10 mg [Cyclobenzaprine 10 MG] 10 mg PO DAILY PRN PRN Reason: Pain Ibuprofen [Ibu] 800 mg PO DAILY Fenofibrate 145 mg PO DAILY Umeclidinium Brm/Vilanterol Tr [Anoro Ellipta 62.5-25 Mcg INH] 1 puff IH DAILY Albuterol 8 gm Mdi Hfa [Ventolin Hfa MDI] 2 puff IH Q6HPRN PRN PRN Reason: Shortness Of Breath Follow up with: COMFORT CLOUD MD [Primary Care Provider] - 02/09/24 3:30 pm DIPESH BAUMANN MD [NON-STAFF PHY W/O PRIVILEGES] - 02/06/24 8:30 am
[2024-01-29 16:51] VITALS: BP 137/89; PULSE 86; TEMP 97.7
== END 2024-01-29 17:59 | disposition home or self-care (01) ==
LOC: ED 07:56 → MED SURG 12:24
PROVIDERS: ADMIT Internal Medicine; ATTEND Internal Medicine
DX: R53.1 Weakness (principal); R51.9 Headache, unspecified; R05.9 Cough, unspecified; R07.9 Chest pain, unspecified; T43.615A Adverse effect of caffeine, initial encounter; R63.8 Other symptoms and signs concerning food and fluid intake; E87.20 Acidosis, unspecified; F17.200 Nicotine dependence, unspecified, uncomplicated; F12.20 Cannabis dependence, uncomplicated; E87.6 Hypokalemia; E78.5 Hyperlipidemia, unspecified; I25.10 Atherosclerotic heart disease of native coronary artery without angina pectoris; Z79.899 Other long term (current) drug therapy; Z20.828 Contact with and (suspected) exposure to other viral communicable diseases; Z86.73 Personal history of transient ischemic attack (TIA), and cerebral infarction without residual deficits
CPT/HCPCS: 36415; 70450; 70553; 71045; 80053; 80061; 80307; 81001; 83036; 83721; 83735; 83880; 84443; 84484; 85025; 85027; 85379; 93005; 93041; 93306; 93880; 94762; 97161; 99285; Q3014; 93268; J1200; A9270-GY; G0378

== ENCOUNTER 2024-04-23 16:43 | Emergency (ER) | payer OTHER ==
[2024-04-23 18:15] VITALS: TEMP 97.2
--- NOTE | 2024-04-23 18:18 | ERPHSYRPT ---
- History of Present Illness Time Seen by Provider: 04/23/24 18:17 Source: patient Exam Limitations: no limitations Physician History: 44-year-old male presents to our ED with nausea vomiting diarrhea. Patient believes that this is secondary to adverse reaction from the medication used to perform his stress test. No chest pain or shortness of breath. No fever no rash. No sick contacts. Patient states he feels dehydrated. Symptoms have been ongoing for a day. Patient otherwise feels well. He voices no other complaints or concerns at this time. Portions of this note were created with voice recognition technology. There may be grammatical, spelling, punctuation or sound alike errors Timing/Duration: yesterday Severity: moderate Modifying Factors: Improves With: nothing Associated Symptoms: denies symptoms Allergies/Adverse Reactions: ketorolac [From Toradol] Adverse Reaction (Severe, Verified 03/22/24 22:48) suicidial ideation topiramate [From Topamax] Adverse Reaction (Severe, Verified 03/22/24 22:48) hyper, anxiety Home Medications: Omeprazole 40 mg PO DAILY 01/06/23 [History] Cyclobenzaprine HCl 10 mg [Cyclobenzaprine 10 MG] 10 mg PO DAILY 03/03/23 [History] Fenofibrate 145 mg PO DAILY 10/14/23 [History] Albuterol 8 gm Mdi Hfa [Ventolin Hfa MDI] 2 puff IH Q6HPRN PRN 01/28/24 [History] Umeclidinium Brm/Vilanterol Tr [Anoro Ellipta 62.5-25 Mcg INH] 1 puff IH DAILY 01/28/24 [History] Atorvastatin Calcium 40 mg PO DAILY 03/22/24 [History] Nitroglycerin 0.4 mg SL Q5MIN PRN MR X 3 PRN 03/22/24 [History] Pantoprazole Sodium [Protonix] 40 mg PO DAILY 03/22/24 [History] Rimegepant Sulfate [Nurtec Odt] 75 mg PO DAILY PRN 04/23/24 [History] Hx Tetanus, Diphtheria Vaccination/Date Given: Yes Hx Influenza Vaccination/Date Given: Yes Hx Pneumococcal Vaccination/Date Given: No Travel Risk - Emerging Infectious Disease Are you exhibiting symptoms associated with any current EIDs: No - Review of Systems Constitutional: No Symptoms, No Fever, No Chills Eyes: No Symptoms Ears, Nose, & Throat: No Symptoms Respiratory: No Symptoms, No Cough, No Dyspnea Cardiac: No Symptoms, No Chest Pain, No Edema, No Syncope Abdominal/Gastrointestinal: No Symptoms, No Abdominal Pain, No Nausea, No Vomiting, No Diarrhea Genitourinary Symptoms: No Symptoms, No Dysuria Musculoskeletal: No Symptoms, No Back Pain, No Neck Pain Skin: No Symptoms, No Rash Neurological: No Symptoms, No Dizziness, No Focal Weakness, No Sensory Changes Psychological: No Symptoms Endocrine: No Symptoms Hematologic/Lymphatic: No Symptoms Immunological/Allergic: No Symptoms All Other Systems: Reviewed and Negative - Past Medical History Pertinent Past Medical History: Yes Neurological History: Migraines, Peripheral Neuropathy, Stroke ENT History: No Pertinent History Cardiac History: High Cholesterol Respiratory History: Emphysema Endocrine Medical History: No Pertinent History Musculoskeletal History: Other GI Medical History: GERD History: No Pertinent History Psycho-Social History: Anxiety, Attention Deficit Disorder, Depression, Other Male Reproductive Disorders: No Pertinent History Other Medical History: 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 PTSD - Past Surgical History Past Surgical History: Yes Neuro Surgical History: No Pertinent History Cardiac: No Pertinent History Respiratory: No Pertinent History Gastrointestinal: Appendectomy Genitourinary: No Pertinent History Musculoskeletal: No Pertinent History Male Surgical History: No Pertinent History Other Surgical History: skin CA on L shoulder Significant Family History: heart disease, hypertension, stroke - Social History Smoking Status: Current some day smoker How long have you smoked: 25 yrs Exposure to second hand smoke: No Drug Use: marijuana Patient Lives Alone: No - Social Determinants of Health Will the patient participate in the screening: Yes Do you worry about a steady place to live?: No In the past 12 months,have you had to go without utilities?: No Transportation Issues: No Has anyone in your support network made you feel unsafe?: No Have you or anyone in your house had to go without enough: No - Nursing Vital Signs Nursing Vital Signs: Initial Vital Signs Temperature 97.2 F 04/23/24 18:09 Pulse Rate 111 H 04/23/24 18:09 Respiratory Rate 20 04/23/24 18:09 Blood Pressure 133/98 04/23/24 18:09 O2 Sat by Pulse Oximetry 96 04/23/24 18:09 Pain Scale Pain Intensity 4 - Physical Exam General Appearance: no apparent distress, alert Eye Exam: PERRL/EOMI, eyes nml inspection Ears, Nose, Throat Exam: normal ENT inspection, TMs normal, pharynx normal, moist mucous membranes Neck Exam: normal inspection, non-tender, supple, full range of motion Respiratory Exam: normal breath sounds, lungs clear, airway intact, No resp iratory distress Cardiovascular Exam: regular rate/rhythm, normal heart sounds, normal peripheral pulses Gastrointestinal/Abdomen Exam: soft, normal bowel sounds, tenderness (Mild diffuse abdominal tenderness), No mass Back Exam: normal inspection, normal range of motion, No CVA tenderness, No vertebral tenderness Extremity Exam: normal inspection, normal range of motion, pelvis stable Neurologic Exam: alert, oriented x 3, cooperative, normal mood/affect, sensation nml, No motor deficits Skin Exam: normal color, warm, dry, No rash Lymphatic Exam: No adenopathy SpO2 Interpretation: normal SpO2: 96 O2 Delivery: Room Air - Course Nursing assessment & vital signs reviewed: Yes - CT Exams Abdomen/Pelvis CT Interpretation: Tele-radiologist Report (New small mid abdomen and right lower quadrant mesenteric nodes with stranding favoring adenitis. Stable fatty liver. Remaining abdomen pelvis negative) Ordered Tests: Active Orders 24 hr Category Date Time Status IV Insertion STAT Care 04/23/24 18:13 Active ABDOMEN AND PELVIS W/0 CONTRAS [CT] Stat Exams 04/23/24 18:14 Taken CBC W DIFF Stat Lab 04/23/24 18:15 Completed CMP Stat Lab 04/23/24 18:15 Completed CULTURE,URINE Stat Lab 04/23/24 19:20 Received TROPONIN Stat Lab 04/23/24 18:15 Completed UA W/RFX UR CULTURE Stat Lab 04/23/24 19:20 Completed Medication Summary Discontinued Medications Generic Name Dose Route Start Last Admin Trade Name Freq PRN Reason Stop Dose Admin Sodium Chloride 1,000 mls @ 999 mls/hr 04/23/24 18:13 04/23/24 18:21 Sodium Chloride 0.9% 1000 Ml IV 04/23/24 19:13 999 mls/hr .Q1H1M STA Administration Sodium Chloride Confirm 04/23/24 18:20 Sodium Chloride 0.9% 1000 Ml Administered 04/23/24 18:21 Dose 1,000 mls @ .ROUTE .[facility] Lab/Rad Data: Laboratory Result Diagrams 04/23/24 18:15 04/23/24 18:15 Laboratory Results 04/23/24 04/23/24 04/23/24 Range/Units 19:20 18:15 18:15 WBC (4.23-9.07) x10^3/uL RBC (4.63-6.08) x10^6/uL Hgb (13.7-17.5) g/dL Hct (40.1-51.0) % MCV (79.0-92.2) fL MCH (25.7-32.2) pg MCHC (32.3-36.5) g/dL RDW (11.6-14.4) % Plt Count (163-337) x10^3/uL MPV (9.4-12.4) fL Gran % (34.0-67.9) % Immature Gran % (Auto) (0.001-0.429) % Nucleat RBC Rel Count (0.00-0.2) % Eos # (Auto) (0.04-0.54) x10^3/uL Immature Gran # (Auto) (0.001-0.031) x10^3u/L Absolute Lymphs (auto) (1.32-3.57) x10^3/uL Absolute Monos (auto) (0.30-0.82) x10^3/uL Absolute Nucleated RBC (0.00-0.012) x10^3u/L Lymphocytes % (21.8-53.1) % Monocytes % (5.3-12.2) % Eosinophils % (0.8-7.0) % Basophils % (0.2-1.2) % Absolute Granulocytes (1.78-5.38) x10^3/uL Basophils # (0.01-0.08) x10^3/uL Sodium 136 (135-145) mmol/L Potassium 3.6 (3.5-5.1) mmol/L Chloride 103 (98-107) mmol/L Carbon Dioxide 21 L (22-30) mmol/L Anion Gap 15.0 (5-15) MEQ/L BUN 14 (9-20) mg/dL Creatinine 0.97 (0.66-1.25) mg/dL Estimated GFR 98.7 ML/MIN Glucose 123 H (74-106) mg/dL Calcium 9.2 (8.4-10.2) mg/dL Total Bilirubin 1.30 (0.2-1.3) mg/dL AST 30 (17-59) U/L ALT 34 (0-50) U/L Alkaline Phosphatase 49 (38-126) U/L Troponin I < 0.012 (0.000-0.033) ng/mL Serum Total Protein 7.8 (6.3-8.2) g/dL Albumin 4.6 (3.5-5.0) g/dL Urine Color Dark Yellow (Yellow) Urine Appearance Clear (Clear) Urine pH 5.5 (4.6-8.0) Ur Specific [place] 1.025 (1.005-1.030) Urine Protein Trace A (Negative) Urine Glucose (UA) Negative (Negative) mg/dL Urine Ketones Negative (Negative) Urine Blood NHT (Negative) Urine Nitrite Negative (Negative) Urine Bilirubin Negative (Negative) Urine Urobilinogen 1.0 A (0.2) mg/dL Ur Leukocyte Esterase Negative (Negative) U Hyaline Cast (Auto) NONE SEEN (0-2) /LPF Urine Microscopic RBC 3-5 (0-5) /HPF Urine Microscopic WBC 0-2 (0-5) /HPF Ur Epithelial Cells None Seen (None Seen) /HPF Urine Bacteria None Seen (None Seen) /HPF Urine Culture Reflexed YES (NO) 04/23/24 Range/Units 18:15 WBC 12.2 H (4.23-9.07) x10^3/uL RBC 5.49 (4.63-6.08) x10^6/uL Hgb 16.1 (13.7-17.5) g/dL Hct 45.7 (40.1-51.0) % MCV 83.2 (79.0-92.2) fL MCH 29.3 (25.7-32.2) pg MCHC 35.2 (32.3-36.5) g/dL RDW 12.7 (11.6-14.4) % Plt Count 202 (163-337) x10^3/uL MPV 10.2 (9.4-12.4) fL Gran % 87.4 H (34.0-67.9) % Immature Gran % (Auto) 0.3 (0.001-0.429) % Nucleat RBC Rel Count 0.0 (0.00-0.2) % Eos # (Auto) 0.01 L (0.04-0.54) x10^3/uL Immature Gran # (Auto) 0.04 H (0.001-0.031) x10^3u/L Absolute Lymphs (auto) 0.80 L (1.32-3.57) x10^3/uL Absolute Monos (auto) 0.66 (0.30-0.82) x10^3/uL Absolute Nucleated RBC 0.00 (0.00-0.012) x10^3u/L Lymphocytes % 6.6 L (21.8-53.1) % Monocytes % 5.4 (5.3-12.2) % Eosinophils % 0.1 L (0.8-7.0) % Basophils % 0.2 (0.2-1.2) % Absolute Granulocytes 10.61 H (1.78-5.38) x10^3/uL Basophils # 0.03 (0.01-0.08) x10^3/uL Sodium (135-145) mmol/L Potassium (3.5-5.1) mmol/L Chloride (98-107) mmol/L Carbon Dioxide (22-30) mmol/L Anion Gap (5-15) MEQ/L BUN (9-20) mg/dL Creatinine (0.66-1.25) mg/dL Estimated GFR ML/MIN Glucose (74-106) mg/dL Calcium (8.4-10.2) mg/dL Total Bilirubin (0.2-1.3) mg/dL AST (17-59) U/L ALT (0-50) U/L Alkaline Phosphatase (38-126) U/L Troponin I (0.000-0.033) ng/mL Serum Total Protein (6.3-8.2) g/dL Albumin (3.5-5.0) g/dL Urine Color (Yellow) Urine Appearance (Clear) Urine pH (4.6-8.0) Ur Specific [place] (1.005-1.030) Urine Protein (Negative) Urine Glucose (UA) (Negative) mg/dL Urine Ketones (Negative) Urine Blood (Negative) Urine Nitrite (Negative) Urine Bilirubin (Negative) Urine Urobilinogen (0.2) mg/dL Ur Leukocyte Esterase (Negative) U Hyaline Cast (Auto) (0-2) /LPF Urine Microscopic RBC (0-5) /HPF Urine Microscopic WBC (0-5) /HPF Ur Epithelial Cells (None Seen) /HPF Urine Bacteria (None Seen) /HPF Urine Culture Reflexed (NO) - Progress Progress: improved Progress Note: Patient reassessed. Pain resolved. Patient tolerating p.o. No nausea or vomiting. Workup reveals abdominal adenitis. IV fluids administered. Laboratory workup shows mild leukocytosis. No UTI. Patient says he is ready fo r discharge. Will discharge patient home. A prescription for Zofran will be forwarded to patient's pharmacy. Patient agrees to follow-up with his primary care doctor within 48 hours for reevaluation. He voices no other complaints concerns at this time. Portions of this note were created with voice recognition technology. There may be grammatical, spelling, punctuation or sound alike errors Complexity problem addressed is moderate acute complicated. No critical care time. Complexity of data reviewed and analyzed is moderate. Test ordered test reviewed results analyzed and correlated clinically with history and physical exam. Risk of complication and or risk of morbidity/mortality patient management is moderate. A prescription for Zofran forwarded to patient's pharmacy. Vital stable. Time spent to discharge patient approximately 15 minutes. Plan of care established for shared decision making. No social determinants of health present impede follow-up. Portions of this note were created with voice recognition technology. There may be grammatical, spelling, punctuation or sound alike errors 04/23/24 20:33 Counseled pt/family regarding: lab results, diagnosis, need for follow-up, rad results - Departure Departure Disposition: Home Clinical Impression: Fatty liver, Mesenteric adenitis, Nausea vomiting and diarrhea, Abdominal pain Condition: Stable Critical Care Time: No Referrals: COMFORT CLOUD MD [Primary Care Provider] - Follow up/PCP as directed Additional Instructions: Discharge/Care Plan SAMANTHA DONIS was seen on 04/23/24 in the Emergency Room. The patient was counseled regarding Diagnosis,Lab results, Imaging studies, need for follow up and when to return to the Emergency Room. Prescriptions given: Discharge Note I have spoken with the patient and/or caregivers. I have explained the patient's condition, diagnosis and treatment plan based on the information available to me at this time. I have answered the patient's and/or caregiver's questions and addressed any concerns. The patient and/or caregivers have as good understanding of the patient's diagnosis, condition and treatment plan as can be expected at this point. The vital signs have been stable. The patient's condition is stable and appropriate for discharge from the emergency department. The patient will pursue further outpatient evaluation with the primary care physician or other designated or consulting physician as outlined in the discharge instructions. The patient and/or caregivers are agreeable to this plan of care and follow-up instructions have been explained in detail. The patient and/or caregivers have received these instruction. The patient/and or caregivers are aware that any significant change in condition or worsening of symptoms should prompt an immediate return to this or the closest emergency department or call 911. Prescriptions: Ondansetron ODT 4 MG [Zofran Odt 4 mg] 4 mg PO Q6H PRN PRN #10 tablet PRN Reason: Vomiting
[2024-04-23] MEDS ORDERED: Sodium Chloride 0.9% 1000 ML 1,000 ML ONE (18:20)
[2024-04-23] MEDS: Sodium Chloride 0.9% 1000 ML 1,000 ML IV STA (18:21)
[2024-04-23 18:27] LABS: Absolute Neutrophil Ct (ANC) 10.61 x10^3/uL (1.78-5.38); BASOPHIL % 0.2 % (0.2-1.2); Basophil (Absolute #) 0.03 x10^3/uL (0.01-0.08); Eosinophil % 0.1 % (0.8-7.0); Eosinophil (Absolute #) 0.01 x10^3/uL (0.04-0.54); Hematocrit 45.7 % (40.1-51.0); Hemoglobin 16.1 g/dL (13.7-17.5); IMMATURE GRAN # 0.04 x10^3u/L (0.001-0.031); IMMATURE GRAN % 0.3 % (0.001-0.429); Lymphocytes % 6.6 % (21.8-53.1); Mean Cell Volume 83.2 fL (79.0-92.2); Mean Corpuscular Hemoglobin 29.3 pg (25.7-32.2); Mean Corpuscular Hgb Concent. 35.2 g/dL (32.3-36.5); Mean Platelet Volume 10.2 fL (9.4-12.4); Monocyte (Absolute #) 0.66 x10^3/uL (0.30-0.82); Monocytes % 5.4 % (5.3-12.2); Neutrophil % 87.4 % (34.0-67.9); Platelet Count 202 x10^3/uL (163-337); Red Blood Count 5.49 x10^6/uL (4.63-6.08); Red Cell Distribution Width 12.7 % (11.6-14.4); White Blood Count 12.2 x10^3/uL (4.23-9.07)
[2024-04-23 18:41] LABS: ALBUMIN 4.6 g/dL (3.5-5.0); BILIRUBIN,TOTAL 1.3 mg/dL (0.2-1.3); Calcium 9.2 mg/dL (8.4-10.2); Creatinine 1 0.97 mg/dL (0.66-1.25); EST GLOMERULAR FILTRATION RATE 98.7 ML/MIN; Potassium 3.6 mmol/L (3.5-5.1); Total Protein 7.8 g/dL (6.3-8.2)
[2024-04-23 19:32] LABS: Appearance Clear (Clear); Bacteria None Seen /HPF (None Seen); Bilirubin Negative (Negative); Blood NHT (Negative); Epithelial Cells None Seen /HPF (None Seen); Glucose, Urine Negative (Negative); Hyaline Casts NONE SEEN /LPF (0-2); Ketones Negative (Negative); Leukocyte Esterase Negative (Negative); Nitrite Negative (Negative); Ph 5.5 (4.6-8.0); Protein,Urine Dip Trace (Negative); Specific Gravity 1.025 (1.005-1.030); WBC 0-2 /HPF (0-5)
[2024-04-23 19:48] LABS: ADD URINE CULTURE? YES (NO)
[2024-04-23 20:31] VITALS: O2SAT 96
[2024-04-23 20:37] VITALS: BP 130/87; PULSE 90; RESP 25
--- NOTE | 2024-04-24 09:05 | XRAY ---
Indication: Pain. Vomiting and diarrhea. Multiple contiguous axial images obtained through the abdomen and pelvis without contrast. Comparison: February 06, 2022 Lung bases are clear. Heart not enlarged. Noncontrasted stomach and bowel loops appear nonobstructed. Again appendectomy reported. Midabdomen and right lower quadrant demonstrates new tiny mesenteric nodes with minimal stranding favoring adenitis. Stable fatty liver and tiny splenic calcified granulomas. No free fluid/air. Remaining liver, gallbladder, pancreas, spleen, adrenal glands, kidneys, ureters, bladder, and aorta are unremarkable for noncontrast exam. Osseous structures intact again with minimal degenerative changes throughout the spine. Stable tiny left femur head bone island. Impression: 1. New tiny mesenteric nodes with stranding favoring mesenteric adenitis. 2. Again chronic findings including fatty liver, chronic bony findings, and old granulomatous disease. 3. Remaining CT abdomen/pelvis without contrast exam is negative.
== END 2024-04-23 20:43 | disposition home or self-care (01) ==
LOC: ED 16:43
DX: K76.0 Fatty (change of) liver, not elsewhere classified (principal); I88.0 Nonspecific mesenteric lymphadenitis; R11.2 Nausea with vomiting, unspecified; R19.7 Diarrhea, unspecified; R10.9 Unspecified abdominal pain; E78.5 Hyperlipidemia, unspecified; Z79.899 Other long term (current) drug therapy; Z72.0 Tobacco use
CPT/HCPCS: 36000; 36415; 74176; 80053; 81001; 84484; 85025; 87086; 96360; 99284

== ENCOUNTER 2024-04-26 05:35 | Emergency (ER) | payer OTHER ==
[2024-04-26 05:51] VITALS: TEMP 97.8
[2024-04-26 06:11] LABS: Absolute Neutrophil Ct (ANC) 6.22 x10^3/uL (1.78-5.38); BASOPHIL % 0.5 % (0.2-1.2); Basophil (Absolute #) 0.04 x10^3/uL (0.01-0.08); Eosinophil % 0.9 % (0.8-7.0); Eosinophil (Absolute #) 0.07 x10^3/uL (0.04-0.54); Hematocrit 43.4 % (40.1-51.0); Hemoglobin 15.5 g/dL (13.7-17.5); IMMATURE GRAN # 0.03 x10^3u/L (0.001-0.031); IMMATURE GRAN % 0.4 % (0.001-0.429); Lymphocyte (Absolute #) 0.82 x10^3/uL (1.32-3.57); Mean Cell Volume 81.9 fL (79.0-92.2); Mean Corpuscular Hemoglobin 29.2 pg (25.7-32.2); Mean Corpuscular Hgb Concent. 35.7 g/dL (32.3-36.5); Monocyte (Absolute #) 0.98 x10^3/uL (0.30-0.82); Neutrophil % 76.2 % (34.0-67.9); Platelet Count 244 x10^3/uL (163-337); Red Cell Distribution Width 12.5 % (11.6-14.4); White Blood Count 8.2 x10^3/uL (4.23-9.07)
[2024-04-26] MEDS ORDERED: Sodium Chloride 0.9% 1000 ML 1,000 ML ONE (06:14)
[2024-04-26] MEDS ORDERED: Zofran 4 MG/2 ML VIAL ONE (06:14)
[2024-04-26] MEDS: Sodium Chloride 0.9% 1000 ML 1,000 ML IV SCH (06:15)
[2024-04-26] MEDS: Zofran 4 MG/2 ML VIAL IV ONE (06:16)
[2024-04-26 06:26] LABS: ALBUMIN 4.3 g/dL (3.5-5.0); ANION GAP 14.7 MEQ/L (5-15); BILIRUBIN,TOTAL 1.2 mg/dL (0.2-1.3); Calcium 9.3 mg/dL (8.4-10.2); Creatinine 1 0.98 mg/dL (0.66-1.25); EST GLOMERULAR FILTRATION RATE 97.5 ML/MIN; Potassium 3.2 mmol/L (3.5-5.1); Total Protein 7.2 g/dL (6.3-8.2)
--- NOTE | 2024-04-26 06:41 | ERPHSYRPT ---
- History of Present Illness Historian: patient Exam Limitations: no limitations Patient Subjective Stated Complaint: n/v/d, diffuse abd pain x4 days, pt was seen in ER on monday with same complaints and states he has not gotten any better, pt received a prescription for zofran when he was seen on monday Triage Nursing Assessment: pt ambulatory to bed by self with steady gait, pt alert and oriented x3, skin pwd, pt c/o n/v/d x4 days with diffuse abd cramping/pain, pt states he has vomited 4 times in the last 12 hrs. pt states he went to work at 0500 and had 10 BMs while at work Hx Tetanus, Diphtheria Vaccination/Date Given: Yes Hx Influenza Vaccination/Date Given: Yes Hx Pneumococcal Vaccination/Date Given: No <AZUL CASTILLO - Last Filed: 04/26/24 06:59> <LITA MARTIN - Last Filed: 04/26/24 08:57> - History of Present Illness Time Seen by Provider: 04/26/24 06:19 Physician History: 44-year-old male presented in the ER with complains of gastroenteritis symptoms for the last 4 days. Patient reports he was evaluated 2 days ago in this ER, was found to have mesenteric adenitis and supportive care was recommended but symptoms are getting worse. Reports having multiple episodes of nonprojectile, nonbilious vomiting without hematemesis and also multiple loose mucousy stools. Patient had almost 8 episodes when he went to work within an hour, reports feeling weak fatigued tired and dehydrated. Complaining of some lower abdominal pain. No fever or chills reported. (AZUL CASTILLO) Allergies/Adverse Reactions: ketorolac [From Toradol] Adverse Reaction (Severe, Verified 04/26/24 05:40) suicidial ideation topiramate [From Topamax] Adverse Reaction (Severe, Verified 04/26/24 05:40) hyper, anxiety Home Medications: Omeprazole 40 mg PO DAILY 01/06/23 [History] Cyclobenzaprine HCl 10 mg [Cyclobenzaprine 10 MG] 10 mg PO DAILY 03/03/23 [History] Fenofibrate 145 mg PO DAILY 10/14/23 [History] Albuterol 8 gm Mdi Hfa [Ventolin Hfa MDI] 2 puff IH Q6HPRN PRN 01/28/24 [History] Umeclidinium Brm/Vilanterol Tr [Anoro Ellipta 62.5-25 Mcg INH] 1 puff IH DAILY 01/28/24 [History] Atorvastatin Calcium 40 mg PO DAILY 03/22/24 [History] Nitroglycerin 0.4 mg SL Q5MIN PRN MR X 3 PRN 03/22/24 [History] Pantoprazole Sodium [Protonix] 40 mg PO DAILY 03/22/24 [History] Rimegepant Sulfate [Nurtec Odt] 75 mg PO DAILY PRN 04/23/24 [History] Travel Risk - International Travel Have you traveled outside of the country in past 3 weeks: No - Emerging Infectious Disease Are you exhibiting symptoms associated with any current EIDs: Yes Symptoms: Abdominal Pain, Diarrhea, Vomitting <AZUL CASTILLO - Last Filed: 04/26/24 06:59> - Review of Systems Constitutional: Fatigue, Weakness Eyes: No Symptoms Ears, Nose, & Throat: No Symptoms Respiratory: No Symptoms Cardiac: No Symptoms Abdominal/Gastrointestinal: Abdominal Pain, Nausea, Vomiting, Diarrhea Genitourinary Symptoms: No Symptoms Musculoskeletal: No Symptoms Skin: No Symptoms Neurological: No Symptoms Psychological: No Symptoms Endocrine: No Symptoms Hematologic/Lymphatic: No Symptoms Immunological/Allergic: No Symptoms <AZUL CASTILLO - Last Filed: 04/26/24 06:59> - Past Medical History Pertinent Past Medical History: Yes Neurological History: Migraines, Peripheral Neuropathy, Stroke ENT History: No Pertinent History Cardiac History: High Cholesterol Respiratory History: Emphysema Endocrine Medical History: No Pertinent History Musculoskeletal History: Other GI Medical History: GERD History: No Pertinent History Psycho-Social History: Anxiety, Attention Deficit Disorder, Depression, Other Male Reproductive Disorders: No Pertinent History Other Medical History: 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 PTSD - Past Surgical History Past Surgical History: Yes Neuro Surgical History: No Pertinent History Cardiac: No Pertinent History Respiratory: No Pertinent History Gastrointestinal: Appendectomy Genitourinary: No Pertinent History Musculoskeletal: No Pertinent History Male Surgical History: No Pertinent History Other Surgical History: skin CA on L shoulder Significant Family History: heart disease, hypertension, stroke - Social History Smoking Status: Current every day smoker How long have you smoked: 25 yrs Exposure to second hand smoke: No Drug Use: marijuana Patient Lives Alone: No - Social Determinants of Health Will the patient participate in the screening: Yes Do you worry about a steady place to live?: No Do you have any problems with any of the following?: No known problems In the past 12 months,have you had to go without utilities?: No Transportation Issues: No Has anyone in your support network made you feel unsafe?: No Have you or anyone in your house had to go without enough: No <AZUL CASTILLO - Last Filed: 04/26/24 06:59> - Physical Exam General Appearance: no apparent distress, alert Eye Exam: PERRL/EOMI Ears, Nose, Throat Exam: normal ENT inspection Neck Exam: normal inspection, full range of motion Respiratory Exam: normal breath sounds, lungs clear Cardiovascular Exam: regular rate/rhythm, normal heart sounds Gastrointestinal/Abdomen Exam: soft, normal bowel sounds, tenderness (Mild lower abdominal tenderness to deep palpation), No guarding Extremity Exam: normal inspection, normal range of motion Neurologic Exam: alert, oriented x 3, cooperative Skin Exam: normal color SpO2 Interpretation: normal SpO2: 98 O2 Delivery: Room Air <AZUL CASTILLO - Last Filed: 04/26/24 06:59> - Nursing Vital Signs Nursing Vital Signs: Initial Vital Signs Temperature 97.8 F 04/26/24 05:41 Pulse Rate 81 04/26/24 05:41 Respiratory Rate 18 04/26/24 05:41 Blood Pressure 125/86 04/26/24 05:41 O2 Sat by Pulse Oximetry 98 04/26/24 05:41 Pain Scale Pain Intensity 0 Ordered Tests: Active Orders 24 hr Category Date Time Status IV Insertion STAT Care 04/26/24 05:58 Active ABDOMEN AND PELVIS W/0 CONTRAS [CT] Stat Exams 04/26/24 06:58 Taken CBC W DIFF Stat Lab 04/26/24 06:09 Completed CMP Stat Lab 04/26/24 05:58 Completed CULTURE,URINE Stat Lab 04/26/24 06:17 Received LIPASE Stat Lab 04/26/24 05:58 Completed UA W/RFX UR CULTURE Stat Lab 04/26/24 06:17 Completed Medication Summary Generic Name Dose Route Start Last Admin Trade Name Freq PRN Reason Stop Dose Admin Sodium Chloride 1,000 mls @ 999 mls/hr 04/26/24 06:00 04/26/24 08:10 Sodium Chloride 0.9% 1000 Ml IV 05/26/24 05:59 Infused .Q1H1M CHRISTAL Infusion Discontinued Medications Generic Name Dose Route Start Last Admin Trade Name Liseth PRN Reason Stop Dose Admin Fentanyl Citrate 50 mcg 04/26/24 06:40 04/26/24 06:54 Fentanyl Citrate 100 Mcg/2 Ml* Vial IV 04/26/24 06:41 Not Given STAT ONE Fentanyl Citrate 50 mcg 04/26/24 07:29 04/26/24 07:36 Fentanyl Citrate 100 Mcg/2 Ml* Vial IV 04/26/24 07:30 50 mcg STAT ONE Administration Fentanyl Citrate Confirm 04/26/24 07:34 Fentanyl Citrate 100 Mcg/2 Ml* Vial Administered 04/26/24 07:35 Dose 100 mcg .ROUTE .STK-MED ONE Ondansetron HCl 4 mg 04/26/24 05:58 04/26/24 06:16 Ondansetron Hcl 4 Mg/2 Ml Vial IV 04/26/24 05:59 4 mg STAT ONE Administration Ondansetron HCl Confirm 04/26/24 06:14 Ondansetron Hcl 4 Mg/2 Ml Vial Administered 04/26/24 06:15 Dose 4 mg .ROUTE .STK-MED ONE Potassium Chloride 20 meq 04/26/24 08:16 Potassium Chloride Tab 10 Meq Tab PO 04/26/24 08:17 STAT ONE Lab/Rad Data: Laboratory Result Diagrams 04/26/24 06:09 04/26/24 05:58 Laboratory Results 04/26/24 04/26/24 04/26/24 Range/Units 06:17 06:09 05:58 WBC 8.2 (4.23-9.07) x10^3/uL RBC 5.30 (4.63-6.08) x10^6/uL Hgb 15.5 (13.7-17.5) g/dL Hct 43.4 (40.1-51.0) % MCV 81.9 (79.0-92.2) fL MCH 29.2 (25.7-32.2) pg MCHC 35.7 (32.3-36.5) g/dL RDW 12.5 (11.6-14.4) % Plt Count 244 (163-337) x10^3/uL MPV 10.0 (9.4-12.4) fL Gran % 76.2 H (34.0-67.9) % Immature Gran % (Auto) 0.4 (0.001-0.429) % Nucleat RBC Rel Count 0.0 (0.00-0.2) % Eos # (Auto) 0.07 (0.04-0.54) x10^3/uL Immature Gran # (Auto) 0.03 (0.001-0.031) x10^3u/L Absolute Lymphs (auto) 0.82 L (1.32-3.57) x10^3/uL Absolute Monos (auto) 0.98 H (0.30-0.82) x10^3/uL Absolute Nucleated RBC 0.00 (0.00-0.012) x10^3u/L Lymphocytes % 10.0 L (21.8-53.1) % Monocytes % 12.0 (5.3-12.2) % Eosinophils % 0.9 (0.8-7.0) % Basophils % 0.5 (0.2-1.2) % Absolute Granulocytes 6.22 H (1.78-5.38) x10^3/uL Basophils # 0.04 (0.01-0.08) x10^3/uL Sodium 136 (135-145) mmol/L Potassium 3.2 L (3.5-5.1) mmol/L Chloride 104 (98-107) mmol/L Carbon Dioxide 21 L (22-30) mmol/L Anion Gap 14.7 (5-15) MEQ/L BUN 17 (9-20) mg/dL Creatinine 0.98 (0.66-1.25) mg/dL Estimated GFR 97.5 ML/MIN Glucose 124 H (74-106) mg/dL Calcium 9.3 (8.4-10.2) mg/dL Total Bilirubin 1.20 (0.2-1.3) mg/dL AST 38 (17-59) U/L ALT 32 (0-50) U/L Alkaline Phosphatase 50 (38-126) U/L Serum Total Protein 7.2 (6.3-8.2) g/dL Albumin 4.3 (3.5-5.0) g/dL Lipase 253 (23-300) U/L Urine Color Dark Yellow (Yellow) Urine Appearance Cloudy A (Clear) Urine pH 5.5 (4.6-8.0) Ur Specific [place] >=1.030 A (1.005-1.030) Urine Protein 30 (Negative) Urine Glucose (UA) Negative (Negative) mg/dL Urine Ketones Trace A (Negative) Urine Blood Trace (Negative) Urine Nitrite Negative (Negative) Urine Bilirubin Small A (Negative) Urine Urobilinogen 1.0 A (0.2) mg/dL Ur Leukocyte Esterase Negative (Negative) U Hyaline Cast (Auto) 3-5 A (0-2) /LPF Urine Microscopic RBC 6-10 A (0-5) /HPF Urine Microscopic WBC 0-2 (0-5) /HPF Ur Epithelial Cells None Seen (None Seen) /HPF Triple Phos Crystals 3-5 A (None Seen) /HPF Urine Bacteria None Seen (None Seen) /HPF Urine Culture Reflexed YES (NO) - Progress Counseled pt/family regarding: diagnosis <AZUL CASTILLO - Last Filed: 04/26/24 06:59> - Progress Counseled pt/family regarding: lab results, diagnosis, need for follow-up, rad results <LITA MARTIN - Last Filed: 04/26/24 08:57> - Progress Progress Note: 04/26/24 06:50 44-year-old is evaluated for lower abdominal pain with nausea vomiting and diarrhea for the last 4 days. He is given fluids and symptomatic treatment, workup is pending, care is transferred to Dr. Martin at shift change for reevaluation and final disposition (AZUL CASTILLO) 04/26/24 08:18 I interpreted the patient's laboratory data results. Patient does have a mild hypokalemia and we will provide him with oral potassium here in the emergency department. His urinalysis shows mild dehydration. Patient is receiving a bolus of crystalloid at this time. 04/26/24 08:56 The radiologist interpreted the CT scan of the abdomen pelvis. I reviewed the impression. The impression states colonic diarrhea present. Findings favoring mesenteric adenitis. Remaining A/PE negative. (LITA MARTIN) Medical Desision Making - Diagnostic Testing Diagnostic test were ordered, analyzed, and reviewed by me: Yes Radiological Interpretation: Reviewed by me, Teleradiologist Report - Risk of complications The pt has a mod risk of morbidity or mortality based on: Need for prescription drug management <LITA MARTIN - Last Filed: 04/26/24 08:57> <AZUL CASTILLO - Last Filed: 04/26/24 06:59> - Departure Departure Disposition: Home Critical Care Time: No <LITA MARTIN - Last Filed: 04/26/24 08:57> - Departure Clinical Impression: Vomiting and diarrhea, Mesenteric adenitis Condition: Stable Referrals: COMFORT CLOUD MD [Primary Care Provider] - Follow up/PCP as directed Additional Instructions: Drink plenty of clear liquids before advancing your diet. Avoid fatty greasy spicy foods. Take your medications as prescribed. Call your primary care provider today, 04/18/2024, to make arranges for follow-up appointment for further evaluation management and to be seen in the next 3 to 5 days. Forms: Work/School Release Form Prescriptions: Ondansetron ODT 4 MG [Zofran Odt 4 mg] 4 mg PO Q6H PRN PRN #10 tablet PRN Reason: Vomiting
[2024-04-26 06:46] VITALS: RESP 16
[2024-04-26] MEDS: SUBLIMAZE 100 MCG/2 ML IV ONE ×2 (06:54→07:36)
[2024-04-26 07:11] LABS: Appearance Cloudy (Clear); Bacteria None Seen /HPF (None Seen); Bilirubin Small (Negative); Blood Trace (Negative); Epithelial Cells None Seen /HPF (None Seen); Glucose, Urine Negative (Negative); Ketones Trace (Negative); Leukocyte Esterase Negative (Negative); Nitrite Negative (Negative); Ph 5.5 (4.6-8.0); Protein,Urine Dip 30 (Negative); Specific Gravity >=1.030 (1.005-1.030); WBC 0-2 /HPF (0-5)
[2024-04-26 07:12] LABS: ADD URINE CULTURE? YES (NO)
[2024-04-26] MEDS ORDERED: SUBLIMAZE 100 MCG/2 ML ONE (07:34)
[2024-04-26 08:13] VITALS: BP 130/71; PULSE 77; O2SAT 95
[2024-04-26] MEDS ORDERED: Klor Con ONE (09:03)
[2024-04-26] MEDS: Klor Con PO ONE (09:06)
--- NOTE | 2024-04-26 09:08 | XRAY ---
Indication: Abdominal pain 5 days. Diarrhea. Multiple contiguous axial images obtained through the abdomen and pelvis without contrast. Comparison: April 23, 2024 Lung bases now demonstrate minimal left base dependent atelectasis. No infiltrate or effusion. Heart not enlarged. Noncontrasted stomach and bowel loops remain nonobstructed. Again previous appendectomy. New mild fluid distended colon throughout favoring diarrhea. Stable tiny mid abdomen and right lower quadrant mesenteric nodes favoring adenitis. Also stable fatty liver and splenic calcified granulomas. No free fluid/air. Remaining liver, gallbladder, pancreas, spleen, adrenal glands, kidneys, ureters, bladder, and aorta are unremarkable for noncontrast exam. Impression: 1. New finding for colonic diarrhea. 2. Grossly stable appearing mesenteric adenitis, fatty liver, and old granulomatous disease.
== END 2024-04-26 09:25 | disposition home or self-care (01) ==
LOC: ED 05:35
DX: R11.2 Nausea with vomiting, unspecified (principal); R19.7 Diarrhea, unspecified; R10.9 Unspecified abdominal pain; F17.200 Nicotine dependence, unspecified, uncomplicated; E87.6 Hypokalemia; E86.0 Dehydration; I88.0 Nonspecific mesenteric lymphadenitis
CPT/HCPCS: 36000; 36415; 74176; 80053; 81001; 83690; 85025; 87086; 96360; 96374; 96375; 99284; J2405; J3010; A9270-GY

== ENCOUNTER 2024-06-07 06:37 | Day surgery (SDC) | payer OTHER ==
[2024-06-07] MEDS ORDERED: Lactated Ringers 1,000 ML IV ONE (07:03)
[2024-06-07] MEDS ORDERED: CEFAZOLIN 2 GM/100 ML NaCl 2 GM/100 ML IVPB IV ONE (07:03)
[2024-06-07 07:04] VITALS: RESP 18
[2024-06-07] MEDS: Lactated Ringers 1,000 ML IV SCH (07:11)
[2024-06-07] MEDS: CEFAZOLIN 2 GM/100 ML NaCl 2 GM/100 ML IVPB IV SCH (07:13)
[2024-06-07] MEDS ORDERED: SUBLIMAZE 100 MCG/2 ML ONE ×2 (08:06→08:56)
[2024-06-07] MEDS ORDERED: Zofran 4 MG/2 ML VIAL ONE (08:10)
[2024-06-07] MEDS ORDERED: Decadron 4 MG INJ ONE (08:10)
[2024-06-07] MEDS ORDERED: DIPRIVAN 200 MG/20 ML IV ONE (08:11)
[2024-06-07] MEDS ORDERED: XYLOCAINE 1% HCL 20 ML MDV ONE (08:19)
[2024-06-07 10:05] VITALS: O2SAT 93
[2024-06-07] MEDS: ZOFRAN ODT 4 MG PO ONE (10:22)
[2024-06-07 10:37] VITALS: BP 149/89; PULSE 85; TEMP 97.8
--- NOTE | 2024-06-10 17:07 | OP ---
SURGERY DATE/TIME: 06/07/2024 [id number] PREOPERATIVE DIAGNOSIS: Volar ganglion cyst, right wrist. POSTOPERATIVE DIAGNOSIS: Ruptured volar ganglion cyst, right wrist. PROCEDURE: Exploration right wrist with cauterization cyst remnant, right wrist. SURGEON: Jason Meadows II, DO. ANESTHESIA: General. DESCRIPTION OF PROCEDURE AND FINDINGS: The patient was identified and informed consent was obtained. The patient was taken to the operative suite and placed in a supine position where the general anesthetic was administered. Once an appropriate level of anesthesia had been obtained, tourniquet was placed high on the right upper extremity, which was then prepped and draped in the usual sterile fashion. Standard time-out was taken. The arm was exsanguinated and the tourniquet was elevated to 250 mmHg. The area over the cyst was palpated. Patient's cyst was noted to have been much larger when he was in the office, it was much smaller today and the patient was still having symptoms, thus incision was carried out over the cyst. Skin was incised. Dissection was carried out through the subcutaneous tissue. Meticulous dissection was carried out and the radial artery and vein were identified, as were the superficial nerve branches of the radial nerve, retracted out of harm's way. Dissection was then carried out to the level of the joint where the cyst was noted to have been. There was no fluid left in the ganglion cyst. The base was then cauterized with the electrocautery unit. There was no significant remnant or rent in the capsule of the wrist, thus once cauterization had been obtained, the tourniquet was deflated, hemostasis obtained and the wound was then closed with interrupted 5-0 nylon suture. The area around the skin was infiltrated with 1% Xylocaine plain. Adaptics, 4 x 4's, and a sterile dressing applied. The patient was transferred to the cart and taken to recovery room in satisfactory condition having tolerated the procedure well.
== END 2024-06-07 10:40 | disposition home or self-care (01) ==
LOC: SDC 06:37
PROVIDERS: ATTEND Orthopaedic Surgery
DX: M67.431 Ganglion, right wrist (principal); M25.531 Pain in right wrist
CPT/HCPCS: 25111; J0690; J1100; J2405; J2704; J3010; Q0162

== ENCOUNTER 2024-06-23 15:35 | Emergency (ER) | payer OTHER ==
--- NOTE | 2024-06-23 15:48 | ERPHSYRPT ---
- History of Present Illness Time Seen by Provider: 06/23/24 15:40 Source: patient, EMS, old records Exam Limitations: no limitations Physician History: This is a 44-year-old right handed white male patient was brought into the emergency department by the paramedics because of sudden onset of significant bleeding from a right wrist volar aspect incision site. Patient states he did not hit the area at. It open spontaneously. On 06/07/2024, orthopedic Dr. Meadows performed an exploration of this area and there was cauterization of the ganglion cyst remnant. I read the operative report. Because of recurrent swelling in this area, the patient is scheduled to undergo a reexploration tomorrow morning, 06/24/2024. Patient has been off his Plavix for 2 to 3 days. He is on Plavix as a prophylaxis preoperatively. The paramedics brought this patient into the emergency department and had a pressure dressing applied which stopped any bleeding. Patient is a daily smoker of tobacco cigarettes. Patient had a CVA in 2017. He also has a history of hyperlipidemia, migraine headache, peripheral neuropathy, gastroesophageal reflux disease, anxiety, ADD, PTSD. He is taking Plavix but has been off of it for 2 to 3 days in anticipation of his surgical reexploration tomorrow. Occurred: just prior to arrival Method of Injury: unknown Severity of Pain-Max: none Severity of Pain-Current: none Extremities Pain Location: wrist: right Modifying Factors: Improves With: nothing Associated Symptoms: none Allergies/Adverse Reactions: ketorolac [From Toradol] Adverse Reaction (Severe, Verified 06/23/24 15:39) suicidial ideation topiramate [From Topamax] Adverse Reaction (Severe, Verified 06/23/24 15:39) hyper, anxiety Home Medications: Cyclobenzaprine HCl 10 mg [Cyclobenzaprine 10 MG] 10 mg PO DAILY 03/03/23 [History] Fenofibrate 145 mg PO DAILY 10/14/23 [History] Albuterol 8 gm Mdi Hfa [Ventolin Hfa MDI] 2 puff IH Q6HPRN PRN 01/28/24 [History] Umeclidinium Brm/Vilanterol Tr [Anoro Ellipta 62.5-25 Mcg INH] 1 puff IH DAILY 01/28/24 [History] Atorvastatin Calcium 40 mg PO DAILY 03/22/24 [History] Nitroglycerin 0.4 mg SL Q5MIN PRN MR X 3 PRN 03/22/24 [History] Pantoprazole Sodium [Protonix] 40 mg PO DAILY 03/22/24 [History] Rimegepant Sulfate [Nurtec Odt] 75 mg PO DAILY PRN 04/23/24 [History] Aspirin [Aspirin EC] 81 mg PO DAILY 05/20/24 [History] Aspirin/Acetaminophen/Caffeine [Excedrin Extra Strength Caplet] 1 each PO UD 05/20/24 [History] Famotidine [Pepcid] 40 mg PO DAILY 05/20/24 [History] Metoclopramide HCl 5 mg PO TID PRN 05/20/24 [History] Metoprolol Succinate 25 mg Xl* [Toprol-Xl 25MG Tablets] 25 mg PO DAILY 05/20/24 [History] Clopidogrel Bisulfate [PLAVIX Tablet] 75 mg PO DAILY 06/07/24 [History] Hx Tetanus, Diphtheria Vaccination/Date Given: Yes Hx Influenza Vaccination/Date Given: Yes Hx Pneumococcal Vaccination/Date Given: No Travel Risk - International Travel Have you traveled outside of the country in past 3 weeks: No - Emerging Infectious Disease Are you exhibiting symptoms associated with any current EIDs: No Symptoms: Abdominal Pain, Diarrhea, Vomitting - Review of Systems Constitutional: No Symptoms Eyes: No Symptoms Ears, Nose, & Throat: No Symptoms Respiratory: No Symptoms Cardiac: No Symptoms Abdominal/Gastrointestinal: No Symptoms Genitourinary Symptoms: No Symptoms Musculoskeletal: No Symptoms Skin: Other (Spontaneous bleed from the operative site brought the patient into the emergency department by the paramedics) Neurological: No Symptoms Psychological: No Symptoms Endocrine: No Symptoms Hematologic/Lymphatic: No Symptoms Immunological/Allergic: No Symptoms All Other Systems: Reviewed and Negative - Past Medical History Pertinent Past Medical History: Yes Neurological History: Migraines, Peripheral Neuropathy, Stroke ENT History: No Pertinent History Cardiac History: High Cholesterol Respiratory History: Emphysema Endocrine Medical History: No Pertinent History Musculoskeletal History: Other GI Medical History: GERD History: No Pertinent History Psycho-Social History: Anxiety, Attention Deficit Disorder, Depression, Other Male Reproductive Disorders: No Pertinent History Other Medical History: 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 PTSD - Past Surgical History Past Surgical History: Yes Neuro Surgical History: No Pertinent History Cardiac: No Pertinent History, Cardiac Catheterization Respiratory: No Pertinent History Gastrointestinal: Appendectomy Genitourinary: No Pertinent History Musculoskeletal: No Pertinent History Male Surgical History: Vasectomy Other Surgical History: skin CA on L shoulder Significant Family History: heart disease, hypertension, stroke - Social History Smoking Status: Current every day smoker How long have you smoked: 25 yrs Exposure to second hand smoke: No Drug Use: marijuana Patient Lives Alone: No - Social Determinants of Health Will the patient participate in the screening: Yes Do you worry about a steady place to live?: No In the past 12 months,have you had to go without utilities?: No Transportation Issues: No Has anyone in your support network made you feel unsafe?: No Have you or anyone in your house had to go without enough: No - Nursing Vital Signs Nursing Vital Signs: Initial Vital Signs Temperature 97.1 F 06/23/24 15:40 Pulse Rate 70 06/23/24 15:40 Respiratory Rate 18 06/23/24 15:40 Blood Pressure 142/81 06/23/24 15:40 O2 Sat by Pulse Oximetry 97 06/23/24 15:40 Pain Scale Pain Intensity 4 - Physical Exam General Appearance: no apparent distress, alert, anxiety Eyes, Ears, Nose, Throat Exam: normal ENT inspection, moist mucous membranes Neck Exam: normal inspection, non-tender, supple, full range of motion Cardiovascular/Respiratory Exam: chest non-tender, no respiratory distress Abdominal Exam: non-tender Back Exam: normal inspection, normal range of motion, No CVA tenderness, No vertebral tenderness Shoulder Exam: normal inspection, non-tender, no evidence of injury, normal ROM Elbow/Forearm Exam: normal inspection, non-tender, no evidence of injury, normal ROM Wrist Exam: normal ROM (Normal tendon function. Normal sensation), soft tissue tenderness, swelling (Raised, presumed subcutaneous hematoma or seroma) Hand Exam: normal inspection, non-tender, no evidence of injury, normal ROM Neuro/Tendon Exam: normal sensation, normal motor functions, normal tendon funct ions, responds to pain, no evidence tendon injury Mental Status Exam: alert, oriented x 3, cooperative Skin Exam: other (Operative skin incision intact. After removal of all the dressings, there is no evidence of any infection and no evidence of active bleeding.) SpO2 Interpretation: normal O2 Delivery: Room Air - Course Nursing assessment & vital signs reviewed: Yes Ordered Tests: Active Orders 24 hr Category Date Time Status EXTREMITY NON VASCULAR [US] Stat Exams 06/23/24 16:29 Ordered BMP Stat Lab 06/23/24 15:45 Completed CBC W DIFF Stat Lab 06/23/24 15:45 Completed PROTIME WITH INR Stat Lab 06/23/24 15:45 Completed Lab/Rad Data: Laboratory Result Diagrams 06/23/24 15:45 06/23/24 15:45 Laboratory Results 06/23/24 06/23/24 06/23/24 Range/Units 15:45 15:45 15:45 WBC 7.1 (4.23-9.07) x10^3/uL RBC 5.16 (4.63-6.08) x10^6/uL Hgb 15.1 (13.7-17.5) g/dL Hct 43.4 (40.1-51.0) % MCV 84.1 (79.0-92.2) fL MCH 29.3 (25.7-32.2) pg MCHC 34.8 (32.3-36.5) g/dL RDW 12.7 (11.6-14.4) % Plt Count 282 (163-337) x10^3/uL MPV 10.7 (9.4-12.4) fL Gran % 55.4 (34.0-67.9) % Immature Gran % (Auto) 0.1 (0.001-0.429) % Nucleat RBC Rel Count 0.0 (0.00-0.2) % Eos # (Auto) 0.16 (0.04-0.54) x10^3/uL Immature Gran # (Auto) 0.01 (0.001-0.031) x10^3u/L Absolute Lymphs (auto) 2.39 (1.32-3.57) x10^3/uL Absolute Monos (auto) 0.52 (0.30-0.82) x10^3/uL Absolute Nucleated RBC 0.00 (0.00-0.012) x10^3u/L Lymphocytes % 33.6 (21.8-53.1) % Monocytes % 7.3 (5.3-12.2) % Eosinophils % 2.3 (0.8-7.0) % Basophils % 1.3 H (0.2-1.2) % Absolute Granulocytes 3.94 (1.78-5.38) x10^3/uL Basophils # 0.09 H (0.01-0.08) x10^3/uL PT 10.3 (9.4-12.5) SECONDS INR 0.94 (0.8-3.0) Sodium 141 (135-145) mmol/L Potassium 3.6 (3.5-5.1) mmol/L Chloride 108 H (98-107) mmol/L Carbon Dioxide 24 (22-30) mmol/L Anion Gap 12.8 (5-15) MEQ/L BUN 17 (9-20) mg/dL Creatinine 1.10 (0.66-1.25) mg/dL Estimated GFR 84.9 ML/MIN Glucose 112 H (74-106) mg/dL Calcium 10.3 H (8.4-10.2) mg/dL - Progress Progress: unchanged Progress Note: 06/23/24 16:17 My medical decision making and the assignment of low to moderate complexity was based on review of the patient's past medical history, review of the patient's medication list, review patient drug allergy list, history present illness and physical findings on examination. The workup includes performing a CBC and BMP as well as a PT/INR. 06/23/24 16:39 I interpreted the patient's laboratory data results. Based on the laboratory data results, the patient's lab work does not show that there is an acute or emergent medical issue. I believe the presence of a radial arterial aneurysm is low. I initially ordered an ultrasound since the cloth washer back tender was coming in to do an ultrasound on another patient. However, I was informed by radiology that they cannot come in to do a radial ultrasound after hours or on weekends. The patient would have the wound/area explored before the radial arterial ultrasound would even be performed tomorrow. Therefore I am canceling this study. Counseled pt/family regarding: lab results, diagnosis, need for follow-up Medical Desision Making - Independent Historian Additional History obtained from: Clinical Staff Educator/EMT - Diagnostic Testing Diagnostic test were ordered, analyzed, and reviewed by me: Yes - Risk of complications Low Risk: Low risk of morbidity from additional dx testing or treatment - Departure Departure Disposition: Home Clinical Impression: Postoperative bleeding from incision Condition: Stable Critical Care Time: No Referrals: COMFORT CLOUD MD [Primary Care Provider] - Follow up/PCP as directed Additional Instructions: Keep this current pressure dressing in place. Continue your oral antibiotics. Do not take your Plavix. Keep your appointment with outpatient surgery at 6 AM on 06/24/2024.
[2024-06-23 15:52] LABS: Absolute Neutrophil Ct (ANC) 3.94 x10^3/uL (1.78-5.38); BASOPHIL % 1.3 % (0.2-1.2); Basophil (Absolute #) 0.09 x10^3/uL (0.01-0.08); Eosinophil % 2.3 % (0.8-7.0); Eosinophil (Absolute #) 0.16 x10^3/uL (0.04-0.54); Hematocrit 43.4 % (40.1-51.0); Hemoglobin 15.1 g/dL (13.7-17.5); IMMATURE GRAN # 0.01 x10^3u/L (0.001-0.031); IMMATURE GRAN % 0.1 % (0.001-0.429); Lymphocyte (Absolute #) 2.39 x10^3/uL (1.32-3.57); Lymphocytes % 33.6 % (21.8-53.1); Mean Cell Volume 84.1 fL (79.0-92.2); Mean Corpuscular Hemoglobin 29.3 pg (25.7-32.2); Mean Corpuscular Hgb Concent. 34.8 g/dL (32.3-36.5); Mean Platelet Volume 10.7 fL (9.4-12.4); Monocyte (Absolute #) 0.52 x10^3/uL (0.30-0.82); Monocytes % 7.3 % (5.3-12.2); Neutrophil % 55.4 % (34.0-67.9); Platelet Count 282 x10^3/uL (163-337); Red Blood Count 5.16 x10^6/uL (4.63-6.08); Red Cell Distribution Width 12.7 % (11.6-14.4); White Blood Count 7.1 x10^3/uL (4.23-9.07)
[2024-06-23 16:08] VITALS: RESP 18; TEMP 97.1
[2024-06-23 16:08] LABS: ANION GAP 12.8 MEQ/L (5-15); Calcium 10.3 mg/dL (8.4-10.2); Creatinine 1 1.1 mg/dL (0.66-1.25); EST GLOMERULAR FILTRATION RATE 84.9 ML/MIN; Potassium 3.6 mmol/L (3.5-5.1)
[2024-06-23 16:09] LABS: INR 0.94 (0.8-3.0); PROTIME 10.3 SECONDS (9.4-12.5)
[2024-06-23 16:52] VITALS: BP 143/92; PULSE 86; O2SAT 98
== END 2024-06-23 17:02 | disposition home or self-care (01) ==
LOC: ED 15:35
DX: L76.22 Postprocedural hemorrhage of skin and subcutaneous tissue following other procedure (principal); E78.5 Hyperlipidemia, unspecified; Z79.02 Long term (current) use of antithrombotics/antiplatelets; Z79.899 Other long term (current) drug therapy; Z72.0 Tobacco use
CPT/HCPCS: 36415; 80048; 85025; 85610; 99283

== ENCOUNTER 2024-06-24 05:50 | Day surgery (SDC) | payer OTHER ==
[2024-06-24] MEDS: CEFAZOLIN 2 GM/100 ML NaCl 2 GM/100 ML IVPB IV SCH (06:15)
[2024-06-24] MEDS: Lactated Ringers 1,000 ML IV SCH (06:15)
[2024-06-24] MEDS: Transderm Scop 1.5MG Patch TOP PRN (06:15)
[2024-06-24 06:24] VITALS: BP 123/76; PULSE 70; RESP 16; TEMP 97.1; O2SAT 97
[2024-06-24] MEDS ORDERED: Sensorcaine 0.25% 10 ML ONE (07:14)
== END 2024-06-24 08:30 | disposition home or self-care (01) ==
LOC: SDC 05:50
PROVIDERS: ATTEND Orthopaedic Surgery
DX: Z53.8 Procedure and treatment not carried out for other reasons (principal)
CPT/HCPCS: J0690; A9270-GY

== ENCOUNTER 2024-10-04 19:30 | Emergency (ER) | payer OTHER ==
[2024-10-04 19:36] VITALS: TEMP 98.4
--- NOTE | 2024-10-04 19:39 | ERPHSYRPT ---
- History of Present Illness Time Seen by Provider: 10/04/24 19:39 Historian: patient Exam Limitations: no limitations Physician History: He is a male who presents with chest pain. He experiences chest pain on the left side, described as a sensation of pressure 'like somebody's sitting on it,' which occasionally radiates as a sharp pain to the back. This pain necessitates stopping movement until it subsides before he can resume activity. He feels a little dizzy, particularly noting dizziness that began while driving to the appointment. No shortness of breath, fever, chills, or recent illness. Earlier this year, he had a previous episode during which an echocardiogram was performed. He was informed of an issue with his left ventricle's pumping function, although he cannot recall the specific details. Timing/Duration: today Activities at Onset: rest Quality: pressure, sharpness, tightness Location: substernal Chest Pain Radiation: arm Severity of Pain-Max: severe Severity of Pain-Current: moderate Modifying Factors: Improves With: nothing Associated Symptoms: palpitations, dizziness, No abdominal pain, No shortness of breath, No cough, No chills, No fever Prior Chest Pain/Cardiac Workup: no prior cardiac workup Nitro Today/Relief: 0.4 mg x 1, provided by ED, complete relief Aspirin Treatment Today: 81 mg x 4, provided by ED Allergies/Adverse Reactions: ketorolac [From Toradol] Adverse Reaction (Severe, Verified 10/04/24 19:31) suicidial ideation topiramate [From Topamax] Adverse Reaction (Severe, Verified 10/04/24 19:31) hyper, anxiety Home Medications: No Reportable Medications [No Reported Medications] 10/04/24 [History] Hx Tetanus, Diphtheria Vaccination/Date Given: Yes Hx Influenza Vaccination/Date Given: Yes Hx Pneumococcal Vaccination/Date Given: No Travel Risk - Emerging Infectious Disease Are you exhibiting symptoms associated with any current EIDs: No Symptoms: Abdominal Pain, Diarrhea, Vomitting - Review of Systems All Other Systems: Reviewed and Negative - Past Medical History Pertinent Past Medical History: Yes Neurological History: Stroke ENT History: No Pertinent History Cardiac History: Other Respiratory History: COPD Endocrine Medical History: No Pertinent History Musculoskeletal History: Other GI Medical History: GERD History: No Pertinent History Psycho-Social History: Anxiety, Attention Deficit Disorder, Depression, Other Male Reproductive Disorders: No Pertinent History Other Medical History: CVA (2017, with residual left-side numbness and weakness), insertable mold shifter (ICM, not a pacemaker or defibrillator), appendectomy (5th grade), heart catheterization (2019), Carpal Tunnel Syndrome - Past Surgical History Past Surgical History: Yes Neuro Surgical History: No Pertinent History Cardiac: No Pertinent History, Cardiac Catheterization Respiratory: No Pertinent History Gastrointestinal: Appendectomy Genitourinary: No Pertinent History Musculoskeletal: No Pertinent History Male Surgical History: Vasectomy Other Surgical History: skin CA on L shoulder colonoscopy Significant Family History: heart disease, hypertension, stroke - Social History Smoking Status: Current every day smoker How long have you smoked: 25 yrs Exposure to second hand smoke: No Drug Use: marijuana Patient Lives Alone: No - Social Determinants of Health Will the patient participate in the screening: Yes Do you worry about a steady place to live?: No In the past 12 months,have you had to go without utilities?: No Transportation Issues: No Has anyone in your support network made you feel unsafe?: No Have you or anyone in your house had to go without enough: No - Nursing Vital Signs Nursing Vital Signs: Initial Vital Signs Temperature 98.4 F 10/04/24 19:31 Pulse Rate 87 10/04/24 19:31 Respiratory Rate 16 10/04/24 19:31 Blood Pressure 169/89 10/04/24 19:31 O2 Sat by Pulse Oximetry 98 10/04/24 19:31 Pain Scale Pain Intensity 9 - Physical Exam General Appearance: no apparent distress Eye Exam: PERRL/EOMI Ears, Nose, Throat Exam: normal ENT inspection Respiratory Exam: normal breath sounds, lungs clear, airway intact, No chest tenderness, No respiratory distress Cardiovascular Exam: regular rate/rhythm, normal heart sounds, capillary refill <2 sec, No edema Gastrointestinal/Abdomen Exam: soft, No tenderness, No distention, No guarding, No rebound Extremity Exam: normal inspection, normal range of motion, No swelling, No tenderness Neurologic Exam: alert, oriented x 3, cooperative Skin Exam: normal color, warm, dry, No rash SpO2 Interpretation: normal SpO2: 98 O2 Delivery: Room Air - Course Nursing assessment & vital signs reviewed: Yes - CT Exams Chest CT Interpretation: Negative, Tele-radiologist Report Ordered Tests: Medication Summary Discontinued Medications Generic Name Dose Route Start Last Admin Trade Name Freq PRN Reason Stop Dose Admin Aspirin 324 mg 12/06/24 19:39 10/04/24 20:20 Aspirin 81 Mg Tab.Chew PO 10/04/24 19:40 324 mg STAT ONE Administration Aspirin Confirm 10/04/24 20:19 Aspirin 81 Mg Tab.Chew Administered 10/04/24 20:20 Dose 324 mg .ROUTE .STK-MED ONE Nitroglycerin 0.4 mg 10/04/24 19:39 10/04/24 20:20 Nitroglycerin 0.4 Mg (Ed) 0.4 Mg Tab.Subl SL 10/04/24 19:40 0.4 mg STAT ONE Administration Nitroglycerin Confirm 10/04/24 20:19 Nitroglycerin 0.4 Mg (Ed) 0.4 Mg Tab.Subl Administered 10/04/24 20:20 Dose 0.4 mg SL .STK-MED ONE Lab/Rad Data: Laboratory Result Diagrams 10/04/24 19:50 10/04/24 19:50 Laboratory Results 10/04/24 10/04/24 10/04/24 Range/Units 20:48 19:50 19:50 WBC (4.23-9.07) x10^3/uL RBC (4.63-6.08) x10^6/uL Hgb (13.7-17.5) g/dL Hct (40.1-51.0) % MCV (79.0-92.2) fL MCH (25.7-32.2) pg MCHC (32.3-36.5) g/dL RDW (11.6-14.4) % Plt Count (163-337) x10^3/uL MPV (9.4-12.4) fL Gran % (34.0-67.9) % Immature Gran % (Auto) (0.001-0.429) % Nucleat RBC Rel Count (0.00-0.2) % Eos # (Auto) (0.04-0.54) x10^3/uL Immature Gran # (Auto) (0.001-0.031) x10^3u/L Absolute Lymphs (auto) (1.32-3.57) x10^3/uL Absolute Monos (auto) (0.30-0.82) x10^3/uL Absolute Nucleated RBC (0.00-0.012) x10^3u/L Lymphocytes % (21.8-53.1) % Monocytes % (5.3-12.2) % Eosinophils % (0.8-7.0) % Basophils % (0.2-1.2) % Absolute Granulocytes (1.78-5.38) x10^3/uL Basophils # (0.01-0.08) x10^3/uL PT (9.4-12.5) SECONDS INR (0.8-3.0) APTT 32.2 (25.1-36.5) SECONDS D-Dimer 0.22 (0.0-0.50) mg/L Sodium (135-145) mmol/L Potassium (3.5-5.1) mmol/L Chloride (98-107) mmol/L Carbon Dioxide (22-30) mmol/L Anion Gap (5-15) MEQ/L BUN (9-20) mg/dL Creatinine (0.66-1.25) mg/dL Estimated GFR ML/MIN Glucose (74-106) mg/dL Calcium (8.4-10.2) mg/dL Magnesium (1.6-2.3) mg/dL Total Bilirubin (0.2-1.3) mg/dL AST (17-59) U/L ALT (0-50) U/L Alkaline Phosphatase (38-126) U/L Troponin I < 0.012 (0.000-0.033) ng/mL NT-Pro-B Natriuret Pep (<300) pg/mL Serum Total Protein (6.3-8.2) g/dL Albumin (3.5-5.0) g/dL TSH 3rd Generation (0.470-4.680) mIU/L Urine Opiates Level NEGATIVE (NEGATIVE) Ur Methadone NEGATIVE (NEGATIVE) Urine Barbiturates NEGATIVE (NEGATIVE) Ur Phencyclidine (PCP) NEGATIVE (NEGATIVE) Urine Amphetamine NEGATIVE (NEGATIVE) U Benzodiazepine Level NEGATIVE (NEGATIVE) Urine Cocaine NEGATIVE (NEGATIVE) Urine Marijuana (THC) POSITIVE A (NEGATIVE) 10/04/24 10/04/24 10/04/24 Range/Units 19:50 19:50 19:50 WBC (4.23-9.07) x10^3/uL RBC (4.63-6.08) x10^6/uL Hgb (13.7-17.5) g/dL Hct (40.1-51.0) % MCV (79.0-92.2) fL MCH (25.7-32.2) pg MCHC (32.3-36.5) g/dL RDW (11.6-14.4) % Plt Count (163-337) x10^3/uL MPV (9.4-12.4) fL Gran % (34.0-67.9) % Immature Gran % (Auto) (0.001-0.429) % Nucleat RBC Rel Count (0.00-0.2) % Eos # (Auto) (0.04-0.54) x10^3/uL Immature Gran # (Auto) (0.001-0.031) x10^3u/L Absolute Lymphs (auto) (1.32-3.57) x10^3/uL Absolute Monos (auto) (0.30-0.82) x10^3/uL Absolute Nucleated RBC (0.00-0.012) x10^3u/L Lymphocytes % (21.8-53.1) % Monocytes % (5.3-12.2) % Eosinophils % (0.8-7.0) % Basophils % (0.2-1.2) % Absolute Granulocytes (1.78-5.38) x10^3/uL Basophils # (0.01-0.08) x10^3/uL PT 10.7 (9.4-12.5) SECONDS INR 0.98 (0.8-3.0) APTT (25.1-36.5) SECONDS D-Dimer (0.0-0.50) mg/L Sodium 139 (135-145) mmol/L Potassium 3.7 (3.5-5.1) mmol/L Chloride 103 (98-107) mmol/L Carbon Dioxide 27 (22-30) mmol/L Anion Gap 12.5 (5-15) MEQ/L BUN 11 (9-20) mg/dL Creatinine 1.14 (0.66-1.25) mg/dL Estimated GFR 81.3 ML/MIN Glucose 90 (74-106) mg/dL Calcium 10.0 (8.4-10.2) mg/dL Magnesium 2.0 (1.6-2.3) mg/dL Total Bilirubin 1.10 (0.2-1.3) mg/dL AST 41 (17-59) U/L ALT 45 (0-50) U/L Alkaline Phosphatase 74 (38-126) U/L Troponin I (0.000-0.033) ng/mL NT-Pro-B Natriuret Pep 21.3 (<300) pg/mL Serum Total Protein 7.8 (6.3-8.2) g/dL Albumin 4.8 (3.5-5.0) g/dL TSH 3rd Generation 2.118 (0.470-4.680) mIU/L Urine Opiates Level (NEGATIVE) Ur Methadone (NEGATIVE) Urine Barbiturates (NEGATIVE) Ur Phencyclidine (PCP) (NEGATIVE) Urine Amphetamine (NEGATIVE) U Benzodiazepine Level (NEGATIVE) Urine Cocaine (NEGATIVE) Urine Marijuana (THC) (NEGATIVE) 10/04/24 Range/Units 19:50 WBC 8.5 (4.23-9.07) x10^3/uL RBC 5.71 (4.63-6.08) x10^6/uL Hgb 16.5 (13.7-17.5) g/dL Hct 46.6 (40.1-51.0) % MCV 81.6 (79.0-92.2) fL MCH 28.9 (25.7-32.2) pg MCHC 35.4 (32.3-36.5) g/dL RDW 12.6 (11.6-14.4) % Plt Count 260 (163-337) x10^3/uL MPV 10.4 (9.4-12.4) fL Gran % 63.8 (34.0-67.9) % Immature Gran % (Auto) 0.4 (0.001-0.429) % Nucleat RBC Rel Count 0.0 (0.00-0.2) % Eos # (Auto) 0.19 (0.04-0.54) x10^3/uL Immature Gran # (Auto) 0.03 (0.001-0.031) x10^3u/L Absolute Lymphs (auto) 2.15 (1.32-3.57) x10^3/uL Absolute Monos (auto) 0.62 (0.30-0.82) x10^3/uL Absolute Nucleated RBC 0.00 (0.00-0.012) x10^3u/L Lymphocytes % 25.4 (21.8-53.1) % Monocytes % 7.3 (5.3-12.2) % Eosinophils % 2.2 (0.8-7.0) % Basophils % 0.9 (0.2-1.2) % Absolute Granulocytes 5.40 H (1.78-5.38) x10^3/uL Basophils # 0.08 (0.01-0.08) x10^3/uL PT (9.4-12.5) SECONDS INR (0.8-3.0) APTT (25.1-36.5) SECONDS D-Dimer (0.0-0.50) mg/L Sodium (135-145) mmol/L Potassium (3.5-5.1) mmol/L Chloride (98-107) mmol/L Carbon Dioxide (22-30) mmol/L Anion Gap (5-15) MEQ/L BUN (9-20) mg/dL Creatinine (0.66-1.25) mg/dL Estimated GFR ML/MIN Glucose (74-106) mg/dL Calcium (8.4-10.2) mg/dL Magnesium (1.6-2.3) mg/dL Total Bilirubin (0.2-1.3) mg/dL AST (17-59) U/L ALT (0-50) U/L Alkaline Phosphatase (38-126) U/L Troponin I (0.000-0.033) ng/mL NT-Pro-B Natriuret Pep (<300) pg/mL Serum Total Protein (6.3-8.2) g/dL Albumin (3.5-5.0) g/dL TSH 3rd Generation (0.470-4.680) mIU/L Urine Opiates Level (NEGATIVE) Ur Methadone (NEGATIVE) Urine Barbiturates (NEGATIVE) Ur Phencyclidine (PCP) (NEGATIVE) Urine Amphetamine (NEGATIVE) U Benzodiazepine Level (NEGATIVE) Urine Cocaine (NEGATIVE) Urine Marijuana (THC) (NEGATIVE) - Progress Progress: improved Air Movement: good Progress Note: This patient presents with chest pain, with symptoms suggestive of noncardiac chest pain. History without high risk features. Exam without evidence of volume overload. EKG without signs of active ischemia. HEART score: 2. Given the timing of pain to ER presentation, plan to send single troponin to evaluate for NSTEMI. CTA chest ordered to r/o aortic dissection. Plan: labs, troponin, EKG, ASA, pain control, serial reassessment Nitro improved pain, CTA neg for dissection. Troponin and EKG neg. Advise close follow up with PCP for stress testing. Blood Culture(s) Obtained: No Antibiotics given: No Counseled pt/family regarding: lab results, diagnosis, need for follow-up, rad results Medical Desision Making - Diagnostic Testing Diagnostic test were ordered, analyzed, and reviewed by me: Yes Radiological Interpretation: Interpreted by me, Reviewed by me, Teleradiologist Report - Risk of complications The pt has a mod risk of morbidity or mortality based on: Need for prescription drug management - Departure Departure Disposition: Home Clinical Impression: Chest pain, Marijuana use Condition: Good Critical Care Time: No Referrals: COMFORT COLUD MD [Primary Care Provider] - Follow Up with PCP/3 days Instructions: Chest Pain (DC)
[2024-10-04 20:02] LABS: BASOPHIL % 0.9 % (0.2-1.2); Basophil (Absolute #) 0.08 x10^3/uL (0.01-0.08); Eosinophil % 2.2 % (0.8-7.0); Eosinophil (Absolute #) 0.19 x10^3/uL (0.04-0.54); Hematocrit 46.6 % (40.1-51.0); Hemoglobin 16.5 g/dL (13.7-17.5); IMMATURE GRAN # 0.03 x10^3u/L (0.001-0.031); IMMATURE GRAN % 0.4 % (0.001-0.429); Lymphocyte (Absolute #) 2.15 x10^3/uL (1.32-3.57); Lymphocytes % 25.4 % (21.8-53.1); Mean Cell Volume 81.6 fL (79.0-92.2); Mean Corpuscular Hemoglobin 28.9 pg (25.7-32.2); Mean Corpuscular Hgb Concent. 35.4 g/dL (32.3-36.5); Mean Platelet Volume 10.4 fL (9.4-12.4); Monocyte (Absolute #) 0.62 x10^3/uL (0.30-0.82); Monocytes % 7.3 % (5.3-12.2); Neutrophil % 63.8 % (34.0-67.9); Platelet Count 260 x10^3/uL (163-337); Red Blood Count 5.71 x10^6/uL (4.63-6.08); Red Cell Distribution Width 12.6 % (11.6-14.4); White Blood Count 8.5 x10^3/uL (4.23-9.07)
[2024-10-04] MEDS ORDERED: BABY ASPIRIN 81 MG CHEW ONE (20:19)
[2024-10-04] MEDS ORDERED: Nitrostat 0.4 MG (ED) SL ONE (20:19)
[2024-10-04] MEDS: Nitrostat 0.4 MG (ED) SL ONE (20:20)
[2024-10-04] MEDS: BABY ASPIRIN 81 MG CHEW PO ONE (20:20)
[2024-10-04 20:30] LABS: ALBUMIN 4.8 g/dL (3.5-5.0); ANION GAP 12.5 MEQ/L (5-15); BILIRUBIN,TOTAL 1.1 mg/dL (0.2-1.3); Creatinine 1 1.14 mg/dL (0.66-1.25); EST GLOMERULAR FILTRATION RATE 81.3 ML/MIN; NT PRO BNPII 21.3 pg/mL (<300); Potassium 3.7 mmol/L (3.5-5.1); Total Protein 7.8 g/dL (6.3-8.2)
[2024-10-04 21:19] LABS: Amphetamine,Urine NEGATIVE (NEGATIVE); Barbiturate,Urine NEGATIVE (NEGATIVE); Benzodiazepine,Urine NEGATIVE (NEGATIVE); Cocaine,Urine NEGATIVE (NEGATIVE); Methadone,Urine NEGATIVE (NEGATIVE); Opiate,Urine NEGATIVE (NEGATIVE); PCP,Urine NEGATIVE (NEGATIVE); THC,Urine POSITIVE (NEGATIVE)
[2024-10-04 21:26] LABS: D-DIMER QUANTITATIVE 0.22 mg/L (0.0-0.50); PTT 32.2 SECONDS (25.1-36.5)
[2024-10-04 21:47] VITALS: BP 116/79; PULSE 77; RESP 20
[2024-10-04 22:47] LABS: INR 0.98 (0.8-3.0); PROTIME 10.7 SECONDS (9.4-12.5)
--- NOTE | 2024-10-05 08:09 | XRAY ---
Indication: Chest pain. Conventional contrast enhanced CTA chest performed using 80 cc Isovue 370 contrast. 2-D sagittal and coronal reformatted images obtained. Comparison: CT chest PE exam September 26, 2023 Normal CTA appearance to the thoracic aorta. Heart not enlarged. Stable small right hilar calcified nodes. No pathologic mediastinal/hilar lymphadenopathy. No pericardial effusion. Lungs demonstrates stable tiny right upper lobe calcified granuloma. No suspicious pulmonary mass/nodule, infiltrate, effusion, or pneumothorax. Bony thorax intact again with minimal degenerative changes throughout spine and minimal dextroscoliosis. Limited upper abdomen again demonstrates fatty liver. Impression: Normal CTA chest with contrast exam. Again incidental fatty liver, chronic bony findings, and old granulomatous disease.
[2024-10-06 22:47] VITALS: O2SAT 98
== END 2024-10-04 21:45 | disposition home or self-care (01) ==
LOC: ED 19:30
DX: R07.9 Chest pain, unspecified (principal); R42 Dizziness and giddiness; F12.90 Cannabis use, unspecified, uncomplicated; Z86.73 Personal history of transient ischemic attack (TIA), and cerebral infarction without residual deficits
CPT/HCPCS: 36415; 71275; 80053; 80307; 83735; 83880; 84443; 84484; 85025; 85379; 85610; 85730; 93005; 93041; 99284; 99285; A9270-GY

== ENCOUNTER 2024-12-09 20:43 | Emergency (ER) | payer OTHER | END 2024-12-09 20:55 | disposition left against medical advice (07) | LOC: ED 20:43 | DX: Z53.21 Procedure and treatment not carried out due to patient leaving prior to being seen by health care provider (principal) ==

== ENCOUNTER 2025-02-06 13:14 | Emergency (ER) | payer OTHER ==
[2025-02-06 13:31] VITALS: TEMP 98.4; O2SAT 98
[2025-02-06 14:05] LABS: Absolute Neutrophil Ct (ANC) 2.69 x10^3/uL (1.78-5.38); BASOPHIL % 1.4 % (0.2-1.2); Basophil (Absolute #) 0.06 x10^3/uL (0.01-0.08); Eosinophil % 1.9 % (0.8-7.0); Eosinophil (Absolute #) 0.08 x10^3/uL (0.04-0.54); Hematocrit 46.3 % (40.1-51.0); Hemoglobin 16.5 g/dL (13.7-17.5); IMMATURE GRAN # 0.02 x10^3u/L (0.001-0.031); IMMATURE GRAN % 0.5 % (0.001-0.429); Lymphocyte (Absolute #) 0.81 x10^3/uL (1.32-3.57); Lymphocytes % 18.8 % (21.8-53.1); Mean Cell Volume 81.8 fL (79.0-92.2); Mean Corpuscular Hemoglobin 29.2 pg (25.7-32.2); Mean Corpuscular Hgb Concent. 35.6 g/dL (32.3-36.5); Mean Platelet Volume 10.1 fL (9.4-12.4); Monocyte (Absolute #) 0.65 x10^3/uL (0.30-0.82); Monocytes % 15.1 % (5.3-12.2); Neutrophil % 62.3 % (34.0-67.9); Platelet Count 220 x10^3/uL (163-337); Red Blood Count 5.66 x10^6/uL (4.63-6.08); Red Cell Distribution Width 12.5 % (11.6-14.4); White Blood Count 4.3 x10^3/uL (4.23-9.07)
[2025-02-06] MEDS ORDERED: DUONEB 0.5-3 MG/3 ml Neb IH ONE (14:05)
[2025-02-06] MEDS: DUONEB 0.5-3 MG/3 ml Neb IH ONE (14:09)
[2025-02-06 14:12] VITALS: BP 123/79; PULSE 90; RESP 18
[2025-02-06] MEDS ORDERED: Sterile H2O 10 ml IJ ONE (14:14)
[2025-02-06] MEDS ORDERED: solu-MEDROL ONE (14:14)
[2025-02-06 14:17] LABS: ALBUMIN 4.7 g/dL (3.5-5.0); ANION GAP 16.1 MEQ/L (5-15); BILIRUBIN,TOTAL 0.8 mg/dL (0.2-1.3); Calcium 9.1 mg/dL (8.4-10.2); Creatinine 1 0.73 mg/dL (0.66-1.25); EST GLOMERULAR FILTRATION RATE 115.1 ML/MIN; Potassium 3.6 mmol/L (3.5-5.1)
[2025-02-06] MEDS: solu-MEDROL 125 MG, Sterile H2O 10 ml 2 ML IV ONE (14:17)
--- NOTE | 2025-02-06 14:20 | XRAY ---
Indication: Cough. Short of breath. Comparison: May 24, 2024 Portable chest unchanged again hyperinflated and clear with incidental right apical calcified granuloma. Heart not enlarged. Bony thorax intact again with osteopenia, degenerative changes, minimal scoliosis, and loop recorder overlying heart. Impression: Continued nonacute chest with chronic features.
[2025-02-06 15:02] LABS: INFLUENZA A NEGATIVE (NEGATIVE); INFLUENZA B NEGATIVE (NEGATIVE); RESPIRATORY SYNCTIAL VIRUS NEGATIVE (NEGATIVE); SARS-CoV-2 Xpert Express NEGATIVE (NEGATIVE)
--- NOTE | 2025-02-06 15:29 | ERPHSYRPT ---
- History of Present Illness Time Seen by Provider: 02/06/25 13:15 Source: patient Exam Limitations: no limitations Patient Subjective Stated Complaint: patient presented to ER with couch said he's been coughing so much his chest hurts Triage Nursing Assessment: patient is alert and oriented x3, ambulates by self, lung sounds have crackles , did not hear any audible wheezes. no edema, pupils perrla4, Physician History: 44-year-old male with history of COPD, tobacco use, GERD, chronic back pain presented in the ER with 3 to 4 days history of sinus/nasal congestion with bodyaches, headache and gradually worsening nonproductive cough along with generalized chest soreness. Patient also report having a fever of 100.5 earlier today. Patient denies any palpitations or shortness of breath. Positive sick contact with other coworkers. Allergies/Adverse Reactions: ketorolac [From Toradol] Adverse Reaction (Severe, Verified 10/04/24 19:31) suicidial ideation topiramate [From Topamax] Adverse Reaction (Severe, Verified 10/04/24 19:31) hyper, anxiety Home Medications: Hydrocodone/Acetaminophen [Hydrocodone-Acetamin 7.5-325] 1 each PO HS 02/06/25 [History] Ibuprofen 800 mg PO TID 02/06/25 [History] Omeprazole 40 mg PO DAILY 02/06/25 [History] Sertraline HCl [Zoloft] 25 mg PO DAILY 02/06/25 [History] Simvastatin 40 mg PO DAILY 02/06/25 [History] Hx Tetanus, Diphtheria Vaccination/Date Given: Yes Hx Influenza Vaccination/Date Given: Yes Hx Pneumococcal Vaccination/Date Given: No Travel Risk - International Travel Have you traveled outside of the country in past 3 weeks: No - Emerging Infectious Disease Are you exhibiting symptoms associated with any current EIDs: No Symptoms: Abdominal Pain, Diarrhea, Vomitting - Review of Systems Constitutional: Fever, Fatigue, Weakness Eyes: No Symptoms Ears, Nose, & Throat: Nose Congestion, Sinus Drainage Respiratory: Cough, Wheezing Abdominal/Gastrointestinal: No Symptoms Musculoskeletal: Arthralgias, Back Pain, Myalgias Skin: No Symptoms Neurological: Headache Endocrine: No Symptoms Hematologic/Lymphatic: No Symptoms - Past Medical History Pertinent Past Medical History: Yes Neurological History: Migraines, TIA ENT History: No Pertinent History Cardiac History: High Cholesterol, Hypertension Respiratory History: Asthma Endocrine Medical History: Liver Disease Musculoskeletal History: Osteoarthritis GI Medical History: GERD History: No Pertinent History Psycho-Social History: Anxiety, Attention Deficit Disorder, Depression, Other Male Reproductive Disorders: No Pertinent History Other Medical History: PSH: APPENDECTOMY, VASECTOMY, EXCISION OF BASAL CELL CARCINOMA, CARDIAC CATH, EXCISION GANGLION CYST, IMPLANTED HEART MONITOR. PMH: GERD - Past Surgical History Past Surgical History: Yes Neuro Surgical History: No Pertinent History Cardiac: No Pertinent History, Cardiac Catheterization Respiratory: No Pertinent History Gastrointestinal: Appendectomy Genitourinary: No Pertinent History Musculoskeletal: No Pertinent History Male Surgical History: Vasectomy Other Surgical History: skin CA on L shoulder colonoscopy Significant Family History: heart disease, hypertension, stroke - Social History Smoking Status: Current every day smoker How long have you smoked: 25 yrs Exposure to second hand smoke: No Drug Use: marijuana - Social Determinants of Health Will the patient participate in the screening: Yes Do you worry about a steady place to live?: No Do you have any problems with any of the following?: No known problems In the past 12 months,have you had to go without utilities?: No Transportation Issues: No Has anyone in your support network made you feel unsafe?: No Have you or anyone in your house had to go w/o enough food: No - Nursing Vital Signs Nursing Vital Signs: Initial Vital Signs Temperature 98.4 F 02/06/25 13:14 Pulse Rate 77 02/06/25 13:14 Respiratory Rate 16 02/06/25 13:14 Blood Pressure 136/89 02/06/25 13:14 O2 Sat by Pulse Oximetry 98 02/06/25 13:14 Pain Scale Pain Intensity 10 - Physical Exam General Appearance: no apparent distress, alert Eye Exam: PERRL/EOMI Ears, Nose, Throat Exam: moist mucous membranes, pharyngeal erythema, other (Bilateral mild maxillary sinus tenderness) Neck Exam: normal inspection, non-tender, supple, full range of motion, No meningismus Respiratory Exam: wheezing, No respiratory distress, No accessory muscle use Cardiovascular Exam: regular rate/rhythm, normal heart sounds Gastrointestinal/Abdomen Exam: soft, No tenderness Back Exam: normal inspection Extremity Exam: normal inspection, normal range of motion Neurologic Exam: alert, oriented x 3, 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, 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 Skin Exam: normal color SpO2 Interpretation: normal SpO2: 98 O2 Delivery: Room Air - Course EKG Interpreted by Me: RATE ([id number]), Sinus Rhythm, Right [place] Deviation, NORMAL INTERVALS, NORMAL QRS Ordered Tests: Active Orders 24 hr Category Date Time Status CHEST 1 VIEW (PORTABLE) Stat Exams 02/06/25 14:00 Completed BLOOD CULTURE Stat Lab 02/06/25 14:19 Received CBC W DIFF Stat Lab 02/06/25 13:50 Completed CMP Stat Lab 02/06/25 13:50 Completed Lactic Acid Stat Lab 02/06/25 14:15 Completed MAGNESIUM Stat Lab 02/06/25 13:50 Completed TROPONIN Q4H Lab 02/06/25 13:50 Completed TROPONIN Q4H Lab 02/06/25 18:00 Ordered TROPONIN Q4H Lab 02/06/25 22:00 Ordered Respiratory Therapy Assessment DAILY RT 02/06/25 14:09 Active Medication Summary Discontinued Medications Generic Name Dose Route Start Last Admin Trade Name Freq PRN Reason Stop Dose Admin Albuterol/Ipratropium 3 ml 02/06/25 13:59 02/06/25 14:09 Ipratropium/Albuterol Sulfate 3 Ml Ampul.Neb IH 02/06/25 14:00 3 ml STAT ONE Administration Albuterol/Ipratropium Confirm 02/06/25 14:05 Ipratropium/Albuterol Sulfate 3 Ml Ampul.Neb Administered 02/06/25 14:06 Dose 3 ml IH .STK-MED ONE Methylprednisolone Sodium 0 mg 02/06/25 13:59 02/06/25 14:17 Succinate 125 mg/ Sterile IV 02/06/25 14:00 125 mg Water 2 ml STAT ONE Administration Methylprednisolone Sodium Succinate Confirm 02/06/25 14:14 Methylprednis Sod Succ 125 Mg/2 Ml Vial Administered 02/06/25 14:15 Dose 125 mg .ROUTE .STK-MED ONE Sterile Water Confirm 02/06/25 14:14 Water For Injection,Sterile 10 Ml Vial Administered 02/06/25 14:15 Dose 10 ml IJ .STK-MED ONE Lab/Rad Data: Laboratory Result Diagrams 02/06/25 13:50 02/06/25 13:50 Laboratory Results 02/06/25 02/06/25 02/06/25 Range/Units 14:19 14:15 13:50 WBC (4.23-9.07) x10^3/uL RBC (4.63-6.08) x10^6/uL Hgb (13.7-17.5) g/dL Hct (40.1-51.0) % MCV (79.0-92.2) fL MCH (25.7-32.2) pg MCHC (32.3-36.5) g/dL RDW (11.6-14.4) % Plt Count (163-337) x10^3/uL MPV (9.4-12.4) fL Gran % (34.0-67.9) % Immature Gran % (Auto) (0.001-0.429) % Nucleat RBC Rel Count (0.00-0.2) % Eos # (Auto) (0.04-0.54) x10^3/uL Immature Gran # (Auto) (0.001-0.031) x10^3u/L Absolute Lymphs (auto) (1.32-3.57) x10^3/uL Absolute Monos (auto) (0.30-0.82) x10^3/uL Absolute Nucleated RBC (0.00-0.012) x10^3u/L Lymphocytes % (21.8-53.1) % Monocytes % (5.3-12.2) % Eosinophils % (0.8-7.0) % Basophils % (0.2-1.2) % Absolute Granulocytes (1.78-5.38) x10^3/uL Basophils # (0.01-0.08) x10^3/uL Sodium (135-145) mmol/L Potassium (3.5-5.1) mmol/L Chloride (98-107) mmol/L Carbon Dioxide (22-30) mmol/L Anion Gap (5-15) MEQ/L BUN (9-20) mg/dL Creatinine (0.66-1.25) mg/dL Estimated GFR ML/MIN Glucose (74-106) mg/dL Lactic Acid 1.7 (0.4-2.0) Calcium (8.4-10.2) mg/dL Magnesium (1.6-2.3) mg/dL Total Bilirubin (0.2-1.3) mg/dL AST (17-59) U/L ALT (0-50) U/L Alkaline Phosphatase (38-126) U/L Troponin I < 0.012 (0.000-0.033) ng/mL Serum Total Protein (6.3-8.2) g/dL Albumin (3.5-5.0) g/dL Influenza Type A Ag NEGATIVE (NEGATIVE) Influenza Type B Ag NEGATIVE (NEGATIVE) RSV (PCR) NEGATIVE (NEGATIVE) SARS-CoV-2 (PCR) NEGATIVE (NEGATIVE) 02/06/25 02/06/25 Range/Units 13:50 13:50 WBC 4.3 (4.23-9.07) x10^3/uL RBC 5.66 (4.63-6.08) x10^6/uL Hgb 16.5 (13.7-17.5) g/dL Hct 46.3 (40.1-51.0) % MCV 81.8 (79.0-92.2) fL MCH 29.2 (25.7-32.2) pg MCHC 35.6 (32.3-36.5) g/dL RDW 12.5 (11.6-14.4) % Plt Count 220 (163-337) x10^3/uL MPV 10.1 (9.4-12.4) fL Gran % 62.3 (34.0-67.9) % Immature Gran % (Auto) 0.5 H (0.001-0.429) % Nucleat RBC Rel Count 0.0 (0.00-0.2) % Eos # (Auto) 0.08 (0.04-0.54) x10^3/uL Immature Gran # (Auto) 0.02 (0.001-0.031) x10^3u/L Absolute Lymphs (auto) 0.81 L (1.32-3.57) x10^3/uL Absolute Monos (auto) 0.65 (0.30-0.82) x10^3/uL Absolute Nucleated RBC 0.00 (0.00-0.012) x10^3u/L Lymphocytes % 18.8 L (21.8-53.1) % Monocytes % 15.1 H (5.3-12.2) % Eosinophils % 1.9 (0.8-7.0) % Basophils % 1.4 H (0.2-1.2) % Absolute Granulocytes 2.69 (1.78-5.38) x10^3/uL Basophils # 0.06 (0.01-0.08) x10^3/uL Sodium 140 (135-145) mmol/L Potassium 3.6 (3.5-5.1) mmol/L Chloride 104 (98-107) mmol/L Carbon Dioxide 23 (22-30) mmol/L Anion Gap 16.1 H (5-15) MEQ/L BUN 10 (9-20) mg/dL Creatinine 0.73 (0.66-1.25) mg/dL Estimated GFR 115.1 ML/MIN Glucose 91 (74-106) mg/dL Lactic Acid (0.4-2.0) Calcium 9.1 (8.4-10.2) mg/dL Magnesium 2.0 (1.6-2.3) mg/dL Total Bilirubin 0.80 (0.2-1.3) mg/dL AST 36 (17-59) U/L ALT 39 (0-50) U/L Alkaline Phosphatase 67 (38-126) U/L Troponin I (0.000-0.033) ng/mL Serum Total Protein 7.0 (6.3-8.2) g/dL Albumin 4.7 (3.5-5.0) g/dL Influenza Type A Ag (NEGATIVE) Influenza Type B Ag (NEGATIVE) RSV (PCR) (NEGATIVE) SARS-CoV-2 (PCR) (NEGATIVE) - Progress Progress: improved, re-examined Air Movement: good Progress Note: 02/06/25 15:33 44-year-old is evaluated in the ER for URI symptoms with gradual worsening cough and some wheezing. Patient had minimal wheezing, given DuoNeb and Solu-Medrol, feeling much improved on reevaluation. Chest x-ray is negative for any acute cardiopulmonary findings reviewed by me followed by official read. Workup showed normal white count, chemistries fairly unremarkable and negative troponins. EKG is normal sinus rhythm with no acute ischemic changes. Has negative COVID flu and RSV. Patient's symptoms are not cardiac etiology but more of a infectious etiology possible URI with cough congestion and some element of COPD exacerbation. I do not think patient needs antibiotic, we will treat him with steroid and inhaler and outpatient follow-up recommended. Discussed signs symptoms of worsening and return to ER which he seems understanding. Stable for discharge. Complexity of problems addressed: Moderate Complexity of data reviewed/analyzed: Moderate Risk of complication: Moderate Blood Culture(s) Obtained: Yes Antibiotics given: No Counseled pt/family regarding: lab results, diagnosis, need for follow-up, rad results, smoking cessation Medical Desision Making - Diagnostic Testing Diagnostic test were ordered, analyzed, and reviewed by me: Yes Radiological Interpretation: Interpreted by me, Reviewed by me - Risk of complications The pt has a mod risk of morbidity or mortality based on: Need for prescription drug management - Departure Departure Disposition: Home Clinical Impression: COPD with acute bronchitis, Upper respiratory infection with cough and conges tion Condition: Stable Critical Care Time: No Referrals: COMFORT CLOUD MD [Primary Care Provider] - Follow up with PCP 1 day Instructions: Chronic Obstructive Pulmonary Disease, Cough, Adult (DC) Additional Instructions: Continue with inhaler which you have at home. Do not smoke. Take Tylenol/ibuprofen as needed. Follow-up with primary care for reevaluation. Return to ER for worsening of cough or if develop difficulty breathing, persistent high-grade fever chills etc. Prescriptions: Prednisone 20 mg [Deltasone 20 mg] 60 mg PO DAILY 5 Days #15 tablet
== END 2025-02-06 15:53 | disposition home or self-care (01) ==
LOC: ED 13:14
DX: J44.0 Chronic obstructive pulmonary disease with (acute) lower respiratory infection (principal); J20.9 Acute bronchitis, unspecified; R05.1 Acute cough; R09.81 Nasal congestion; M79.10 Myalgia, unspecified site; R51.9 Headache, unspecified; R50.9 Fever, unspecified; E78.5 Hyperlipidemia, unspecified; I10 Essential (primary) hypertension; Z79.891 Long term (current) use of opiate analgesic; Z79.899 Other long term (current) drug therapy; Z72.0 Tobacco use
CPT/HCPCS: 0241U; 36415; 71045; 80053; 83605; 83735; 84484; 85025; 87040; 93005; 94640; 96374; 99285; 99283; 99284; J2919; A9270-GY

== ENCOUNTER 2025-03-06 18:27 | Emergency (ER) | payer OTHER | END 2025-03-06 19:24 | disposition left against medical advice (07) | LOC: ED 18:27 | DX: Z53.21 Procedure and treatment not carried out due to patient leaving prior to being seen by health care provider (principal) | CPT/HCPCS: 99281 ==

== ENCOUNTER 2025-07-19 23:15 | Emergency (ER) | payer OTHER ==
[2025-07-19 23:26] VITALS: TEMP 97.5
--- NOTE | 2025-07-19 23:47 | ERPHSYRPT ---
- History of Present Illness Time Seen by Provider: 07/19/25 23:45 Source: patient, family Exam Limitations: no limitations Physician History: Pt had onset of pain right knee and pelvis/lumbar spine when he fell back going up 2 steps and landed on his lower back. No LOC no other areas of pain . abd soft nontender without peritoneal signs. N/V intact right knee. Discussed with pt and available family risks and benefits of testing/Tx including UA, CBC, CT Right knee , pelvis and lumbar spine ,, declines pain med, and they wish to proceed so these are ordered. Results discussed with pt and available family Pt and family were advised of the limitations of the testing and Tx performed today in this setting and that we have not yet determined a precise cause for their symptoms and there still could be additional pathology of a serious nature evolving undetected. They voice their understanding and wish to choose outpatient f/u rather than further testing in ER or admission to hospital or transfer at this time and they have the capacity to make this choice. Occurred: just prior to arrival Reason for Fall: tripped, fell from height Injuries/Pain Location: back, pelvis Loss of Consciousness: no loss of consciousness Severity of Pain-Max: moderate Severity of Pain-Current: moderate Associated Symptoms (Fall): denies symptoms Allergies/Adverse Reactions: ketorolac [From Toradol] Adverse Reaction (Severe, Verified 07/19/25 23:27) suicidial ideation topiramate [From Topamax] Adverse Reaction (Severe, Verified 07/19/25 23:27) hyper, anxiety Home Medications: Ibuprofen 800 mg PO TID PRN PRN 02/06/25 [History] Omeprazole 40 mg PO BID 02/06/25 [History] Sertraline HCl [Zoloft] 25 mg PO HS 02/06/25 [History] Simvastatin 40 mg PO HS 02/06/25 [History] Aspirin EC 81 mg [Ecotrin 81 mg] 1 tab PO DAILY 07/19/25 [History] Clopidogrel Bisulfate [Plavix] 1 tab PO DAILY 07/19/25 [History] Hydrocodone/Acetaminophen [Hydrocodone-Acetamin 7.5-325] 1 tab PO TID 07/19/25 [History] Hx Tetanus, Diphtheria Vaccination/Date Given: Yes Hx Influenza Vaccination/Date Given: Yes Hx Pneumococcal Vaccination/Date Given: No Travel Risk - Emerging Infectious Disease Are you exhibiting symptoms associated with any current EIDs: No Symptoms: Abdominal Pain, Diarrhea, Vomitting - Review of Systems Constitutional: No Fever, No Chills Eyes: No Symptoms Ears, Nose, & Throat: No Symptoms Respiratory: No Cough, No Dyspnea Cardiac: No Chest Pain, No Edema, No Syncope Abdominal/Gastrointestinal: No Abdominal Pain, No Nausea, No Vomiting, No Diarrhea Genitourinary Symptoms: No Dysuria Musculoskeletal: Back Pain, Fall, Injury, Joint Pain, No Neck Pain Skin: No Rash Neurological: No Dizziness, No Focal Weakness, No Sensory Changes Psychological: No Symptoms Endocrine: No Symptoms Hematologic/Lymphatic: No Symptoms Immunological/Allergic: No Symptoms All Other Systems: Reviewed and Negative - Past Medical History Pertinent Past Medical History: Yes Neurological History: Stroke Cardiac History: High Cholesterol, Other Respiratory History: COPD, Emphysema Endocrine Medical History: No Pertinent History Musculoskeletal History: Other Other Medical History: smoking cessation (x2 weeks ago), 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, 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 (ICM, not a pacemaker or difibrillator), back pain, degenerative disc, L4-L5 bulging disc, appendectomy (5th grade), heart catheterization (2019), R carpal tunnel syndrome (s/p release in 02/2025), GERD, Anxiety, ADD, Depression, PTSD, vasectomy, skin cancer on L shoulder (removed) - Past Surgical History Past Surgical History: Yes Neuro Surgical History: No Pertinent History Cardiac: No Pertinent History, Cardiac Catheterization Respiratory: No Pertinent History Gastrointestinal: Appendectomy Genitourinary: No Pertinent History Musculoskeletal: No Pertinent History Male Surgical History: Vasectomy Other Surgical History: skin CA on L shoulder colonoscopy Significant Family History: heart disease, hypertension, stroke - Social History Smoking Status: Current every day smoker How long have you smoked: 25 yrs Exposure to second hand smoke: No Drug Use: marijuana - Social Determinants of Health Will the patient participate in the screening: Yes Do you worry about a steady place to live?: No In the past 12 months,have you had to go without utilities?: No Transportation Issues: No Has anyone in your support network made you feel unsafe?: No Have you or anyone in your house had to go w/o enough food: No - Nursing Vital Signs Nursing Vital Signs: Initial Vital Signs O2 Sat by Pulse Oximetry 99 09/20/25 23:24 Pain Scale Pain Intensity 7 - [place] Coma Score Best Eye Response ([place]): (4) open spontaneously Best Verbal Response ([place]): (5) oriented Best Motor Response ([place]): (6) obeys commands [place] Total: 15 - Physical Exam General Appearance: no apparent distress, alert Head Injury: no evidence of injury Eye Exam: PERRL/EOMI ENT Exam: airway nml Neck Exam: normal inspection, No tenderness Respiratory/Chest Exam: normal breath sounds, No chest tenderness, No respiratory distress Cardiovascular Exam: normal heart sounds, regular rate/rhythm Gastrointestinal Exam: soft, No tenderness, No distention, No guarding, No ecchymosis Rectal Exam: deferred Back Exam: normal inspection, No vertebral tenderness Extremity Exam: normal inspection, normal range of motion, pelvis stable, limited range of motion (right knee), bony point tenderness (lumbar ), No deformities Peripheral Pulses: carotid (R): 2+, carotid (L): 2+, femoral (R): 2+, femoral (L): 2+, dorsalis-pedis (R): 2+, dorsalis-pedis (L): 2+ Neurologic Exam: alert, oriented x 3, cooperative, sensation nml, No motor deficits Skin Exam: normal color, warm, dry SpO2 Interpretation: normal SpO2: 97 O2 Delivery: Room Air - Course Nursing assessment & vital signs reviewed: Yes - CT Exams Lumbar Spine CT Interpretation: Tele-radiologist Report, No Fracture, Other (DDD/DJD multi- level) Right Lower Extremity CT Interpretation: Tele-radiologist Report, No Fracture, Other (bakers cyst) Pelvis CT Interpretation: Tele-radiologist Report, No Fracture Ordered Tests: Active Orders 24 hr Category Date Time Status LOWER EXTREMITY WO CONTRAST [CT] Stat Exams 07/20/25 00:07 Completed LUMBAR SPINE W/O [CT] Stat Exams 07/20/25 00:06 Completed PELVIS WITHOUT CONTRAST [CT] Stat Exams 07/20/25 00:06 Completed CBC W DIFF Stat Lab 07/20/25 00:35 Completed UA W/RFX UR CULTURE Stat Lab 07/20/25 01:09 Completed Lab/Rad Data: Laboratory Result Diagrams 07/20/25 00:35 Laboratory Results 07/20/25 07/20/25 Range/Units 01:09 00:35 WBC 5.3 (4.23-9.07) x10^3/uL RBC 4.95 (4.63-6.08) x10^6/uL Hgb 14.6 (13.7-17.5) g/dL Hct 42.2 (40.1-51.0) % MCV 85.3 (79.0-92.2) fL MCH 29.5 (25.7-32.2) pg MCHC 34.6 (32.3-36.5) g/dL RDW 12.6 (11.6-14.4) % Plt Count 219 (163-337) x10^3/uL MPV 10.2 (9.4-12.4) fL Gran % 47.1 (34.0-67.9) % Immature Gran % (Auto) 0.2 (0.001-0.429) % Nucleat RBC Rel Count 0.0 (0.00-0.2) % Eos # (Auto) 0.22 (0.04-0.54) x10^3/uL Immature Gran # (Auto) 0.01 (0.001-0.031) x10^3u/L Absolute Lymphs (auto) 1.96 (1.32-3.57) x10^3/uL Absolute Monos (auto) 0.53 (0.30-0.82) x10^3/uL Absolute Nucleated RBC 0.00 (0.00-0.012) x10^3u/L Lymphocytes % 37.0 (21.8-53.1) % Monocytes % 10.0 (5.3-12.2) % Eosinophils % 4.2 (0.8-7.0) % Basophils % 1.5 H (0.2-1.2) % Absolute Granulocytes 2.50 (1.78-5.38) x10^3/uL Basophils # 0.08 (0.01-0.08) x10^3/uL Urine Color Dark Yellow (Yellow) Urine Appearance Clear (Clear) Urine pH 5.5 (4.6-8.0) Ur Specific [place] >=1.030 A (1.005-1.030) Urine Protein Trace A (Negative) Urine Glucose (UA) Negative (Negative) mg/dL Urine Ketones Trace A (Negative) Urine Blood Negative (Negative) Urine Nitrite Negative (Negative) Urine Bilirubin Small A (Negative) Urine Urobilinogen 1.0 A (0.2) mg/dL Ur Leukocyte Esterase Negative (Negative) Urine Microscopic RBC 3-5 (0-5) /HPF Urine Microscopic WBC 0-2 (0-5) /HPF Ur Epithelial Cells None Seen (None Seen) /HPF Urine Bacteria None Seen (None Seen) /HPF Urine Culture Reflexed NO (NO) - Progress Progress: improved, re-examined Progress Note: 07/20/25 02:15 pt advised of risks of additional pathology from his fall and he prefers DC with outpt f/u rather than further w/u in ER at this time and has the capacity to make this choice. Counseled pt/family regarding: lab results, diagnosis, need for follow-up, rad results Medical Desision Making - Independent Historian Additional History obtained from: Family - Discussion of managment Reviewed:: Test results, Need for additional workup Agreed on:: Treatment plan, need for follow-up - Diagnostic Testing Diagnostic test were ordered, analyzed, and reviewed by me: Yes Radiological Interpretation: Teleradiologist Report - Risk of complications The pt has a mod risk of morbidity or mortality based on: Need for prescription drug management - Departure Clinical Impression: Lopez's cyst of knee, contusion lumbar spine and pelvis, Right knee injury Condition: Good Critical Care Time: No Referrals: COMFORT CLOUD MD [Primary Care Provider, [facility]] - Follow up/PCP as directed Instructions: Lopez's Cyst (DC), Preventing falls in adults, Ligament Injuries in the Knee (DC), Degenerative disc disease - ED discharge instructions Additional Instructions: Followup with your Ortho group for probable knee injury and lumbar disc disease. There could also be other undetected injuries form your fall so f/u is important and to return or see Dr meantime if other symptom occur. followup also for your blood pressure and a trace of blood in urine.
[2025-07-20 00:37] LABS: BASOPHIL % 1.5 % (0.2-1.2); Basophil (Absolute #) 0.08 x10^3/uL (0.01-0.08); Eosinophil (Absolute #) 0.22 x10^3/uL (0.04-0.54); Hematocrit 42.2 % (40.1-51.0); Hemoglobin 14.6 g/dL (13.7-17.5); IMMATURE GRAN # 0.01 x10^3u/L (0.001-0.031); IMMATURE GRAN % 0.2 % (0.001-0.429); Lymphocyte (Absolute #) 1.96 x10^3/uL (1.32-3.57); Mean Corpuscular Hemoglobin 29.5 pg (25.7-32.2); Mean Corpuscular Hgb Concent. 34.6 g/dL (32.3-36.5); Monocyte (Absolute #) 0.53 x10^3/uL (0.30-0.82); NUCLEATED RBC # 0.00 x10^3u/L (0.00-0.012); NUCLEATED RBC % 0.0 % (0.00-0.2); Platelet Count 219 x10^3/uL (163-337); Red Blood Count 4.95 x10^6/uL (4.63-6.08); White Blood Count 5.3 x10^3/uL (4.23-9.07)
[2025-07-20 01:32] LABS: Glucose, Urine Negative (Negative); Protein,Urine Dip Trace (Negative)
[2025-07-20 01:33] LABS: WBC 0-2 /HPF (0-5)
--- NOTE | 2025-07-20 01:35 | XRAY ---
CLINICAL HISTORY: fell on stairs with lumbar pain COMPARISON: None. TECHNIQUE: Multiple contiguous axial images were obtained through the lumbar spine without IV contrast. Sagittal and coronal reformatted images were obtained from the axial data. CT scan was performed according to ALARA (as low as reasonable achievable). FINDINGS: The normal lordotic curvature of the lumbar spine is maintained. Lumbar vertebral bodies are maintained in height and alignment. No vertebral destructive changes are seen. T11-T12: Evaluated on sagittal images only. No disc bulge, canal stenosis or neuroforaminal narrowing. Subarticular recesses are patent. T12-L1: Evaluated on sagittal images only. No disc bulge, canal stenosis or neuroforaminal narrowing. Subarticular recesses are patent. L1-L2: No disc bulge, canal stenosis or neuroforaminal narrowing. Subarticular recesses are patent. L2-L3, L3-L4, L4-L5 and L5-S1 intervertebral discs show mild diffuse bulges indenting thecal sac with mild narrowing of inferior recesses of bilateral neural foramina. Paravertebral soft tissues are unremarkable. IMPRESSION: 1. Mild lumbar spondylosis. 2. No obvious fracture or listhesis seen in this evaluation. Electronically Signed by: North Ramirez MD. (07/20/2025 01:33:47 EDT)
--- NOTE | 2025-07-20 01:35 | XRAY ---
CLINICAL HISTORY: fell on stairs with lumbar pain and COMPARISON: None. TECHNIQUE: Contiguous axial CT images of pelvis were obtained without intravenous contrast. Coronal and sagittal reconstructions were likewise performed and indicated to increase the sensitivity for detecting clinically relevant pathology. CT scan was performed according to ALARA (as low as reasonable achievable). FINDINGS: No acute fracture or dislocation. No destructive osseous lesion. The visualized muscles and tendons appear grossly unremarkable. No cortical destruction to suggest osteomyelitis. No abscess formation. No significant joint effusion. There are no soft tissue masses. Normal subcutaneous adipose space. IMPRESSION: No obvious fracture seen in this evaluation. Electronically Signed by: North Ramirez MD. (07/20/2025 01:33:01 EDT)
--- NOTE | 2025-07-20 01:37 | XRAY ---
CLINICAL HISTORY: right knee pain after fall COMPARISON: None. TECHNIQUE: Contiguous axial CT images of right knee were obtained without intravenous contrast. Coronal and sagittal reconstructions were likewise performed and indicated to increase the sensitivity for detecting clinically relevant pathology. CT scan was performed according to ALARA (as low as reasonable achievable). FINDINGS: No acute fracture or dislocation. No destructive osseous lesion. The visualized muscles and tendons appear grossly unremarkable. No cortical destruction to suggest osteomyelitis. No abscess formation. No significant joint effusion. A well defined hypoattenuating cyst measuring 35 x 17 x 48mm is seen in the popliteal fossa region. Normal subcutaneous adipose space. IMPRESSION: 1. No obvious fracture seen in visualised bones. 2. Uncomplicated Lopez's cyst. Electronically Signed by: North Ramirez MD. (07/20/2025 01:36:26 EDT)
[2025-07-20 02:18] VITALS: RESP 17
[2025-07-20 02:22] VITALS: BP 122/90; PULSE 61; O2SAT 98
== END 2025-07-20 02:23 | disposition home or self-care (01) ==
LOC: ED 23:15
DX: M71.21 Synovial cyst of popliteal space [Baker], right knee (principal); S30.0XXA Contusion of lower back and pelvis, initial encounter; S89.91XA Unspecified injury of right lower leg, initial encounter; W10.8XXA Fall (on) (from) other stairs and steps, initial encounter; Y92.007 Garden or yard of unspecified non-institutional (private) residence as the place of occurrence of the external cause; Z79.02 Long term (current) use of antithrombotics/antiplatelets; Z79.899 Other long term (current) drug therapy; Z72.0 Tobacco use